=== PATIENT | female | born 1950 | race Caucasian/White ===

== ENCOUNTER 2018-04-23 16:47 | Emergency (ER) | payer MEDICARE ==
[2018-04-23 21:49] LABS: KETONE, URINE AUTO RFX NEGATIVE (NEGATIVE); LEUKOCYTE ESTERASE UR AUTO RFX NEGATIVE (NEGATIVE); NITRITE, URINE AUTO RFX NEGATIVE (NEGATIVE); RBC, URINE AUTO RFX 5 /HPF (0-3); SPECIFIC GRAVITY UR AUTO RFX 1.008 (1.002-1.035); SQUAM EPITHELIAL CELL UR AURFX 0 /HPF (0-6); WBC, URINE AUTO RFX 4 /HPF (0-3)
[2018-04-23] MEDS: SIMETHICONE 80 MG CHEW TAB PO (21:55)
[2018-04-23] MEDS: FLEET OIL RETENTION ENEMA PR (21:58)
[2018-04-23] MEDS: MAGNESIUM CITRATE 300 ML BTL PO (23:30)
== END 2018-04-23 23:44 | disposition home or self-care (01) ==
LOC: M ED 16:47
DX: K59.00 Constipation, unspecified (principal); I10 Essential (primary) hypertension; I48.91 Unspecified atrial fibrillation; E78.5 Hyperlipidemia, unspecified; Z79.899 Other long term (current) drug therapy; Z79.01 Long term (current) use of anticoagulants; Z87.891 Personal history of nicotine dependence
CPT/HCPCS: 74021

== ENCOUNTER 2018-10-29 14:29 | Emergency (ER) | payer MEDICARE ==
[2018-10-29 15:06] LABS: VENOUS BASE EXCESS 1.2 (-2.0-2.0); VENOUS HCO3 24.6 MEQ/L (23.0-27.0); VENOUS O2 SATURATION 98.1 % (60.0-80.0); VENOUS PARTIAL PRESSURE CO2 35.1 mmHg (38.0-50.0); VENOUS PARTIAL PRESSURE O2 94.6 mmHg (30.0-50.0); VENOUS PH 7.463 UNITS (7.330-7.430); VENOUS STANDARD HCO3 25.6 MEQ/L; VENOUS TOTAL CO2 25.6 MEQ/L (24.0-28.0)
[2018-10-29 15:20] LABS: BASO # 0.1 10^3/uL (0.0-0.2); BASO % 0.7 % (0.0-1.0); EOS # 0.1 10^3/uL (0.0-0.50); EOS % 0.8 % (0.0-3.0); HEMATOCRIT 41.5 % (36.0-47.0); HEMOGLOBIN 13.7 g/dl (12.0-15.5); IMMATURE GRANULOCYTE % 0.5 % (0-3.0); MEAN CORPUSCULAR HEMOGLOBIN 28.4 pg (27.0-33.0); MEAN CORPUSCULAR VOLUME 86.1 fl (80.0-96.0); MONO # 0.6 10^3/uL (0.0-0.8); MONO % 7.2 % (0.0-5.0); NEUTROPHILS # 6.7 10^3/uL (1.8-7.7); NEUTROPHILS % 78.8 % (36.0-66.0); PLATELET COUNT, AUTOMATED 263 10^3/uL (150-450); RED BLOOD COUNT 4.82 10^6/uL (4.00-5.40); RED CELL DISTRIBUTION WIDTH 13.4 % (11.5-14.5); WHITE BLOOD COUNT 8.5 10^3/uL (4.0-10.0)
[2018-10-29] MEDS: NS 1,000 ML IV (15:36)
[2018-10-29 15:45] LABS: ALBUMIN 3.7 GM/DL (3.2-5.2); ALBUMIN/GLOBULIN RATIO 1.12 (1.00-1.93); ALKALINE PHOSPHATASE 91 U/L (45-117); ALT/SGPT 24 U/L (12-78); ANION GAP 10 MEQ/L (8-16); AST/SGOT 15 U/L (7-37); BILIRUBIN,DIRECT < 0.1 MG/DL (0.0-0.2); BILIRUBIN,TOTAL 0.4 MG/DL (0.2-1.0); BLOOD UREA NITROGEN 15 MG/DL (7-18); CARBON DIOXIDE LEVEL 24 MEQ/L (21-32); CHLORIDE LEVEL 106 MEQ/L (98-107); CPK CREATINE PHOSPHOKINASE 58 U/L (26-192); CREATININE FOR GFR 0.72 MG/DL (0.55-1.30); GLOMERULAR FILTRATION RATE > 60.0 (>45); GLUCOSE, FASTING 133 MG/DL (70-100); LIPASE 119 U/L (73-393); POTASSIUM SERUM 3.7 MEQ/L (3.5-5.1); SODIUM LEVEL 140 MEQ/L (136-145); TROPONIN I < 0.02 NG/ML (< 0.10)
[2018-10-29 15:51] LABS: ESTIMATED AVERAGE GLUCOSE 108 MG/DL (60-110); HEMOGLOBIN A1c 5.4 %; MB/CK RELATIVE INDEX 3.28 (< OR =4); NT-PRO BNP 472 PG/ML (<125)
[2018-10-29 15:56] LABS: KETONE, URINE AUTO RFX NEGATIVE (NEGATIVE); LEUKOCYTE ESTERASE UR AUTO RFX NEGATIVE (NEGATIVE); MUCUS, URINE RFX SMALL (NEGATIVE); NITRITE, URINE AUTO RFX NEGATIVE (NEGATIVE); RBC, URINE AUTO RFX 4 /HPF (0-3); SQUAM EPITHELIAL CELL UR AURFX 0 /HPF (0-6); WBC, URINE AUTO RFX 1 /HPF (0-3)
[2018-10-29 15:57] LABS: ETHYL ALCOHOL (ETHANOL) 0.003 % (0.000-0.010)
[2018-10-29 16:09] LABS: AMPHETAMINES LEVEL URINE NEGATIVE (NEGATIVE); BARBITURATES URINE NEGATIVE (NEGATIVE); BENZODIAZEPINES URINE NEGATIVE (NEGATIVE); CANNABINOIDS URINE NEGATIVE (NEGATIVE); COCAINE METABOLITE URINE NEGATIVE (NEGATIVE); METHADONE URINE NEGATIVE (NEGATIVE); OPIATES URINE POSITIVE (NEGATIVE); PHENCYCLIDINE URINE NEGATIVE (NEGATIVE)
== END 2018-10-29 18:12 | disposition home or self-care (01) ==
LOC: M ED 14:29
DX: I95.1 Orthostatic hypotension (principal); E86.0 Dehydration; I48.91 Unspecified atrial fibrillation; I10 Essential (primary) hypertension; D64.9 Anemia, unspecified; E78.00 Pure hypercholesterolemia, unspecified; I73.9 Peripheral vascular disease, unspecified; Z79.01 Long term (current) use of anticoagulants; Z79.899 Other long term (current) drug therapy
CPT/HCPCS: 93005

== ENCOUNTER 2019-01-25 16:24 | Emergency (ER) | payer MEDICARE ==
[~2019-01-25] VITALS: Ht 165.1 cm; Wt 78.6 kg
[~2019-01-25 16:24] MED LIST: ACET1TAB16 PO; CART120C PO; CLON0.5T8 PO; COLA100C5 PO; ELIQ5TAB PO; FERR325T3 PO; FLUO20CA19; PRAV10TA4 PO; TRAM50TA2 PO
[2019-01-25] MEDS ORDERED: IBUPROFEN 800 MG TAB PO ONE (17:00)
[2019-01-25] MEDS ORDERED: NS 1,000 ML IV ONE (17:00)
[2019-01-25] MEDS ORDERED: ACETAMINOPHEN 325 MG TAB PO ONE (17:00)
--- NOTE | 2019-01-25 17:11 | REP ---
Clinical: Headache . Findings: Age-related atrophy and microvascular ischemic changes are appreciated. The ventricles and sulci are symmetric. Prajapati-white differentiation is maintained. There is no evidence for acute intracranial hemorrhage, mass/mass effect, pathology or infarction. No extra-axial fluid collection. Calvarium is intact. Paranasal sinuses and mastoid air cells are clear. Impression: Age related atrophy and microvascular ischemic changes. No acute intracranial hemorrhage, infarction, or mass/mass effect. Electronically Signed by Chaparro Jean Baptiste MD 01/25/2019 05:03 P
--- NOTE | 2019-01-25 17:17 | REP ---
Clinical: Systemic inflammatory response syndrome . Comparison: 10/12/2016 . Technique: AP and lateral. Findings: The mediastinum and cardiac silhouette are normal. The lung rojas are clear and without acute consolidation, effusion, or pneumothorax. The skeletal structures are intact and normal. Impression: 1. No acute cardiopulmonary process. Electronically Signed by Chaparro Jean Baptiste MD 01/25/2019 05:09 P
[2019-01-25 17:37] LABS: BASO # 0.1 10^3/uL (0.0-0.2); BASO % 0.6 % (0.0-1.0); EOS % 0.2 % (0.0-3.0); HEMATOCRIT 40.6 % (36.0-47.0); HEMOGLOBIN 13.4 g/dl (12.0-15.5); LYMPH # 0.4 10^3/uL (1.5-4.5); LYMPH % 3.5 % (24.0-44.0); MEAN CORPUSCULAR HEMOGLOBIN 27.4 pg (27.0-33.0); MONO # 0.6 10^3/uL (0.0-0.8); MONO % 5.5 % (0.0-5.0); NEUTROPHILS # 9.9 10^3/uL (1.8-7.7); NEUTROPHILS % 89.7 % (36.0-66.0); PLATELET COUNT, AUTOMATED 238 10^3/uL (150-450); RED BLOOD COUNT 4.89 10^6/uL (4.00-5.40)
[2019-01-25 18:04] LABS: ALBUMIN 3.6 GM/DL (3.2-5.2); ALT/SGPT 22 U/L (12-78); BILIRUBIN,DIRECT 0.1 MG/DL (0.0-0.2); BILIRUBIN,TOTAL 0.4 MG/DL (0.2-1.0); BLOOD UREA NITROGEN 9 MG/DL (7-18); CARBON DIOXIDE LEVEL 23 MEQ/L (21-32); CHLORIDE LEVEL 105 MEQ/L (98-107); CREATININE FOR GFR 0.63 MG/DL (0.55-1.30); GLOMERULAR FILTRATION RATE > 60.0 (>45); GLUCOSE, FASTING 103 MG/DL (70-100); POTASSIUM SERUM 3.3 MEQ/L (3.5-5.1); SODIUM LEVEL 139 MEQ/L (136-145); TOTAL PROTEIN 7.3 GM/DL (6.4-8.2)
[2019-01-25 18:07] LABS: INFLUENZA A AMPLIFICATION NEGATIVE (NEGATIVE); INFLUENZA B AMPLIFICATION NEGATIVE (NEGATIVE)
[2019-01-25] MEDS ORDERED: LIDOCAINE 2% 5ML JELLY UROJET TOP ONE (18:30)
[2019-01-25] MEDS ORDERED: KETOROLAC 30 MG/ML VIAL (J1885) IV ONE (19:30)
--- NOTE | 2019-01-25 19:31 | ECGEPIP ---
Stationary ECG Study [facility] - ED Test Date: 2019-01-25 Pat Name: EZE SUNG Department: Room: - Gender: F Dross Puller: TC : 1950 Requested By: Justin Abraham Order Number: [id number] Reading MD: Justin Abraham Measurements Intervals [place] Rate: 107 P: 25 [place]: 157 QRS: -42 QRSD: 120 T: 69 QT: 368 QTc: 493 Interpretive Statements SINUS TACHYCARDIA WITH OCCASIONAL VENTRICULAR PREMATURE COMPLEXES MARKED LEFT AXIS DEVIATION MODERATE INTRAVENTRICULAR CONDUCTION DELAY NONSPECIFIC ST & T-WAVE ABNORMALITY BASELINE ARTIFACT AND WANDERING MAY AFFECT READING PROLONGED QTC CW 10/29/18 RATE INCREASED Electronically Signed On 01-25-2019 19:30:35 EST by Justin Abraham
[2019-01-25 20:30] VITALS: BP 132/83
[2019-01-25] MEDS ORDERED: POTASSIUM CHLORIDE 10 MEQ SR TABLET PO ONE (20:30)
[2019-01-25] MEDS ORDERED: IBUPROFEN 600 MG TAB PO ONE (20:30)
== END 2019-01-25 20:52 | disposition home or self-care (01) ==
LOC: EDBD 16:24 → M ED 16:24
DX: R50.9 Fever, unspecified (principal); R09.81 Nasal congestion; R42 Dizziness and giddiness; M79.10 Myalgia, unspecified site; I10 Essential (primary) hypertension; I48.91 Unspecified atrial fibrillation; F41.9 Anxiety disorder, unspecified; M54.9 Dorsalgia, unspecified; Z87.891 Personal history of nicotine dependence; Z79.899 Other long term (current) drug therapy; Z79.01 Long term (current) use of anticoagulants
CPT/HCPCS: 70450; 71046; 80048; 80076; 81001; 83605; 85025; 87040; 87486; 87502; 87581; 87633; 87798; 87880; 93005; 93041; 94760; 96374; 99285; J1885

== ENCOUNTER → 2020-04-24 | Outpatient (CLI) | payer MEDICARE ==
[~2020-04-24] MED LIST changes: +CLON0.5T2 PO; -CLON0.5T8 PO; -FLUO20CA19; +FLUO20CA22
== END ==
LOC: M LAB 09:05
PROVIDERS: ATTEND Family Medicine
DX: I25.10 Atherosclerotic heart disease of native coronary artery without angina pectoris (principal)

== ENCOUNTER 2020-05-09 08:38 | Inpatient (IN) | payer MEDICARE ==
[2020-05-09] VITALS (14 sets, daily range): BP systolic 108–134; BP diastolic 57–74
[~2020-05-09] VITALS: Ht 162.6 cm; Wt 75.1 kg
[2020-05-09] MEDS ORDERED: ONDANSETRON 4MG/2ML VIAL IV ONE (09:00)
[2020-05-09] MEDS ORDERED: NS 1,000 ML IV ONE (09:00)
[2020-05-09] MEDS ORDERED: PANTOPRAZOLE 40MG VIAL (C9113 PER 1) IV ONE (09:00)
[2020-05-09] MEDS ORDERED: ISOVUE-370 76% 100ML VIAL As Ordered ONE (09:20)
[2020-05-09] MEDS: MORPHINE 2 MG/ML 1ML VIAL (J2270) IV PRN ×2 (09:25→09:30)
[2020-05-09 09:29] LABS: BASO # 0.1 10^3/uL (0.0-0.2); BASO % 0.3 % (0.0-1.0); EOS # 0.1 10^3/uL (0.0-0.5); EOS % 0.8 % (0.0-3.0); LYMPH % 5.5 % (24.0-44.0); MEAN CORPUSCULAR HEMOGLOBIN 23.4 pg (27.0-33.0); MEAN CORPUSCULAR HGB CONC 29.4 g/dl (32.0-36.5); MEAN CORPUSCULAR VOLUME 79.4 fl (80.0-96.0); MONO # 1.2 10^3/uL (0.0-0.8); MONO % 6.3 % (0.0-5.0); NEUTROPHILS # 15.2 10^3/uL (1.5-8.5); NEUTROPHILS % 83.1 % (36.0-66.0); PLATELET COUNT, AUTOMATED 646 10^3/uL (150-450); RED BLOOD COUNT 2.14 10^6/uL (4.00-5.40); WHITE BLOOD COUNT 18.3 10^3/uL (4.0-10.0)
[2020-05-09 09:40] LABS: INR 1.23; PARTIAL THROMBOPLASTIN TIME 30.8 SECONDS (25.0-38.4); PROTHROMBIN TIME 15.2 SECONDS (11.8-14.0)
[2020-05-09 10:06] LABS: ALT/SGPT 68 U/L (12-78); AMYLASE 34 U/L (25-115); BILIRUBIN,DIRECT < 0.1 MG/DL (0.0-0.2); BILIRUBIN,TOTAL 0.3 MG/DL (0.2-1.0); CK-MB VALUE MASS < 1.0 NG/ML (<3.6); CPK CREATINE PHOSPHOKINASE 19 U/L (26-192); LIPASE 138 U/L (73-393); MB/CK RELATIVE INDEX 5.26 (< OR =4); TOTAL PROTEIN 6.1 GM/DL (6.4-8.2); TROPONIN I < 0.02 NG/ML (< 0.10)
--- NOTE | 2020-05-09 10:15 | REP ---
CT abdomen/pelvis: 05/09/2020. Indication: Abdominal pain. Technique: Axial images of the abdomen and pelvis were performed following IV iodinated contrast with coronal and sagittal reconstructions provided. Findings: There is a partially calcified mass within the right lower quadrant which measures 2.5 by 2.8 x 1.8 cm is somewhat irregular borders. No additional solid abnormal soft tissue masses are present. No abnormal fluid collections are present. There is no evidence of bowel obstruction. Left-sided pleural effusion is present. Diffuse atherosclerotic disease is noted. No focal abnormalities of the spleen, liver, adrenal glands or kidneys are present. Diverticulosis is noted without diverticulitis. Impression: Partially calcified mesenteric mass within the right lower quadrant as described. Considerations include dermoid, partially calcified vascular malformation, lymphoma had additional etiologies. Correlation with previous imaging would be helpful. Diverticulosis without diverticulitis. Atherosclerotic disease without high-grade stenosis detected by this technique. Left-sided pleural effusion. Electronically Signed by Giuseppe Julian DO 05/09/2020 10:06 A
[2020-05-09] MEDS ORDERED: DILT120C89 PO (11:00)
[2020-05-09] MEDS ORDERED: VITMTA PO (11:00)
[2020-05-09] MEDS ORDERED: CAL-TAB2 PO (11:00)
[2020-05-09] MEDS ORDERED: APAP325T4 PO (11:00)
[2020-05-09] MEDS ORDERED: CLON1TAB8 PO (11:00)
[2020-05-09] MEDS ORDERED: DOCU100C16 PO (11:00)
[2020-05-09] MEDS ORDERED: PRAV20TA2 PO (11:00)
[2020-05-09] MEDS ORDERED: GLUCOSE 4GM CHEW TABLET PO PRN (11:45)
[2020-05-09] MEDS ORDERED: MORPHINE 4 MG/ML 1ML VIAL/SYRINGE (J2270) IV PRN (11:45)
[2020-05-09] MEDS ORDERED: DEXTROSE 50% 50 ML SYRINGE IV PRN (11:45)
[2020-05-09] MEDS ORDERED: ONDANSETRON 4MG/2ML VIAL IV PRN (11:45)
[2020-05-09] MEDS ORDERED: GLUCAGON INJ 1MG VIAL SC PRN (11:45)
--- NOTE | 2020-05-09 11:51 | HPEPDOC ---
General Date of Admission Date of Service: May 09, 2020 Chief Complaint The patient is a 69-year-old female admitted with a reason for visit of Weaknesss. Source: Patient Exam Limitations: No limitations Timing/Duration: Other (unknown time.) Severity: Other (not applicable) Associated Symptoms: Other (. Generalized weakness) History of Present Illness This is a 69 years old, obese, white female who according to patient has lived all over the country from [place] to [place], [place], etc. has a past medical history of atrial fibrillation, hypertension, diet-controlled diabetes mellitus, anemia, has been experiencing generalized tiredness and fatigue since several days now. She started having mid abdominal pain which is a 6/10, nonradiating, persistent not s associated with nausea, vomiting, not improve with any medication and not exacerbated by food intake, but was associated with loose bowel movements since last 3-4 days. Denies chest pain, shortness of breath. On further investigation, she was found to have a heme positive stools and hemoglobin of 5. Patient also had a unlikely hernia which was reduced by Dr. Vo in ED also found to have a mesenteric mass of unknown etiology as well. Patient is scheduled for EGD and colonoscopy by Dr. Ruvalcaba at 2:30 PM tomorrow Home Medications Scheduled Calcium/Magnesium/Zinc (Tkvdxrr-Qyxnfdrpe-Kamv Tablet) 1 Each Tablet, 1 TAB PO QHS, (Reported) Clonazepam (Clonazepam) 1 Mg Tablet, 0.5 MG PO QID, (Reported) Ferrous Sulfate (Ferrous Sulfate) 325 Mg Tab, 325 MG PO BID, (Reported) Multivitamins (Thera M Plus Tablet) 1 Each Tablet, 1 TAB PO DAILY, (Reported) Pravastatin Sodium (Pravastatin Sodium) 20 Mg Tablet, 20 MG PO DAILY, (Reported) dilTIAZem HCl (Diltiazem 24Hr Cd) 120 Mg Cap.er.24h, 120 MG PO DAILY, (Reported) Scheduled PRN Acetaminophen (Acetaminophen) 325 Mg Tablet, 650 MG PO Q6H PRN for BACK PAIN, (Reported) Acetaminophen with Codeine (Acetaminophen-Cod #3 Tablet) 1 Tab Tab, 0.5 TAB PO Q6H PRN for PAIN, (Reported) Docusate Sodium (Docusate Sodium) 100 Mg Capsule, 100 MG PO BID PRN for CONSTIPATION, (Reported) Allergies Coded Allergies: No Known Allergies (Verified Allergy, Unknown, 05/09/20) Past Medical History Medical History A. fib, hypertension, diet-controlled diabetes mellitus, constipation, anxiety and hyperlipidemia Surgical History Tonsillectomy Family History Family history reviewed, is noncontributory Social History * Smoker: Denies Alcohol: Denies Drugs: denies A-FIB/CHADSVASC A-FIB History Current/History of A-Fib/PAF?: Yes Current PO Anticoag Therapy: No Review of Systems Constitutional: Reports: Weakness, Fatigue Eyes: Denies: Pain, Vision change, Conjunctivae inflammation, Eyelid inflammation, Redness, Other ENT: Denies: Head Aches, Ear Pain, Dysphagia, Sinus Congestion, Post Nasal Drip, Sore Throat, Epistaxis, Other Symptoms Skin: Denies: Rash, Lesions, Jaundice, Bruising, Itching, Dry, Breakdown, Nail Changes, Other Pulmonary: Denies: Dyspnea, Cough, Pleuritic Chest Pain, Other Symptoms Cardiovascular: Denies: Chest Pain, Palpitations, Orthopnea, Paroxysmal Noc. Dyspnea, Edema, Lt Headedness, Other Symptoms Gastrointestinal: Reports: Abdominal Pain Genitourinary: Denies: Dysuria, Frequency, Incontinence, Hematuria, Retention, Other Symptoms Hematologic: Denies: Bruising, Bleeding Excessively, Petecchia, Purpura, Enlarged Lymph Nodes, Other Hematologic Endocrine: Denies: Polydipsia, Polyphagia, Polyuria, Heat Intolerance, Cold Intolerance, Other Endocrine Sx Musculoskeletal: Denies: Neck Pain, Back Pain, Shoulder Pain, Arm Pain, Hand Pain, Leg Pain, Foot Pain, Joint Pain, Muscle Pain, Spasms, Other Symptoms Neurological: Denies: Weakness, Numbness, Incoordination, Change in speech, Confusion, Seizures, Other Symptoms Psych: Denies: Mood Normal, Anxiety, Depression, Memory Issues, Thoughts of Self Harm, Anger, Thoughts of Harming Other, Other Psych Physical Examination General Exam: Positive: Alert, Cooperative Eye Exam: Positive: PERRLA, Conjunctiva & lids normal ENT Exam: Positive: Atraumatic, Mucous membr. moist/pink Neck Exam: Positive: Supple Chest Exam: Positive: Clear to auscultation, Normal air movement Heart Exam: Positive: Rate Normal, Normal S1, Normal S2 Abdomen Exam: Positive: Normal bowel sounds, Soft, Tenderness (. No tenderness on the physical examination. No rebound tenderness as well) Extremity Exam: Positive: Normal pulses Skin Exam: Positive: Nl turgor and temperature, Breakdown Neuro Exam: Positive: Strength at 5/5 X4 ext, Cranial Nerves 3-12 NL Psych Exam: Positive: Mood NL, Oriented x 3 Vital Signs Vital Signs Date Time Temp Pulse Resp B/P (MAP) Pulse Ox O2 Delivery O2 Flow Rate FiO2 05/09/20 11:19 100.4 100 22 108/59 94 Nasal Cannula 2.0 Laboratory Data Labs 24H Laboratory Tests 2 05/09/20 09:09: Immature Granulocyte % (Auto) 4.0H, Neutrophils (%) (Auto) 83.1H, Lymphocytes (%) (Auto) 5.5L, Monocytes (%) (Auto) 6.3H, Eosinophils (%) (Auto) 0.8, Basop hils (%) (Auto) 0.3, Neutrophils # (Auto) 15.2H, Lymphocytes # (Auto) 1.0L, Monocytes # (Auto) 1.2H, Eosinophils # (Auto) 0.1, Basophils # (Auto) 0.1, Nucleated Red Blood Cells % (auto) 0.4H, Prothrombin Time 15.2H, Prothromb Time International Ratio 1.23, Activated Partial Thromboplast Time 30.8, Lactic Acid Level 1.5, Total Bilirubin 0.3, Direct Bilirubin < 0.1, Aspartate Amino Transf (AST/SGOT) 45H, Alanine Aminotransferase (ALT/SGPT) 68, Alkaline Phosphatase 140H, Total Creatine Kinase 19L, Creatine Kinase MB < 1.0, Creatine Kinase MB Relative Index 5.26H, Troponin I < 0.02, Total Protein 6.1L, Albumin 2.0L, Albumin/Globulin Ratio 0.5L, Amylase Level 34, Lipase 138 05/09/20 09:13: POC Glucose (Misc Panel) 143H, POC Sodium (Misc Panel) 135L, POC Potassium (Misc Panel) 4.1, POC Chloride (Misc Panel) 100, POC Total CO2 (Misc Panel) 23.0, POC Blood Urea Nitrogen (Misc Panel 17, POC Ionized Calcium (Misc Panel) 4.6, POC Creatinine (Misc Panel) 0.4L, POC Hematocrit (Misc Panel) 17.0L CBC/BMP Laboratory Tests 05/09/20 09:09 Microbiology Microbiology 05/09/20 Blood Culture, Received Pending 05/09/20 Blood Culture, Received Pending Problems (1) Symptomatic anemia Status: Acute Problem Text: This is a 69 years old, obese, white female who according to patient has lived all over the country from [place] to [place], [place], etc. has a past medical history of atrial fibrillation, hypertension, diet-controlled diabetes mellitus, anemia, has been experiencing generalized tiredness and fatigue since several days now. She started having mid abdominal pain which is a 6/10, nonradiating, persistent not s associated with nausea, vomiting, not improve with any medication and not exacerbated by food intake, but was associated with loose bowel movements since last 3-4 days. Denies chest pain, shortness of breath. On further investigation, she was found to have a heme positive stools and hemoglobin of 5. Patient also had a unlikely hernia which was reduced by Dr. Vo in ED also found to have a mesenteric mass of unknown etiology as well. Patient is scheduled for EGD and colonoscopy by Dr. Ruvalcaba at 2:30 PM tomorrow Admit patient to PCU with monitoring analyst Patient is receiving transfusion of 1 unit of PRBC in ED , I will transfuse HER-2 more units of PRBC. The total number of 3 units of PRBC today Hemoglobin/hematocrit posttransfusion Further workup including EGD and colonoscopy tomorrow at 2:30 PM and OR by Dr. Ruvalcaba DVT prophylaxis with bilateral SCDs Hold aspirin Diet nothing by mouth except sips and chips Activity bed rest with bathroom privileges (2) Abdominal pain Status: Acute Problem Text: Abdominal pain, probably has multiple etiologies Including mesenteric mass of unknown etiology, possibly a dermoid cyst or calc ified vascular malformation or lymphoma Also she has umbilicus hernia which was reduced by Dr. Vo in ED, which contains only fat , But she does also have a high white count of 18.3, so infectious etiology cannot be ruled out IV fluids normal saline at 70 mL per hour Zosyn 3.375 mg IV every 6 hours Morphine sulfate 4 mg IV every 4 hours when necessary for pain Zofran 4 mg IV every 4 hours when necessary for nausea, vomiting Toradol 15 mg IV every 6 hours when necessary for fever and pain Nothing by mouth except sips and chips 1 gallon of GoLYTELY to be given today per GI prep Scheduled for EGD and colonoscopy in in a.m. Further, as per surgical recommendations (3) Mesenteric mass Status: Acute Problem Text: Mesenteric mass visible on CT of the abdomen and pelvis which shows partially calcified mesenteric mass in the right lower quadrant which could be dermoid cyst, calcified vascular malformation lymphoma, etc. Surgical consult has been called and I discussed the case with Dr. Ruvalcaba over the phone Patient initially will get EGD and colonoscopy secondary to severe edema and then further workup will be initiated for mesenteric mass (4) Umbilical hernia Status: Acute Problem Text: Reduced by Dr. Vo in ED CT shows possible faint and umbilicus hernia , We'll closely monitor clinically (5) Diabetes mellitus Status: Chronic Problem Text: And into the patient she has a diet-controlled diabetes mellitus Fingerstick blood sugar every 6 hours with coverage Will order hemoglobin A1c as well (6) Chronic a-fib Status: Chronic Problem Text: Chronic A. fib, rate controlled with Cardizem and on aspirin for anticoagulation Hold both as patient is preop for procedures in a.m. Patient's ventricular rate is under well control. If needed will start IV beta blockers , But hold aspirin and Cardizem by mouth at the present time (7) Hyperlipemia Status: Chronic Problem Text: Hold by mouth meds (8) HTN (hypertension) Status: Chronic Problem Text: Blood pressure is under well control at the present time and will hold her by mouth meds For needed. Will start IV beta blockers Plan / VTE VTE Prophylaxis Ordered?: Yes ADRIÁN SANCHEZ MD May 09, 2020 11:51
[2020-05-09] MEDS: NS 1,000 ML IV SCH (12:23)
[2020-05-09] MEDS: KETOROLAC 30 MG/ML 1ML VIAL IV SCH ×2 (12:23→19:00)
[2020-05-09] MEDS: PIPERACILLIN/TAZOBACTAM SOD 3.375 GM in D5W MINI-BAG PLUS 50 ML IV SCH ×2 (12:23→18:59)
[2020-05-09] MEDS: HumaLOG INSULIN (NovoLOG) PER UNIT SC SCH ×2 (12:43→18:00)
[2020-05-09] MEDS ORDERED: GOLYTELY SOLN 4000 ML BTL PO ONE (15:00)
[2020-05-09] MEDS: LORazepam 2 MG/ML VIAL IV PRN (15:46)
--- NOTE | 2020-05-09 16:11 | ECGEPIP ---
[facility] - ED Test Date: 2020-05-09 Pat Name: EZE SUNG Department: Room: - Gender: Female Health Science Writer: lo : 1950 Requested By: KAREN Galicia Order Number: [id number] Reading MD: Adenike Fritz Measurements Intervals [place] Rate: 114 P: 37 IA: 143 QRS: -10 QRSD: 106 T: -15 QT: 315 QTc: 435 Interpretive Statements SINUS TACHYCARDIA NONSPECIFIC ST & T-WAVE ABNORMALITY ABNORMAL RHYTHM ECG INCREASED RATE 01/25/19 Electronically Signed on 05-09-2020 16:11:02 EDT by Adenike Fritz
[2020-05-09 16:51] LABS: HEMATOCRIT 22.6 % (36.0-47.0)
[2020-05-09 18:01] LABS: HEMOGLOBIN 6.9 g/dl (12.0-15.5)
[2020-05-09] MEDS: PANTOPRAZOLE 40MG VIAL (C9113 PER 1) IV SCH (20:48)
[2020-05-09 22:27] LABS: HEMATOCRIT 23.7 % (36.0-47.0); HEMOGLOBIN 7.4 g/dl (12.0-15.5)
[2020-05-10] VITALS (14 sets, daily range): BP systolic 110–136; BP diastolic 57–92
[2020-05-10] MEDS: KETOROLAC 30 MG/ML 1ML VIAL IV SCH ×4 (00:23→20:20)
[2020-05-10] MEDS: PIPERACILLIN/TAZOBACTAM SOD 3.375 GM in D5W MINI-BAG PLUS 50 ML IV SCH ×4 (00:23→20:19)
[2020-05-10 05:09] LABS: HEMATOCRIT 23.7 % (36.0-47.0); HEMOGLOBIN 7.2 g/dl (12.0-15.5); MEAN CORPUSCULAR HEMOGLOBIN 25.2 pg (27.0-33.0); MEAN CORPUSCULAR HGB CONC 30.4 g/dl (32.0-36.5); MEAN CORPUSCULAR VOLUME 82.9 fl (80.0-96.0); RED BLOOD COUNT 2.86 10^6/uL (4.00-5.40); WHITE BLOOD COUNT 12.4 10^3/uL (4.0-10.0)
[2020-05-10 05:12] LABS: PLATELET COUNT, AUTOMATED 436 10^3/uL (150-450)
[2020-05-10 05:32] LABS: HEMOGLOBIN A1c 6.3 %
[2020-05-10 05:46] LABS: ALBUMIN 1.9 GM/DL (3.2-5.2); ALT/SGPT 61 U/L (12-78); BILIRUBIN,TOTAL 0.7 MG/DL (0.2-1.0); BLOOD UREA NITROGEN 9 MG/DL (7-18); CALCIUM LEVEL 7.7 MG/DL (8.8-10.2); CARBON DIOXIDE LEVEL 23 MEQ/L (21-32); CHLORIDE LEVEL 107 MEQ/L (98-107); CREATININE FOR GFR 0.49 MG/DL (0.55-1.30); GLOMERULAR FILTRATION RATE > 60.0 (>45); GLUCOSE, FASTING 98 MG/DL (70-100); SODIUM LEVEL 141 MEQ/L (136-145); TOTAL PROTEIN 5.9 GM/DL (6.4-8.2)
[2020-05-10] MEDS: HumaLOG INSULIN (NovoLOG) PER UNIT SC SCH ×4 (06:41→18:00)
[2020-05-10] MEDS ORDERED: LORazepam 2 MG/ML VIAL As Ordered ONE ×2 (07:58→17:32)
[2020-05-10] MEDS: LORazepam 2 MG/ML VIAL IV PRN ×2 (08:05→17:36)
[2020-05-10] MEDS: NS 1,000 ML IV SCH ×2 (08:06→14:52)
--- NOTE | 2020-05-10 08:26 | CR ---
DATE OF CONSULTATION: 05/09/2020 REASON FOR CONSULTATION: Gastrointestinal (GI) bleed. HISTORY OF PRESENT ILLNESS: The patient is a 69-year-old female who presented emergency room with a chief complaint of generalized weakness. She claims that this has been going on for the past couple of weeks, but over the past 3-4 days her weakness has been getting progressively worse. She also in the last day or two started to have some abdominal pain around her umbilicus. She came into emergency room for evaluation and was found to have severe anemia as well as some melanotic stools, but she denies any nausea or vomiting. No fevers or chills. Just mainly generalized weakness and tiredness. The CT did show a slight umbilical hernia that was reduced by the emergency room (ER) physician and she says that that pain is much improved. The CT also showed a mass in her mesentery that she has not known about before. She has never had an upper endoscopy before. She denies any problems with heartburn or acid reflux. She has never noticed blood in her stool. She normally does have darker stools due to her iron supplements, but no other bright red bleeding that she has ever noticed. She has had prior colonoscopy a couple years ago that was normal. Currently, she has already received one unit of blood, the second unit is running and she still feels very weak. PAST MEDICAL HISTORY: 1. Atrial fibrillation. 2. Hypertension. 3. Diabetes. 4. Constipation. 5. Anxiety. 6. Hyperlipidemia. PAST SURGICAL HISTORY: Tonsillectomy. FAMILY HISTORY: Noncontributory. REVIEW OF SYSTEMS: Pertinent positives and negatives as stated in the history of present illness (HPI). ALLERGIES: None. MEDICATIONS: Please see med record. PHYSICAL EXAMINATION: General: Alert and oriented x3. No acute distress. Vitals: Temperature 98.2, pulse 98, respirations 22, blood pressure 131/65, pulse oximetry 90% on 2 liters nasal cannula. HEENT: Pupils equally round, react to light and accommodation. Heart: S1, S2. Regular rate and rhythm. Lungs: Lungs clear to auscultation bilaterally. Abdomen: Soft. Slight tenderness periumbilically. No rebounding or rigidity. The hernia is soft. Extremities: No clubbing, cyanosis or edema. LABORATORY DATA: White count 18.3, hemoglobin 5, platelets 646, lactic acid 1.5, sodium 135, potassium 4.1, creatinine 0.4. IMAGING STUDIES: CT of abdomen and pelvis was obtained and shows a partially calcified mesenteric mass of the right lower quadrant. Considerations include possible dermoid, calcified vascular malformation, lymphoma, diverticulosis without diverticulitis, atherosclerotic disease without high grade stenosis. ASSESSMENT/PLAN: The patient is a 69-year-old female with severe blood loss anemia from a GI source, likely upper versus lower. She also has an incidental finding of a mesenteric mass as well as a ventral hernia that was reduced. Recommendation at this time is to prep her overnight and plan for upper and lower endoscopy tomorrow afternoon. She has already been placed on the operating room(OR) schedule. I discussed that with her and she agrees. The risks and benefits of the procedure were discussed and consent will be obtained. As far as the mass in the abdomen, will see what the upper and lower endoscopy show first, then consider further workup for the mass in the near future.
[2020-05-10] MEDS: PANTOPRAZOLE 40MG VIAL (C9113 PER 1) IV SCH ×2 (09:36→21:23)
--- NOTE | 2020-05-10 11:01 | IPNPDOC ---
Text Note Date of Service The patient was seen on 05/10/20. NOTE No acute events overnight. She is going for egd and colonoscopy today. Consent is signed. No changes to H+P. Jesus Ruvalcaba DO VS,Carmelo, I+O VS, Carmelo, I+O Laboratory Tests 05/09/20 16:44 05/09/20 21:57 05/10/20 05:00 Vital Signs Date Time Temp Pulse Resp B/P (MAP) Pulse Ox O2 Delivery O2 Flow Rate FiO2 05/10/20 08:21 97.1 91 20 121/58 (79) 95 Nasal Cannula 2.0 I&O- Last 24 Hours up to 6 AM 05/10/20 06:00 Intake Total 2252 ml Output Total 3000 ml Balance -748 ml DAYA RUVALCABA DO May 10, 2020 11:01
--- NOTE | 2020-05-10 11:09 | IPNPDOC ---
Subjective Date Seen The patient was seen on 05/10/20. Subjective Chief Complaint/HPI Patient is awaiting colonoscopy and an EGD today, she is nothing by mouth at the present time General: Denies: ROS Unobtainable, Chills, Night Sweats, Fatigue, Malaise, Normal Appetite, Other Symptoms Constitutional: Denies: Chills, Fever, Malaise, Night Sweats, Weakness, Fatigue, Weight Loss, Lethargy, Other Pulmonary: Denies: Dyspnea, Cough, Pleuritic Chest Pain, Other Symptoms Cardiovascular: Denies: Chest Pain, Palpitations, Orthopnea, Paroxysmal Noc. Dyspnea, Edema, Lt Headedness, Other Symptoms Gastrointestinal: Reports: Abdominal Pain Genitourinary: Denies: Dysuria, Frequency, Incontinence, Hematuria, Retention, Other Symptoms Hematologic: Denies: Bruising, Bleeding Excessively, Petecchia, Purpura, Enlarged Lymph Nodes, Other Hematologic Musculoskeletal: Denies: Neck Pain, Back Pain, Shoulder Pain, Arm Pain, Hand Pain, Leg Pain, Foot Pain, Joint Pain, Muscle Pain, Spasms, Other Symptoms Objective Physical Examination General Exam: Positive: Alert, Cooperative Eye Exam: Positive: PERRLA, Conjunctiva & lids normal ENT Exam: Positive: Atraumatic, Mucous membr. moist/pink Neck Exam: Positive: Supple Chest Exam: Positive: Clear to auscultation, Normal air movement Heart Exam: Positive: Rate Normal, Normal S1, Normal S2 Abdomen Exam: Positive: Normal bowel sounds, Soft, Tenderness (. No tenderness on the physical examination. No rebound tenderness as well) Extremity Exam: Positive: Normal pulses Skin Exam: Positive: Nl turgor and temperature, Breakdown Neuro Exam: Positive: Strength at 5/5 X4 ext, Cranial Nerves 3-12 NL Psych Exam: Positive: Mood NL, Oriented x 3 Assessment /Plan Problems (1) Symptomatic anemia Status: Acute Problem Text: This is a 69 years old, obese, white female who according to patient has lived all over the country from [place] to [place], [place], etc. has a past medical history of atrial fibrillation, hypertension, diet-controlled diabetes mellitus, anemia, has been experiencing generalized tiredness and fatigue since several days now. She started having mid abdominal pain which is a 6/10, nonradiating, persistent not s associated with nausea, vomiting, not improve with any medication and not exacerbated by food intake, but was associated with loose bowel movements since last 3-4 days. Denies chest pain, shortness of breath. On further investigation, she was found to have a heme positive stools and hemoglobin of 5. Patient also had a unlikely hernia which was reduced by Dr. Vo in ED also found to have a mesenteric mass of unknown etiology as well. Patient admitted to PCU for further care Patient received a total of 3 units of PRBC. Her hemoglobin is 7.2, hematocrit 23.7 today . She is a scheduled for colonoscopy and EGD today by surgery to find the cause for her GI bleed Follow CBC regularly and transfuse as needed , Aspirin on hold Will change activity as tolerated Will restart all her home meds, once the procedures are complete Discussed with Dr. Ruvalcaba yesterday and the plan is to get colonoscopy. EGD done today and then work her up for mesenteric mass. (2) Abdominal pain Status: Acute Problem Text: Abdominal pain, probably has multiple etiologies Including mesenteric mass of unknown etiology, possibly a dermoid cyst or calcified vascular malformation or lymphoma Also she has umbilicus hernia which was reduced by Dr. Vo in ED, which contains only fat , But she does also have a high white count of 18.3, so infectious etiology kb ot be ruled out IV fluids normal saline at 70 mL per hour Zosyn 3.375 mg IV every 6 hours Morphine sulfate 4 mg IV every 4 hours when necessary for pain Zofran 4 mg IV every 4 hours when necessary for nausea, vomiting Toradol 15 mg IV every 6 hours when necessary for fever and pain Nothing by mouth except sips and chips 1 gallon of GoLYTELY was given yesterday Patient is scheduled for EGD and colonoscopy today (3) Mesenteric mass Status: Acute Problem Text: Mesenteric mass visible on CT of the abdomen and pelvis which shows partially calcified mesenteric mass in the right lower quadrant which could be dermoid cyst, calcified vascular malformation lymphoma, etc. Surgical consult has been called and I discussed the case with Dr. Ruvalcaba over the phone Patient initially will get EGD and colonoscopy secondary to severe edema and then further workup will be initiated for mesenteric mass (4) Chronic a-fib Status: Chronic Problem Text: Chronic A. fib, rate controlled with Cardizem and on aspirin for anticoagulation Hold both as patient is preop for procedures in a.m. Patient's ventricular rate is under well control. If needed will start IV beta blockers , But hold aspirin and Cardizem by mouth at the present time. Restart after the procedures (5) HTN (hypertension) Status: Chronic Problem Text: Blood pressure is under well control at the present time and will hold her by mouth meds Patient is on IV beta blockers and will change it to her oral meds after the procedures (6) Hyperlipemia Status: Chronic Problem Text: Hold by mouth meds (7) Umbilical hernia Status: Acute Problem Text: Reduced by Dr. Vo in ED CT shows possible faint and umbilicus hernia , We'll closely monitor clinically (8) Diabetes mellitus Status: Chronic Problem Text: patient she has a diet-controlled diabetes mellitus Fingerstick blood sugar every 6 hours with coverage Patient's hemoglobin A1c is 6.3 Probably need antidiabetic meds on discharge Plan/VTE VTE Prophylaxis Ordered?: Yes VS, I&O, 24H, Fishbone Vital Signs/I&O Vital Signs Date Time Temp Pulse Resp B/P (MAP) Pulse Ox O2 Delivery O2 Flow Rate FiO2 05/10/20 08:21 97.1 91 20 121/58 (79) 95 Nasal Cannula 2.0 I&O- Last 24 Hours up to 6 AM 05/10/20 05:59 Intake Total 2252 ml Output Total 2600 ml Balance -348 ml Laboratory Data 24H LABS Laboratory Tests 2 05/09/20 12:23: Urine Color YELLOW, Urine Appearance CLEAR, Urine pH 5.0, Urine Specific [place] 1.048, Urine Protein NEGATIVE, Urine Glucose (UA) NEGATIVE, Urine Ketones NEGATIVE, Urine Blood 1+H, Urine Nitrite NEGATIVE, Urine Bilirubin NEGATIVE, Urine Urobilinogen 0.2, Urine Leukocyte Esterase NEGATIVE, Urine WBC (Auto) 1, Urine RBC (Auto) 5H, Urine Hyaline Casts (Auto) 0, Urine Bacteria (Auto) NEGATIVE, Urine Squamous Epithelial Cells 1, Urine Mucus (Auto) SMALL, Urine S perm (Auto) 05/09/20 12:34: Bedside Glucose (Misc Panel) 132H 05/09/20 18:19: Bedside Glucose (Misc Panel) 110 05/10/20 00:25: Bedside Glucose (Misc Panel) 100 05/10/20 05:00: Nucleated Red Blood Cells % (auto) 0.8H, Anion Gap 11, Glomerular Filtration Rate > 60.0, Estimated Mean Plasma Glucose 134H, Hemoglobin A1c 6.3, Calcium Level 7.7L, Magnesium Level 2.0, Total Bilirubin 0.7#, Aspartate Amino Transf (AST/SGOT) 43H, Alanine Aminotransferase (ALT/SGPT) 61, Alkaline Phosphatase 127H, Total Protein 5.9L, Albumin 1.9L, Albumin/Globulin Ratio 0.5L, Thyroid Stimulating Hormone (TSH) 1.480 CBC/BMP Laboratory Tests 05/09/20 16:44 05/09/20 21:57 05/10/20 05:00 Microbiology Microbiology 05/10/20 Respiratory Virus Panel (PCR) (SHASHA) - Final, Complete 05/09/20 Blood Culture - Preliminary, Resulted No growth after 24 hours . All specim... 05/09/20 Blood Culture - Preliminary, Resulted No growth after 24 hours . All specim... ADRIÁN SANCHEZ MD May 10, 2020 11:09
[2020-05-10] MEDS ORDERED: propofoL 200 MG/20 ML VIAL As Ordered ONE ×3 (12:03→12:53)
[2020-05-10] MEDS ORDERED: fentaNYL 100 MCG/2 ML INJECTION (J3010) As Ordered ONE (12:03)
[2020-05-10] MEDS ORDERED: LIDOCAINE 2% 100MG/5ML SDV (FOR ANES.) As Ordered ONE (12:22)
[2020-05-10] MEDS ORDERED: EPINEPHrine 1MG/10ML SYRINGE 1.5IN As Ordered ONE (12:25)
--- NOTE | 2020-05-10 13:07 | ROOR ---
Patient Name: Janeth Deras Procedure Date: 05/10/2020 12:13 PM Date of : 1950 Age: 69 Room: [facility], [facility]IN [facility] Gender: Female Note Status: Finalized Procedure: Upper GI endoscopy Indications: Acute post hemorrhagic anemia Providers: DO Yomi Wen MD: 2. Inpatient 2. Inpatient Requesting Provider: Medicines: Propofol per Anesthesia Complications: No immediate complications. Procedure: Pre-Anesthesia Assessment: - Prior to the procedure, a History and Physical was performed, and patient medications and allergies were reviewed. The patient is competent. The risks and benefits of the procedure and the sedation options and risks were discussed with the patient. All questions were answered and informed consent was obtained. Patient identification and proposed procedure were verified by the physician, the nurse, the duty engineer and the cost recovery technician in the endoscopy suite. Mental Status Examination: alert and oriented. Airway Examination: normal oropharyngeal airway and neck mobility. Respiratory Examination: clear to auscultation. CV Examination: normal. Prophylactic Antibiotics: The patient does not require prophylactic antibiotics. Prior Anticoagulants: The patient has taken no previous anticoagulant or antiplatelet agents. ASA Grade Assessment: III - A patient with severe systemic disease. After reviewing the risks and benefits, the patient was deemed in satisfactory condition to undergo the procedure. The anesthesia plan was to use monitored anesthesia care (MAC). Immediately prior to administration of medications, the patient was re-assessed for adequacy to receive sedatives. The heart rate, respiratory rate, oxygen saturations, blood pressure, adequacy of pulmonary ventilation, and response to care were monitored throughout the procedure. The physical status of the patient was re-assessed after the procedure. The Endoscope was introduced through the mouth, and advanced to the third part of duodenum. The upper GI endoscopy was accomplished without difficulty. The patient tolerated the procedure well. Findings: One non-bleeding superficial gastric ulcer with no stigmata of bleeding was found in the prepyloric region of the stomach. A single less than 5 mm angioectasia with bleeding on contact was found in the first portion of the duodenum. Area was unsuccessfully injected with 1 mL of a 1:10,000 solution of epinephrine for hemostasis. To prevent bleeding post-intervention, one hemostatic clip was successfully placed. There was no bleeding at the end of the procedure. The esophagus was normal. Impression: - Non-bleeding gastric ulcer with no stigmata of bleeding. - A single angioectasia in the duodenum. Treatment not successful. Clip was placed. - Normal esophagus. - No specimens collected. Recommendation: - Return [facility] for [facility] care. - Resume regular diet. Kelton Ruvalcaba DO 05/10/2020 1:07:12 PM Electronically signed by Kelton Ruvalcaba DO Number of Addenda: 0 Note Initiated On: 05/10/2020 12:13 PM Estimated Blood Loss: Estimated blood loss was minimal.
--- NOTE | 2020-05-10 13:10 | ROOR ---
Patient Name: Janeth Deras Procedure Date: 05/10/2020 12:11 PM Date of : 1950 Age: 69 Room: [facility] Gender: Female Note Status: Finalized Procedure: Colonoscopy Indications: Acute post hemorrhagic anemia Providers: DO Yomi Wen MD: 2. Inpatient 2. Inpatient Requesting Provider: Medicines: Propofol per Anesthesia Complications: No immediate complications. Procedure: Pre-Anesthesia Assessment: - Prior to the procedure, a History and Physical was performed, and patient medications and allergies were reviewed. The patient is competent. The risks and benefits of the procedure and the sedation options and risks were discussed with the patient. All questions were answered and informed consent was obtained. Patient identification and proposed procedure were verified by the physician, the nurse, the sponge diver and the medical administrative technician in the endoscopy suite. Mental Status Examination: alert and oriented. Airway Examination: normal oropharyngeal airway and neck mobility. Respiratory Examination: clear to auscultation. CV Examination: normal. Prophylactic Antibiotics: The patient does not require prophylactic antibiotics. Prior Anticoagulants: The patient has taken no previous anticoagulant or antiplatelet agents. ASA Grade Assessment: III - A patient with severe systemic disease. After reviewing the risks and benefits, the patient was deemed in satisfactory condition to undergo the procedure. The anesthesia plan was to use monitored anesthesia care (MAC). Immediately prior to administration of medications, the patient was re-assessed for adequacy to receive sedatives. The heart rate, respiratory rate, oxygen saturations, blood pressure, adequacy of pulmonary ventilation, and response to care were monitored throughout the procedure. The physical status of the patient was re-assessed after the procedure. The Colonoscope was introduced through the anus and advanced to the cecum, identified by appendiceal orifice and ileocecal valve. The colonoscopy was performed without difficulty. The patient tolerated the procedure well. Findings: Two small localized angioectasias with bleeding were found in the cecum. To prevent bleeding post-intervention, one hemostatic clip was successfully placed. There was no bleeding at the end of the procedure. Multiple small and large-mouthed diverticula were found in the sigmoid colon, descending colon and transverse colon. The exam was otherwise without abnormality on direct and retroflexion views. Impression: - Two bleeding colonic angioectasias. Clip was placed. - Diverticulosis in the sigmoid colon, in the descending colon and in the transverse colon. - The examination was otherwise normal on direct and retroflexion views. - No specimens collected. Recommendation: - Repeat colonoscopy in 5-10 years for screening purposes. - Return to my office PRN. - Return patient to [facility] for [facility]. - Resume regular diet. Kelton Ruvalcaba DO 05/10/2020 1:09:45 PM Electronically signed by Kelton Ruvalcaba DO Number of Addenda: 0 Note Initiated On: 05/10/2020 12:11 PM Estimated Blood Loss: Estimated blood loss was minimal.
[2020-05-10] MEDS ORDERED: ISOVUE-370 76% 100ML VIAL As Ordered ONE (13:15)
--- NOTE | 2020-05-10 15:44 | REP ---
CT ANGIOGRAPHY ABDOMEN AND PELVIS WITH IV CONTRAST: HISTORY: Mesenteric mass. Comparison is made with the previous day's CT study May 09, 2019. TECHNIQUE: Helical scanning is acquired. There was difficulty with the injection in that just after the scan was triggered by the CT sensors, the intravenous tubing ruptured and limited intravenous contrast was administered to the patient. This produced suboptimal blood pool contrast labeling. Given that the patient had a intravenous contrast on just the previous day, we did not re-inject. CT FINDINGS: Digital preliminary ethical hacker radiograph is unremarkable. The liver is borderline in size with midclavicular line vertical span of 17.8 cm. No focal hepatic lesion is seen. There is a moderate size left pleural effusion. Cardiomegaly is observed. A small quantity of pericardial fluid is seen. There is discoid atelectasis in the right lung base. The left pleural effusion has increased since yesterday's study. The contrast opacification pattern was better on yesterday's exam for visualization of vasculature because of the intravenous tubing rupturing during the contrast injection. There is calcification at the origin of the renal arteries bilaterally without evidence of high-grade stenosis. There is an epigastric ventral hernia transmitting abdominal fat. There is left colonic diverticulosis. The celiac and superior mesenteric artery trunks are patent as seen on yesterday's CT study and today's exam. There is no evidence of vascular malformation. The partially calcified mass in the right lower quadrant mesentery is again seen as described. Most likely possibilities are felt to include carcinoid tumor. The appendix is adjacent to this. IMPRESSION: Suboptimal contrast opacification due to contrast injection tubing rupture. Ventral hernia, left colonic diverticulosis, and a right lower quadrant mesenteric mass lesion again seen. Possible carcinoid. No evidence of vascular malformation. Atherosclerotic changes. Electronically Signed by Kody Vieira MD 05/10/2020 06:17 P
[2020-05-11] VITALS (9 sets, daily range): BP systolic 134–169; BP diastolic 63–88
[2020-05-11] MEDS: PIPERACILLIN/TAZOBACTAM SOD 3.375 GM in D5W MINI-BAG PLUS 50 ML IV SCH (00:45)
[2020-05-11] MEDS: KETOROLAC 30 MG/ML 1ML VIAL IV SCH (00:46)
[2020-05-11] MEDS ORDERED: ACETAMINOPHEN TAB 650MG DOSE (2X325MG) PO PRN (06:45)
[2020-05-11] MEDS: LORazepam 0.5 MG TAB PO PRN ×2 (07:06→15:49)
[2020-05-11] MEDS: HumaLOG INSULIN (NovoLOG) PER UNIT SC SCH ×2 (08:59)
[2020-05-11] MEDS: PRAVASTATIN 20 MG TAB PO SCH (09:37)
[2020-05-11] MEDS: FERROUS SULFATE 325MG TAB PO SCH ×2 (09:37→20:12)
[2020-05-11] MEDS: PANTOPRAZOLE 40MG TAB (PROTONIX) PO SCH (09:37)
[2020-05-11 10:36] LABS: HEMATOCRIT 30.7 % (36.0-47.0); MEAN CORPUSCULAR HEMOGLOBIN 26.1 pg (27.0-33.0); MEAN CORPUSCULAR HGB CONC 31.3 g/dl (32.0-36.5); MEAN CORPUSCULAR VOLUME 83.4 fl (80.0-96.0); PLATELET COUNT, AUTOMATED 557 10^3/uL (150-450); RED BLOOD COUNT 3.68 10^6/uL (4.00-5.40); WHITE BLOOD COUNT 14.4 10^3/uL (4.0-10.0)
[2020-05-11 10:38] LABS: HEMOGLOBIN 9.6 g/dl (12.0-15.5)
[2020-05-11 10:57] LABS: EOSINOPHILS 1 % (0-3); LYMPHOCYTES 7 % (16-44); METAMYELOCYTES 1 % (0-0); NEUTROPHILS 87 % (28-66)
[2020-05-11 10:58] LABS: PLATELET ESTIMATE INCREASED (NORMAL)
[2020-05-11 11:08] LABS: ALBUMIN 2.1 GM/DL (3.2-5.2); ALT/SGPT 52 U/L (12-78); BILIRUBIN,TOTAL 0.3 MG/DL (0.2-1.0); BLOOD UREA NITROGEN 5 MG/DL (7-18); CALCIUM LEVEL 8.5 MG/DL (8.8-10.2); CARBON DIOXIDE LEVEL 26 MEQ/L (21-32); CHLORIDE LEVEL 104 MEQ/L (98-107); CREATININE FOR GFR 0.48 MG/DL (0.55-1.30); GLOMERULAR FILTRATION RATE > 60.0 (>45); GLUCOSE, FASTING 129 MG/DL (70-100); POTASSIUM SERUM 4.1 MEQ/L (3.5-5.1); SODIUM LEVEL 136 MEQ/L (136-145); TOTAL PROTEIN 6.3 GM/DL (6.4-8.2)
[2020-05-11] MEDS: ACETAMINOPH W/CODEINE #3 TAB UD PO PRN ×2 (11:19→20:12)
[2020-05-11] MEDS ORDERED: FUROSEMIDE 40MG/4ML VIAL (J1940) IV ONE (13:00)
[2020-05-11 13:51] LABS: FERRITIN 88 NG/ML (8-252); IRON (FE) 18 UG/DL (50-170); PERCENT SATURATION 7.2 % (13.2-45.0); TOTAL IRON BINDING CAPACITY 250 UG/DL (250-450)
[2020-05-11 13:59] LABS: FOLATE 16.5 NG/ML (>5.4); VITAMIN B12 LEVEL 1064 PG/ML (247-911)
--- NOTE | 2020-05-11 14:18 | IPNPDOC ---
Text Note Date of Service The patient was seen on 05/11/20. NOTE Subjective: Feels weak, tired and complains of SOB and anxiety. Physical Exam: Vitals: as below. General Exam: Positive: Alert, Cooperative Eye Exam: Positive: PERRLA, Conjunctiva & lids normal ENT Exam: Positive: Atraumatic, Mucous membr. moist/pink Neck Exam: Positive: Supple Chest Exam: Positive: Clear to auscultation, Normal air movement Heart Exam: Positive: Rate Normal, Normal S1, Normal S2, no rub or murmur or gallop Abdomen Exam: Positive: Normal bowel sounds, Soft, Nontender. Extremity Exam: Positive: Normal pulses Skin Exam: Positive: Nl turgor and temperature, Breakdown Neuro Exam: Positive: Strength at 5/5 X4 ext, Cranial Nerves 3-12 NL Psych Exam: Positive: Oriented x 3 Assessment /Plan: This is a 69 years old, obese, white female who according to patient has lived all over the country from [place] to [place], [place], etc. has a past medical history of atrial fibrillation, hypertension, diet-controlled diabetes mellitus, anemia, has been experiencing generalized tiredness and fatigue since several days now. She started having mid abdominal pain which is a 6/10, nonradiating, persistent not s associated with nausea, vo miting, not improve with any medication and not exacerbated by food intake, but was associated with loose bowel movements since last 3-4 days. Denies chest pain, shortness of breath. On further investigation, she was found to have a heme positive stools and hemoglobin of 5. Patient also had a unlikely hernia which was reduced by Dr. Vo in ED also found to have a mesenteric mass of unknown etiology as well. Symptomatic anemia/ Acute blood loss anemia/GIB From bleeding AVMs. EGD and Colonoscopy 05/10 1 duodenal AVM injected and clipped, 2 colonic AVMs injected and clipped. HH stable. continue ferrous suphate. Abdominal pain improving multifactorial. Including mesenteric mass of unknown etiology, possibly a dermoid cyst or calcified vascular malformation or lymphoma or carcinoid tumor, Also she has umbilical hernia which was reduced by Dr. Vo in ED, which contains only fat GIB But she does also have a high white count of 18.3, so infectious etiology cannot be ruled out On Zosyn Mesenteric mass Mesenteric mass visible on CT of the abdomen and pelvis which shows partially c alcified mesenteric mass in the right lower quadrant which could be dermoid cyst, calcified vascular malformation lymphoma, carcinoid tumor etc. Work up for carcinoid in progress follow up w Chronic a-fib rate controlled with Cardizem and on aspirin for anticoagulation HTN (hypertension) controlled with Diltiazem. Hyperlipemia statin Umbilical hernia Reduced by Dr. Vo in ED CT shows possible faint and umbilicus hernia We'll closely monitor clinically Diabetes mellitus patient she has a diet-controlled diabetes mellitus Anxiety on clonazepam as outpatient however her utox has been persistently negative for benzos. So WIMarina has concerns about whether she is taking it or selling it . So PMD is following on that here will give ativan prn will get Utox. VS,Fishbone, I+O VS, Fishbone, I+O Laboratory Tests 05/11/20 10:03 Vital Signs Date Time Temp Pulse Resp B/P (MAP) Pulse Ox O2 Delivery O2 Flow Rate FiO2 05/11/20 13:18 94 Room Air 05/11/20 12:00 97.4 104 17 142/77 (98) 1.0 I&O- Last 24 Hours up to 6 AM 05/11/20 06:00 Intake Total 1740 ml Output Total 2250 ml Balance -510 ml TRACI SHIPLEY MD May 11, 2020 14:18
[2020-05-12] MEDS: LORazepam 0.5 MG TAB PO PRN ×2 (00:34→09:25)
[2020-05-12 04:00] VITALS: BP 152/75
[2020-05-12 05:47] LABS: BASO # 0.1 10^3/uL (0.0-0.2); BASO % 0.8 % (0.0-1.0); EOS # 0.3 10^3/uL (0.0-0.5); EOS % 2.2 % (0.0-3.0); HEMATOCRIT 30.4 % (36.0-47.0); HEMOGLOBIN 9.5 g/dl (12.0-15.5); LYMPH # 0.9 10^3/uL (1.5-5.0); LYMPH % 8.1 % (24.0-44.0); MEAN CORPUSCULAR HGB CONC 31.3 g/dl (32.0-36.5); MEAN CORPUSCULAR VOLUME 83.1 fl (80.0-96.0); MONO # 0.8 10^3/uL (0.0-0.8); MONO % 6.6 % (0.0-5.0); NEUTROPHILS # 8.9 10^3/uL (1.5-8.5); NEUTROPHILS % 77.5 % (36.0-66.0); PLATELET COUNT, AUTOMATED 539 10^3/uL (150-450); RED BLOOD COUNT 3.66 10^6/uL (4.00-5.40); WHITE BLOOD COUNT 11.5 10^3/uL (4.0-10.0)
[2020-05-12 05:58] LABS: BLOOD UREA NITROGEN 6 MG/DL (7-18); CALCIUM LEVEL 8.1 MG/DL (8.8-10.2); CARBON DIOXIDE LEVEL 26 MEQ/L (21-32); CHLORIDE LEVEL 104 MEQ/L (98-107); CREATININE FOR GFR 0.47 MG/DL (0.55-1.30); GLOMERULAR FILTRATION RATE > 60.0 (>45); GLUCOSE, FASTING 100 MG/DL (70-100); POTASSIUM SERUM 3.9 MEQ/L (3.5-5.1); SODIUM LEVEL 139 MEQ/L (136-145)
[2020-05-12 08:00] VITALS: BP 136/65
[2020-05-12] MEDS: PANTOPRAZOLE 40MG TAB (PROTONIX) PO SCH (09:25)
[2020-05-12] MEDS: PRAVASTATIN 20 MG TAB PO SCH (09:25)
[2020-05-12] MEDS: FERROUS SULFATE 325MG TAB PO SCH (09:27)
[2020-05-12] MEDS ORDERED: PANT40TA3 PO (11:10)
--- NOTE | 2020-05-13 17:49 | DS.PDOC ---
Discharge Summary General Date of Admission May 09, 2020 at 11:31 Date of Discharge 05/12/20 Discharge Summary PROCEDURES PERFORMED DURING STAY: [None]. DISCHARGE DIAGNOSES: GIB due to AVMs Acute blood loss anemia Mesentric mass being worked up. Fat containing Umbilical hernia SECONDARY DIAGNOSIS: Chronic A. fib, hypertension, diet-controlled diabetes mellitus, constipation, anxiety and hyperlipidemia COMPLICATIONS/CHIEF COMPLAINT: Mesenteric Mass,Symptomatic Anemia. HISTORY OF PRESENT ILLNESS: See History and physical HOSPITAL COURSE: This is a 69 years old, obese, white female who according to patient has lived all over the country from [place] to [place], [place], etc. has a past medical history of atrial fibrillation, hypertension, diet-controlled diabetes mellitus, anemia, has been experiencing generalized tiredness and fatigue since several days now. She started having mid abdominal pain which is a 6/10, nonradiating, persistent not s associated with nausea, vomiting, not improve with any medication and not exacerbated by food intake, but was associated with loose bowel movements since last 3-4 days. Denies chest pain, shortness of breath. On further investigation, she was found to have a heme positive stools and hemoglobin of 5. Patient also had a unlikely hernia which was reduced by Dr. Vo in ED also found to have a mesenteric mass of unknown etiology as well. Symptomatic anemia/ Acute blood loss anemia/GIB From bleeding AVMs. EGD and Colonoscopy 05/10 1 duodenal AVM injected and clipped, 2 colonic AVMs injected and clipped. HH stable. continue ferrous suphate. Abdominal pain improving multifactorial. Including mesenteric mass of unknown etiology, possibly a dermoid cyst or calcified vascular malformation or lymphoma or carcinoid tumor, Also she has umbilical hernia which was reduced by Dr. Vo in ED, which contains only fat GIB There was not felt to be any infectious etiology so antibiotics were stopped. Mesenteric mass Mesenteric mass visible on CT of the abdomen and pelvis which shows partially calcified mesenteric mass in the right lower quadrant which could be dermoid cyst, calcified vascular malformation lymphoma, carcinoid tumor etc. Work up for carcinoid in progress follow up with Dr Ruvalcaba. Chronic a-fib rate controlled with Cardizem and on aspirin for anticoagulation HTN (hypertension) controlled with Diltiazem. Hyperlipemia statin Umbilical hernia Reduced by Dr. Vo in ED CT shows possible faint and umbilicus hernia We'll closely monitor clinically Diabetes mellitus patient she has a diet-controlled diabetes mellitus Anxiety on clonazepam as outpatient however her utox has been persistently negative for benzos. So [facility] has concerns about whether she is taking it or selling it . So PMD is following on that here will give ativan prn DISCHARGE MEDICATIONS: Please see below. ALLERGIES: Please see below. PHYSICAL EXAMINATION ON DISCHARGE: VITAL SIGNS: Please see below. General Exam: Positive: Alert, Cooperative Eye Exam: Positive: PERRLA, Conjunctiva & lids normal ENT Exam: Positive: Atraumatic, Mucous membr. moist/pink Neck Exam: Positive: Supple Chest Exam: Positive: Clear to auscultation, Normal air movement Heart Exam: Positive: Rate Normal, Normal S1, Normal S2, no rub or murmur or gallop Abdomen Exam: Positive: Normal bowel sounds, Soft, Nontender. Extremity Exam: Positive: Normal pulses Skin Exam: Positive: Nl turgor and temperature, Breakdown Neuro Exam: Positive: Strength at 5/5 X4 ext, Cranial Nerves 3-12 NL Psych Exam: Positive: Oriented x 3 LABORATORY DATA: Please see below. ACTIVITY: [As tolerated]. DIET: As tolerated. DISPOSITION: Home Health Service. DISCHARGE INSTRUCTIONS: Follow up PMD in [address] Ruvalcaba in 1 to 2 weeks. ITEMS TO FOLLOWUP ON ON OUTPATIENT: Pensing blood tests for carcinoid DISCHARGE CONDITION: [Stable]. TIME SPENT ON DISCHARGE:35 minutes. Vital Signs/I&Os Vital Signs Date Time Temp Pulse Resp B/P (MAP) Pulse Ox O2 Delivery O2 Flow Rate FiO2 05/12/20 08:00 98.4 99 17 136/65 (88) 94 Room Air 05/11/20 12:00 1.0 I&O- Last 24 Hours up to 6 AM 05/13/20 07:00 Intake Total 720 ml Output Total 300 ml Balance 420 ml Laboratory Data Labs 24H Laboratory Tests 2 05/13/20 09:43: Lab Scanned Report Transfusion Record Microbiology Microbiology 05/10/20 Respiratory Virus Panel (PCR) (SHASHA) - Final, Complete 05/09/20 Blood Culture - Preliminary, Resulted No Growth after 72 hours. All specime... 05/09/20 Blood Culture - Preliminary, Resulted No Growth after 72 hours. All specime... Discharge Medications Scheduled Calcium/Magnesium/Zinc (Bwequdt-Plnurywva-Veck Tablet) 1 Each Tablet, 1 TAB PO QHS, (Reported) Clonazepam (Clonazepam) 1 Mg Tablet, 0.5 MG PO QID, (Reported) Ferrous Sulfate (Ferrous Sulfate) 325 Mg Tab, 325 MG PO BID, (Reported) Multivitamins (Thera M Plus Tablet) 1 Each Tablet, 1 TAB PO DAILY, (Reported) Pantoprazole Sodium (Pantoprazole Sodium) 40 Mg Tablet.dr, 40 MG PO DAILY Pravastatin Sodium (Pravastatin Sodium) 20 Mg Tablet, 20 MG PO DAILY, (Reported) dilTIAZem HCl (Diltiazem 24Hr Cd) 120 Mg Cap.er.24h, 120 MG PO DAILY, (Reported) Scheduled PRN Acetaminophen (Acetaminophen) 325 Mg Tablet, 650 MG PO Q6H PRN for BACK PAIN, (Reported) Acetaminophen with Codeine (Acetaminophen-Cod #3 Tablet) 1 Tab Tab, 0.5 TAB PO Q6H PRN for PAIN, (Reported) Docusate Sodium (Docusate Sodium) 100 Mg Capsule, 100 MG PO BID PRN for CONSTIPATION, (Reported) Allergies Coded Allergies: No Known Allergies (Verified Allergy, Unknown, 05/09/20) TRACI SHIPLEY MD May 13, 2020 17:49
== END 2020-05-12 12:50 | disposition home health service (06) | DRG 811 ==
LOC: EDBD 08:38 → M ED 08:38 → M ED INP 11:31 → ENRESERV 12:47 → M PCU 13:09
PROVIDERS: ADMIT Internal Medicine; ATTEND Internal Medicine
PROC: 30233N1 Transfusion of Nonautologous Red Blood Cells into Peripheral Vein, Percutaneous Approach (ICD-10-PCS; 2020-05-09)
PROC: 0W3P8ZZ Control Bleeding in Gastrointestinal Tract, Via Natural or Artificial Opening Endoscopic (ICD-10-PCS; principal; 2020-05-10 13:00)
DX: D62 Acute posthemorrhagic anemia (principal); K55.21 Angiodysplasia of colon with hemorrhage; K31.811 Angiodysplasia of stomach and duodenum with bleeding; I48.20 Chronic atrial fibrillation, unspecified; I10 Essential (primary) hypertension; E11.9 Type 2 diabetes mellitus without complications; K59.00 Constipation, unspecified; F41.9 Anxiety disorder, unspecified; E78.5 Hyperlipidemia, unspecified; K42.9 Umbilical hernia without obstruction or gangrene; Z79.899 Other long term (current) drug therapy

== ENCOUNTER 2020-05-19 16:51 | Inpatient (IN) | payer MEDICARE ==
[2020-05-19] VITALS (15 sets, daily range): BP systolic 132–159; BP diastolic 72–97
[~2020-05-19] VITALS: Ht 162.6 cm; Wt 73.8 kg
[~2020-05-19 16:51] MED LIST changes: +APAP325T4 PO; +CAL-TAB2 PO; +CLON1TAB8 PO; +DILT120C89 PO; +DOCU100C16 PO; +PANT40TA29 PO; +PRAV20TA2 PO; +VITMTA PO
[2020-05-19 17:55] LABS: BASO # 0.1 10^3/uL (0.0-0.2); BASO % 0.9 % (0.0-1.0); EOS # 0.1 10^3/uL (0.0-0.5); EOS % 0.9 % (0.0-3.0); HEMATOCRIT 29.4 % (36.0-47.0); HEMOGLOBIN 8.9 g/dl (12.0-15.5); LYMPH # 0.7 10^3/uL (1.5-5.0); LYMPH % 7.9 % (24.0-44.0); MEAN CORPUSCULAR HGB CONC 30.3 g/dl (32.0-36.5); MEAN CORPUSCULAR VOLUME 82.6 fl (80.0-96.0); MONO # 0.8 10^3/uL (0.0-0.8); MONO % 8.8 % (0.0-5.0); NEUTROPHILS # 6.9 10^3/uL (1.5-8.5); PLATELET COUNT, AUTOMATED 641 10^3/uL (150-450); RED BLOOD COUNT 3.56 10^6/uL (4.00-5.40); WHITE BLOOD COUNT 8.5 10^3/uL (4.0-10.0)
[2020-05-19 18:08] LABS: INR 1.25; PROTHROMBIN TIME 15.4 SECONDS (11.8-14.0)
[2020-05-19 18:22] LABS: ALBUMIN 2.3 GM/DL (3.2-5.2); ALT/SGPT 30 U/L (12-78); BILIRUBIN,TOTAL 0.4 MG/DL (0.2-1.0); BLOOD UREA NITROGEN 12 MG/DL (7-18); CALCIUM LEVEL 8.8 MG/DL (8.8-10.2); CARBON DIOXIDE LEVEL 25 MEQ/L (21-32); CHLORIDE LEVEL 102 MEQ/L (98-107); CREATININE FOR GFR 0.43 MG/DL (0.55-1.30); GLOMERULAR FILTRATION RATE > 60.0 (>45); GLUCOSE, FASTING 101 MG/DL (70-100); NT-PRO BNP 959 PG/ML (<125); POTASSIUM SERUM 4.7 MEQ/L (3.5-5.1); SODIUM LEVEL 133 MEQ/L (136-145); TOTAL PROTEIN 6.9 GM/DL (6.4-8.2)
[2020-05-19] MEDS ORDERED: NORCO, ANEXSIA 5/325MG TABLET (HYDROcodone/ACETAMINOPHEN) PO PRN (18:45)
[2020-05-19] MEDS ORDERED: ONDANSETRON 4MG/2ML VIAL IV PRN (18:45)
[2020-05-19] MEDS ORDERED: BISACODYL 10 MG SUPP PR PRN (18:45)
[2020-05-19] MEDS ORDERED: LEVALBUTEROL 1.25 MG/0.5 ML CONCENTRATE NEB NEB PRN (18:45)
--- NOTE | 2020-05-19 18:52 | REPVR ---
PROCEDURE INFORMATION: Exam: CT Chest Without Contrast Exam date and time: 05/19/2020 6:25 PM Age: 69 years old Clinical indication: Condition or disease; Lung condition and disease; Pleural effusion; Other: Unspecified TECHNIQUE: Imaging protocol: Computed tomography of the chest without contrast. 3D rendering: MIP and/or 3D reconstructed images were created by the technologist. Radiation optimization: All CT scans at this facility use at least one of these dose optimization techniques: automated exposure control; mA and/or kV adjustment per patient size (includes targeted exams where dose is matched to clinical indication); or iterative reconstruction. COMPARISON: CR Chest, 1 view 05/19/2020 6:05 PM FINDINGS: Lungs: Consolidation demonstrated in the left upper lobe. Parenchymal mass not excluded. Occluded left upper lobe and lingular bronchi containing soft tissue within the lumen of the bronchi. Pleural space: Loculated left pleural effusion. Heart: Loss of volume in the left hemithorax with shift of the heart mediastinal structures to the left. Small pericardial effusion. Aorta: The aorta demonstrates mild atherosclerotic calcification. There is fusiform dilatation of the ascending thoracic aorta which measures 4.2 cm. maximally. There is no saccular component. Lymph nodes: Unremarkable. No enlarged lymph nodes. Bones/joints: Unremarkable. No acute fracture. Soft tissues: Unremarkable. IMPRESSION: 1. Consolidation demonstrated in the left upper lobe. Parenchymal mass not excluded. 2. Loculated left pleural effusion. 3. Occluded left upper lobe and lingular bronchi containing soft tissue within the lumen of the bronchi. 4. There is fusiform dilatation of the ascending thoracic aorta which measures 4.2 cm. maximally. There is no saccular component. 5. Small pericardial effusion. Electronically signed by: Best Byers On 05/19/2020 18:51:47 PM
[2020-05-19] MEDS ORDERED: KCL 20MEQ IN D5/NS 1000ML 1,000 ML IV SCH (19:00)
[2020-05-19] MEDS ORDERED: PANT-23 PO (19:03)
[2020-05-19] MEDS ORDERED: MIDAZOLAM INJ 2MG/2ML VIAL (J2250 PER 1MG) As Ordered ONE (19:12)
[2020-05-19] MEDS ORDERED: flumazeniL 0.5 MG/5 ML VIAL As Ordered ONE (19:13)
[2020-05-19] MEDS ORDERED: LIDOCAINE 1% MDV 20ML VIAL As Ordered ONE (19:14)
[2020-05-19] MEDS ORDERED: MIDAZOLAM INJ 2MG/2ML VIAL (J2250 PER 1MG) IV ONE (20:16)
[2020-05-19] MEDS ORDERED: LIDOCAINE 1% MDV 20ML VIAL SC ONE (20:30)
[2020-05-19 20:33] LABS: LDH LACTATE DEHYDROGENASE 188 U/L (84-246)
[2020-05-19] MEDS: PERCOCET 5MG/325MG TAB PO PRN (20:43)
[2020-05-19] MEDS: KETOROLAC 30 MG/ML 1ML VIAL IV SCH (20:44)
[2020-05-19] MEDS ORDERED: HEPARIN SOD (PORCINE) 5000UNITS/ML 1ML VIAL/SYRINGE SC SCH (20:45)
[2020-05-19] MEDS ORDERED: ACETAMINOPH W/CODEINE #3 TAB UD PO PRN (20:45)
--- NOTE | 2020-05-19 20:46 | ECGEPIP ---
[facility] - ED Test Date: 2020-05-19 Pat Name: EZE SUNG Department: Room: - Gender: Female [employer] Operator: deb : 1950 Requested By: Adenike Fritz Order Number: [id number] Reading MD: Nick Ewing Measurements Intervals [place] Rate: 111 P: 15 VA: 127 QRS: -13 QRSD: 105 T: 5 QT: 300 QTc: 409 Interpretive Statements SINUS TACHYCARDIA LOW QRS VOLTAGE IN PRECORDIAL LEADS NONSPECIFIC ST & T-WAVE ABNORMALITY SIMILAR TO 05/09/20 Electronically Signed on 05-19-2020 20:46:36 EDT by Nick Ewing
[2020-05-19] MEDS: DOCUSATE SODIUM 100 MG CAP PO SCH (21:00)
[2020-05-19] MEDS: HEPARIN SOD (PORCINE) 5000UNITS/ML 1ML VIAL/SYRINGE SC SCH (21:00)
--- NOTE | 2020-05-19 21:11 | HPEPDOC ---
General Date of Admission May 19, 2020 at 18:39 Date of Service: May 19, 2020 Chief Complaint The patient is a 69-year-old female admitted with a reason for visit of Pleural Effusion. Source: Patient Exam Limitations: No limitations Timing/Duration: Day(s) Severity: Severe Associated Symptoms: Shortness of breath History of Present Illness Patient is 69 years old female with past medical history of hypertension, mesenteric mass, pending workup, history of GI bleed due to AVM, chronic anemia, hypertension, chronic A. fib presented to the hospital with increased shortness of breath. Patient was discharged from the hospital on May 13 and after that she has been having increased shortness of breath which became progressively worse for past 2 days. Patient denied fever, chills, nausea. Of note, pt was found AVMs which were clipped. Also pt was found to have mesenteric mass, work up for carcinoid pending. In ER pt was found to have an acute hypoxemic respiratory failure with ta chycardia. White blood count of 8.5, hemoglobin 8.9. CT chest showed consolidation demonstrated in the left upper lobe. Parenchymal mass not excluded. Loculated left pleural effusion. Occluded left upper lobe and lingular bronchi containing soft tissue within the lumen of the bronchi. Home Medications Scheduled Calcium/Magnesium/Zinc (Sefmutj-Ebayslvuy-Owbx Tablet) 1 Each Tablet, 1 TAB PO QHS, (Reported) Clonazepam (Clonazepam) 1 Mg Tablet, 0.5 MG PO QID, (Reported) TAKES AT 0800, 1300, 1800, 2200 Ferrous Sulfate (Ferrous Sulfate) 325 Mg Tab, 325 MG PO BID, (Reported) Multivitamins (Thera M Plus Tablet) 1 Each Tablet, 1 TAB PO DAILY, (Reported) Pantoprazole Sodium (Pantoprazole Sodium) 40 Mg Tablet.dr, 40 MG PO DAILY, (Reported) Pravastatin Sodium (Pravastatin Sodium) 20 Mg Tablet, 10 MG PO QHS, (Reported) dilTIAZem HCl (Diltiazem 24Hr Cd) 120 Mg Cap.er.24h, 120 MG PO DAILY, (Reported) Scheduled PRN Acetaminophen (Acetaminophen) 325 Mg Tablet, 650 MG PO Q6H PRN for BACK PAIN, (Reported) Acetaminophen with Codeine (Acetaminophen-Cod #3 Tablet) 1 Tab Tab, 0.5 TAB PO Q6H PRN for PAIN, (Reported) Docusate Sodium (Docusate Sodium) 100 Mg Capsule, 100 MG PO BID PRN for CONSTIPATION, (Reported) Allergies Coded Allergies: No Known Allergies (Verified Allergy, Unknown, 05/09/20) Past Medical History Medical History A. fib, hypertension, diet-controlled diabetes mellitus, constipation, anxiety and hyperlipidemia, AVMs, chronic anemia, anxiety Surgical History Tonsillectomy Family History I personally reviewed family history and found not pertinent Social History * Smoker: former Smoker Alcohol: heavy Drugs: denies A-FIB/CHADSVASC A-FIB History Current/History of A-Fib/PAF?: Yes Current PO Anticoag Therapy: No (patient takes only aspirin 81mg) Review of Systems Constitutional: Denies: Chills, Fever Eyes: Denies: Pain Skin: Denies: Rash, Lesions Pulmonary: Reports: Dyspnea Cardiovascular: Denies: Chest Pain Gastrointestinal: Denies: Nausea, Vomiting Genitourinary: Denies: Frequency Hematologic: Denies: Bruising Endocrine: Denies: Polydipsia, Polyphagia Musculoskeletal: Denies: Neck Pain Neurological: Denies: Weakness Psych: Reports: Anxiety Physical Examination General Exam: Positive: Alert, Cooperative Eye Exam: Positive: PERRLA ENT Exam: Positive: Atraumatic Neck Exam: Positive: Supple; Negative: JVD Chest Exam: Positive: Rhonchi, Diminished (over the left lung) Heart Exam: Positive: Tachycardic Telemetry: Positive: Sinus Abdomen Exam: Positive: Normal bowel sounds Extremity Exam: Negative: Clubbing, Cyanosis Skin Exam: Positive: Nl turgor and temperature Neuro Exam: Positive: Normal Tone, Cranial Nerves 3-12 NL Psych Exam: Positive: Anxiety Vital Signs Vital Signs Date Time Temp Pulse Resp B/P (MAP) Pulse Ox O2 Delivery O2 Flow Rate FiO2 05/19/20 18:06 112 24 136/72 (93) 92 Nasal Cannula 2.0 05/19/20 17:09 97.4 Laboratory Data Labs 24H Laboratory Tests 2 05/19/20 17:38: Immature Granulocyte % (Auto) 0.5, Neutrophils (%) (Auto) 81.0H, Lymphocytes (%) (Auto) 7.9L, Monocytes (%) (Auto) 8.8H, Eosinophils (%) (Auto) 0.9, Basophils (%) (Auto) 0.9, Neutrophils # (Auto) 6.9, Lymphocytes # (Auto) 0.7L, Monocytes # (Auto) 0.8, Eosinophils # (Auto) 0.1, Basophils # (Auto) 0.1, Nucleated Red Blood Cells % (auto) 0.0, Prothrombin Time 15.4H, Prothromb Time International Ratio 1.25, Anion Gap 6L, Glomerular Filtration Rate > 60.0, Calcium Level 8.8, Total Bilirubin 0.4, Aspartate Amino Transf (AST/SGOT) 25, Alanine Aminotransferase (ALT/SGPT) 30, Alkaline Phosphatase 100, Lactate Dehydrogenase 188, JA-Yiy-H-Type Natriuretic Peptide 959H, Total Protein 6.9, Albumin 2.3L, Albumin/Globulin Ratio 0.5L 05/19/20 18:14: POC Troponin I (Misc) 0.01 CBC/BMP Laboratory Tests 05/19/20 17:38 Assessment/Plan Patient is 69 years old female with past medical history of hypertension, mesenteric mass, pending workup, history of GI bleed due to AVM, chronic anemia, hypertension, chronic A. fib presented to the hospital with increased shortness of breath. Patient was discharged from the hospital on May 13 and after that she has been having increased shortness of breath which became progressively worse for past 2 days. Patient denied fever, chills, nausea. Of note, pt was found AVMs which were clipped. Also pt was found to have mesenteric mass, work up for carcinoid pending. In ER pt was found to have an acute hypoxemic respiratory failure with tachycardia. White blood count of 8.5, hemoglobin 8.9. CT chest showed consolidation demonstrated in the left upper lobe. Parenchymal mass not excluded. Loculated left pleural effusion. Occluded left upper lobe and lingular bronchi containing soft tissue within the lumen of the bronchi. Problems (1) Pleural effusion Status: Acute Problem Text: Unknown etiology for now. Most likely malignancy given findings on the chest CT and history of heavy smoking Dr. Nath did pleuracentesis and placed chest tube. 1400 cc fluid was drained Await pleural fluid results Echo ordered Consider coke wheeler consult in the morning (2) HTN (hypertension) Status: Chronic Problem Text: Continue home meds (3) Chronic a-fib Status: Chronic Problem Text: Patient only to aspirin 81 mg She stated oral anticoagulation is expensive for her Heart rate is under control (4) Mesenteric mass Status: Acute Problem Text: Await lab result for carcinoid Plan / VTE VTE Prophylaxis Ordered?: Yes VTE Exclusion Mechanical Proph: Bilateral Amputee DARRYL FIGUEROA DO May 19, 2020 21:11
[2020-05-19] MEDS: FERROUS SULFATE 325MG TAB PO SCH (21:30)
[2020-05-19] MEDS: clonazePAM 0.5 MG TAB PO SCH (21:31)
[2020-05-19 22:04] LABS: APPEARANCE, BODY FLUID HAZY (CLEAR); PLEURAL FL COLOR YELLOW (COLORLESS); SOURCE, BODY FLUID PLEURAL
[2020-05-19] MEDS ORDERED: SLF 3 ML SYR IV PRN (22:15)
[2020-05-19 22:28] LABS: SOURCE, BODY FLUID pH PLEURAL
[2020-05-19] MEDS: LEVALBUTEROL 1.25 MG/0.5 ML CONCENTRATE NEB NEB SCH (22:31)
[2020-05-19 22:32] LABS: AMYLASE, BODY FLUID 25 U/L (NOT ESTABLISHED); CHOLESTEROL, BODY FLUID 87 MG/DL (NOT ESTABLISHED); LDH, BODY FLUID 159 U/L (NOT ESTABLISHED); SOURCE, BODY FLUID ALBUMIN PLEURAL; SOURCE, BODY FLUID AMYLASE PLEURAL; SOURCE, BODY FLUID CHOL PLEURAL; SOURCE, BODY FLUID GLUCOSE PLEURAL; SOURCE, BODY FLUID LDH PLEURAL; SOURCE, BODY FLUID TOT PROTEIN PLEURAL; SOURCE, BODY FLUID TRIG PLEURAL; TOTAL PROTEIN, BODY FLUID 4.8 G/DL (NOT ESTABLISHED); TRIGLYCERIDE, BODY FLUID 59 MG/DL (NOT ESTABLISHED)
[2020-05-19] MEDS: PRAVASTATIN 10 MG TAB PO SCH (23:25)
[2020-05-20] VITALS (7 sets, daily range): BP systolic 110–172; BP diastolic 70–83
[2020-05-20] MEDS: KETOROLAC 30 MG/ML 1ML VIAL IV SCH ×4 (01:15→20:05)
--- NOTE | 2020-05-20 01:34 | REP ---
CHEST, SINGLE VIEW: Single view of the chest is performed. There is a large left pleural effusion with associated left lung consolidative atelectasis or infiltrate. Right lung demonstrates no definite infiltrate. Heart size is not well evaluated. There is calcification of the thoracic aorta. Electronically Signed by Kelton Prajapati MD 05/20/2020 09:52 A
[2020-05-20] MEDS: PERCOCET 5MG/325MG TAB PO PRN ×3 (02:45→23:09)
[2020-05-20] MEDS: LEVALBUTEROL 1.25 MG/0.5 ML CONCENTRATE NEB NEB SCH ×4 (03:02→19:55)
[2020-05-20] MEDS: SLF 3 ML SYR IV SCH ×3 (03:52→20:07)
[2020-05-20 05:53] LABS: ABG HCO3 25.7 MEQ/L (22.0-26.0); ABG O2 SATURATION 90.9 % (95.0-99.0); ABG PARTIAL PRESSURE CO2 41.4 mmHg (35.0-45.0); ABG PARTIAL PRESSURE O2 62.2 mmHg (75.0-100.0); ABG STANDARD HCO3 25.3 MEQ/L (22.0-26.0); ABG pH (ARTERIAL) 7.411 UNITS (7.350-7.450)
[2020-05-20 06:29] LABS: BASO # 0.1 10^3/uL (0.0-0.2); BASO % 1.3 % (0.0-1.0); EOS # 0.1 10^3/uL (0.0-0.5); EOS % 2.1 % (0.0-3.0); HEMATOCRIT 31.3 % (36.0-47.0); HEMOGLOBIN 9.3 g/dl (12.0-15.5); LYMPH # 1.3 10^3/uL (1.5-5.0); LYMPH % 18.8 % (24.0-44.0); MEAN CORPUSCULAR HEMOGLOBIN 25.1 pg (27.0-33.0); MEAN CORPUSCULAR HGB CONC 29.7 g/dl (32.0-36.5); MEAN CORPUSCULAR VOLUME 84.4 fl (80.0-96.0); MONO # 0.7 10^3/uL (0.0-0.8); NEUTROPHILS # 4.5 10^3/uL (1.5-8.5); NEUTROPHILS % 65.9 % (36.0-66.0); PLATELET COUNT, AUTOMATED 624 10^3/uL (150-450); RED BLOOD COUNT 3.71 10^6/uL (4.00-5.40); WHITE BLOOD COUNT 6.8 10^3/uL (4.0-10.0)
[2020-05-20 07:11] LABS: ALBUMIN 2.4 GM/DL (3.2-5.2); ALT/SGPT 28 U/L (12-78); BILIRUBIN,TOTAL 0.4 MG/DL (0.2-1.0); BLOOD UREA NITROGEN 15 MG/DL (7-18); CALCIUM LEVEL 8.8 MG/DL (8.8-10.2); CARBON DIOXIDE LEVEL 25 MEQ/L (21-32); CHLORIDE LEVEL 103 MEQ/L (98-107); CREATININE FOR GFR 0.57 MG/DL (0.55-1.30); GLOMERULAR FILTRATION RATE > 60.0 (>45); GLUCOSE, FASTING 128 MG/DL (70-100); MAGNESIUM LEVEL 2.3 MG/DL (1.8-2.4); POTASSIUM SERUM 4.5 MEQ/L (3.5-5.1); SODIUM LEVEL 135 MEQ/L (136-145); TOTAL PROTEIN 7.1 GM/DL (6.4-8.2)
[2020-05-20] MEDS: MULTIVITAMINS/MINERALS THERAP 1 TAB PO SCH (08:13)
[2020-05-20] MEDS: DOCUSATE SODIUM 100 MG CAP PO SCH ×2 (08:13→20:05)
[2020-05-20] MEDS: PANTOPRAZOLE 40MG TAB (PROTONIX) PO SCH (08:13)
[2020-05-20] MEDS: clonazePAM 0.5 MG TAB PO SCH ×4 (08:13→20:06)
[2020-05-20] MEDS: FERROUS SULFATE 325MG TAB PO SCH ×2 (08:13→20:06)
[2020-05-20] MEDS: MOM 30ML SUSPENSION UDC PO SCH (08:14)
[2020-05-20] MEDS: HEPARIN SOD (PORCINE) 5000UNITS/ML 1ML VIAL/SYRINGE SC SCH ×2 (08:14→20:07)
--- NOTE | 2020-05-20 09:04 | REP ---
REASON: Followup. COMPARISON: Multiple, the latest earlier same day. The technique utilized in obtaining the radiograph has magnified the cardiac silhouette and accentuated the interstitial markings. The near complete opacification of the left hemithorax has improved minimally with slight aeration of the right upper and left lower lobe regions. The right lung is unchanged and remains clear. The cardiac silhouette is magnified by technique. The osseous structures are unchanged. IMPRESSION: Minimal if any real improvement. There is a left-sided thoracotomy tube along the left lung base. This appears to have evacuated some of the opacity indicating a portion of the opacity represented a free pleural effusion. PA and lateral views of the chest should be considered, if clinically feasible. In addition, consider chest CT so as it can be compared to the chest CT obtained 05/19/2020 at 6:20 p.m., if clinically relevant. Electronically Signed by Jose Alfredo Rosario DO 05/20/2020 01:42 P
--- NOTE | 2020-05-20 09:28 | IPNPDOC ---
Subjective Date Seen The patient was seen on 05/20/20. Subjective Chief Complaint/HPI Pt is a 69 years old female with PMH of a. fib, HTN, and chronic anemia who was discharged from hospital 05/13/2020 noted to have diagnosis of symptomatic anemia due to acute GI bleed with duodenal and colonic AVM clipped and a mesenteric mass presented to [facility] on 05/19/2020 with CC of generalized weakness and 1 episode of blood streaks on her pants 05/19/2020. She reported noticing long blood streaks on her pants yesterday afternoon as well as generalized weakness, gasping for air, and exertional dyspnea that was reported to start since last hospital discharge. She reported that her stool is chronically black which she attributed to iron sulfate supplement. Reported 2- 3lb weight loss over the past week. Pt returned to [facility] 05/19/2020 and was found to have acute hypoxemic respiratory failure requiring oxygenation with NC. CXR showed left sided loculated pleural effusion, and a left sided chest tube was placed 05/19/[address] Lyles. Pt currently denies any fever, chills, abdominal pain, nausea, vomiting, lower extremity swelling. Pt reported no significant improvement in her dyspnea. Reported mildly decreased appetite. She reported no BM yet since admission. General: Reports: Normal Appetite; Denies: Chills Constitutional: Denies: Chills, Fever Pulmonary: Reports: Dyspnea (exertional), Cough Cardiovascular: Denies: Chest Pain, Palpitations, Orthopnea, Edema Gastrointestinal: Reports: Melena, Hematochezia; Denies: Nausea, Vomiting, Abdominal Pain Objective Physical Examination General Exam: Positive: Alert, Cooperative, No Acute Distress Eye Exam: Positive: PERRLA; Negative: Sclera icteric ENT Exam: Positive: Atraumatic, Mucous membr. moist/pink Neck Exam: Positive: Supple; Negative: JVD Chest Exam: Positive: Normal air movement, Rhonchi (in left lung field), Dimin ished (in b/l lung field, much more obvious on left), Other (left sided chest tube in place) Heart Exam: Positive: Rate Normal, Regular Rhythm, Normal S1, Normal S2, Other (minimally distant heart sound); Negative: Murmurs Abdomen Exam: Positive: Normal bowel sounds, Soft; Negative: Tenderness Extremity Exam: Negative: Cyanosis, Edema, Swelling Skin Exam: Positive: Nl turgor and temperature Neuro Exam: Positive: Normal Speech, Normal Tone, Cranial Nerves 3-12 NL Psych Exam: Positive: Anxiety, Memory Intact, Other (mood first appeared stable, then started tearing said she can wait to hear the diagnosis as she knows it is not something good); Negative: Mood NL Other physical findings chest tube drainage fluid clear pink/red Assessment /Plan Assessment 1. Symptomatic normocytic anemia, likely 2/2 duodenal and colonic AVM . Hg currently 9.3. Last hospitalization pt was found to have Hg of 5 requiring transfusion, s/p duodenal and colonic AVM clipping and injection 05/11/2020. Reported generalized weakness and exertional dyspnea. Cont to monitor CBC daily. Continue ferrous sulfate 2. Left sided pleural effusion 2/2 malignant pleural effusion vs obstructive process vs cardiac etiology, s/p chest tube insertion 05/19/[address] Lyles. Chest tube output 05/19/[id number]. Left sided pleural effusion may contribute to exertional dyspnea as well. Etiology suspected to be malignant. Pleural fluid lab pos for WBC; appeared to be clear pink/red at bedside. Pleural fluid cytology/cell block pending. Echo ordered 3. Mesenteric mass of unknown etiology, possibly a dermoid cyst or calcified vascular malformation or lymphoma. Partially calcified mesenteric mass in the right lower quadrant found on CT abd/pelvis prior admission. Prior visit chromogranin A and 5-HIAA levels which were borderline elevated. Pt was scheduled to follow up with Dr. Ruvalcaba outpatient. 4. Chronic a-fib. Cont home med Diltiazem. Not on home full anticoagulation. Will hold off on starting anticoagulation d/t possible GI bleed/symptomatic anemia. 5. HTN. Cont home med Diltiazem. Vital signs as scheduled 6. Hyperlipemia. Cont home med statin 7. Diabetes mellitus. It was noted that patient reported her DM is diet controlled. 8. Anxiety. It was noted that pt was on clonazepam as outpatient however her utox has been persistently negative for BZD. So [facility] has concerns whether pt is selling clonazepam; PMD is following on that. Will continue home clonazepam for now in-patient 9. Potential postobstructive pneumonia 2/2 left upper lobe lung mass with complete occlusion of the left upper lobe bronchus. Pulmonology consulted.CT chest showed occluded left upper lobe and lingular bronchi containing soft tissue within the lumen of the bronchi; possible endobronchial lesion and/or postobstructive pneumonia. Pt prior smoker quit 12 yrs ago. Zosyn 4.5g Q6H IV started per group discussion for postobstructive pneumonia. Procalcitonin pending. Oxygen therapy to keep pulse ox>90%Pulm discussed with pt that a bronchoscopy for further eval is needed when medically optimized. 10. Small pericardial effusion. Exertional dyspnea, heart sound only minimally distant. Continue to monitor. Dr. Lyles following. Echo ordered Plan/VTE VTE Prophylaxis Ordered?: Yes VS, I&O, 24H, Fishbone Vital Signs/I&O Vital Signs Date Time Temp Pulse Resp B/P (MAP) Pulse Ox O2 Delivery O2 Flow Rate FiO2 05/20/20 08:13 85 125/72 05/20/20 08:00 2.0 05/20/20 04:00 96.4 18 94 Nasal Cannula I&O- Last 24 Hours up to 6 AM 05/20/20 06:00 Intake Total 580 ml Output Total 2044 ml Balance -1464 ml Laboratory Data 24H LABS Laboratory Tests 2 05/19/20 17:37: 05/19/20 17:38: Immature Granulocyte % (Auto) 0.5, Neutrophils (%) (Auto) 81.0H, Lymphocytes (%) (Auto) 7.9L, Monocytes (%) (Auto) 8.8H, Eosinophils (%) (Auto) 0.9, Basophils (%) (Auto) 0.9, Neutrophils # (Auto) 6.9, Lymphocytes # (Auto) 0.7L, Monocytes # (Auto) 0.8, Eosinophils # (Auto) 0.1, Basophils # (Auto) 0.1, Nucleated Red Blood Cells % (auto) 0.0, Prothrombin Time 15.4H, Prothromb Time International Ratio 1.25, Anion Gap 6L, Glomerular Filtration Rate > 60.0, Calcium Level 8.8, Total Bilirubin 0.4, Aspartate Amino Transf (AST/SGOT) 25, Alanine Aminotransferase (ALT/SGPT) 30, Alkaline Phosphatase 100, Lactate Dehydrogenase 188, NZ-Htv-Y-Type Natriuretic Peptide 959H, Total Protein 6.9, Albumin 2.3L, Albumin/Globulin Ratio 0.5L 05/19/20 18:14: POC Troponin I (Misc) 0.01 05/19/20 21:30: Body Fluid pH 7.690, Body Fluid pH Source PLEURAL, Body Fluid WBC (Auto) 408H, B latrell Fluid RBC (Auto) 8, Body Fluid Mononuclear Cells % Auto 89.2H, Fluid Polymorphonuclear Cell % Auto 10.8H, Body Fluid Glucose Source PLEURAL, Body Fluid Glucose 101, Body Fluid Protein Source PLEURAL, Body Fluid Total Protein 4.8, Body Fluid Albumin Source PLEURAL, Body Fluid Albumin 1.8, Body Fluid LDH Source PLEURAL, Body Fluid Lactate Dehydrogenase 159, Body Fluid Amylase Source PLEURAL, Body Fluid Amylase 25, Body Fluid Cholesterol 87, Body Fluid Cholesterol Source PLEURAL, Body Fluid Triglyceride Source PLEURAL, Body Fluid Triglycerides 59, Pleural Fluid Source PLEURAL, Pleural Fluid Color YELLOW, Pleural Fluid Appearance HAZY 05/20/20 05:41: Blood Gas Bicarbonate Standard 25.3, Arterial Blood pH 7.411, Arterial Blood Partial Pressure CO2 41.4, Arterial Blood Partial Pressure O2 62.2L, Arterial Blood Total CO2 27.0, Arterial Blood HCO3 25.7, Arterial Blood Base Excess 1.0, Arterial Blood Oxygen Saturation 90.9L 05/20/20 06:00: Immature Granulocyte % (Auto) 0.9, Neutrophils (%) (Auto) 65.9, Lymphocytes (%) (Auto) 18.8L, Monocytes (%) (Auto) 11.0H, Eosinophils (%) (Auto) 2.1, Basophils (%) (Auto) 1.3H, Neutrophils # (Auto) 4.5, Lymphocytes # (Auto) 1.3L, Monocytes # (Auto) 0.7, Eosinophils # (Auto) 0.1, Basophils # (Auto) 0.1, Nucleated Red Blood Cells % (auto) 0.0, Anion Gap 7L, Glomerular Filtration Rate > 60.0, Calcium Level 8.8, Magnesium Level 2.3, Total Bilirubin 0.4, Aspartate Amino Transf (AST/SGOT) 22, Alanine Aminotransferase (ALT/SGPT) 28, Alkaline Phosphatase 102, Total Protein 7.1, Albumin 2.4L, Albumin/Globulin Ratio 0.5L CBC/BMP Laboratory Tests 05/19/20 17:38 05/20/20 06:00 Microbiology Microbiology 05/19/20 Acid Fast Stain, Received Pending 05/19/20 Mycobacterial Culture, Received Pending 05/19/20 Fungal Smear, Received Pending 05/19/20 Fungal Culture, Received Pending 05/19/20 Gram Stain, Received Pending 05/19/20 Anaerobic Culture, Received Pending 05/19/20 Body Fluid Culture, Received Pending GME ATTESTATION I have personally evaluated and examined the patient. Discussed with resident/student regarding plan of care and agree with the above assessment and plan. JORGE A SCHNEIDER DO May 20, 2020 09:28 SHAMAR ESPAÑA MD May 28, 2020 08:35
--- NOTE | 2020-05-20 09:38 | ER ---
DATE OF CONSULTATION: 05/19/2020 The patient seen at the request of Dr. Mahajan in the emergency room and to be admitted to the hospitalist service. REASON FOR ADMISSION: Is a pleural effusion with shortness of breath. HISTORY OF PRESENT ILLNESS: The patient is a 69-year-old female who was discharged here on 05/13/2020, only a few days ago, after coming in with a hemoglobin of 5 and lower gastrointestinal (GI) bleeding from cecal ectasias. These were controlled with colonoscopy and clipping by Dr. Ruvalcaba. She tells me she came back to the emergency room because she had bright red blood per rectum, which had stained her Depends. Her significant history is, ever since she went home, she has been short of breath and has been getting progressively so. She needs to prop herself up with pillows in order to breathe well. She does not complain of waking up at night gasping for air, however. She does not complain of peripheral edema. There is no chest pain. She denies fever, chills, or sweats. She has lost about 2 pounds of weight since her admission. She states she is not eating very well. She complains of a mild abdominal pain. A mass was felt in her abdomen at her admission last time. That is undergoing a continuing workup by Dr. Ruvalcaba. There is no dysphagia, and she does not cough when she eats. PAST MEDICAL HISTORY: 1. Prior atrial fibrillation but has been controlled in the last 4 years. She was on Eliquis until about a year ago, and then she was removed from Eliquis and placed on baby aspirin. 2. Hypertension. 3. Chronic back pain. 4. The acute anemia secondary to lower GI bleeding. 5. Listed in the medical record as diet-controlled diabetes. The patient denies diabetes. 6. Anxiety. 7. Hyperlipidemia. SURGICAL HISTORY: 1. A prior tonsillectomy in the very remote past. 2. Plus the endoscopy. ALLERGIES: None. MEDICATIONS AT HOME: - Tylenol 325 mg every 6 hours as needed back pain - acetaminophen with codeine 1/2 tablet every 6 hours as needed pain - clonazepam 0.5 mg by mouth four times a day - diltiazem 120 mg by mouth every day - docusate as needed constipation - ferrous sulfate 325 mg twice a day - multivitamins one every day - pantoprazole 40 mg every day - pravastatin 10 mg by mouth nightly HABITS: A prior smoker of 2-3 packs per day but quit 11 years ago. No dogs, birds, or cats at home at the present time. Has not had alcohol in the last 3 weeks but does have 3 ounces of sobeida every day up until 3 weeks ago. No illicit drugs. 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 No asbestos exposure. TRAVEL HISTORY: She has been to the [facility] and [facility]. FAMILY HISTORY: Not pertinent to the acute situation. REVIEW OF SYSTEMS: CONSTITUTIONAL: Denies fever, chills, sweats, or night sweats. A 2-pound weight loss over the last 2 weeks. We did intake and output. EYES: Without diplopia. Without amaurosis fugax. Without prior jaundice. NOSE: An occasional rare nosebleed. MOUTH: Has her own teeth with multiple missing teeth. RESPIRATORY: See history of present illness (HPI). CARDIAC: See HPI. Denies prior myocardial infarctions. The above-mentioned history of atrial fibrillation without the tachycardias or palpitations that she is aware of at this point in time. Without intermittent claudication or peripheral edema. GASTROINTESTINAL (GI): Without nausea or vomiting. Does have the above hematochezia. Has constipation secondary to her narcotic pain control. GENITOURINARY (): Without dysuria or hematuria or prior history of renal stones. ENDOCRINE: States that she does not have diabetes, although it is listed in the medical record as diet-controlled. Without thyroid disease. NEUROLOGIC: Without paresthesias, paralyses, or prior seizures. PSYCHIATRIC: Without pathological depressions or psychoses. Does have anxiety, for which she is being treated medically. PHYSICAL EXAMINATION: A well-developed obese white female, in mild respiratory distress. Short of breath sitting up but able to complete full sentences. VITAL SIGNS: Pulse 88 in a sinus rhythm, respiratory rate of 24 without the use of accessory muscles, blood pressure is 134/79, she is 93% saturated on 2 liters nasal cannula, and her temperature is 97.4. EYES: Pupils equal, round, and reactive to light. Extraocular movements intact. Sclerae anicteric. NOSE: Without deformity. MOUTH: Shows her mucous membranes to be pink and moist. Lips and commissures without lesions. There is no thrush. She has multiple missing teeth on the top. NECK: Is supple. There is no jugular venous distention, no subcutaneous emphysema. Trachea is midline. There is no lymphadenopathy or thyromegaly. She has 2+ carotid upstrokes without bruits. LUNGS: Show decreased breath sounds in the left hemithorax with an E-A egophony in the left hemithorax. She also has bronchophony. Percussion note is dull on the left and full to the diaphragm on the right. CARDIAC EXAMINATION: Is without murmurs, clicks, gallops, or rubs. I cannot feel his point of maximal impulse (PMI). S1 and S2 are normal. ABDOMEN: Is soft, nontender. Bowel sounds are positive. There is no hepatomegaly. No costovertebral angle (CVA) tenderness. I do feel a mass just above the umbilicus. It is hard, indurated, and nontender. My suspicion is that it feels like an omental incarceration. EXTREMITIES: Show no pretibial edema. No calf tenderness. No differential swelling of the upper extremities. SKIN: Is warm, dry, and perfused without cyanosis or mottling, including that of the nail beds and the knees. NEUROLOGICAL: Shows II-XII intact, along with gross motor and gross sensation intact. Gait is not tested. PSYCHIATRIC: Shows her to be awake and alert and oriented times three with appropriate mood and affect and conversational and appropriately anxious. INVESTIGATIONS: Her white count is 8.5 with a hemoglobin and hematocrit of 8.9 and 29.4 essentially unchanged from her discharge hemoglobin and hematocrit of 9.5 and 30.4. Platelet count is 641, and differential shows 81% neutrophils, 7.9% lymphocytes, 8% monocytes. There are no immature forms, no toxic granulations. Her electrolytes show a marginally low sodium of 133 with a BUN and creatinine of 12 and 0.43 respectively with a glucose of 101 and a calcium of 8.8. Corresponding albumin is 2.3. AST and ALT are normal. Prothrombin time (PT)/international normalized ratio (INR) are 15.4 and 1.25, respectively. Her beta natriuretic protein peptide is 959, above the upper limit of normal of 125. Her chest x-ray done portably in the emergency room shows almost opacification of the right hemithorax except for a little bit of aeration in the left upper lobe. CT scan shows a basilar pleural effusion with what looks to be a lung mass in the left upper lobe. She has calcifications along the opacified upper airway with a completely occluded left upper lobe bronchus. She has a small pericardial effusion. There is lung compression in the lower lobe. The study is done without contrast. I do not see any pretracheal lymphadenopathy. I really cannot tell if there is AP window lymphadenopathy. Her left adrenal is generous, however, so is her right. The liver does not show any lesions. The scan does not go far enough down to demonstrate the supraumbilical mass. Abdominal CT on 05/09/2020 shows what looks to be a definitive omental hernia. The pericardial effusion was present on the 05/09/2020 CT scan, as was the pericardial effusion. She has some mild emphysematous changes throughout the right lung. IMPRESSION: 1. Left pleural effusion. 2. Left upper lobe lung mass with complete occlusion of the left upper lobe bronchus. 3. Periumbilical hernia. 4. Hypertension. 5. Hyperlipidemia. 6. Shortness of breath secondary to pleural effusion. PLAN AND DISCUSSION: I will immediately place a chest tube to drain her chest. We will need to work up her mass. I suspect the best way to do that will be with pulmonology to undertake a bronchoscopy when she is stabilized. She has a small pericardial effusion, and I will obtain an echocardiogram, although I do not think that she is in a clinical tamponade. I suspect the periumbilical hernia will eventually incarcerate.
--- NOTE | 2020-05-20 09:53 | REP ---
CHEST X-RAY: Two views. HISTORY: Pleural effusion. COMPARISON CHEST X-RAY: May 19, 2020. FINDINGS: A left chest tube remains in place. There is evidence of loculated irregularly shaped hydropneumothorax on the left. There is a little less pleural air at the left base today compared to prior study. Extensive areas of pleural thickening are seen. The right lung remains clear. There are degenerative changes in the thoracic spine. IMPRESSION: Left chest tube in place. Loculated hydropneumothorax on the left. Electronically Signed by Kody Vieira MD 05/20/2020 10:34 A
--- NOTE | 2020-05-20 12:15 | CR ---
DATE OF CONSULTATION: 05/20/2020 HISTORY OF PRESENT ILLNESS: Ms. Deras is a 69-year-old female with a past medical history of atrial fibrillation, hypertension, chronic back pain, anxiety, hyperlipidemia, diabetes, recent admission for anemia and a gastrointestinal (GI) bleed, who was discharged almost a week ago after she was admitted for symptomatic anemia and GI bleed. The patient had presented at her previous hospitalization with complaints of generalized tiredness and fatigue. She states she has previous history of anemia and so suspected that she again had anemia and required repeat blood transfusions. On this admission, the patient was found to have anemia as well as CT of abdomen showing a possible mesenteric mass in the right lower quadrant which could be a dermoid cyst or calcified vascular malformation or carcinoid tumor. She was seen by Dr. Ruvalcaba and also had a colonoscopy performed which showed arteriovenous malformations (AVMs), which were treated. The patient states after discharge from the hospital that she still had not noticed improvement in terms of her fatigue and tiredness and had actually started noticing new symptoms of gasping for air and feeling short of breath, particularly with exertion. She presented back to the emergency department (ED) however because on the day of her presentation she had noticed bright red blood per rectum in her Depends after she had taken a nap. She denied any chest pain and does not have any coughing or wheezing. She denied noticing any fevers or chills. No night sweats. She states she has not had any significant weight loss, perhaps 1 or 2 pounds. She denies noticing any lower extremity edema or orthopnea. She had not had any significant abdominal pain except for some mild discomfort and she states she was eating and drinking, although less than usual. The patient also denies a previous history of lung disease. The patient had presented to the ED and was noted to be in acute hypoxemic respiratory failure requiring nasal cannula oxygen supplementation. She had a chest x-ray which showed evidence of loculated pleural effusion on the left side. She had placement of a left sided chest tube with removal reportedly of 1.4 liters. Post chest tube placement, the patient states she is unclear if she has noticed any significant improvement in her shortness of breath. She is a former heavy smoker, but had never had been diagnosed with chronic obstructive pulmonary disease (COPD) or followed up with a tankage supervisor in the past. PAST MEDICAL AND SURGICAL HISTORY: 1. Atrial fibrillation, not on anticoagulation. 2. Hypertension. 3. Chronic back pain. 4. Anemia with history of recent lower GI bleed. 5. Diet controlled diabetes. 6. Anxiety. 7. Hyperlipidemia. 8. Tonsillectomy. HOME MEDICATIONS: - Tylenol - acetaminophen with codeine - clonazepam - diltiazem - ferrous sulfate - multivitamin - pantoprazole - pravastatin ALLERGIES: NO KNOWN DRUG ALLERGIES. SOCIAL HISTORY: The patient is a former smoker who was up to three packs a day, had started smoking at 18 and quit approximately 12 years ago. The patient has a cat at home, but states she had various other pets in the past. She has not had any recent alcohol use, but does usually drink 3 ounces of sobeida every day up until a few weeks ago. Denies other illicit drug use. Denies any history of chemical or asbestos exposure. Used to work in clerical work. FAMILY HISTORY: The patient is adopted, unknown significant family history. PHYSICAL EXAMINATION: Temperature 96.4, pulse 85, respirations 18, blood pressure 125/72, O2 sat 94% on 2 liters nasal cannula. Ins 100, out 1.8 liters. General: The patient is sitting in the chair. She is awake, alert and appropriate. She is speaking in full sentences and does not appear to be using any accessory muscles for respiration. HEENT: Normocephalic, atraumatic. Pupils reactive to light bilaterally. There is moist mucous membranes. The patient has poor dentition noted. She is a Mallampati Class III Neck is supple. Trachea is midline. There is no palpable cervical adenopathy. There is no jugular venous distention (JVD). Cardiac: Regular rate and rhythm. Normal S1, S2. Unable to appreciate any murmurs. Lungs: There are diminished breath sounds at the left base with crackles in the left base. There are mild crackles on the right base. Left is more than right. Abdomen is soft, nontender. There is a mass palpated above the umbilicus which is firm and indurated, but nontender. Extremities: There is no significant lower extremity edema bilaterally. There is no calf tenderness. LABORATORY DATA: WBC 6.8, hemoglobin 9.3 and platelets are 624. Chemistry: Sodium is 135, potassium 4.5, chloride 103, bicarb 25, BUN 15, creatinine is 0.57, glucose is 128, magnesium 2.3. BNP was 959. Albumin is 2.4. Procalcitonin pending. ABG: pH 7.411, pCO2 of 41.4 and pO2 of 62.2. Pleural fluid studies show a pH of 6.9. There are 408 WBCs, lymphocytic predominant. Total protein is 4.8 and LDH is 154. IMAGING: Chest CT on admission showed a loculated pleural effusion on the left. There is left upper lobe consolidation with a possible parenchymal mass as the left upper lobe and lingular bronchi are completely occluded with some possible soft tissue in the lumen of the bronchi. There is volume loss on the left side with shifting of the heart and the mediastinum structures to the left. There is a small pericardial effusion. There is no significant mediastinal adenopathy, although left hilar adenopathy is difficult to evaluate with a noncontrast CT. There are some emphysematous changes noted on the right lung as well as some fiber atelectatic changes and mild bronchiectasis in the right middle lobe. In the right base of the lung there is some mild atelectasis. There is a fusiform dilation at the ascending thoracic area measuring 4.2 cm. Compared to the previous CT of abdomen and pelvis, there was also noted a pleural effusion in the left base and a partially visualized pericardial effusion. ASSESSMENT AND PLAN: Ms. Deras is a 69-year female with a past medical history of atrial fibrillation, hyperlipidemia, anxiety, chronic back pain, recent admission with an acute GI bleed, who had presented with complaints of fatigue and worsening shortness breath and dyspnea with exertion. The patient was found on this admission to have a large loculated left sided pleural effusion as well as a left upper lobe consolidation with a possible parenchymal mass and endobronchial lesion including the left upper lobe and lingular bronchi. She had placement of a chest tube by cardiothoracic surgery with drainage of 1.4 liters of fluid. The fluid studies appear exudative and lymphocytic predominant. The patient also has a previous history of a possible mesenteric mass with part of the differential being carcinoid. At her prior admission, she had testing for chromogranin A levels which were borderline elevated as well as plasma 5-H1AA levels which were within normal limits. The patient does have a significant heavy smoking history of up to three packs a day and had quit about 12 years ago. Discussed with the patient today that her pleural effusion may be in the setting of a post obstructive process, however there is a suspicion for underlying lung mass and endobronchial lesion which given her smoking history may be malignancy and so the effusion may also be malignant as well given it is lymphocytic predominant. Infectious process is less likely although she may potentially have a postobstructive pneumonia. She does not have any fever or leukocytosis currently. Can start her with some broad-spectrum antibiotics, but would rapidly de-escalate pending procalcitonin and her clinical course. - The patient does also have evidence of a pericardial effusion and she does have a somewhat elevated BNP. The pleural effusion may also be secondary to her cardiac etiology. However, given the loculation, suspect more of an inflammatory process which can also include malignancy. Would get an echo for evaluation of potential cardiac etiology and for her pericardial effusion. - Will continue chest tube to suction as per cardiothoracic surgery and follow- up there recommendations on need for thrombolytics given loculation - Will followup results of fluid studies including cytology. - We discussed with the patient that she would need a bronchoscopy for further evaluation when she is medically optimized, particularly for concern of an endobronchial lesion if her cytology is negative. - Will continue nasal cannula oxygen supplementation to maintain O2 sat above 90%. Deep vein thrombosis (DVT) prophylax. Heparin. GI prophylaxis. Proton pump inhibitor (PPI). Code Status: Full code MTDD
--- NOTE | 2020-05-20 12:21 | REP ---
CT SCAN OF THE CHEST WITHOUT CONTRAST: HISTORY: Status of underlying lung. Left pleural effusion post tube thoracostomy. Comparison chest CT study May 19, 2020. CT FINDINGS: The left chest tube is seen in place at the left lung base. There is air and residual fluid surrounding the chest tube in the left base. This portion of the left pleural effusion is improved in size. There is some residual pleural fluid and/or thickening adjacent to the consolidated left upper lobe. There is soft tissue density in the left upper lobe bronchial tree projecting into the left mainstem bronchus as on yesterday's CT study. A small amount of pleural effusion persists laterally and superiorly. Left upper lobe aeration is only slightly improved. The right lung is unchanged. IMPRESSION: Left pleural drainage catheter in place at the base with improved left pleural effusion. Some loculation persists. Consolidation and collapse persists in the left upper lobe and there is evidence of endobronchial disease. Electronically Signed by Kody Vieira MD 05/20/2020 12:57 P
[2020-05-20] MEDS ORDERED: ALTEPLASE 2MG/2ML VIAL XX ONE (14:00)
--- NOTE | 2020-05-20 14:31 | ECHO ---
DATE OF STUDY: 05/20/2020 REFERRING PHYSICIAN: Dr. Jean Lyles INDICATION: Pericardial effusion. HEIGHT: 64 inches. WEIGHT: 74 kg. 2-D MEASUREMENTS: Proximal ascending aorta: 3.3 cm Aortic root: 3.7 cm Left atrium: 3.5 cm Left ventricle diastole: 4.6 cm Ventricular septum: 1.38 cm Posterior wall: 1.42 cm Aortic annulus: 2.4 cm Inferior vena cava: 1.9 cm with normal respiratory variation DOPPLER MEASUREMENTS: Aortic valve velocity: 128 cm/sec LVOT velocity: 64.7 cm/sec No aortic regurgitation No mitral regurgitation No tricuspid regurgitation No pulmonic regurgitation Pulmonary artery systolic pressure: 27 mmHg MITRAL ANNULAR TISSUE DOPPLER: E prime septal: 5.75 cm/sec E prime lateral: 5.6 cm/sec DESCRIPTION: The rhythm was sinus. This was a moderately technically difficult echocardiogram. This was a 2-D, M-mode, color flow Doppler and pulse wave Doppler examination and included mitral annular tissue Doppler. CONCLUSIONS: 1. Moderate sized pericardial effusion which was primarily over the posterior wall of the left ventricle and extending to the lateral wall and minimally present in a circumferential fashion elsewhere. The maximum depth of the pericardial effusion over the posterior wall was 1.8 to 2.7 cm and over the basal lateral wall 2.2 cm. No stranding or masses were seen within the pericardial effusion. The parasternal and apical and subcostal windows did not appear to be safe locations for a pericardiocentesis due to minimal amount of pericardial effusion on these views. No significant respiratory variation of intracardiac velocities. No diastolic chamber collapse. 2. Mild concentric left ventricle hypertrophy. Normal regional LV wall motion and wall thickening. Normal LV systolic function. LVEF 65% by visual estimate. Grade 1 LV diastolic dysfunction. 3. Presence of a left pleural effusion. 4. Normal right ventricle size and systolic function. 5. Otherwise normal appearing echocardiogram Doppler. However, this was a moderately technically difficult echocardiogram. The results of this study were communicated by cell phone directly to Dr. Jean Lyles by Dr. Tracey just a few minutes prior to this report being dictated. [facility]
--- NOTE | 2020-05-20 15:55 | IPN ---
DATE: 05/20/2020 Ms. Deras is breathing slightly better but she does not feel much of a difference. Her pain is being well controlled at the chest tube insertion site. As noted below, her chest x-ray still shows an opacified left hemithorax. Her vital signs show a maximum temperature (Tmax) of 97.4 with a heart rate that ranges between 85-108 in a sinus rhythm, respiratory rate of 18-20 without the use of accessory muscles, who is 94% saturated on 2 liters nasal cannula and whose blood pressure is ranging between 117/70-125/72. Her intake and output for the past 24 hours is recorded as 100 in and 1860 out for a negativity of 1760 mL. She has put out a total of 1560 from the chest tube. In the last 15 hours, she has put out 34 mL and there is no air leak. She weighs 74.3 kg, which is the same as yesterday. On physical examination, her lungs still decreased breath sounds with E-to-A egophony in the left lower hemithorax. Percussion note is dull on the left side. Right side shows some inspiratory rales and rhonchi which do not clear with coughing. Percussion note is full to the diaphragm on the right. Cardiac exam is without murmurs, clicks, gallops, or rubs. I cannot feel his point of maximal impulse (PMI). S1 and S2 are normal. Abdomen is soft, nontender. Bowel sounds are positive. There is no hepatomegaly. No costovertebral angle (CVA) tenderness. Extremities show no pretibial edema, no calf tenderness. No differential swelling of the upper extremities. Skin is warm, dry, and perfused without cyanosis or mottling, including that of the nail beds and the knees. Neck is supple. There is no jugular venous distention. No subcutaneous emphysema. Trachea is midline. Mouth shows her mucous membranes to be pink and moist. Lips and commissures are without lesions. There is no thrush. Eyes show her pupils to be equal and reactive. Extraocular motor intact. Sclerae are nonicteric. Neurologic shows II-XII intact along with gross motor and gross sensation intact. Gait is not tested. Psychiatric exam shows her to be awake and alert, oriented times three with appropriate mood and affect, and conversational. Her white count today is 6.8, down from 8.5 yesterday, with hemoglobin and hematocrit of 9.3 and 31.3, slightly increased from yesterday. Platelet count is 624 and differential shows 65% neutrophils, 18% lymphocytes, 11% monocytes. There are no immature forms, no toxic granulations. Her electrolytes are essentially normal with a BUN and creatinine of 15 and 0.57. Glucose is 128 with a calcium of 8.8 and albumin 2.4. Her pleural fluid has come back with pH 7.69 with a glucose of 101 and LDH of 159 compared to serum LDH of 188. This, therefore makes it mildly exudative. She has 408 white cells, 90% of which are lymphocytes. Her chest x-ray shows a newly opacified left hemithorax with some aeration in the upper portions of the chest. Chest tube is in good place posteriorly. I did obtain a CT of her chest today. It again shows some aeration in the upper extent of her chest. It looks as though that aeration is in the apical basilar segment of the lower lobe. The left upper lobe is completely occluded. There is still a considerable amount of fluid with atelectatic lung throughout of the lower hemithorax. IMPRESSION: 1. Left upper lobe lung mass with complete endobronchial occlusion of the left upper lobe bronchus. 2. Left pleural effusion drained but still a considerable amount present. 3. Periumbilical hernia. 4. Hypertension. 5. Hyperlipidemia. 6. Shortness of breath secondary to pleural effusion and to her left upper lobe bronchial occlusion. PLAN AND DISCUSSION: I will do a tissue plasminogen activator (tPA) pleurolysis today to hopefully remove the remainder of the fluid and get at least the lower lobe expanded to the chest wall. Dr. Manuel has already seen her and she will need a bronchoscopy most likely early next week. I think this is indeed going to be a malignant process. The fluid cytology is still pending.
[2020-05-20] MEDS: PIPERACILLIN/TAZOBACTAM SOD 4.5 GM in D5W MINI-BAG PLUS 50 ML IV SCH ×2 (17:00→22:53)
[2020-05-20] MEDS: PRAVASTATIN 10 MG TAB PO SCH (20:06)
[2020-05-21] VITALS: BP 127/58
[2020-05-21] MEDS: KETOROLAC 30 MG/ML 1ML VIAL IV SCH ×4 (02:13→20:43)
[2020-05-21] MEDS: LEVALBUTEROL 1.25 MG/0.5 ML CONCENTRATE NEB NEB SCH ×4 (02:13→20:26)
[2020-05-21 04:00] VITALS: BP 109/54
[2020-05-21] MEDS: PIPERACILLIN/TAZOBACTAM SOD 4.5 GM in D5W MINI-BAG PLUS 50 ML IV SCH ×4 (04:45→22:56)
[2020-05-21] MEDS: SLF 3 ML SYR IV SCH ×3 (04:45→20:44)
[2020-05-21 05:37] LABS: BASO # 0.1 10^3/uL (0.0-0.2); BASO % 0.6 % (0.0-1.0); EOS # 0.1 10^3/uL (0.0-0.5); EOS % 0.6 % (0.0-3.0); HEMATOCRIT 29.5 % (36.0-47.0); HEMOGLOBIN 8.7 g/dl (12.0-15.5); LYMPH % 9.1 % (24.0-44.0); MEAN CORPUSCULAR HEMOGLOBIN 24.4 pg (27.0-33.0); MEAN CORPUSCULAR HGB CONC 29.5 g/dl (32.0-36.5); MEAN CORPUSCULAR VOLUME 82.6 fl (80.0-96.0); MONO # 0.8 10^3/uL (0.0-0.8); MONO % 7.7 % (0.0-5.0); NEUTROPHILS # 8.7 10^3/uL (1.5-8.5); NEUTROPHILS % 81.1 % (36.0-66.0); PLATELET COUNT, AUTOMATED 607 10^3/uL (150-450); RED BLOOD COUNT 3.57 10^6/uL (4.00-5.40); WHITE BLOOD COUNT 10.7 10^3/uL (4.0-10.0)
[2020-05-21 05:45] LABS: BLOOD UREA NITROGEN 20 MG/DL (7-18); CALCIUM LEVEL 8.4 MG/DL (8.8-10.2); CARBON DIOXIDE LEVEL 26 MEQ/L (21-32); CHLORIDE LEVEL 103 MEQ/L (98-107); CREATININE FOR GFR 0.56 MG/DL (0.55-1.30); GLOMERULAR FILTRATION RATE > 60.0 (>45); GLUCOSE, FASTING 114 MG/DL (70-100); POTASSIUM SERUM 4.7 MEQ/L (3.5-5.1); SODIUM LEVEL 136 MEQ/L (136-145)
[2020-05-21 08:00] VITALS: BP 121/58
[2020-05-21] MEDS: clonazePAM 0.5 MG TAB PO SCH (08:08)
[2020-05-21] MEDS: MULTIVITAMINS/MINERALS THERAP 1 TAB PO SCH (08:08)
[2020-05-21] MEDS: FERROUS SULFATE 325MG TAB PO SCH ×2 (08:08→20:43)
[2020-05-21] MEDS: PANTOPRAZOLE 40MG TAB (PROTONIX) PO SCH (08:08)
[2020-05-21] MEDS: DOCUSATE SODIUM 100 MG CAP PO SCH ×2 (08:08→20:43)
[2020-05-21] MEDS: HEPARIN SOD (PORCINE) 5000UNITS/ML 1ML VIAL/SYRINGE SC SCH ×2 (08:08→20:43)
[2020-05-21] MEDS: MOM 30ML SUSPENSION UDC PO SCH (08:10)
--- NOTE | 2020-05-21 08:53 | REP ---
Chest x-ray: Two views. History: Pleural effusion. Comparison chest x-ray: May 20, 2020. Findings: The left chest tube remains in place. The loculated left pleural effusion is gradually improving. There is some pleural angle blunting and today on the right. Mild cardiomegaly. No new infiltrate. Electronically Signed by Kody Vieira MD 05/21/2020 08:45 A
[2020-05-21] MEDS ORDERED: FUROSEMIDE 20MG/2ML VIAL (J1940) IV SCH (09:00)
--- NOTE | 2020-05-21 11:28 | IPN ---
DATE: 05/21/2020 Mrs. Deras has successful result with her tissue plasminogen activator (tPA) pleurolysis putting out 1300 mL. She is breathing better today, although she did have a considerable amount of pain during the drainage. She does feel tired and wiped out today. Her vital signs show a maximum temperature (Tmax) of 99.2, with a heart rate that ranges between 85 and 120 in a sinus rhythm. Her respiratory rate of is 18-20 without the use of accessory muscles, who is 94% saturated on 2 liters nasal cannula and whose blood pressure is ranging between 109/54 to 127/58. The nurses do tell me that she does get very short of breath with ambulation. Her intake and output for the past 24 hours has been recorded as 1540 in and 2274 out for a negativity of 730 mL. She had 1374 mL out the chest tube. Her weight today is 73 kg compared to 74 kg yesterday. On physical examination, she has rales and rhonchi with do not clear with cough on both sides. There is E-to-A egophony in the left upper hemithorax. Percussion note is dull on the left base and full to the diaphragm on the right. Her cardiac exam is without murmurs, clicks, gallops, or rubs. I cannot feel her point of maximal impulse (PMI). S1 and S2 are normal. Abdomen is soft, nontender. Bowel sounds are positive. There is no hepatomegaly. No costovertebral angle (CVA) tenderness. Extremities show no pretibial edema, no calf tenderness. No differential swelling of the upper extremities. Skin is warm, dry, and perfused without cyanosis or mottling, including that of the nail beds and the knees. Neck is supple. There is no jugular venous distention. No subcutaneous emphysema. Trachea is midline. Mouth shows her mucous membranes to be pink and moist. Lips and commissures are without lesions. There is no thrush. Eyes show her pupils to be equal and reactive. Extraocular motor intact. Sclerae are nonicteric. Neurologic shows II-XII intact along with gross motor and gross sensation intact. Gait is not tested. Psychiatric exam shows her to be awake and alert, oriented times three with appropriate mood and affect, and conversational. INVESTIGATIONS: Her white count is 10.7 with a hemoglobin and hematocrit of 8.7 and 29.5, respectively. Platelet count is 607and differential shows 81% neutrophils, 9% lymphocytes, 7% monocytes. There are no immature forms, no toxic granulations. Electrolytes are normal with a BUN and creatinine of 20 and 0.56, glucose of 114 and a calcium of 8.4. She remains on Toradol for pain control. Her chest x-ray today shows improvement in that there is less opacity in the left chest. I can see her costophrenic angle. A considerable amount of her opacity is secondary to her tumor mass or postobstructive compression. IMPRESSION: 1. 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 2. Left pleural effusion drained additionally with the tPA pleurolysis with good results. 3. Periumbilical hernia. 4. Hypertension. 5. Hyperlipidemia. 6. Shortness of breath secondary to a pleural effusion and to her left upper lobe bronchial occlusion. PLAN AND DISCUSSION: I will keep her chest tubes in for at least another day. I have spoken with Dr. Wallace who will undertake a bronchoscopy most likely early next week. There is a possibility it may be tomorrow. We will obtain sputum for cytology, although she is not coughing very much at all and so not bringing anything up. Her pleural fluid pathology is negative for tumor. Microbiology did not show any organisms on gram stain, and aerobic and anaerobic cultures are pending.
--- NOTE | 2020-05-21 12:00 | IPNPDOC ---
Subjective Date Seen The patient was seen on 05/21/20. Subjective Chief Complaint/HPI Patient is examined on the chair. She reported that she still has exertional dyspnea which she is unable to tell if there is a difference compared to prior to admission. She reported still having mild cough with clear sputum which she attributed to postnasal drip. Denies fever or chills. Denies chest pain, palpitation, pleuritic chest pain, abd pain. Reported tiredness and generalized weakness; no BM since admission and no blood per rectum that she noticed since admission General: Denies: Chills Constitutional: Denies: Chills, Fever Pulmonary: Reports: Dyspnea, Cough Cardiovascular: Denies: Chest Pain, Palpitations Gastrointestinal: Denies: Nausea, Vomiting, Abdominal Pain, Diarrhea Objective Physical Examination General Exam: Positive: Alert, Cooperative, Mild Distress Eye Exam: Positive: Conjunctiva & lids normal; Negative: Sclera icteric ENT Exam: Positive: Atraumatic, Mucous membr. moist/pink Neck Exam: Positive: Supple; Negative: JVD Chest Exam: Positive: Normal air movement, Rhonchi (in left lung field), Diminished (in b/l lung field, much more obvious on left), Other (left sided chest tube in place, red drainage fluid in tube. Mild accessory muscle use with breathing) Heart Exam: Positive: Tachycardic, Regular Rhythm, Normal S1, Normal S2; Negative: Murmurs Abdomen Exam: Positive: Normal bowel sounds, Soft; Negative: Tenderness Extremity Exam: Negative: Cyanosis, Edema, Swelling Skin Exam: Positive: Nl turgor and temperature Neuro Exam: Positive: Normal Speech, Normal Tone Psych Exam: Positive: Mental status NL, Anxiety (mild), Memory Intact Assessment /Plan Assessment Pt is a 69 years old female with PMH of a. fib, HTN, and chronic anemia who was discharged from hospital 05/13/2020 noted to have diagnosis of symptomatic anemia due to acute GI bleed with duodenal and colonic AVM clipped and a mesenteric mass presented to [facility] on 05/19/2020 with CC of generalized weakness and 1 episode of blood streaks on her pants 05/19/2020 returned to [facility] 05/19/2020 found to have acute hypoxemic respiratory failure requiring oxygenation with NC. CXR showed left sided loculated pleural effusion, and a left sided chest tube was placed 05/19/[address] Lyles. 1. Left upper lobe lung mass with complete occlusion of the left upper lobe bronchus. CT chest showed occluded left upper lobe and lingular bronchi containing soft tissue within the lumen of the bronchi. Pt former smoker. Pulm discussed with pt that a bronchoscopy for further eval is needed when medically optimized. Oxygen therapy to keep pulse ox>90%. Pulm following. 2. Potential postobstructive pneumonia 2/2 left upper lobe lung mass with complete occlusion of the left upper lobe bronchus. Pulm following. CT chest showed occluded left upper lobe and lingular bronchi containing soft tissue within the lumen of the bronchi. Zosyn 4.5g Q6H IV started 05/20/2020 per group discussion for postobstructive pneumonia. Procalcitonin neg. Oxygen therapy to keep pulse ox>90% 3. Left sided pleural effusion 2/2 malignant pleural effusion vs obstructive process vs cardiac etiology, s/p chest tube insertion 05/19/[address] Lyles. Chest tube output 05/20/[id number]; tube clamped from 4-7pm 05/20/2020. Left sided pleural effusion may contribute to exertional dyspnea as well. Etiology suspected to be malignant vs other inflammatory causes. Pleural fluid lab pos for WBC; fluid analysis mildly exudative; appeared to be clear pink/red at bedside. Pleural fluid cytology/cell block neg for malignancy. Fluid culture gram stain no organism. A tpa-pleurolysis was done by Dr. Lyles 05/20/2020. 4. Moderate size pericardial effusion. Exertional dyspnea, heart sound minimally distant. Dr. Lyles following. Echo 05/19/2020 showed moderate sized pericardial effusion. Discussed with Dr. Lyles, conservative management for the pericardial effusion for now 5. Mesenteric mass of unknown etiology, possibly a dermoid cyst or calcified vascular malformation or lymphoma. Partially calcified mesenteric mass in the right lower quadrant found on CT abd/pelvis prior admission. Prior visit chromogranin A and 5-HIAA levels which were borderline elevated. Pt was scheduled to follow up with Dr. Ruvalcaba outpatient. 6. Chronic a-fib. Cont home med Diltiazem. Not on home full anticoagulation. Will hold off on starting anticoagulation d/t possible GI bleed/symptomatic anemia. 7. HTN. Cont home med Diltiazem. Vital signs as scheduled 8. Hyperlipemia. Cont home med statin 9. Diabetes mellitus. It was noted that patient reported her DM is diet controlled. A1C 6.3 but blood sugar roughly stable. Will hold off on starting ACHS glucose checks and SS at this time 10. Anxiety. It was noted that pt was on clonazepam as outpatient however her utox has been persistently negative for BZD. So [facility] has concerns whether pt is selling clonazepam; PMD is following on that. Will continue home clonazepam for now in-patient; change from scheduled to PRN for anxiety 11. Symptomatic normocytic anemia due to iron deficiency, likely 2/2 duodenal and colonic AVM . Hg currently 8.7, mildly trending down. Last hospitalization pt was found to have Hg of 5 requiring transfusion, s/p duodenal and colonic AVM clipping and injection 05/11/2020. Reported generalized weakness and exertional dyspnea. Iron studies consistent with iron deficiency anemia. Cont to monitor CBC daily. Continue ferrous sulfate 13. Questionable diastolic heart failure. Echo showed grade 1 LV diastolic dysfunction and pt appears to be mildly hypervolemic with exertional dyspnea. Per groups discussion start IV lasix 20mg QD with holding parameters. 14. DVT prophylaxis: SCD and TEDS 15. GI prophylaxis: Cont home med Pantoprazole Plan/VTE VTE Prophylaxis Ordered?: Yes Plan Diet: Continue Current Activity: Continue Current Therapy: PT, OT Diagnostics: Check Labs, Repeat Labs in AM GME ATTESTATION I have personally evaluated and examined the patient. Discussed with resident/student regarding plan of care and agree with the above assessment and plan. VS, I&O, 24H, Fishbone Vital Signs/I&O Vital Signs Date Time Temp Pulse Resp B/P (MAP) Pulse Ox O2 Delivery O2 Flow Rate FiO2 05/21/20 04:00 2.0 05/21/20 04:00 96.4 104 20 109/54 (72) 94 Nasal Cannula I&O- Last 24 Hours up to 6 AM 05/21/20 06:00 Intake Total 1110 ml Output Total 2105 ml Balance -995 ml Laboratory Data 24H LABS Laboratory Tests 2 05/21/20 05:00: Immature Granulocyte % (Auto) 0.9, Neutrophils (%) (Auto) 81.1H, Lymphocytes (%) (Auto) 9.1L, Monocytes (%) (Auto) 7.7H, Eosinophils (%) (Auto) 0.6, Basophils (%) (Auto) 0.6, Neutrophils # (Auto) 8.7H, Lymphocytes # (Auto) 1.0L, Monocytes # (Auto) 0.8, Eosinophils # (Auto) 0.1, Basophils # (Auto) 0.1, Nucleated Red Blood Cells % (auto) 0.0, Anion Gap 7L, Glomerular Filtration Rate > 60.0, Calc ium Level 8.4L CBC/BMP Laboratory Tests 05/21/20 05:00 Microbiology Microbiology 05/19/20 Acid Fast Stain, Received Pending 05/19/20 Mycobacterial Culture, Received Pending 05/19/20 Fungal Smear, Received Pending 05/19/20 Fungal Culture, Received Pending 05/19/20 Gram Stain - Final, Resulted 05/19/20 Anaerobic Culture, Resulted Pending 05/19/20 Body Fluid Culture, Received Pending JORGE A SCHNEIDER DO May 21, 2020 07:31 SHAMAR ESPAÑA MD Jun 07, 2020 07:58
[2020-05-21 12:36] VITALS: BP 102/50
[2020-05-21] MEDS: PERCOCET 5MG/325MG TAB PO PRN ×2 (12:51→21:35)
[2020-05-21] MEDS: clonazePAM 0.5 MG TAB PO PRN ×3 (12:52→22:56)
[2020-05-21 16:09] VITALS: BP 105/56
[2020-05-21 20:00] VITALS: BP 128/65
[2020-05-21] MEDS: PRAVASTATIN 10 MG TAB PO SCH (20:43)
[2020-05-22] VITALS (11 sets, daily range): BP systolic 97–153; BP diastolic 50–78
[2020-05-22] MEDS: LEVALBUTEROL 1.25 MG/0.5 ML CONCENTRATE NEB NEB SCH ×4 (01:42→19:35)
[2020-05-22] MEDS: KETOROLAC 30 MG/ML 1ML VIAL IV SCH ×4 (03:14→20:12)
[2020-05-22 05:10] LABS: BASO # 0.1 10^3/uL (0.0-0.2); BASO % 0.7 % (0.0-1.0); EOS # 0.2 10^3/uL (0.0-0.5); EOS % 2.1 % (0.0-3.0); HEMATOCRIT 26.3 % (36.0-47.0); HEMOGLOBIN 7.9 g/dl (12.0-15.5); LYMPH # 0.7 10^3/uL (1.5-5.0); LYMPH % 7.5 % (24.0-44.0); MEAN CORPUSCULAR HEMOGLOBIN 24.5 pg (27.0-33.0); MEAN CORPUSCULAR VOLUME 81.7 fl (80.0-96.0); MONO # 0.8 10^3/uL (0.0-0.8); MONO % 7.9 % (0.0-5.0); NEUTROPHILS # 8.1 10^3/uL (1.5-8.5); NEUTROPHILS % 81.1 % (36.0-66.0); PLATELET COUNT, AUTOMATED 528 10^3/uL (150-450); RED BLOOD COUNT 3.22 10^6/uL (4.00-5.40); WHITE BLOOD COUNT 9.9 10^3/uL (4.0-10.0)
[2020-05-22 05:30] LABS: BLOOD UREA NITROGEN 18 MG/DL (7-18); CALCIUM LEVEL 8.5 MG/DL (8.8-10.2); CARBON DIOXIDE LEVEL 28 MEQ/L (21-32); CHLORIDE LEVEL 104 MEQ/L (98-107); CREATININE FOR GFR 0.55 MG/DL (0.55-1.30); GLOMERULAR FILTRATION RATE > 60.0 (>45); GLUCOSE, FASTING 102 MG/DL (70-100); POTASSIUM SERUM 4.1 MEQ/L (3.5-5.1); SODIUM LEVEL 139 MEQ/L (136-145)
[2020-05-22] MEDS: SLF 3 ML SYR IV SCH ×3 (06:00→21:56)
[2020-05-22] MEDS: PERCOCET 5MG/325MG TAB PO PRN ×3 (06:00→20:11)
[2020-05-22] MEDS: PIPERACILLIN/TAZOBACTAM SOD 4.5 GM in D5W MINI-BAG PLUS 50 ML IV SCH ×4 (06:00→22:30)
[2020-05-22] MEDS: PANTOPRAZOLE 40MG TAB (PROTONIX) PO SCH (08:49)
[2020-05-22] MEDS: DOCUSATE SODIUM 100 MG CAP PO SCH ×2 (08:49→20:11)
[2020-05-22] MEDS: FERROUS SULFATE 325MG TAB PO SCH ×2 (08:49→20:11)
[2020-05-22] MEDS: HEPARIN SOD (PORCINE) 5000UNITS/ML 1ML VIAL/SYRINGE SC SCH ×2 (08:49→20:12)
[2020-05-22] MEDS: MULTIVITAMINS/MINERALS THERAP 1 TAB PO SCH (08:49)
[2020-05-22] MEDS: MOM 30ML SUSPENSION UDC PO SCH (08:50)
[2020-05-22] MEDS: clonazePAM 0.5 MG TAB PO PRN ×3 (08:54→21:12)
--- NOTE | 2020-05-22 09:23 | REP ---
Clinical: Pleural effusion. Technique: PA and lateral. Comparison: 05/21/2020. Findings: Chest tube at the left base along with large loculated left pleural effusion, small right pleural effusion, and bilateral atelectasis (left greater than right) remain unchanged. No new acute process identified. Impression: No change from prior examination. Electronically Signed by Chaparro Jean Baptiste MD 05/22/2020 09:15 A
--- NOTE | 2020-05-22 13:50 | IPN ---
DATE: 05/22/2020 Ms. Deras is feeling a bit better today and is comfortably sitting in a chair. She states that her breathing is better today. Her vital signs show a maximum temperature (T max) of 98.2 with a heart rate that ranges between 111 and 93 and is sinus rhythm, respiratory rate of 15 to 18 without the use of accessory muscles who is 95% saturated now on room air and whose blood pressure is ranging between 97/50 to 129/58. Her intake and output over the past 24 hours has been recorded as 1060 in and 1135 out for a negativity of 75 mL. She has put out 35 mL from the chest tube, and there is no air leak. Weight today is 73.8 kg compared to 73.5 kg yesterday. On physical examination, surprisingly her lungs show normal breath sounds. I hear no egophony or bronchophony. Percussion note is full to the diaphragm. Cardiac exam is without murmurs, clicks, gallops or rubs. I cannot feel her point of maximum impulse (PMI). S1, S2 are normal. Abdomen is soft and nontender. Bowel sounds are positive. There is no hepatomegaly. No costovertebral angle tenderness. Extremities show no pretibial edema. No calf tenderness. No differential swelling of the upper extremities. Skin is warm, dry and perfused without cyanosis or mottling, including that of the nail beds and the knees. Neck is supple. There is no jugular venous distention, no subcutaneous emphysema. Trachea is midline. Mouth shows her mucous membranes to be pink and moist. Lips and commissures without lesions. There is no thrush. Eyes show her pupils to be equal and reactive. Extraocular motions intact. Sclerae anicteric. Neurologic shows II-XII intact along with gross motor and gross sensation intact. Gait is not tested. Psychiatric shows her to be awake and alert, oriented times three with appropriate mood and affect and conversational. Her white count today is 9.9 with a hemoglobin and hematocrit of 7.9 and 26.3 respectively. This is a significant change from 8.7 and 29.5 yesterday. Her platelet count is 528 and stable and differential shows 81% neutrophils, 7% lymphocytes, 7% monocytes. There are no immature forms. No toxic granulations. Her electrolytes are normal with a BUN and creatinine of 18 and 0.55, a glucose of 102, and a calcium of 8.5. Her chest x-ray shows the large mass occupying most of the upper and mid hemithorax on the left. The costophrenic angle is sharp and the chest tube is in good place. There is no evidence of a pleural effusion. Echocardiography shows what is called a small to moderate pericardial effusion, but my judgment is that it is very small. There is no compression, and there is no evidence of tamponade. Inferior vena cava (IVC) shows normal variations. IMPRESSION: 1. 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 2. Left pleural effusion drained additionally with TPA pleurolysis with good results. 3. Periumbilical hernia. 4. Hypertension. 5. Hyperlipidemia. 6. Shortness of breath secondary to the pleural effusion and her left upper lobe mass. 7. Small pericardial effusion without compression. PLAN AND DISCUSSION: There is nothing we need to do for her pericardial effusion at this point in time. Dr. Wallace is going to undertake a bronchoscopy on Sunday with biopsy. I will discontinue her chest tube today as bronchoscopy is going to be confined to proximal biopsies to her occluded left upper lobe bronchus.
--- NOTE | 2020-05-22 14:53 | IPNPDOC ---
Subjective Date Seen The patient was seen on 05/22/20. Subjective Chief Complaint/HPI Patient is examined at bedside. She indicated limproving exertional dyspnea. Denies any chest pain/pleuritic chest pain besides some mild pain at the side of chest tube. Denies nausea, vomiting, fever, chills, abdominal pain. Reported that her cough is now dry cough and has improved. She reported there's persistent dull upper back pain that has been present for a week, pointing toward upper thoracic region across not limited at midline spine region; no specific aggravating or alleviating factor was reported. Patient had previously denied orthopnea, and today she indicated that she had not been able to sleep flat on bed and she had been sleeping on chair at home which she attributed to claustrophobia not due to orthopnea. She reported no BM since admission and there's no rectal bleeding reported since admission. General: Denies: Chills Constitutional: Denies: Chills, Fever Pulmonary: Reports: Dyspnea (improving), Cough; Denies: Pleuritic Chest Pain (now dry cough, improving) Cardiovascular: Denies: Chest Pain, Palpitations, Orthopnea Gastrointestinal: Denies: Nausea, Vomiting, Abdominal Pain, Diarrhea Musculoskeletal: Reports: Back Pain (upper thoracic region across) Objective Physical Examination General Exam: Positive: Alert, Cooperative, Mild Distress (minimal distress), Other (mildly pale) Eye Exam: Positive: Conjunctiva & lids normal; Negative: Sclera icteric ENT Exam: Positive: Atraumatic, Mucous membr. moist/pink Neck Exam: Positive: Supple; Negative: JVD Chest Exam: Positive: Clear to auscultation, Normal air movement, Other (left sided chest tube in place, red drainage fluid in tube) Heart Exam: Positive: Tachycardic, Regular Rhythm, Normal S1, Normal S2; Negative: Murmurs Abdomen Exam: Positive: Normal bowel sounds, Soft; Negative: Tenderness Extremity Exam: Negative: Cyanosis, Edema, Swelling Skin Exam: Positive: Nl turgor and temperature Neuro Exam: Positive: Normal Speech, Normal Tone Psych Exam: Positive: Mental status NL, Anxiety (mild), Memory Intact Other physical findings No tenderness upon palpation in midline thoracic spine at the level she indicated pain, and no tenderness upon palpation in the horizontal region she indicated pain Assessment /Plan Assessment Pt is a 69 years old female with PMH of a. fib, HTN, and chronic anemia who was discharged from hospital 05/13/2020 noted to have diagnosis of symptomatic anemia due to acute GI bleed with duodenal and colonic AVM clipped and a mesenteric mass presented to [facility] on 05/19/2020 with CC of generalized weakness and 1 episode of blood streaks on her pants 05/19/2020 returned to [facility] 05/19/2020 found to have acute hypoxemic respiratory failure requiring oxygenation with NC. CXR showed left sided loculated pleural effusion, and a left sided chest tube was placed 05/19/[address] Lyles s/p removal 05/22/2020, bronchoscopy planned with Dr. Wallace on 05/24/2020. 1. Left upper lobe lung mass with complete occlusion of the left upper lobe bronchus 2/2 malignancy vs questionable mixed connective tissue disease vs r/o sarcoidosis. CT chest showed occluded left upper lobe and lingular bronchi containing soft tissue within the lumen of the bronchi. Pt former smoker. Oxygen therapy to keep pulse ox>90%. Pos Anti-DIGESTER OPERATOR HELPER indicating possible MCTD. Pulm following. Bronchoscopy planned for 05/24/2020 2. Potential postobstructive pneumonia 2/2 left upper lobe lung mass with complete occlusion of the left upper lobe bronchus. Pulm following. CT chest showed occluded left upper lobe and lingular bronchi containing soft tissue within the lumen of the bronchi. Zosyn 4.5g Q6H IV started 05/20/2020 per group discussion for postobstructive pneumonia. Procalcitonin neg. Oxygen therapy to keep pulse ox>90% 3. Left sided pleural effusion 2/2 questionable mixed connective tissue disease vs malignant pleural effusion vs obstructive process vs cardiac etiology, s/p chest tube insertion 05/19/2020 and removal 05/22/[address] Lyles. Chest tube output 05/19/[id number], 05/20/[id number], 05/21/2020=35ml; tube clamped from 4- 7pm 05/20/2020. Left sided pleural effusion may contribute to exertional dyspnea as well. Etiology suspected to be malignant vs other inflammatory causes. Pleural fluid lab pos for WBC; fluid analysis mildly exudative; appeared to be clear pink/red at bedside. Pleural fluid cytology/cell block neg for malignancy. Fluid culture gram stain no organism. A tpa-pleurolysis was done by Dr. Lyles 05/20/2020. Exertional dyspnea improving per patient 4. Moderate size pericardial effusion. Exertional dyspnea, heart sound minimally distant. Dr. Lyles following. Echo 05/19/2020 showed moderate sized pericardial effusion. Discussed with Dr. Lyles, no further treatment needed at this time 5. Mesenteric mass of unknown etiology, possibly a dermoid cyst or calcified vascular malformation or lymphoma. Partially calcified mesenteric mass in the right lower quadrant found on CT abd/pelvis prior admission. Prior visit chromogranin A and 5-HIAA levels which were borderline elevated. Pt was scheduled to follow up with Dr. Ruvalcaba outpatient. 6. Chronic a-fib. Cont home med Diltiazem. Not on home full anticoagulation. Will hold off on starting anticoagulation d/t possible GI bleed/symptomatic anemia. 7. HTN. Cont home med Diltiazem. Vital signs as scheduled 8. Hyperlipemia. Cont home med statin 9. Diabetes mellitus. It was noted that patient reported her DM is diet controlled. A1C 6.3 but blood sugar roughly stable. Will hold off on starting ACHS glucose checks and SS at this time 10. Anxiety. It was noted that pt was on clonazepam as outpatient however her utox has been persistently negative for BZD. So [facility] has concerns whether pt is selling clonazepam; PMD is following on that. Will continue home clonazepam for now in-patient; change from scheduled to PRN for anxiety 11. Symptomatic normocytic anemia due to iron deficiency, likely 2/2 duodenal and colonic AVM vs blood loss from pleural fluid vs questionable MCTD. Hg currently 7.9, mildly trending down compared to 8.9 upon this admission. Last hospitalization pt was found to have Hg of 5 requiring transfusion, s/p duodenal and colonic AVM clipping and injection 05/11/2020. Reported generalized weakness and exertional dyspnea. Iron studies consistent with iron deficiency anemia. Cont to monitor CBC daily. Continue ferrous sulfate. Blood consent form obtained 05/22/2020 PM, and 1 unit PRBC ordered to be transfused today considering post- procedure Hg<8 and bronchoscopy next Sunday. Follow up with [facility] this evening. 13. Questionable diastolic heart failure. Echo showed grade 1 LV diastolic dysfunction and pt appeared to be mildly hypervolemic with exertional dyspnea, and IV lasix was ordered. S/p 1 dose IV lasix 20mg QD with holding parameters. Pt reported improving exertional dyspnea which may also be d/t pleural fluid output from chest tube. As pt's BP was soft yesterday with MAP lowest at 66, will d/c IV lasix at this time. Cont to monitor volume status, consider 1800ml fluid restriction if appears to be mildly hypervolemic again 14. Reactive thrombocytosis 2/2 malignancy vs inflammation due to pleuritis vs questionable mixed connective tissue disease , improving. Plt 528 compared to 641 upon admission. Continue to trend CBC. Consider ferritin, CRP, and peripheral blood smear if plt count does not improve 15. 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 Pos SUJEY with anti-DIGESTER OPERATOR HELPER without anti-adorno ab or anti-ds DNA ab. Consider anti-RAFAEL ab and rheumatology consult. DVT prophylaxis: SCD and TEDS GI prophylaxis: Cont home med Pantoprazole Patient's next Kin Ruma Deras was contacted 05/22/2020 and updated plan as above and possible diagnosis of pulm malignancy and planned bronchoscopy 05/24/2020, she verbalized understanding and said patient does not have a health care proxy form filled out at this time. She understands patient is full code a nd understands patient is currently stable, but indicated she will discuss with her siblings regarding possible health care proxy destination. Plan/VTE VTE Prophylaxis Ordered?: Yes Plan Diet: Continue Current Activity: Continue Current Therapy: PT, OT Diagnostics: Check Labs, Repeat Labs in AM VS, I&O, 24H, Carmelo Vital Signs/I&O Vital Signs Date Time Temp Pulse Resp B/P (MAP) Pulse Ox O2 Delivery O2 Flow Rate FiO2 05/22/20 08:50 111 129/58 05/22/20 08:00 97.3 18 97 Room Air 05/22/20 04:00 2.0 I&O- Last 24 Hours up to 6 AM 05/22/20 06:00 Intake Total 1310 ml Output Total 1620 ml Balance -310 ml Laboratory Data 24H LABS Laboratory Tests 2 05/22/20 04:58: Immature Granulocyte % (Auto) 0.7, Neutrophils (%) (Auto) 81.1H, Lymphocytes (%) (Auto) 7.5L, Monocytes (%) (Auto) 7.9H, Eosinophils (%) (Auto) 2.1, Basophils (%) (Auto) 0.7, Neutrophils # (Auto) 8.1, Lymphocytes # (Auto) 0.7L, Monocytes # (Auto) 0.8, Eosinophils # (Auto) 0.2, Basophils # (Auto) 0.1, Nucleated Red Blood Cells % (auto) 0.0, Anion Gap 7L, Glomerular Filtration Rate > 60.0, Calcium Level 8.5L CBC/BMP Laboratory Tests 05/22/20 04:58 Microbiology Microbiology 05/19/20 Acid Fast Stain, Received Pending 05/19/20 Mycobacterial Culture, Received Pending 05/19/20 Fungal Smear, Received Pending 05/19/20 Fungal Culture, Received Pending 05/19/20 Gram Stain - Final, Complete 05/19/20 Anaerobic Culture - Final, Complete 05/19/20 Body Fluid Culture - Final, Complete GME ATTESTATION I have personally evaluated and examined the patient. Discussed with resident/student regarding plan of care and agree with the above assessment and plan. JORGE A SCHNEIDER DO May 22, 2020 10:38 SHAMAR ESPAÑA MD Jun 07, 2020 08:01
[2020-05-22 15:07] LABS: ANTI DOUBLE STRAND-DNA AB <1 IU/mL (0-9); ANTINUCLEAR ANTIBODIES DIRECT Positive (Negative); RNP ANTIBODIES 2.9 AI (0.0-0.9); SJOGREN'S ANTI SS-A <0.2 AI (0.0-0.9); SJOGREN'S ANTI SS-B <0.2 AI (0.0-0.9); SMITH ANTIBODIES <0.2 AI (0.0-0.9)
[2020-05-22] MEDS ORDERED: methocarbamoL 500 MG TAB PO ONE (16:00)
[2020-05-22] MEDS: PRAVASTATIN 10 MG TAB PO SCH (20:12)
[2020-05-22 21:19] LABS: HEMATOCRIT 26.9 % (36.0-47.0); HEMOGLOBIN 8.3 g/dl (12.0-15.5)
[2020-05-23] VITALS: BP 140/76
[2020-05-23] MEDS: KETOROLAC 30 MG/ML 1ML VIAL IV SCH ×4 (01:35→20:45)
[2020-05-23 04:00] VITALS: BP 141/78
[2020-05-23] MEDS: LEVALBUTEROL 1.25 MG/0.5 ML CONCENTRATE NEB NEB SCH ×4 (04:51→18:08)
[2020-05-23] MEDS: PIPERACILLIN/TAZOBACTAM SOD 4.5 GM in D5W MINI-BAG PLUS 50 ML IV SCH ×4 (05:34→23:29)
[2020-05-23 05:43] LABS: BASO # 0.1 10^3/uL (0.0-0.2); BASO % 0.9 % (0.0-1.0); EOS # 0.2 10^3/uL (0.0-0.5); EOS % 3.2 % (0.0-3.0); HEMATOCRIT 27.1 % (36.0-47.0); HEMOGLOBIN 8.3 g/dl (12.0-15.5); LYMPH # 0.7 10^3/uL (1.5-5.0); LYMPH % 9.9 % (24.0-44.0); MEAN CORPUSCULAR HEMOGLOBIN 24.9 pg (27.0-33.0); MEAN CORPUSCULAR HGB CONC 30.6 g/dl (32.0-36.5); MEAN CORPUSCULAR VOLUME 81.4 fl (80.0-96.0); MONO # 0.6 10^3/uL (0.0-0.8); MONO % 8.6 % (0.0-5.0); NEUTROPHILS # 5.7 10^3/uL (1.5-8.5); NEUTROPHILS % 76.9 % (36.0-66.0); PLATELET COUNT, AUTOMATED 528 10^3/uL (150-450); RED BLOOD COUNT 3.33 10^6/uL (4.00-5.40); WHITE BLOOD COUNT 7.5 10^3/uL (4.0-10.0)
[2020-05-23] MEDS: SLF 3 ML SYR IV SCH ×3 (06:07→20:45)
[2020-05-23 06:10] LABS: BLOOD UREA NITROGEN 11 MG/DL (7-18); CALCIUM LEVEL 8.2 MG/DL (8.8-10.2); CARBON DIOXIDE LEVEL 26 MEQ/L (21-32); CHLORIDE LEVEL 106 MEQ/L (98-107); CREATININE FOR GFR 0.48 MG/DL (0.55-1.30); GLOMERULAR FILTRATION RATE > 60.0 (>45); GLUCOSE, FASTING 90 MG/DL (70-100); POTASSIUM SERUM 4.3 MEQ/L (3.5-5.1); SODIUM LEVEL 138 MEQ/L (136-145)
[2020-05-23 07:58] VITALS: BP 159/57
[2020-05-23] MEDS: HEPARIN SOD (PORCINE) 5000UNITS/ML 1ML VIAL/SYRINGE SC SCH ×3 (08:13→09:38)
[2020-05-23] MEDS: FERROUS SULFATE 325MG TAB PO SCH ×2 (08:14→20:44)
[2020-05-23] MEDS: PANTOPRAZOLE 40MG TAB (PROTONIX) PO SCH (08:14)
[2020-05-23] MEDS: MULTIVITAMINS/MINERALS THERAP 1 TAB PO SCH (08:14)
[2020-05-23] MEDS: MOM 30ML SUSPENSION UDC PO SCH (08:15)
[2020-05-23] MEDS: DOCUSATE SODIUM 100 MG CAP PO SCH ×2 (08:15→20:44)
--- NOTE | 2020-05-23 08:19 | REP ---
Clinical: Pleural effusion. Technique: PA and lateral. Elder: 05/21/2020. Findings: Bilateral pleuroparenchymal changes including large partially loculated left pleural effusion remain essentially unchanged. No obvious new acute process identified. No pneumothorax. Impression: No significant change from prior examination. Electronically Signed by Chaparro Jean Baptiste MD 05/23/2020 08:10 A
[2020-05-23] MEDS: clonazePAM 0.5 MG TAB PO PRN ×3 (08:23→20:44)
[2020-05-23] MEDS: PERCOCET 5MG/325MG TAB PO PRN ×4 (08:24→23:30)
--- NOTE | 2020-05-23 08:39 | IPNPDOC ---
Subjective Date Seen The patient was seen on 05/23/20. Subjective Chief Complaint/HPI Ms. Deras is feeling anxious about a lot of things. She is worried about her upcoming biopsy and what the results of it will be and if she will have to, "Live in the hospital and sit in a little row with my chemo machine like on the movies." She is also worried about how she will pay her [employer] bills while she is here. It seems like she may have the money to meet these obligations, but is just worried about how the actual process of paying her bill will work. She states that her L side is sore where the chest tube was in place, but it hurts less than when it was in. She is not complaining of dyspnea. Nursing confirms that she has been a little worked up today. They have given her Cardizem and will be rechecking her BP soon. They state that her previous cough seems to have improved quite a bit. I spoke directly with both Drs. Wallace and Rafal today. Dr. Lyles notes that there does not seem to be any reaccumulation of her pleural effusion since he removed the chest tube yesterday. He intends to sign off, but is willing to be reconsulted if he is needed again. Dr. Wallace plans to do a bronchoscopic biopsy tomorrow and we can go from there. He has nothing new to add today; tomorrow is the real show. General: Reports: Normal Appetite Constitutional: Denies: Chills, Fever Pulmonary: Denies: Dyspnea Cardiovascular: Denies: Chest Pain, Palpitations Gastrointestinal: Denies: Nausea, Vomiting Hematologic: Denies: Bruising, Bleeding Excessively Psych: Reports: Anxiety Objective Physical Examination General Exam: Positive: Alert (sitting up in her bedside chair watching TV when I entered the room. ), Cooperative, No Acute Distress Eye Exam: Positive: Conjunctiva & lids normal; Negative: Sclera icteric ENT Exam: Positive: Atraumatic, Mucous membr. moist/pink, Other ENT (teeth in poor repair) Neck Exam: Positive: Supple; Negative: JVD Chest Exam: Positive: Clear to auscultation, Normal air movement, Wheezing (occasional end expiratory wheeze noted in the L lung rojas), Other (the chest tube is removed and the bandage is c/d/i) Heart Exam: Positive: Tachycardic, Regular Rhythm, Normal S1, Normal S2; Negative: Murmurs Abdomen Exam: Positive: Normal bowel sounds, Soft; Negative: Tenderness Extremity Exam: Negative: Cyanosis, Edema, Swelling Skin Exam: Positive: Nl turgor and temperature Neuro Exam: Positive: Normal Speech, Normal Tone Psych Exam: Positive: Anxiety (generalized covering multiple areas of her life), Memory Intact Assessment /Plan Problems (1) Mass of upper lobe of left lung Discussed With: Waterworks Supervisor, Patient Problem Text: She is scheduled for bronchoscopic guided biopsy with Dr. Wallace tomorrow. Hopefully this will provide some more answers. (2) Anxiety Status: Chronic Discussed With: Nurse, Patient Problem Text: She has significant anxiety which appears predates this particular condition. The situational piece related to her ongoing workup and potential diagnosis of cancer certainly make sense. I consulted PFS to see if we can help resolve her concerns about her external affairs. (3) Pleural effusion Status: Resolved Response to Treatment: Stable Discussed With: Waterworks Supervisor, Patient Problem Text: Dr. Lyles removed her chest tube yesterday and there does not appear to be any reaccumulation of the pleural effusion. He is signing off the case at this point in time. (4) Chronic a-fib Status: Chronic Problem Text: She has a known history of atrial fibrillation. She sounded fairly regular to me today, but that does not mean she is not in atrial fibrillation. She is rate controlled with diltiazem. She has been anticoagulated for this the past, but anticoagulation is currently being held because of the procedure scheduled to be done in a noncompressible area tomorrow. She is receiving subcutaneous heparin. I asked that this be held starting tonight. (5) Normocytic hypochromic anemia Problem Text: She is status post one unit transfusion so far. Her hemoglobin is currently hanging steady at 8.3. We'll continue to monitor. (6) Reactive thrombocytosis Response to Treatment: Stable Problem Text: Her platelets are currently 528,000. This is down from admission. We'll continue to monitor for now. (7) Diabetes mellitus Status: Chronic Problem Text: She is basically diet controlled at this time. We'll continue to monitor through her labs and to more specific testing gives seems her blood glucose levels are becoming a problem. (8) Hyperlipemia Status: Chronic Problem Text: Continue her home medication which includes pravastatin. (9) HTN (hypertension) Status: Chronic Problem Text: Her blood pressure values from this morning are running a little high, however I think this relates to her anxiety. After she took her antihypertensives her values came back down into a more reasonable range. Continue current regimen, monitor. (10) Mesenteric mass Problem Text: She has a known history of a mesenteric mass. It seems that she was scheduled to follow-up with Dr. Ruvalcaba for outpatient evaluation of this before she was admitted. We want to continue to pay some attention to this mass so it doesn't get lost in the shuffle. Plan/VTE VTE Prophylaxis Ordered?: Yes (subcutaneous heparin) Plan Diet: Continue Current Activity: Continue Current Therapy: PT, OT Diagnostics: Check Labs, Repeat Labs in AM VS, I&O, 24H, Fishbone Vital Signs/I&O Vital Signs Date Time Temp Pulse Resp B/P (MAP) Pulse Ox O2 Delivery O2 Flow Rate FiO2 05/23/20 08:24 18 Room Air 05/23/20 08:14 96 159/57 05/23/20 07:58 97.6 91 05/22/20 04:00 2.0 I&O- Last 24 Hours up to 6 AM 05/23/20 06:00 Intake Total 1060 ml Output Total 1100 ml Balance -40 ml Laboratory Data 24H LABS Laboratory Tests 2 05/23/20 05:02: Immature Granulocyte % (Auto) 0.5, Neutrophils (%) (Auto) 76.9H, Lymphocytes (%) (Auto) 9.9L, Monocytes (%) (Auto) 8.6H, Eosinophils (%) (Auto) 3.2H, Basophils (%) (Auto) 0.9, Neutrophils # (Auto) 5.7, Lymphocytes # (Auto) 0.7L, Monocytes # (Auto) 0.6, Eosinophils # (Auto) 0.2, Basophils # (Auto) 0.1, Nucleated Red Blood Cells % (auto) 0.0, Anion Gap 6L, Glomerular Filtration Rate > 60.0, Calcium Level 8.2L CBC/BMP Laboratory Tests 05/22/20 21:14 05/23/20 05:02 Microbiology Microbiology 05/19/20 Acid Fast Stain, Received Pending 05/19/20 Mycobacterial Culture, Received Pending 05/19/20 Fungal Smear, Received Pending 05/19/20 Fungal Culture, Received Pending 05/19/20 Gram Stain - Final, Complete 05/19/20 Anaerobic Culture - Final, Complete 05/19/20 Body Fluid Culture - Final, Complete Cesario Morales MD May 23, 2020 08:39
--- NOTE | 2020-05-23 11:01 | IPN ---
DATE: 05/23/2020 Ms. Deras is sitting up comfortably in a chair. She has only a minimal cough and no sputum production. She complains of some pain in the chest tube insertion site but that is being fairly well controlled. Most of her pain is coming from her lumbar back pain. Her vital signs show a maximum temperature (T-max) of 97.8 with a heart rate that ranges between 100 and 95 and in sinus rhythm and a respiratory rate of 18-20 without the use of accessory muscles who is 91% saturated in room air and has blood pressures ranging between 159/57 to 140/76. Her intake and output over the past 24 hours is recorded as 1060 in and 1250 out for a negativity of 200 mL. She weighs 73.5 kg today compared to 73.8 kg yesterday. On physical examination, she again surprising has clear breath sounds with clear pneumo vesicular sounds. There is no E/A egophony and there is no bronchophony. The percussion note is full to the diaphragm. Cardiac exam is without murmurs, clicks, gallops or rubs. I cannot feel her point of maximum impulse (PMI). S1 and S2 are normal. Abdomen is soft and nontender. Bowel sounds are positive. There is no hepatomegaly. No CVA tenderness. Extremities still show 1+ pretibial edema with no calf tenderness. No differential swelling of the upper extremities. Skin is warm, dry and perfused without cyanosis or mottling including that of the nail beds and knees. Neck is supple. There is no jugular venous distention. No subcutaneous emphysema. Trachea is midline. Mouth shows his mucous membranes to be pink and moist. Lips and commissures are without lesions. There is no thrush. Eyes show her pupils to be equal and reactive. Extraocular movements intact. Sclerae nonicteric. Neurologic shows II-XII intact along with gross motor and gross sensation intact. Gait is not tested. Psychiatric showed her to be awake, alert and oriented times three with appropriate and affect and conversational. Her white count is 7.5 with hemoglobin and hematocrit 8.3 and 27.1 unchanged from yesterday with platelet count of 528, stable. Differential shows 76% neutrophils, 9% lymphocytes, and 8% monocytes. There are no immature forms or toxic granulations. Her electrolytes are normal with a BUN and creatinine of 11 and 0.48, calcium 8.2, glucose 90. Her chest x-ray is unchanged from yesterday. I can see the right and left costophrenic angle. She still has the large opacity in the mid and lower hemithorax corresponding to her mass. IMPRESSION: 1. Left upper lobe mass with complete endobronchial obstruction of the left upper lobe bronchus most likely malignant. 2. Left pleural effusion drained and additionally with a tPA and pleurolysis with good results. 3. Repair of umbilical hernia. 4. Hypertension. 5. Hyperlipidemia. 6. Shortness of breath secondary to pleural effusion, resolving. 7. Simple pericardial effusion without compression. PLAN/DISCUSSION: We will remove Ms Deras dressing today and leave it open to air. Dr. Wallace is going to take her to the bronchoscopy suite tomorrow and biopsy the left upper lobe endobronchial lesion. I am very sure this is going to be malignant. I highly doubt it is going to be carcinoid. As the pleural effusion is now drained and controlled, I will withdraw from the case to followup on an as-needed basis.
[2020-05-23 12:00] VITALS: BP 123/65
[2020-05-23 16:00] VITALS: BP 136/74
[2020-05-23 20:00] VITALS: BP 131/68
[2020-05-23] MEDS: PRAVASTATIN 10 MG TAB PO SCH (20:44)
[2020-05-24] VITALS (12 sets, daily range): BP systolic 122–154; BP diastolic 64–88; O2SAT 91–95
[2020-05-24] MEDS: LEVALBUTEROL 1.25 MG/0.5 ML CONCENTRATE NEB NEB SCH ×4 (01:54→20:06)
[2020-05-24] MEDS: KETOROLAC 30 MG/ML 1ML VIAL IV SCH ×3 (03:46→15:16)
[2020-05-24 05:09] LABS: BASO # 0.1 10^3/uL (0.0-0.2); BASO % 0.8 % (0.0-1.0); EOS # 0.2 10^3/uL (0.0-0.5); EOS % 3.7 % (0.0-3.0); HEMATOCRIT 27.1 % (36.0-47.0); HEMOGLOBIN 8.3 g/dl (12.0-15.5); LYMPH # 0.9 10^3/uL (1.5-5.0); LYMPH % 14.2 % (24.0-44.0); MEAN CORPUSCULAR HGB CONC 30.6 g/dl (32.0-36.5); MEAN CORPUSCULAR VOLUME 81.6 fl (80.0-96.0); MONO # 0.5 10^3/uL (0.0-0.8); MONO % 7.7 % (0.0-5.0); NEUTROPHILS # 4.5 10^3/uL (1.5-8.5); NEUTROPHILS % 72.8 % (36.0-66.0); PLATELET COUNT, AUTOMATED 471 10^3/uL (150-450); RED BLOOD COUNT 3.32 10^6/uL (4.00-5.40); WHITE BLOOD COUNT 6.1 10^3/uL (4.0-10.0)
[2020-05-24] MEDS: SLF 3 ML SYR IV SCH ×3 (05:11→21:08)
[2020-05-24 05:29] LABS: INR 1.21
[2020-05-24 05:30] LABS: PARTIAL THROMBOPLASTIN TIME 35.5 SECONDS (25.0-38.4)
[2020-05-24 05:31] LABS: ALBUMIN 1.9 GM/DL (3.2-5.2); ALT/SGPT 28 U/L (12-78); BILIRUBIN,TOTAL 0.4 MG/DL (0.2-1.0); BLOOD UREA NITROGEN 10 MG/DL (7-18); CALCIUM LEVEL 8.3 MG/DL (8.8-10.2); CARBON DIOXIDE LEVEL 25 MEQ/L (21-32); CHLORIDE LEVEL 108 MEQ/L (98-107); CREATININE FOR GFR 0.49 MG/DL (0.55-1.30); GLOMERULAR FILTRATION RATE > 60.0 (>45); GLUCOSE, FASTING 104 MG/DL (70-100); POTASSIUM SERUM 3.9 MEQ/L (3.5-5.1); SODIUM LEVEL 140 MEQ/L (136-145); TOTAL PROTEIN 6.2 GM/DL (6.4-8.2)
[2020-05-24] MEDS: clonazePAM 0.5 MG TAB PO PRN ×3 (06:00→19:55)
[2020-05-24] MEDS: PIPERACILLIN/TAZOBACTAM SOD 4.5 GM in D5W MINI-BAG PLUS 50 ML IV SCH ×4 (06:00→22:54)
[2020-05-24] MEDS: DOCUSATE SODIUM 100 MG CAP PO SCH ×2 (08:15→19:54)
[2020-05-24] MEDS: MOM 30ML SUSPENSION UDC PO SCH (08:15)
[2020-05-24] MEDS: PANTOPRAZOLE 40MG TAB (PROTONIX) PO SCH (08:17)
[2020-05-24] MEDS: MULTIVITAMINS/MINERALS THERAP 1 TAB PO SCH (08:18)
[2020-05-24] MEDS: FERROUS SULFATE 325MG TAB PO SCH ×2 (08:19→19:54)
[2020-05-24] MEDS: PERCOCET 5MG/325MG TAB PO PRN ×3 (08:19→19:55)
--- NOTE | 2020-05-24 08:54 | REP ---
Clinical: Pleural effusion. Technique: PA and lateral. Comparison: 05/23/2020. Findings: Bilateral pleuroparenchymal changes (left greater than right) remain essentially stable. No new acute process identified. Impression: Stable chest x-ray including a large partially loculated left pleural effusion, small right pleural effusion, and bilateral lower lobe atelectasis/opacities. Electronically Signed by Chaparro Jean Baptiste MD 05/24/2020 08:46 A
[2020-05-24] MEDS ORDERED: MIDAZOLAM INJ 2MG/2ML VIAL (J2250 PER 1MG) As Ordered ONE (10:52)
[2020-05-24] MEDS ORDERED: fentaNYL 100 MCG/2 ML INJECTION (J3010) As Ordered ONE (10:53)
[2020-05-24] MEDS ORDERED: propofoL 200 MG/20 ML VIAL As Ordered ONE (10:54)
[2020-05-24] MEDS ORDERED: ROCURONIUM BROMIDE 50 MG/5 ML VIAL As Ordered ONE (10:55)
[2020-05-24] MEDS ORDERED: LIDOCAINE 2% 100MG/5ML SDV (FOR ANES.) As Ordered ONE (10:56)
[2020-05-24] MEDS ORDERED: THROMBIN SOLN 20,000 UNITS KIT As Ordered ONE (12:03)
[2020-05-24] MEDS ORDERED: LIDOCAINE VISCOUS 2% SOLN 15ML UDC As Ordered ONE (12:03)
[2020-05-24] MEDS ORDERED: CETACAINE SPRAY 5GM As Ordered ONE (12:03)
[2020-05-24] MEDS ORDERED: EPINEPHrine 1MG/10ML SYRINGE 1.5IN As Ordered ONE (12:03)
[2020-05-24] MEDS ORDERED: ePHEDrine SULFATE 25 MG/5 ML(5MG/ML) SYRINGE As Ordered ONE (13:06)
[2020-05-24] MEDS ORDERED: PHENYLephrine HCL 500 MCG/5 ML (100MCG/ML) SYRINGE (J2370) As Ordered ONE (13:06)
[2020-05-24] MEDS ORDERED: CALCIUM CHLORIDE 10% 1 GM/10 ML SYR As Ordered ONE (13:10)
[2020-05-24] MEDS ORDERED: SUGAMMADEX SODIUM 500 MG/5 ML VIAL (BRIDION) As Ordered ONE (13:17)
[2020-05-24] MEDS ORDERED: ONDANSETRON 4MG/2ML VIAL As Ordered ONE (13:17)
[2020-05-24] MEDS ORDERED: LR 1,000 ML IV SCH (13:45)
[2020-05-24] MEDS ORDERED: ONDANSETRON 4MG/2ML VIAL IV PRN (13:45)
[2020-05-24] MEDS ORDERED: fentaNYL 100 MCG/2 ML INJECTION (J3010) IV PRN (13:45)
[2020-05-24] MEDS ORDERED: PERCOCET 5MG/325MG TAB PO PRN (13:45)
--- NOTE | 2020-05-24 14:17 | REP ---
Clinical: Postoperative assessment. Comparison: 05/24/2020 at 08:38 a.m. Findings: Bilateral pleuroparenchymal changes (left greater than right) and visualized portions of the mediastinum are relatively stable/unchanged. No pneumothorax. Skeletal structures appear intact. Impression: No significant change from prior examination. No pneumothorax. Electronically Signed by Chaparro Jean Baptiste MD 05/24/2020 02:08 P
--- NOTE | 2020-05-24 15:14 | IPNPDOC ---
Text Note Date of Service The patient was seen on 05/24/20. NOTE Ms. Deras was seen at bedside today and reported no changes in her condition o vernight. She did mention that she had pink tinged urine and that she has had this before in the past. Otherwise she states that she was thirsty and hungry since being put NPO prior to her bronchoscopy today. She did express some anxiety about the procedure but overall seemed ready for it. She did report having a normal BM last night. She denied any headache, chest pain, abdominal pain, sweating/chills, N/V/D, or SOB (beyond her baseline). She mentioned that she continues to have lumbar back pain and interscapular pain rated at about a 4-5/10. Physical Exam: Vitals: See below General: Sitting in a wheelchair in no apparent distress. HEENT: Poor dentition. Sclera appear normal. No conjunctival pallor. CV: HR sounds regular. HR around 100 bpm. No murmurs, rubs, gallops noted Respiratory: Diminished and coarse breath sounds noted in her left upper lobe and lower lobe. Her right sided breath sounds were orellana and largely clear but with some coarseness noted. Abdomen: Soft and nontender. No organomegaly noted. No ascites or bruising noted. Normal BS in all quadrants Extremities: Hammer toes B/L with significant metatarsal deviation. No rashes or wounds seen. Minimal peripheral edema noted. Neuro: CN II-XII grossly intact. Oriented X3. Mildly jittery and anxious appearing. Assessment and Plan: -This is a 69 year old woman with a pmhx significant for HTN, chronic anemia 2/2 GI bleeds, and A. fib who was found to have a suspicious occlusive mass in her L main bronchus after being found to have acute hypoxemic respiratory failure with exudative L sided pleural effusion. #Left lung consolidation 2/2 Lung mass: -Bronchoscopic biopsies of mass were performed today - will await pathology reports -Continue Serial CXRs QD to monitor for return of pleural effusions -Continue Zosyn infusions -Continue Levalbuterol nebs #Anxiety: -Pt states that she feels anxious about her procedures and that she has a baseline of high anxiety outside the hospital -Continue Clonazepam #Exudative Pleural Effusions: -Continue serial CXR to monitor for return of Effusion #Pain control: -Pt has lumbar and thoracic back pain at baseline along with residual discomfort from chest tube placement/removal -Continue to control with Toradol, Percocet, [place] #Hx of Afib: -Currently rate controlled on Diltiazem -States she was unable to afford her anticoagulation medication so her doctor prescribed her 61 mg aspirin outpatient #Hx of anemia: -Pt has a history of GI bleed 2/2 AVMs which were clipped at [facility] earlier in this month -Pt received 1 unit of pRBC on 05/22 and continues to hold at [facility] 8.3 -Continue to monitor with Serial CBC w/ diff (have to reorder ton 05/25) -Continue Ferrous Sulfate #Thrombocytosis likely reactive -PLT 471 which is trending down from admission #DM -Diet controlled (FBS of 104) #HLD: -Continue Pravastatin #HTN: -BP 140-159/60-90 -Will continue to monitor and address medically if persistent #Mesenteric Mass: -Follow up with Dr Ruvalcaba for outpatient evaluation as previously scheduled. #DVT prophylaxis: -Heparin 5000U Q12H SC VS,Fishbone, I+O VS, Fishbone, I+O Laboratory Tests 05/24/20 04:48 Vital Signs Date Time Temp Pulse Resp B/P (MAP) Pulse Ox O2 Delivery O2 Flow Rate FiO2 05/24/20 08:49 18 Room Air 05/24/20 08:18 99 142/88 05/24/20 08:00 97.1 96 05/22/20 04:00 2.0 I&O- Last 24 Hours up to 6 AM 05/24/20 06:00 Intake Total 1080 ml Output Total 1300 ml Balance -220 ml GME ATTESTATION GME ATTESTATION My faculty preceptor for this patient encounter was physically present during the encounter and was fully available. All aspects of the patient interview, examination, medical decision making process, and medical care plan development were reviewed and approved by the faculty preceptor. The faculty preceptor is aware and concurs with the plan as stated in the body of this note and will attest to such by his/her cosignature. ATTENDING NOTE Patient was seen and examined by me. Agree with the above assessment and plan MARIN ZHANG OMS-3 May 24, 2020 15:14 REBECCA BENNETT MD May 27, 2020 14:06
[2020-05-24] MEDS: PRAVASTATIN 10 MG TAB PO SCH (19:53)
[2020-05-24] MEDS: HEPARIN SOD (PORCINE) 5000UNITS/ML 1ML VIAL/SYRINGE SC SCH (19:54)
[2020-05-25] VITALS (23 sets, daily range): BP systolic 118–157; BP diastolic 68–89; O2SAT 81–99
[2020-05-25] MEDS: LEVALBUTEROL 1.25 MG/0.5 ML CONCENTRATE NEB NEB SCH ×4 (01:25→19:40)
[2020-05-25] MEDS: PIPERACILLIN/TAZOBACTAM SOD 4.5 GM in D5W MINI-BAG PLUS 50 ML IV SCH ×4 (04:10→23:03)
[2020-05-25] MEDS: SLF 3 ML SYR IV SCH ×3 (04:27→22:00)
[2020-05-25 05:07] LABS: BASO # 0.1 10^3/uL (0.0-0.2); BASO % 1.5 % (0.0-1.0); EOS # 0.2 10^3/uL (0.0-0.5); HEMATOCRIT 27.2 % (36.0-47.0); HEMOGLOBIN 7.9 g/dl (12.0-15.5); LYMPH % 17.3 % (24.0-44.0); MEAN CORPUSCULAR HEMOGLOBIN 24.6 pg (27.0-33.0); MEAN CORPUSCULAR VOLUME 84.7 fl (80.0-96.0); MONO # 0.6 10^3/uL (0.0-0.8); MONO % 9.3 % (0.0-5.0); NEUTROPHILS % 66.6 % (36.0-66.0); PLATELET COUNT, AUTOMATED 476 10^3/uL (150-450); RED BLOOD COUNT 3.21 10^6/uL (4.00-5.40)
[2020-05-25 05:30] LABS: BLOOD UREA NITROGEN 10 MG/DL (7-18); CALCIUM LEVEL 8.4 MG/DL (8.8-10.2); CARBON DIOXIDE LEVEL 26 MEQ/L (21-32); CHLORIDE LEVEL 107 MEQ/L (98-107); CREATININE FOR GFR 0.46 MG/DL (0.55-1.30); GLOMERULAR FILTRATION RATE > 60.0 (>45); GLUCOSE, FASTING 100 MG/DL (70-100); POTASSIUM SERUM 3.7 MEQ/L (3.5-5.1); SODIUM LEVEL 139 MEQ/L (136-145)
--- NOTE | 2020-05-25 08:20 | REP ---
Chest x-ray: Two views. History: Pleural effusion. Comparison chest x-ray: May 24, 2020. Findings: There is extensive loculated appearing pleuroparenchymal opacity throughout much of the left hemithorax as before. There is slight blunting of the right lateral pleural angle today. No new infiltrate is seen. Heart size is unchanged. Impression: Extensive loculated pleural opacity persists on the left. Very slight blunting of the right lateral pleural angle. Electronically Signed by Kody Vieira MD 05/25/2020 08:10 A
[2020-05-25] MEDS: HEPARIN SOD (PORCINE) 5000UNITS/ML 1ML VIAL/SYRINGE SC SCH ×2 (08:32→20:09)
[2020-05-25] MEDS: DOCUSATE SODIUM 100 MG CAP PO SCH ×2 (08:32→19:58)
[2020-05-25] MEDS: MULTIVITAMINS/MINERALS THERAP 1 TAB PO SCH (08:32)
[2020-05-25] MEDS: clonazePAM 0.5 MG TAB PO PRN ×3 (08:33→20:09)
[2020-05-25] MEDS: MOM 30ML SUSPENSION UDC PO SCH (08:33)
[2020-05-25] MEDS: PANTOPRAZOLE 40MG TAB (PROTONIX) PO SCH (08:33)
[2020-05-25] MEDS: FERROUS SULFATE 325MG TAB PO SCH ×2 (08:33→20:09)
--- NOTE | 2020-05-25 10:24 | IPNPDOC ---
Text Note Date of Service The patient was seen on 05/25/20. NOTE was seen at bedside today and reported some mildly increased SOB today. She states she is eating well and without incident as well as having regular and normal bowel movements and urination. She denies any more pink urine today or yesterday. She states that she is sleeping well but is still very tired. She denies any headache, chest pain, abdominal pain, sweating/chills or N/V/D. She continues to have lumbar back pain and interscapular pain rated at about a 4-5/10. Physical Exam: Vitals: See below General: Sitting in a chair in mild distress due to lumbar back pain. HEENT: Poor dentition. Sclera appear normal. No conjunctival pallor. EOMI CV: RRR. +S1 and S2. No murmurs, rubs, gallops noted Respiratory: Diminished and coarse breath sounds noted in her left upper lobe and lower lobe. Her right sided breath sounds were orellana and largely clear but with some coarseness noted. Abdomen: Soft and nontender. No organomegaly noted. No ascites or bruising note d. Normal BS in all quadrants Extremities: Hammer toes B/L with significant metatarsal deviation. No rashes or wounds seen. Minimal peripheral edema noted. Neuro: CN II-XII grossly intact. Oriented X3. Mildly jittery and anxious appearing. Assessment and Plan: -This is a 69 year old woman with a pmhx significant for HTN, chronic anemia 2/2 GI bleeds, and A. fib who was found to have a suspicious occlusive mass in her L main bronchus after being found to have acute hypoxemic respirat ory failure with exudative L sided pleural effusion. #Left lung consolidation 2/2 Lung mass: -Awaiting pathology reports for bronchoscopic biopsies taken on 05/24 -Continue Serial CXRs QD to monitor for return of exudative pleural effusions -Continue Zosyn infusions -Continue Levalbuterol nebs #Anxiety: -Has a baseline of high anxiety outside the hospital -Seems in better spirits now that her bronchoscopy is completed -Continue Clonazepam #Exudative Pleural Effusions: -Continue serial CXR to monitor for return of Effusion #Pain control: -Pt has lumbar and thoracic back pain at baseline along with residual discomfort from chest tube placement/removal -Continue to control with Toradol, Percocet, [place] #Hx of Afib: -Currently rate controlled on Diltiazem -States she was unable to afford her anticoagulation medication so her doctor prescribed her 61 mg aspirin outpatient #Hx of anemia: -Pt has a history of GI bleed 2/2 AVMs which were clipped at [facility] earlier in this month -Hbg 7.9 down from 8.3 yesterday -Continue to monitor with Serial CBC w/ diff -Continue Ferrous Sulfate #Thrombocytosis-likely reactive -PLT 476 which is decreased form 528 on admission #DM -Diet controlled (FBS of 104) #HLD: -Continue Pravastatin #HTN: -BP 140-159/60-90 -Continue to monitor as bp seems to rise and fall per cortisol schedule and pt has been having high anxiety during her hospital stay #Mesenteric Mass: -Follow up with Dr Ruvalcaba for outpatient evaluation as previously scheduled. #DVT prophylaxis: -Heparin 5000U Q12H SC VS,Fishbone, I+O VS, Fishbone, I+O Laboratory Tests 05/25/20 04:39 Vital Signs Date Time Temp Pulse Resp B/P (MAP) Pulse Ox O2 Delivery O2 Flow Rate FiO2 05/25/20 09:00 92 Nasal Cannula 2.0 05/25/20 08:33 72 142/68 05/25/20 08:04 96.7 18 I&O- Last 24 Hours up to 6 AM 05/25/20 06:00 Intake Total 1235 ml Output Total 1625 ml Balance -390 ml GME ATTESTATION GME ATTESTATION My faculty preceptor for this patient encounter was physically present during the encounter and was fully available. All aspects of the patient interview, examination, medical decision making process, and medical care plan development were reviewed and approved by the faculty preceptor. The faculty preceptor is aware and concurs with the plan as stated in the body of this note and will attest to such by his/her cosignature. ATTENDING NOTE Patient was seen and examined by me. Agree with the above assessment and plan MARIN ZHANG OMS-3 May 25, 2020 10:24 REBECCA BENNETT MD May 27, 2020 14:09
--- NOTE | 2020-05-25 12:30 | RO ---
DATE OF PROCEDURE: 05/19/2020 PREPROCEDURE DIAGNOSIS: Left pleural effusion. POSTPROCEDURE DIAGNOSIS: Left pleural effusion. PROCEDURE: Insertion of posterior lateral chest tube with moderate sedation. SURGEON: Dr. Jean Lyles GEOSCIENTIST: ANESTHESIA: DESCRIPTION OF PROCEDURE: Under satisfactory moderate sedation eventually achieved with 3 mg of Versed, the patient was prepped and draped in the usual sterile fashion. The approximate 6th intercostal space was infiltrated with 1% lidocaine from the skin to the pleura. Incision was made and a tunnel was created in the chest without difficulty. A #24 chest tube was placed and drained 1400 mL of serosanguineous fluid, more serous than sanguineous. The chest tube was secured to the chest wall and connected to a Pleur-evac. The patient tolerated the procedure well and a chest x-ray is pending.
[2020-05-25] MEDS: PERCOCET 5MG/325MG TAB PO PRN ×2 (14:54→20:10)
--- NOTE | 2020-05-25 15:25 | RO ---
DATE OF PROCEDURE: 05/20/2020 PREPROCEDURE DIAGNOSIS: Retained pleural effusion, probably malignant. POSTPROCEDURE DIAGNOSIS: Retained pleural effusion, probably malignant. PROCEDURE: Tissue plasminogen activator (tPA) pleurolysis. SURGEON: Jean Lyles MD DRAIN LAYER: ANESTHESIA: DESCRIPTION OF PROCEDURE: The patient's chest tube was disconnected from the Pleur-evac and prepped and draped in the usual sterile fashion. 6 mg of tPA and 100 mL of normal saline was then infused into the chest tubes. The chest tube was clamped and the patient was shaken from [id number] to distribute the tPA. The clamps will be released in 4 hours. The patient tolerated the procedure well.
[2020-05-25] MEDS: PRAVASTATIN 10 MG TAB PO SCH (20:09)
[2020-05-26] VITALS (14 sets, daily range): BP systolic 122–162; BP diastolic 63–95; O2SAT 87–95
[2020-05-26] MEDS: LEVALBUTEROL 1.25 MG/0.5 ML CONCENTRATE NEB NEB SCH ×4 (01:13→20:13)
[2020-05-26] MEDS: SLF 3 ML SYR IV SCH ×3 (04:18→20:59)
[2020-05-26] MEDS: PIPERACILLIN/TAZOBACTAM SOD 4.5 GM in D5W MINI-BAG PLUS 50 ML IV SCH ×4 (04:18→22:22)
[2020-05-26] MEDS: clonazePAM 0.5 MG TAB PO PRN ×4 (04:42→23:49)
[2020-05-26 07:53] LABS: BASO # 0.1 10^3/uL (0.0-0.2); EOS # 0.3 10^3/uL (0.0-0.5); EOS % 3.9 % (0.0-3.0); HEMATOCRIT 27.8 % (36.0-47.0); HEMOGLOBIN 8.3 g/dl (12.0-15.5); LYMPH # 0.9 10^3/uL (1.5-5.0); MEAN CORPUSCULAR HGB CONC 29.9 g/dl (32.0-36.5); MEAN CORPUSCULAR VOLUME 83.7 fl (80.0-96.0); MONO # 0.5 10^3/uL (0.0-0.8); MONO % 7.8 % (0.0-5.0); NEUTROPHILS % 72.1 % (36.0-66.0); PLATELET COUNT, AUTOMATED 443 10^3/uL (150-450); RED BLOOD COUNT 3.32 10^6/uL (4.00-5.40); WHITE BLOOD COUNT 6.9 10^3/uL (4.0-10.0)
[2020-05-26 08:03] LABS: INR 1.04; PROTHROMBIN TIME 13.3 SECONDS (11.8-14.0)
[2020-05-26 08:06] LABS: BLOOD UREA NITROGEN 10 MG/DL (7-18); CALCIUM LEVEL 8.6 MG/DL (8.8-10.2); CARBON DIOXIDE LEVEL 26 MEQ/L (21-32); CHLORIDE LEVEL 108 MEQ/L (98-107); CREATININE FOR GFR 0.44 MG/DL (0.55-1.30); GLOMERULAR FILTRATION RATE > 60.0 (>39); GLUCOSE, FASTING 112 MG/DL (70-100); POTASSIUM SERUM 4.1 MEQ/L (3.5-5.1); SODIUM LEVEL 139 MEQ/L (136-145)
--- NOTE | 2020-05-26 08:49 | REP ---
Clinical: Pleural effusion. Follow-up. Technique: PA and lateral. Comparison: 05/25/2020. Findings: Loculated opacity involving the left hemithorax with underlying presumed areas of consolidation/atelectasis remains stable and without new obvious abnormality to the left hemithorax. The right hemithorax is relatively clear. Visualized portions of the mediastinum and cardiac silhouette are stable. No obvious pneumothorax. Skeletal structures intact. Impression: No significant change from prior examination. Electronically Signed by Chaparro Jean Baptiste MD 05/26/2020 08:41 A
[2020-05-26] MEDS: HEPARIN SOD (PORCINE) 5000UNITS/ML 1ML VIAL/SYRINGE SC SCH ×2 (08:57→20:59)
[2020-05-26] MEDS: MULTIVITAMINS/MINERALS THERAP 1 TAB PO SCH (08:58)
[2020-05-26] MEDS: MOM 30ML SUSPENSION UDC PO SCH (08:58)
[2020-05-26] MEDS: DOCUSATE SODIUM 100 MG CAP PO SCH ×2 (08:58→20:26)
[2020-05-26] MEDS: PANTOPRAZOLE 40MG TAB (PROTONIX) PO SCH (08:58)
[2020-05-26] MEDS: FERROUS SULFATE 325MG TAB PO SCH ×2 (08:58→20:58)
[2020-05-26] MEDS: PERCOCET 5MG/325MG TAB PO PRN ×3 (09:10→21:00)
[2020-05-26] MEDS ORDERED: METR-135 PO (10:23)
[2020-05-26] MEDS ORDERED: LEVO750T13 PO (10:23)
--- NOTE | 2020-05-26 11:59 | DS.PDOC ---
Discharge Summary General Date of Admission May 19, 2020 at 18:39 Date of Discharge 05/27/2020 Discharge Summary PROCEDURES PERFORMED DURING STAY: [None]. ADMITTING DIAGNOSES: 1. Pleural effusion 2. HTN 3. Chronic a-fib 4. Mesenteric mass DISCHARGE DIAGNOSES: 1. Small cell carcinoma 2. Left lung consolidation 2/2 obstructive small cell carcinoma 3. Anxiety 4. Exudative pleural effusions - resolved 5.Thrombocytosis 6. DM 7. HLD 8. HTN 9. Chronic A-fib - controlled 10. Mesenteric Mass COMPLICATIONS/CHIEF COMPLAINT: Pleural Effusion. HISTORY OF PRESENT ILLNESS: Patient is 69 years old female with past medical history of hypertension, mesenteric mass, pending workup, history of GI bleed due to AVM, chronic anemia, hypertension, chronic A. fib presented to the hospital with increased shortness of breath. Patient was discharged from the hospital on May 13 and after that she has been having increased shortness of breath which became progressively worse for past 2 days. Patient denied fever, c hills, nausea. Of note, pt was found AVMs which were clipped. Also pt was found to have mesenteric mass, work up for carcinoid pending. In ER pt was found to have an acute hypoxemic respiratory failure with tachycardia. White blood count of 8.5, hemoglobin 8.9. CT chest showed consolidation demonstrated in the left upper lobe. Parenchymal mass not excluded. Loculated left pleural effusion. Occluded left upper lobe and lingular bronchi containing soft tissue within the lumen of the bronchi. HOSPITAL COURSE: Upon admission Ms. Robles recieved a CXR and Chest CT which revealed left upper lung lobe consolidation, loculated left pleural effusion, small pericardial effusion. She was started on Piperacillin/Tazobactam and underwent pleuracentesis and thoracostomy placement to address her pleural e ffusion. 1400cc of fluid was drained during these procedures. Pleural fluid analysis was performed and revealed a exudative fluid collection. After draining the left lung a large left sided lung mass occluding the left main bronchus was identified and bronchoscopic biopsies were performed revealing a diagnosis of small cell carcinoma. Hematology/oncology was consulted and performed CT of the abdomen and pelvis as well as brain MRI to asses for metastasis, both of which were negative. A PICC line was inserted for use with chemotherapy in the near future. Throughout her stay she received serial CXRs and zosyn for monitor and treat her post-obstructive lung consolidation/pneumonia. Her home Diltiazem dose was continued and provided good rate control for her a. fib.. She did receive a singel unit of pRBCs during her admission due to mildly low hemoglobin. DISCHARGE MEDICATIONS: Please see below. ALLERGIES: Please see below. PHYSICAL EXAMINATION ON DISCHARGE: VITAL SIGNS: Please see below. General: Sitting in a chair eating breakfast in no apparent distress HEENT: Poor dentition. Sclera appear normal. No conjunctival pallor. EOMI CV: RRR. +S1 and S2. No murmurs, rubs, gallops noted Respiratory: Diminished and coarse breath sounds noted in her left upper lobe and middle lobe. Remainder of lung exam unremarkable. Her right sided breath sounds were orellana and largely clear but with some coarseness noted. Abdomen: Soft and nontender. No organomegaly noted. No ascites or bruising noted. Normal BS in all quadrants Extremities: Hammer toes B/L with significant metatarsal deviation. No rashes or wounds seen. Minimal peripheral edema noted. Neuro: CN II-XII grossly intact. Oriented X3. LABORATORY DATA: Please see below. IMAGING: CXR (05/19): There is a large left pleural effusion with associated left lung consolidative atelectasis or infiltrate. Right lung demonstrates no definite infiltrate. Heart size is not well evaluated. There is calcification of the thoracic aorta. Chest CT (05/19): Consolidation demonstrated in the left upper lobe. Parenchymal mass not excluded. Loculated left pleural effusion. Occluded left upper lobe and lingular bronchi containing soft tissue within the lumen of the bronchi. There is fusiform dilatation of the ascending thoracic aorta which measures 4.2 cm. maximally. There is no saccular component. Small pericardial effusion. CXR (05/19 - post-thoracostomy): Minimal if any real improvement. There is a left-sided thoracotomy tube along the left lung base. This appears to have evacuated some of the opacity indicating a portion of the opacity represented a free pleural effusion. Chest CT (05/20): Left pleural drainage catheter in place at the base with improved left pleural effusion. Some loculation persists. Consolidation and collapse persists in the left upper lobe and there is evidence of endobronchial disease. CXR (05/26): No significant change from prior examination. Brain MRI (05/26): No acute intracranial abnormality. Abdomen/Pelvis CT (05/27): Stable 2.8 cm adolfo mass in the mesentery in the central abdomen persists unchanged from May 09, 2020. Pleuroparenchymal thickening and contrast enhancement at the left base. Improved left pleural effusion. PROGNOSIS: Fair ACTIVITY: [As tolerated]. DIET: As Tolerated DISCHARGE PLAN: 1. Follow up with hematology/oncology as scheduled 2. Complete full course of antibiotics. -Complete 5 day course of Flagyl and Levequin upon discharge DISCHARGE CONDITION: [Stable]. TIME SPENT ON DISCHARGE: Greater than 45 minutes. Vital Signs/I&Os Vital Signs Date Time Temp Pulse Resp B/P (MAP) Pulse Ox O2 Delivery O2 Flow Rate FiO2 05/26/20 10:00 16 89 Room Air 05/26/20 08:58 98 130/76 05/26/20 08:00 97.2 05/26/20 08:00 2.0 I&O- Last 24 Hours up to 6 AM 05/26/20 06:00 Intake Total 690 ml Output Total 2025 ml Balance -1335 ml Laboratory Data Labs 24H Laboratory Tests 2 05/26/20 07:33: Immature Granulocyte % (Auto) 2.2, Neutrophils (%) (Auto) 72.1H, Lymphocytes (%) (Auto) 13.0L, Monocytes (%) (Auto) 7.8H, Eosinophils (%) (Auto) 3.9H, Basophils (%) (Auto) 1.0, Neutrophils # (Auto) 5.0, Lymphocytes # (Auto) 0.9L, Monocytes # (Auto) 0.5, Eosinophils # (Auto) 0.3, Basophils # (Auto) 0.1, Nucleated Red Blood Cells % (auto) 0.0, Prothrombin Time 13.3, Prothromb Time International Ratio 1.04, Anion Gap 5L, Glomerular Filtration Rate > 60.0, Calcium Level 8.6L CBC/BMP Laboratory Tests 05/26/20 07:33 Microbiology Microbiology 05/24/20 Gram Stain - Final, Complete 05/24/20 Bronchial Aspirate Culture - Final, Complete Yeast Like Organism 05/23/20 Respiratory Virus Panel (PCR) (SHASHA) - Final, Complete 05/23/20 Gram Stain - Final, Complete 05/23/20 Sputum Culture - Final, Complete 05/19/20 Acid Fast Stain, Received Pending 05/19/20 Mycobacterial Culture, Received Pending 05/19/20 Fungal Smear, Received Pending 05/19/20 Fungal Culture, Received Pending 05/19/20 Gram Stain - Final, Complete 05/19/20 Anaerobic Culture - Final, Complete 05/19/20 Body Fluid Culture - Final, Complete Discharge Medications Scheduled Calcium/Magnesium/Zinc (Tetefjr-Oyhszitce-Hanz Tablet) 1 Each Tablet, 1 TAB PO QHS, (Reported) Clonazepam (Clonazepam) 1 Mg Tablet, 0.5 MG PO QID, (Reported) TAKES AT 0800, 1300, 1800, 2200 Ferrous Sulfate (Ferrous Sulfate) 325 Mg Tab, 325 MG PO BID, (Reported) Levofloxacin (Levofloxacin) 750 Mg Tablet, 750 MG PO DAILY Metronidazole (Metronidazole) 250 Mg Tablet, 500 MG PO TID Multivitamins (Thera M Plus Tablet) 1 Each Tablet, 1 TAB PO DAILY, (Reported) Pantoprazole Sodium (Pantoprazole Sodium) 40 Mg Tablet.dr, 40 MG PO DAILY, (Reported) Pravastatin Sodium (Pravastatin Sodium) 20 Mg Tablet, 10 MG PO QHS, (Reported) dilTIAZem HCl (Diltiazem 24Hr Cd) 120 Mg Cap.er.24h, 120 MG PO DAILY, (Reported) Scheduled PRN Acetaminophen (Acetaminophen) 325 Mg Tablet, 650 MG PO Q6H PRN for BACK PAIN, (Reported) Acetaminophen with Codeine (Acetaminophen-Cod #3 Tablet) 1 Tab Tab, 0.5 TAB PO Q6H PRN for PAIN, (Reported) Docusate Sodium (Docusate Sodium) 100 Mg Capsule, 100 MG PO BID PRN for CONSTIPATION, (Reported) Allergies Coded Allergies: No Known Allergies (Verified Allergy, Unknown, 05/09/20) GME ATTESTATION GME ATTESTATION My faculty preceptor for this patient encounter was physically present during the encounter and was fully available. All aspects of the patient interview, examination, medical decision making process, and medical care plan development were reviewed and approved by the faculty preceptor. The faculty preceptor is aware and concurs with the plan as stated in the body of this note and will att est to such by his/her cosignature. ATTENDING NOTE Patient was seen and examined by me. Agree with the above assessment and plan MARIN ZHANG OMS-3 May 26, 2020 11:59 REBECCA BENNETT MD May 27, 2020 14:44
--- NOTE | 2020-05-26 14:17 | RO ---
DATE OF PROCEDURE: 05/24/2020 PREOPERATIVE DIAGNOSIS: Left lung mass. POSTOPERATIVE DIAGNOSIS: Left lung mass. PROCEDURE PERFORMED: Fiberoptic bronchoscopy with transbronchial washing, brushing and multiple biopsies. SURGEON: Dex Wallace DO TAPE CUTTER: ANESTHESIA: DESCRIPTION OF PROCEDURE: The patient was seen and the procedure explained to the patient as were all of the possible complications pertaining thereto. A written and informed consent were obtained and placed on the chart. The patient was brought to the endoscopy suite, placed under general anesthetic. When the anesthetic had sufficient time to take effect, the bronchoscope was placed in through the endotracheal tube and in the trachea. The allyson was sharp. The airways of the right lung were examined in subsegmental fashion for any evidence of tumor, ulcer necrosis, vessel engorgementm, or mucosal irregularity. There was hypertrophy of mucus pits and some redundancy in the mucosa at the takeoff of the posterior segment of the right upper lobe. No gross endobronchial disease was appreciated. The bronchoscope was then retracted to the level of allyson and reintroduced into the left mainstem bronchus. A large fungating mass was seen including the left mainstem bronchus at the level of the takeoff of the lingula. Photographs were taken. Thereafter, cytology brushing was performed. Multiple biopsies were performed at the site. It was found to be quite friable. Topical epinephrine was applied to stop bleeding. When sufficient sample had been obtained, the area was again lavaged with saline. There was no active bleeding appreciated and the bronchoscope retracted out through the endotracheal tube. The patient tolerated the procedure well, suffered no apparent complication and is being transferred now to the recovery room.
--- NOTE | 2020-05-26 14:59 | IPNPDOC ---
Text Note Date of Service The patient was seen on 05/26/20. NOTE was seen at bedside today and reported that she slept poorly due to an xiety overnight but that she is feeling better now. She is eating without incident as well as having regular and normal bowel movements and urination. She was informed about her diagnosis of cancer and was appropriately tearful and she was accepting of the diagnosis. She wishes to know the next step in treatment and what her options are. She denies any headache, chest pain, abdominal pain, sweating/chills or N/V/D. She continues to have lumbar back pain and interscapular pain rated at about a 4-5/10. Physical Exam: Vitals: See below General: Sitting in a chair in mild distress due to lumbar back pain. HEENT: Poor dentition. Sclera appear normal. No conjunctival pallor. EOMI CV: RRR. +S1 and S2. No murmurs, rubs, gallops noted Respiratory: Diminished and coarse breath sounds noted in her left upper lobe and middle lobe. Her right sided breath sounds were orellana and largely clear but with some coarseness noted. Abdomen: Soft and nontender. No organomegaly noted. No ascites or bruising noted. Normal BS in all quadrants Extremities: Hammer toes B/L with significant metatarsal deviation. No rashes or wounds seen. Minimal peripheral edema noted. Neuro: CN II-XII grossly intact. Oriented X3. Mildly jittery and anxious appearing. Assessment and Plan: -This is a 69 year old woman with a pmhx significant for HTN, chronic anemia 2/2 GI bleeds, and A. fib who was found to have a suspicious occlusive mass in her L main bronchus which was positively identified as small cell carcinoma along with post obstructive lobar consolidation and septated pleural effusion. #Small Cell Carcinoma: -Diagnosed via bronchoscopic biopsy performed on 05/24 -Consulted Hematology/Oncology to help manage the patient and greatly appreciate their input -Patient aware of diagnosis and wishes to discuss treatment options with heme/onc #Left lung consolidation 2/2 obstructive small cell carcinoma: -Biopsies show small cell carcinoma -Continue Serial CXRs QD to monitor for return of exudative pleural effusions -Continue Zosyn infusions -Continue Levalbuterol nebs #Anxiety: -Has a baseline of high anxiety outside the hospital -Seems in better spirits now that her bronchoscopy is completed -Continue Clonazepam #Exudative Pleural Effusions: -Continue serial CXR to monitor for return of Effusion #Pain control: -Pt has lumbar and thoracic back pain at baseline along with residual discomfort from chest tube placement/removal -Continue to control with Toradol, Percocet, [place] #Hx of Afib: -Currently rate controlled on Diltiazem -States she was unable to afford her anticoagulation medication so her doctor prescribed her 61 mg aspirin outpatient #Hx of anemia: -Pt has a history of GI bleed 2/2 AVMs which were clipped at [facility] earlier in this month -Hbg 8.3 -Continue to monitor with Serial CBC w/ diff -Continue Ferrous Sulfate #Thrombocytosis-likely reactive -PLT 443 which is decreased form 528 on admission #DM -Diet controlled (FBS of 112) #HLD: -Continue Pravastatin #HTN: -BP 140-159/60-90 -Continue to monitor -pt has been having high anxiety during her hospital stay which may be contributing to her HTN #Mesenteric Mass: -Follow up with Dr Ruvalcaba for outpatient evaluation as previously scheduled. #DVT prophylaxis: -Heparin 5000U Q12H SC Disposition: Discharge to home vs placement pending consultation between hematology/oncology and the patient with treatment plan formation and secondary social studies teacher input if necessary VS,Fishbone, I+O VS, Fishbone, I+O Laboratory Tests 05/26/20 07:33 Vital Signs Date Time Temp Pulse Resp B/P (MAP) Pulse Ox O2 Delivery O2 Flow Rate FiO2 05/26/20 12:00 2.0 05/26/20 12:00 97.5 116 20 162/95 (117) 96 Room Air I&O- Last 24 Hours up to 6 AM 05/26/20 06:00 Intake Total 690 ml Output Total 2025 ml Balance -1335 ml GME ATTESTATION GME ATTESTATION My faculty preceptor for this patient encounter was physically present during the encounter and was fully available. All aspects of the patient interview, examination, medical decision making process, and medical care plan development were reviewed and approved by the faculty preceptor. The faculty preceptor is aware and concurs with the plan as stated in the body of this note and will attest to such by his/her cosignature. ATTENDING NOTE Patient was seen and examined by me. Agree with the above assessment and plan ZHANG,MARIN OMS-3 May 26, 2020 14:59 DYLON OLSON D.O. May 26, 2020 18:58 REBECCA BENNETT MD May 27, 2020 14:18
[2020-05-26] MEDS ORDERED: ISOVUE-370 76% 100ML VIAL As Ordered ONE (17:50)
[2020-05-26] MEDS ORDERED: PROHANCE 279.3MG/ML 15ML VIAL As Ordered ONE (17:56)
--- NOTE | 2020-05-26 18:06 | CR.PDOC ---
General Date of Consultation: May 26, 2020 Consultation REASON FOR CONSULTATION/CHIEF COMPLAINT: [ small cell lung cancer ]. HISTORY OF PRESENT ILLNESS: [ This is a 70 year old lady with a past history of smoking up two pack a day of cigarettes. She has been having recurrent episode of gastrointestinal bleeding. She state she felt weak and tired and she saw blood in her underwear. She came to the hospital. Upon arriving she was diagnosed as having a large left pleural effusion. She had a mediastinal mass. She was seen by pulmonary . She had a thoracentesis. cell block found no malignancy. She had a bronchoscopy. Pathology returned positive for small cell lung cancer. ]. ALLERGIES: Please see below. HOME MEDICATIONS: Please see below. PAST MEDICAL HISTORY: 1. [Atrial fibrillation ]. 2. [lower abdomen mass. ]. 3. A-V malformations PAST SURGICAL HISTORY: 1. [Tonsillectomy ] 2. colonoscopy 3. Bronchoscopy ] FAMILY HISTORY: Father: Mother: Siblings: Children: Hereditary Diseases: Unexpected deaths due to medical reasons: SOCIAL HISTORY: Marital status and/or living arrangements: Children: Employment: Tobacco use:[ smoke up to two pack a day of cigarettes . She quit ten years ago. ] ETOH: Illicit drug use: IV drug use: Other relevant social factors: REVIEW OF SYSTEMS: CONSTITUTIONAL: [ general malaise ]. HEENT: [ denies head aches ]. CARDIOVASCULAR: [ denies chest pain , denies palpitations. Known atrial fibrillation ]. RESPIRATORY: dyspnea ]. GENITOURINARY: . MUSCULOSKELETAL: . GASTROINTESTINAL: [ blood in her stools. constipation ]. SKIN: [ ]. NEUROLOGICAL: . PSYCHIATRIC: . ENDOCRINE: . HEMATOLOGIC/LYMPHATIC: . ALLERGIC/IMMUNOLOGIC: . PHYSICAL EXAMINATION: VITAL SIGNS: Please see below. GENERAL APPEARANCE: [ awake alert , oriented to person and plac e]. HEENT: [ normal , eye exophthalmos ]. RESPIRATORY: [ diminished breath sounds left side ]. CARDIOVASCULAR: [ Irregular rhythm ]. ABDOMEN: [ soft non tender ]. EXTREMITIES: no pedal edema ]. NEUROLOGICAL: [ Awake , moving upper and lower extremities]. PSYCHIATRIC: . LABORATORY DATA: Please see below. ASSESSMENT/PLAN: 1. [ 70 year old lady new diagnosis of small cell lung cancer]. 2. [ Anemia with recurrent GI bleed. 3. mass in abdomen 4. Atrial fibrillation ]. suggest ;Stage for small cell - CT abdomen , pelvis MRI brain PICC line or port placement. Vital Signs/I&O Vital Signs Date Time Temp Pulse Resp B/P (MAP) Pulse Ox O2 Delivery O2 Flow Rate FiO2 05/26/20 17:18 18 Room Air 05/26/20 16:00 97.4 88 122/63 (82) 93 1.0 I&O- Last 24 Hours up to 6 AM 05/26/20 06:00 Intake Total 690 ml Output Total 2025 ml Balance -1335 ml Laboratory Data Labs 24H Laboratory Tests 2 05/26/20 07:33: Immature Granulocyte % (Auto) 2.2, Neutrophils (%) (Auto) 72.1H, Lymphocytes (%) (Auto) 13.0L, Monocytes (%) (Auto) 7.8H, Eosinophils (%) (Auto) 3.9H, Basophils (%) (Auto) 1.0, Neutrophils # (Auto) 5.0, Lymphocytes # (Auto) 0.9L, Monocytes # (Auto) 0.5, Eosinophils # (Auto) 0.3, Basophils # (Auto) 0.1, Nucleated Red Blood Cells % (auto) 0.0, Prothrombin Time 13.3, Prothromb Time International Ratio 1.04, Anion Gap 5L, Glomerular Filtration Rate > 60.0, Calcium Level 8.6L CBC/BMP Laboratory Tests 05/26/20 07:33 Microbiology Microbiology 05/24/20 Gram Stain - Final, Complete 05/24/20 Bronchial Aspirate Culture - Final, Complete Yeast Like Organism 05/23/20 Respiratory Virus Panel (PCR) (SHASHA) - Final, Complete 05/23/20 Gram Stain - Final, Complete 05/23/20 Sputum Culture - Final, Complete 05/19/20 Acid Fast Stain, Received Pending 05/19/20 Mycobacterial Culture, Received Pending 05/19/20 Fungal Smear, Received Pending 05/19/20 Fungal Culture, Received Pending 05/19/20 Gram Stain - Final, Complete 05/19/20 Anaerobic Culture - Final, Complete 05/19/20 Body Fluid Culture - Final, Complete Allergies Coded Allergies: No Known Allergies (Verified Allergy, Unknown, 05/09/20) Home Medications Scheduled Calcium/Magnesium/Zinc (Hmmxddx-Pftgduenj-Xups Tablet) 1 Each Tablet, 1 TAB PO QHS, (Reported) Clonazepam (Clonazepam) 1 Mg Tablet, 0.5 MG PO QID, (Reported) TAKES AT 0800, 1300, 1800, 2200 Ferrous Sulfate (Ferrous Sulfate) 325 Mg Tab, 325 MG PO BID, (Reported) Levofloxacin (Levofloxacin) 750 Mg Tablet, 750 MG PO DAILY for 5 Days, #5 Metronidazole (Metronidazole) 250 Mg Tablet, 500 MG PO TID for 5 Days, #15 Multivitamins (Thera M Plus Tablet) 1 Each Tablet, 1 TAB PO DAILY, (Reported) Pantoprazole Sodium (Pantoprazole Sodium) 40 Mg Tablet.dr, 40 MG PO DAILY, (Reported) Pravastatin Sodium (Pravastatin Sodium) 20 Mg Tablet, 10 MG PO QHS, (Reported) dilTIAZem HCl (Diltiazem 24Hr Cd) 120 Mg Cap.er.24h, 120 MG PO DAILY, (Reported) Scheduled PRN Acetaminophen (Acetaminophen) 325 Mg Tablet, 650 MG PO Q6H PRN for BACK PAIN, (Reported) Acetaminophen with Codeine (Acetaminophen-Cod #3 Tablet) 1 Tab Tab, 0.5 TAB PO Q6H PRN for PAIN, (Reported) Docusate Sodium (Docusate Sodium) 100 Mg Capsule, 100 MG PO BID PRN for CONSTIPATION, (Reported) LEVON ARREAGA MD May 26, 2020 18:06
[2020-05-26] MEDS ORDERED: IRON SUCROSE 100MG 5ML VIAL (J1756 PER 1MG) IV ONE (18:15)
[2020-05-26 18:31] LABS: PERCENT SATURATION 14.3 % (13.2-45.0)
[2020-05-26 18:42] LABS: INR 1.08; PROTHROMBIN TIME 13.7 SECONDS (11.8-14.0)
[2020-05-26 18:43] LABS: PARTIAL THROMBOPLASTIN TIME 30.1 SECONDS (25.0-38.4)
--- NOTE | 2020-05-26 19:21 | REPVR ---
PROCEDURE INFORMATION: Exam: MR Head Without and With Contrast Exam date and time: 05/26/2020 5:39 PM Age: 70 years old Clinical indication: Condition or disease; History of cancer (specify primary cancer site): ; Primary cancer: Lung; Additional info: Stage small cell lung cancer TECHNIQUE: Imaging protocol: MR of the head without and with intravenous contrast. Contrast material: PROHANCE; Contrast volume: 15 ml; Contrast route: INTRAVENOUS (IV); COMPARISON: CT Head without contrast 01/25/2019 4:46 PM FINDINGS: Brain: No acute infarct. Flow voids are maintained. Mild chronic microvascular ischemic changes. Ventricles: Normal. No ventriculomegaly. Bones/joints: Unremarkable. Sinuses: Normal as visualized. No acute sinusitis. Mastoid air cells: Normal as visualized. No mastoid effusion. Orbits: Unremarkable. Soft tissues: Unremarkable. Other findings: No abnormal enhancement. IMPRESSION: No acute intracranial abnormality. Electronically signed by: Pedro Solano On 05/26/2020 19:21:07 PM
[2020-05-26] MEDS: PRAVASTATIN 10 MG TAB PO SCH (20:59)
[2020-05-26] MEDS ORDERED: IRON SUCROSE 100 MG in NS 100 ML OVER 1 HR IV ONE (21:00)
[2020-05-27] VITALS (16 sets, daily range): BP systolic 111–154; BP diastolic 57–82; O2SAT 92–95
[2020-05-27] MEDS: LEVALBUTEROL 1.25 MG/0.5 ML CONCENTRATE NEB NEB SCH ×4 (01:22→20:00)
[2020-05-27] MEDS: PIPERACILLIN/TAZOBACTAM SOD 4.5 GM in D5W MINI-BAG PLUS 50 ML IV SCH ×4 (05:07→23:43)
[2020-05-27] MEDS: SLF 3 ML SYR IV SCH ×3 (05:09→20:53)
[2020-05-27 05:32] LABS: BASO # 0.1 10^3/uL (0.0-0.2); BASO % 1.6 % (0.0-1.0); EOS # 0.4 10^3/uL (0.0-0.5); EOS % 4.7 % (0.0-3.0); HEMATOCRIT 29.9 % (36.0-47.0); HEMOGLOBIN 8.6 g/dl (12.0-15.5); LYMPH # 1.7 10^3/uL (1.5-5.0); MEAN CORPUSCULAR HEMOGLOBIN 24.7 pg (27.0-33.0); MEAN CORPUSCULAR HGB CONC 28.8 g/dl (32.0-36.5); MEAN CORPUSCULAR VOLUME 85.9 fl (80.0-96.0); MONO # 0.7 10^3/uL (0.0-0.8); MONO % 9.2 % (0.0-5.0); NEUTROPHILS # 4.5 10^3/uL (1.5-8.5); NEUTROPHILS % 59.8 % (36.0-66.0); PLATELET COUNT, AUTOMATED 485 10^3/uL (150-450); RED BLOOD COUNT 3.48 10^6/uL (4.00-5.40); WHITE BLOOD COUNT 7.5 10^3/uL (4.0-10.0)
[2020-05-27 05:50] LABS: BLOOD UREA NITROGEN 14 MG/DL (7-18); CALCIUM LEVEL 8.5 MG/DL (8.8-10.2); CARBON DIOXIDE LEVEL 29 MEQ/L (21-32); CHLORIDE LEVEL 109 MEQ/L (98-107); CREATININE FOR GFR 0.59 MG/DL (0.55-1.30); GLOMERULAR FILTRATION RATE > 60.0 (>39); GLUCOSE, FASTING 101 MG/DL (70-100); MAGNESIUM LEVEL 2.3 MG/DL (1.8-2.4); POTASSIUM SERUM 4.4 MEQ/L (3.5-5.1); SODIUM LEVEL 144 MEQ/L (136-145)
[2020-05-27] MEDS: HEPARIN SOD (PORCINE) 5000UNITS/ML 1ML VIAL/SYRINGE SC SCH ×2 (07:07→20:53)
[2020-05-27] MEDS: clonazePAM 0.5 MG TAB PO PRN ×3 (07:08→20:51)
[2020-05-27] MEDS ORDERED: ISOVUE-370 76% 100ML VIAL As Ordered ONE (07:46)
[2020-05-27] MEDS: PERCOCET 5MG/325MG TAB PO PRN ×3 (07:48→17:57)
[2020-05-27] MEDS ORDERED: IRON SUCROSE 100MG 5ML VIAL (J1756 PER 1MG) IV ONE (08:00)
[2020-05-27] MEDS: MOM 30ML SUSPENSION UDC PO SCH (08:40)
[2020-05-27] MEDS: DOCUSATE SODIUM 100 MG CAP PO SCH ×2 (08:40→20:51)
[2020-05-27] MEDS: FERROUS SULFATE 325MG TAB PO SCH ×2 (08:52→20:51)
[2020-05-27] MEDS: PANTOPRAZOLE 40MG TAB (PROTONIX) PO SCH (08:52)
[2020-05-27] MEDS: MULTIVITAMINS/MINERALS THERAP 1 TAB PO SCH (08:53)
--- NOTE | 2020-05-27 09:21 | REP ---
CT ABDOMEN AND PELVIS WITH IV BUT WITHOUT ORAL CONTRAST: HISTORY: Check for metastasis. Small cell lung cancer staging. Comparison CT studies are from May 09 and May 10, 2020. CT CONTRAST DOSE: 100 mL of intravenous Isovue [address] FINDINGS: Preliminary digital information systems security officer radiographs demonstrate advanced arthropathy of the hips bilaterally. Bowel gas pattern is unremarkable. Pleuroparenchymal opacity left chest. On axial CT images, there is bilateral fibroatelectatic change in the lower lobes left greater than right. There is diffuse irregular pleural thickening and contrast enhancement in the left base pleural space along the diaphragm. A small quantity of pericardial fluid is seen. There is a left chest tube tract containing a small quantity of air and some soft tissue swelling just above the left hemidiaphragm. The pleural effusion on the left is improved overall although there is more pleural thickening. No adrenal masses seen on either side. The liver and spleen are normal in size homogeneous in texture. There is a small accessory splenule. The kidneys enhance symmetrically and appear morphologically intact. No abnormalities noted the gallbladder or the pancreas. There is a small metallic clip like structure which appears to be in the lumen of the distal gastric antrum or proximal duodenum. This was not present previously. Small and large bowel loops are otherwise unremarkable. There is a ventral hernia transmitting a small amount of abdominal fat just above the umbilicus. No retroperitoneal mass or adenopathy is seen. The previously noted mesenteric mass or adenopathy focus is again seen projecting in the central pelvis. This measures 2.8 x 1.8 x 2.4 cm. It is unchanged from the May 09, 2020 study. No other evidence of adenopathy or mass lesion seen. No uterine or ovarian abnormality is seen. 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 Degenerative spondylosis change is seen. There is a degenerative 7 mm grade 1 L4-5 spondylolisthesis. No bony destructive lesion is seen. IMPRESSION: Stable 2.8 cm adolfo mass in the mesentery in the central abdomen persists unchanged from May 09, 2020. Pleuroparenchymal thickening and contrast enhancement at the left base. Improved left pleural effusion. Electronically Signed by Kody Vieira MD 05/27/2020 11:11 A
[2020-05-27] MEDS ORDERED: LIDOCAINE 1% MDV 20ML VIAL As Ordered ONE (15:56)
--- NOTE | 2020-05-27 18:12 | IPNPDOC ---
Date Seen The patient was seen on 05/27/20. Progress Note SUBJECTIVE: Patient is a [70]-year-old lady ] with pleural effusion , left upper lobe lung mass. Pathology positive for small cell lung cancer. MRI showing no intracranial disease abdomen showing mesenteric mass. OBJECTIVE PHYSICAL EXAMINATION: VITAL SIGNS: Please see below. GENERAL: [awake , cooperative HEENT: [atraumatic CARDIOVASCULAR:Regular rhythm RESPIRATORY: . ABDOMINAL: EXTREMITIES: NEUROLOGICAL: PSYCHOLOGICAL: [ anxiety ] LABORATORY DATA, IMAGING STUDIES, MICROBIOLOGY: Please see below. Echocardiogram: . DVT prophylaxis ordered?: ASSESSMENT AND PLAN: This is a [70 ]-year-old with small cell lung cancer. PROBLEMS: 1. lung cancer small cell: . 2. mass in abdomen: . 3. : Pleural effusion . DISPOSITION: [When stable follow up in the office for therapy. Albumin is low check ionized calcium ]. VS, I&O, 24H, Fishbone Vital Signs/I&O Vital Signs Date Time Temp Pulse Resp B/P (MAP) Pulse Ox O2 Delivery O2 Flow Rate FiO2 05/27/20 17:57 18 Nasal Cannula 2.0 05/27/20 16:50 76 97 05/27/20 16:10 97.8 05/27/20 16:00 123/72 (89) I&O- Last 24 Hours up to 6 AM 05/27/20 05:59 Intake Total 1595 ml Output Total 2225 ml Balance -630 ml Laboratory Data 24H LABS Laboratory Tests 2 05/27/20 05:10: Immature Granulocyte % (Auto) 2.7, Neutrophils (%) (Auto) 59.8, Lymphocytes (%) (Auto) 22.0L, Monocytes (%) (Auto) 9.2H, Eosinophils (%) (Auto) 4.7H, Basophils (%) (Auto) 1.6H, Neutrophils # (Auto) 4.5, Lymphocytes # (Auto) 1.7, Monocytes # (Auto) 0.7, Eosinophils # (Auto) 0.4, Basophils # (Auto) 0.1, Nucleated Red Blood Cells % (auto) 0.0, Anion Gap 6L, Glomerular Filtration Rate > 60.0, Canelo cium Level 8.5L, Magnesium Level 2.3 CBC/BMP Laboratory Tests 05/27/20 05:10 Microbiology Microbiology 05/24/20 Gram Stain - Final, Complete 05/24/20 Bronchial Aspirate Culture - Final, Complete Yeast Like Organism 05/23/20 Respiratory Virus Panel (PCR) (SHASHA) - Final, Complete 05/23/20 Gram Stain - Final, Complete 05/23/20 Sputum Culture - Final, Complete 05/19/20 Acid Fast Stain, Received Pending 05/19/20 Mycobacterial Culture, Received Pending 05/19/20 Fungal Smear, Received Pending 05/19/20 Fungal Culture, Received Pending 05/19/20 Gram Stain - Final, Complete 05/19/20 Anaerobic Culture - Final, Complete 05/19/20 Body Fluid Culture - Final, Complete LEVON ARREAGA MD May 27, 2020 18:12
[2020-05-27] MEDS ORDERED: SODIUM CHLORIDE 0.9% INJ 10 ML SYR IV PRN (18:15)
--- NOTE | 2020-05-27 18:25 | IPNPDOC ---
Text Note Date of Service The patient was seen on 05/27/20. NOTE SUBJECTIVE: Patient was seen and examined today, sitting up comfortably in a chair. She states she continues to feel somewhat anxious, but did sleep better last night. Her daughter was able to visit her yesterday. She is eating without any nausea or vomiting. She continues to have regular bowel movements and urination without difficulty. She denies any new issues or complaints. She continues to have some low back pain which improves with her prn pain medications. OBJECTIVE: PHYSICAL EXAM: VITAL SIGNS: See below GENERAL: Alert, comfortable, in no acute distress HEENT: Normocephalic, atraumatic, moist mucous membranes, poor dentition CARDIOVASCULAR: Regular rate and rhythm, normal S1 and S2. No murmurs, rubs, or gallops RESPIRATORY: Left upper and middle lobes demonstrate diminished coarse breath sounds. Right-sided breath sounds have mild coarseness near the base, but otherwise clear. ABDOMEN: Soft, nontender, nondistended, bowel sounds present. EXTREMITIES: Bilateral hammertoe with metatarsal deviation. Trace edema noted bilaterally. SKIN: [place], warm, dry NEUROLOGIC: Alert and oriented 3 to person, place and time. No focal deficits appreciated PSYCHIATRIC: Patient somewhat anxious ASSESSMENT/PLAN: -This is a 69 year old woman with a pmhx significant for HTN, chronic anemia 2/2 GI bleeds, and A. fib who was found to have a suspicious occlusive mass in her L main bronchus which was positively identified as small cell carcinoma along with post obstructive lobar consolidation and septated pleural effusion. #Small Cell Carcinoma: -Diagnosed via bronchoscopic biopsy performed on 05/24 -Consulted Hematology/Oncology to help manage the patient and greatly appreciate their input Brain MRI and CT abdomen/pelvis, complete for staging. PICC line placed today. Patient plans to start chemotherapy next week with oncology. #Left lung consolidation 2/2 obstructive small cell carcinoma: -Biopsies show small cell carcinoma, as discussed above -Continue Serial CXRs QD to monitor for return of exudative pleural effusions -Continue Zosyn infusions -Continue Levalbuterol nebs #Anxiety: -Has a baseline of high anxiety outside the hospital -Seems in better spirits now that her bronchoscopy is completed -Continue Clonazepam prn #Exudative Pleural Effusions: -s/p chest tube, resolved #Pain control: -Pt has lumbar and thoracic back pain at baseline along with residual discomfort from chest tube placement/removal -Continue to control with Percocet and [place] prns #Hx of Afib: -Currently rate controlled on Diltiazem -States she was unable to afford her anticoagulation medication so her doctor prescribed her 61 mg aspirin outpatient #Hx of anemia: -Pt has a history of GI bleed 2/2 AVMs which were clipped at [facility] earlier in this month -Hbg 8.6, stable -Continue to monitor with Serial CBC w/ diff -Continue Ferrous Sulfate #Thrombocytosis-likely reactive -PLT 485 which is decreased form 528 on admission #DM -Diet controlled #HLD: -Continue Pravastatin #HTN: -improved, Continue to monitor -pt has been having high anxiety during her hospital stay which may be contributing to her HTN #Mesenteric Mass: -Follow up with Dr Ruvalcaba for outpatient evaluation as previously scheduled. #DVT prophylaxis: -Heparin 5000U Q12H SC Disposition: Discharge home tomorrow, follow up with heme/onc next week VS,Fishbone, I+O VS, Fishbone, I+O Laboratory Tests 05/27/20 05:10 Vital Signs Date Time Temp Pulse Resp B/P (MAP) Pulse Ox O2 Delivery O2 Flow Rate FiO2 05/27/20 17:57 18 Nasal Cannula 2.0 05/27/20 16:50 76 97 05/27/20 16:10 97.8 05/27/20 16:00 123/72 (89) I&O- Last 24 Hours up to 6 AM 05/27/20 06:00 Intake Total 1545 ml Output Total 1625 ml Balance -80 ml GME ATTESTATION GME ATTESTATION My faculty preceptor for this patient encounter was physically present during the encounter and was fully available. All aspects of the patient interview, examination, medical decision making process, and medical care plan development were reviewed and approved by the faculty preceptor. The faculty preceptor is aware and concurs with the plan as stated in the body of this note and will attest to such by his/her cosignature. ATTENDING NOTE Patient was seen and examined by me. With the above assessment and plan DYLON OLSON D.O. May 27, 2020 18:25 REBECCA BENNETT MD May 28, 2020 15:59
[2020-05-27] MEDS: PRAVASTATIN 10 MG TAB PO SCH (20:51)
[2020-05-27] MEDS: ACETAMINOPHEN TAB 650MG DOSE (2X325MG) PO PRN (20:52)
[2020-05-28] VITALS (9 sets, daily range): BP systolic 133–151; BP diastolic 73–82; O2SAT 92–95
[2020-05-28] MEDS: LEVALBUTEROL 1.25 MG/0.5 ML CONCENTRATE NEB NEB SCH ×2 (01:49→10:24)
[2020-05-28] MEDS: PIPERACILLIN/TAZOBACTAM SOD 4.5 GM in D5W MINI-BAG PLUS 50 ML IV SCH ×2 (04:37→11:00)
[2020-05-28] MEDS: SLF 3 ML SYR IV SCH (04:38)
[2020-05-28 05:59] LABS: BASO # 0.1 10^3/uL (0.0-0.2); BASO % 1.2 % (0.0-1.0); EOS # 0.4 10^3/uL (0.0-0.5); EOS % 5.5 % (0.0-3.0); HEMATOCRIT 27.2 % (36.0-47.0); HEMOGLOBIN 8.1 g/dl (12.0-15.5); LYMPH % 15.4 % (24.0-44.0); MEAN CORPUSCULAR HGB CONC 29.8 g/dl (32.0-36.5); MONO # 0.6 10^3/uL (0.0-0.8); MONO % 9.1 % (0.0-5.0); NEUTROPHILS # 4.3 10^3/uL (1.5-8.5); NEUTROPHILS % 65.4 % (36.0-66.0); PLATELET COUNT, AUTOMATED 424 10^3/uL (150-450); RED BLOOD COUNT 3.24 10^6/uL (4.00-5.40); WHITE BLOOD COUNT 6.6 10^3/uL (4.0-10.0)
[2020-05-28] MEDS ORDERED: SODIUM CHLORIDE 0.9% INJ 10 ML SYR IV SCH (06:00)
[2020-05-28 06:20] LABS: BLOOD UREA NITROGEN 10 MG/DL (7-18); CALCIUM LEVEL 8.8 MG/DL (8.8-10.2); CARBON DIOXIDE LEVEL 25 MEQ/L (21-32); CHLORIDE LEVEL 107 MEQ/L (98-107); CREATININE FOR GFR 0.49 MG/DL (0.55-1.30); GLOMERULAR FILTRATION RATE > 60.0 (>39); GLUCOSE, FASTING 99 MG/DL (70-100); POTASSIUM SERUM 3.8 MEQ/L (3.5-5.1); SODIUM LEVEL 140 MEQ/L (136-145)
[2020-05-28] MEDS: clonazePAM 0.5 MG TAB PO PRN (06:52)
[2020-05-28] MEDS: ACETAMINOPHEN TAB 650MG DOSE (2X325MG) PO PRN (06:52)
[2020-05-28] MEDS: MOM 30ML SUSPENSION UDC PO SCH (09:06)
[2020-05-28] MEDS: DOCUSATE SODIUM 100 MG CAP PO SCH (09:06)
[2020-05-28] MEDS: FERROUS SULFATE 325MG TAB PO SCH (09:06)
[2020-05-28] MEDS: MULTIVITAMINS/MINERALS THERAP 1 TAB PO SCH (09:06)
[2020-05-28] MEDS: PANTOPRAZOLE 40MG TAB (PROTONIX) PO SCH (09:06)
[2020-05-28] MEDS: HEPARIN SOD (PORCINE) 5000UNITS/ML 1ML VIAL/SYRINGE SC SCH (09:07)
--- NOTE | 2020-05-28 13:46 | DS.PDOC ---
Discharge Summary General Date of Admission May 19, 2020 at 18:39 Date of Discharge 05/28/2020 Discharge Summary PROCEDURES PERFORMED DURING STAY: Bronchoscopy with biopsy, PICC line placement ADMITTING DIAGNOSES: 1. Pleural effusion 2. HTN 3. Chronic a-fib 4. Mesenteric mass DISCHARGE DIAGNOSES: 1. Small cell carcinoma 2. Left lung consolidation 2/2 obstructive small cell carcinoma 3. Anxiety 4. Exudative pleural effusions - resolved 5.Thrombocytosis 6. DM 7. HLD 8. HTN 9. Chronic A-fib - controlled 10. Mesenteric Mass COMPLICATIONS/CHIEF COMPLAINT: Pleural Effusion. HISTORY OF PRESENT ILLNESS: Patient is 69 years old female with past medical history of hypertension, mesenteric mass, pending workup, history of GI bleed due to AVM, chronic anemia, hypertension, chronic A. fib presented to the hospital with increased shortness of breath. Patient was discharged from the hospital on May 13 and after that she has been having increased shortness of breath which became progressively worse for past 2 days. Patient denied fever, chills, nausea. Of note, pt was found AVMs which were clipped. Also pt was found to have mesenteric mass, work up for carcinoid pending. In ER pt was found to have an acute hypoxemic respiratory failure with tachycardia. White blood count of 8.5, hemoglobin 8.9. CT chest showed consolidation demonstrated in the left upper lobe. Parenchymal mass not excluded. Loculated left pleural effusion. Occluded left upper lobe and lingular bronchi containing soft tissue within the lumen of the bronchi. HOSPITAL COURSE: Upon admission Ms. Robles recieved a CXR and Chest CT which revealed left upper lung lobe consolidation, loculated left pleural effusion, small pericardial effusion. She was started on Piperacillin/Tazobactam and underwent pleuracentesis and thoracostomy placement to address her pleural effusion. 1400cc of fluid was drained during these procedures. Pleural fluid analysis was performed and revealed a exudative fluid collection. After draining the left lung a large left sided lung mass occluding the left main bronchus was identified and bronchoscopic biopsies were performed revealing a diagnosis of small cell carcinoma. Hematology/oncology was consulted and performed CT of the abdomen and pelvis as well as brain MRI to asses for metastasis, both of which were negative. A PICC line was inserted for use with chemotherapy in the near future. Throughout her stay she received serial CXRs and zosyn for monitor and treat her post-obstructive lung consolidation/pneumonia. Her home Diltiazem dose was continued and provided good rate control for her a. fib.. She did receive a single unit of pRBCs during her admission due to mildly low hemoglobin. DISCHARGE MEDICATIONS: Please see below. ALLERGIES: Please see below. PHYSICAL EXAMINATION ON DISCHARGE: VITAL SIGNS: Please see below. General: Sitting in a chair eating breakfast in no apparent distress HEENT: Poor dentition. Sclera appear normal. No conjunctival pallor. EOMI CV: RRR. +S1 and S2. No murmurs, rubs, gallops noted Respiratory: Diminished and coarse breath sounds noted in her left upper lobe and middle lobe. Remainder of lung exam unremarkable. Her right sided breath sounds were [place] and largely clear but with some coarseness noted. Abdomen: Soft and nontender. No organomegaly noted. No ascites or bruising noted. Normal BS in all quadrants Extremities: Hammer toes B/L with significant metatarsal deviation. No rashes or wounds seen. Minimal peripheral edema noted. Neuro: CN II-XII grossly intact. Oriented X3. LABORATORY DATA: Please see below. IMAGING: CXR (05/19): There is a large left pleural effusion with associated left lung consolidative atelectasis or infiltrate. Right lung demonstrates no definite infiltrate. Heart size is not well evaluated. There is calcification of the thoracic aorta. Chest CT (05/19): Consolidation demonstrated in the left upper lobe. Parenchymal mass not excluded. Loculated left pleural effusion. Occluded left upper lobe and lingular bronchi containing soft tissue within the lumen of the bronchi. There is fusiform dilatation of the ascending thoracic aorta which measures 4.2 cm. maximally. There is no saccular component. Small pericardial effusion. CXR (05/19 - post-thoracostomy): Minimal if any real improvement. There is a left-sided thoracotomy tube along the left lung base. This appears to have evacuated some of the opacity indicating a portion of the opacity represented a free pleural effusion. Chest CT (05/20): Left pleural drainage catheter in place at the base with improved left pleural effusion. Some loculation persists. Consolidation and collapse persists in the left upper lobe and there is evidence of endobronchial disease. CXR (05/26): No significant change from prior examination. Brain MRI (05/26): No acute intracranial abnormality. Abdomen/Pelvis CT (7/2): Stable 2.8 cm adolfo mass in the mesentery in the central abdomen persists unchanged from May 09, 2020. Pleuroparenchymal thickening and contrast enhancement at the left base. Improved left pleural effusion. PROGNOSIS: Fair ACTIVITY: [As tolerated]. DIET: As Tolerated DISCHARGE PLAN: 1. Follow up with hematology/oncology as scheduled 2. Complete full course of antibiotics. -Complete 5 day course of Flagyl and Levequin upon discharge 3. Advised to follow up with Dr. Ruvalcaba regarding mesenteric mass for further management including possible biopsy DISCHARGE CONDITION: [Stable]. TIME SPENT ON DISCHARGE: Greater than 45 minutes. Vital Signs/I&Os Vital Signs Date Time Temp Pulse Resp B/P (MAP) Pulse Ox O2 Delivery O2 Flow Rate FiO2 05/28/20 12:00 96.9 95 20 133/73 (93) 96 Room Air 05/28/20 08:00 2.0 I&O- Last 24 Hours up to 6 AM 05/28/20 06:00 Intake Total 1070 ml Output Total 3200 ml Balance -2130 ml Laboratory Data Labs 24H Laboratory Tests 2 05/27/20 19:19: Whole Blood Ionized Calcium 4.3L 05/28/20 05:41: Immature Granulocyte % (Auto) 3.4H, Neutrophils (%) (Auto) 65.4, Lymphocytes (%) (Auto) 15.4L, Monocytes (%) (Auto) 9.1H, Eosinophils (%) (Auto) 5.5H, Basophils (%) (Auto) 1.2H, Neutrophils # (Auto) 4.3, Lymphocytes # (Auto) 1.0L, Monocytes # (Auto) 0.6, Eosinophils # (Auto) 0.4, Basophils # (Auto) 0.1, Nucleated Red Blood Cells % (auto) 0.0, Anion Gap 8, Glomerular Filtration Rate > 60.0, Calcium Level 8.8 CBC/BMP Laboratory Tests 05/28/20 05:41 Microbiology Microbiology 05/24/20 Gram Stain - Final, Complete 05/24/20 Bronchial Aspirate Culture - Final, Complete Yeast Like Organism 05/23/20 Respiratory Virus Panel (PCR) (SHASHA) - Final, Complete 05/23/20 Gram Stain - Final, Complete 05/23/20 Sputum Culture - Final, Complete 05/19/20 Acid Fast Stain, Received Pending 05/19/20 Mycobacterial Culture, Received Pending 05/19/20 Fungal Smear, Received Pending 05/19/20 Fungal Culture, Received Pending 05/19/20 Gram Stain - Final, Complete 05/19/20 Anaerobic Culture - Final, Complete 05/19/20 Body Fluid Culture - Final, Complete Discharge Medications Scheduled Calcium/Magnesium/Zinc (Yxfphtk-Cyppkwqgo-Myme Tablet) 1 Each Tablet, 1 TAB PO QHS, (Reported) Clonazepam (Clonazepam) 1 Mg Tablet, 0.5 MG PO QID, (Reported) TAKES AT 0800, 1300, 1800, 2200 Ferrous Sulfate (Ferrous Sulfate) 325 Mg Tab, 325 MG PO BID, (Reported) Levofloxacin (Levofloxacin) 750 Mg Tablet, 750 MG PO DAILY Metronidazole (Metronidazole) 250 Mg Tablet, 500 MG PO TID Multivitamins (Thera M Plus Tablet) 1 Each Tablet, 1 TAB PO DAILY, (Reported) Pantoprazole Sodium (Pantoprazole Sodium) 40 Mg Tablet.dr, 40 MG PO DAILY, (Reported) Pravastatin Sodium (Pravastatin Sodium) 20 Mg Tablet, 10 MG PO QHS, (Reported) dilTIAZem HCl (Diltiazem 24Hr Cd) 120 Mg Cap.er.24h, 120 MG PO DAILY, (Reported) Scheduled PRN Acetaminophen (Acetaminophen) 325 Mg Tablet, 650 MG PO Q6H PRN for BACK PAIN, (Reported) Acetaminophen with Codeine (Acetaminophen-Cod #3 Tablet) 1 Tab Tab, 0.5 TAB PO Q6H PRN for PAIN, (Reported) Docusate Sodium (Docusate Sodium) 100 Mg Capsule, 100 MG PO BID PRN for CONST IPATION, (Reported) Allergies Coded Allergies: No Known Allergies (Verified Allergy, Unknown, 05/09/20) E ATTESTATION [facility] ATTESTATION faculty preceptor for this patient encounter was physically present during the encounter and was fully available. All aspects of the patient interview, examination, medical decision making process, and medical care plan development were reviewed and approved by the faculty preceptor. The faculty preceptor is aware and concurs with the plan as stated in the body of this note and will attest to such by his/her cosignature. E ATTESTATION E ATTESTATION My faculty preceptor for this patient encounter was physically present during the encounter and was fully available. All aspects of the patient interview, examination, medical decision making process, and medical care plan development were reviewed and approved by the faculty preceptor. The faculty preceptor is aware and concurs with the plan as stated in the body of this note and will attest to such by his/her cosignature. ATTENDING NOTE Patient was seen and examined by me. With the above assessment and plan MARIN [id number] May 28, 2020 13:45 REBECCA BENNETT MD May 28, 2020 16:02
[2020-06-04] MEDS ORDERED: SODI650T PO (09:17)
--- NOTE | 2020-06-07 08:00 | REP ---
PICC line insertion under ultrasound guidance. The procedure was performed by JASMIN Paulson, under the direct supervision of Dr. Vieira. The risks and benefits of the procedure were explained to the patient and informed consent was obtained both verbally and written. Directly prior to the start of the procedure, a formal timeout was completed in the procedure room. The left medial brachial vein was localized using ultrasound guidance. The skin was prepped and draped in the sterile fashion. 1 ml 1% lidocaine 10 mg/ml was used as a local anesthetic. Using ultrasound guidance the left medial brachial vein was cannulated and a 0.018 guidewire was inserted and advanced to the SVC using fluoroscopic guidance. The needle was removed and a 4.5 Salvadorean dilator and peel-away sheath was inserted over the guidewire. A 4.5 Salvadorean single lumen catheter was cut to the length of 40 cm. The dilator was removed and the catheter was inserted over the guide wire with the tip ending in the SVC. The peel-away sheath was removed and the catheter was flushed with heparinized saline as per hospital protocol. The catheter was affixed to the skin and a sterile dressing was applied. The patient tolerated the procedure well and there were no immediate complications. 0.4 minutes of fluoroscopy time was utilized for this procedure. Some fluoroscopic images are performed with last image hold technology. These images require no additional radiation. Reviewed by JASMIN Navarrete 05/27/2020 05:09 P Electronically Signed by Kody Vieira MD 06/07/2020 07:51 A
[2020-06-15] MEDS ORDERED: ZYLO300T6 PO (10:15)
[2020-06-15] MEDS ORDERED: LIDO2.5C15 TOP (10:17)
[2020-09-27] MEDS ORDERED: MAGICMW PO (15:55)
== END 2020-05-28 13:34 | disposition home health service (06) | DRG 180 ==
LOC: M ED 16:51 → EDBD 16:51 → M ED INP 18:39 → ENRESERV 18:57 → M PCU 19:13
PROVIDERS: ADMIT Thoracic Surgery (Cardiothoracic Vascular Surgery); ATTEND Internal Medicine
PROC: 3E03317 Introduction of Other Thrombolytic into Peripheral Vein, Percutaneous Approach (ICD-10-PCS; 2020-05-20)
PROC: 30233N1 Transfusion of Nonautologous Red Blood Cells into Peripheral Vein, Percutaneous Approach (ICD-10-PCS; 2020-05-22)
PROC: 0BB98ZX Excision of Lingula Bronchus, Via Natural or Artificial Opening Endoscopic, Diagnostic (ICD-10-PCS; principal; 2020-05-24 13:00)
DX: C34.12 Malignant neoplasm of upper lobe, left bronchus or lung (principal); J96.01 Acute respiratory failure with hypoxia; J90 Pleural effusion, not elsewhere classified; I48.20 Chronic atrial fibrillation, unspecified; I31.3 Pericardial effusion (noninflammatory); F41.9 Anxiety disorder, unspecified; E11.9 Type 2 diabetes mellitus without complications; I10 Essential (primary) hypertension; Z79.899 Other long term (current) drug therapy; D50.9 Iron deficiency anemia, unspecified; E78.5 Hyperlipidemia, unspecified; Z87.891 Personal history of nicotine dependence; K42.9 Umbilical hernia without obstruction or gangrene

== ENCOUNTER → 2020-06-11 | Outpatient (CLI) | payer MEDICARE ==
[~2020-06-11] MED LIST changes: +LEVO750T13 PO; +LIDO2.5C15 TOP; +LIDOCAINE 1% MDV 20ML VIAL As Ordered ONE; +LOVE1INJ SC; +MAGICMW PO; +METR-135 PO; +MIDAZOLAM INJ 2MG/2ML VIAL (J2250 PER 1MG) As Ordered ONE; +OXYC-517 PO; +PANT-23 PO; +PERCOCET PO; +PROMETHAZINE INJ 25 MG/ML VIAL (J2550) As Ordered ONE; +RISATAB3 PO; +SODI650T PO; +ZYLO300T6 PO; +ceFAZolin 1GM VIAL (J0690 PER 500MG) As Ordered ONE; +diphenhydrAMINE 50MG/ML VIAL (J1200) As Ordered ONE; +fentaNYL 100 MCG/2 ML INJECTION (J3010) As Ordered ONE
--- NOTE | 2020-06-11 09:52 | IRHP ---
[facility] IR Pre-Procedure H & P General Date of Service: Jun 11, 2020 Procedure: Same Day Surgery Interval History and Physical I have seen the patient and reviewed last H & P performed within 30 days. There is no significant interval change. History of Present Illness Chief Complaint The patient is a 70-year-old female admitted with a reason for visit of Lung Ca. PRE-PROCEDURE DIAGNOSIS: lung cancer HEART: normal rate. LUNGS: normal breathing at rest. ASA Classification ASA Classification: III-Severe systemic dis. Mallampati Score: II NPO: Yes Problems with prior sedation: No Obstructive Sleep Apnea: No Plan moderate sedation Allergies Coded Allergies: No Known Allergies (Verified Allergy, Unknown, 05/09/20) Home Medications Scheduled Calcium/Magnesium/Zinc (Afadogw-Ymtilezay-Owhw Tablet), 1 TAB PO QHS, (Reported) Clonazepam (Clonazepam), 0.5 MG PO QID, (Reported) Ferrous Sulfate (Ferrous Sulfate), 325 MG PO BID, (Reported) Multivitamins (Thera M Plus Tablet), 1 TAB PO DAILY, (Reported) Pantoprazole Sodium (Pantoprazole Sodium), 40 MG PO DAILY, (Reported) Pravastatin Sodium (Pravastatin Sodium), 20 MG PO QHS, (Reported) Sodium Bicarbonate (Sodium Bicarbonate), 1,300 MG PO TID dilTIAZem HCl (Diltiazem 24Hr Cd), 120 MG PO DAILY, (Reported) Scheduled PRN Acetaminophen (Acetaminophen), 650 MG PO Q6H PRN for BACK PAIN, (Reported) Acetaminophen with Codeine (Acetaminophen-Cod #3 Tablet), 0.5 TAB PO Q6H PRN for PAIN, (Reported) Docusate Sodium (Docusate Sodium), 100 MG PO BID PRN for CONSTIPATION, (Reported) Discontinued Medications Levofloxacin (Levofloxacin), 750 MG PO DAILY Discontinued Reason: Pt states not taking Metronidazole (Metronidazole), 500 MG PO TID Discontinued Reason: Pt states not taking VS, I&O, 24H, Fishbone Vital Signs/I&O Vital Signs Date Time Temp Pulse Resp B/P (MAP) Pulse Ox O2 Delivery O2 Flow Rate FiO2 06/11/20 09:40 82 18 98 Nasal Cannula 06/11/20 09:31 2 06/11/20 07:41 98.5 PEDRO ENCINAS MD Jun 11, 2020 09:52
--- NOTE | 2020-06-11 09:53 | POST-OPPD ---
Postoperative Procedure Note Date Of Procedure: Jun 11, 2020 PREOPERATIVE DIAGNOSIS: lung cancer POSTOPERATIVE DIAGNOSIS: same FINDINGS: patent right IJ PROCEDURE: right sided port placed. ready to use. SURGEON: Poonam ANESTHESIA: mod sed ESTIMATED BLOOD LOSS: < 5 ml COMPLICATIONS: none POSTOPERATIVE CONDITION: stable PEDRO ENCINAS MD Jun 11, 2020 09:53
[2020-06-11 11:40] VITALS: BP 117/68
--- NOTE | 2020-06-16 11:34 | REP ---
IR Ultrasound and fluoroscopy-guided port placement. IR Ultrasound of the neck. IR Moderate sedation. Clinical information: Lung cancer. Physician: Dr. Levin. Procedure: The patient was advised of the benefits, risks, and alternatives of the procedure and informed consent was obtained. A time-out was performed with verification of the patient's name, MRN, site of procedure and type of procedure to be performed. The patient was positioned in the supine position on the angiographic table. The site was prepped and draped in the usual sterile fashion. Moderate sedation was performed by the physician including the presence of an independent trained observer who assisted and monitored the patient's level of consciousness and physiologic status. Following the administration of fentanyl and Versed, the physician spent 30 minutes of continuous face to face time with the patient. Ultrasound of the neck reveals a patent and compressible right internal jugular vein. A processing operator radiograph reveals aerated right lung. The neck and anterior chest wall were anesthetized with lidocaine. The right internal jugular vein was accessed using a microintroducer needle under ultrasound guidance, via a lateral approach. An 018 wire was advanced into the superior vena cava, the needle was removed and a microsheath was placed. An Amplatz wire was then passed into the inferior vena cava. An incision at the internal jugular vein access site and anterior chest wall were made using a scalpel. An incision was made at the anterior chest wall. A small pocket was created using a combination of blunt and sharp dissection. A tunneling device was then used to pass the catheter from the pocket to the neck puncture site. An 8-Tuvaluan Angio dynamics Smart power port was then positioned in the pocket. The catheter was then measured and cut. The introducer sheath was exchanged for a peel-away sheath. The catheter was passed through the peel-away sheath into the internal jugular vein and the peel-away sheath was removed. The port tip was positioned at the cavoatrial junction. The port was then accessed with a Jimenez needle. The port flushes and aspirates well. The puncture site in the neck was closed. The chest wall incision was then closed with 2-0 Vicryl and 4-0 Monocryl. Glue and Steri-Strips were applied. A sterile dressing was then applied. The patient tolerated the procedure well and was returned to the PRU in stable condition. Estimated blood loss: <5 ml. Complications: None. Conclusion: 1. Successful placement of an 8-Tuvaluan Angio dynamics Smart power port via the right internal jugular vein. The port is ready for immediate use. 2. Patient to follow up in IR clinic in 2 weeks. Thank you for this referral. Electronically Signed by Bambi Levin MD 06/16/2020 11:33 A
== END ==
LOC: M IRPRO 07:15
PROVIDERS: ATTEND Internal Medicine Hematology & Oncology
DX: C34.90 Malignant neoplasm of unspecified part of unspecified bronchus or lung (principal)
CPT/HCPCS: 36561; 99152; 99153; C1769; C1788; C1894; J0690; J1200; J1642; J1644; J2250; J3010

== ENCOUNTER 2020-07-03 11:00 | Inpatient (IN) | payer MEDICARE ==
[~2020-07-03 11:00] MED LIST changes: -LIDOCAINE 1% MDV 20ML VIAL As Ordered ONE; -LOVE1INJ SC; -MAGICMW PO; -MIDAZOLAM INJ 2MG/2ML VIAL (J2250 PER 1MG) As Ordered ONE; -OXYC-517 PO; -PERCOCET PO; -PROMETHAZINE INJ 25 MG/ML VIAL (J2550) As Ordered ONE; -RISATAB3 PO; -ceFAZolin 1GM VIAL (J0690 PER 500MG) As Ordered ONE; -diphenhydrAMINE 50MG/ML VIAL (J1200) As Ordered ONE; -fentaNYL 100 MCG/2 ML INJECTION (J3010) As Ordered ONE
[2020-07-03] MEDS ORDERED: MORPHINE 4 MG/ML 1ML VIAL/SYRINGE (J2270) As Ordered ONE ×2 (12:25→17:27)
[2020-07-03] MEDS ORDERED: ONDANSETRON 4MG/2ML VIAL As Ordered ONE (12:36)
[2020-07-03] MEDS ORDERED: GASTROGRAFIN SOLUTION 30ML (Q9963) As Ordered ONE (13:14)
[2020-07-03] MEDS ORDERED: ISOVUE-370 76% 100ML VIAL As Ordered ONE (14:28)
[2020-07-04] MEDS ORDERED: MORPHINE 2 MG/ML 1ML VIAL (J2270) As Ordered ONE (00:17)
[2020-07-04] MEDS ORDERED: FERROUS SULFATE 325MG TAB As Ordered ONE (09:24)
[2020-07-04] MEDS ORDERED: PANTOPRAZOLE 40MG TAB (PROTONIX) As Ordered ONE (09:24)
[2020-07-04] MEDS ORDERED: PRAVASTATIN 20 MG TAB As Ordered ONE (09:25)
[2020-07-04] MEDS ORDERED: clonazePAM 0.5 MG TAB As Ordered ONE (09:25)
[2020-07-04] MEDS ORDERED: ONDANSETRON 4MG/2ML VIAL As Ordered ONE (09:26)
[2020-07-04] MEDS ORDERED: allopurinoL 300 MG TAB As Ordered ONE (09:26)
[2020-07-04] MEDS ORDERED: ENOXAPARIN 40MG/0.4ML SYRINGE (J1650 PER 10MG) As Ordered ONE (09:26)
[2020-07-04] MEDS ORDERED: ACETAMINOPHEN 650MG ER TAB (TYLENOL ARTHRITIS) As Ordered ONE (11:56)
[2020-07-04] MEDS ORDERED: clonazePAM 0.5 MG TAB ONE (13:44)
[2020-07-04] MEDS ORDERED: ceFAZolin 2 GM/D5W 50 ML IV BAG (J0690 PER 500MG) ONE (13:44)
[2020-07-04] MEDS ORDERED: MORPHINE 2 MG/ML 1ML VIAL (J2270) ONE ×2 (15:42→22:41)
[2020-07-04] MEDS ORDERED: ONDANSETRON 4MG/2ML VIAL ONE (22:50)
[2020-07-05] MEDS ORDERED: MORPHINE 2 MG/ML 1ML VIAL (J2270) ONE (05:27)
[2020-07-05] MEDS ORDERED: MORPHINE 2 MG/ML 1ML VIAL (J2270) As Ordered ONE (05:29)
[2020-07-05] MEDS ORDERED: metroNIDAZOLE (FLAGYL) 500MG TABLET As Ordered ONE (05:29)
[2020-07-05] MEDS ORDERED: ceFAZolin 2 GM/D5W 50 ML IV BAG (J0690 PER 500MG) As Ordered ONE (05:30)
[2020-07-05] MEDS ORDERED: ONDANSETRON 4MG/2ML VIAL As Ordered ONE ×2 (05:38→23:09)
[2020-07-05] MEDS ORDERED: FERROUS SULFATE 325MG TAB As Ordered ONE (09:16)
[2020-07-05] MEDS ORDERED: PRAVASTATIN 20 MG TAB As Ordered ONE ×2 (09:16→21:40)
[2020-07-05] MEDS ORDERED: allopurinoL 300 MG TAB As Ordered ONE (09:17)
[2020-07-05] MEDS ORDERED: PANTOPRAZOLE 40MG TAB (PROTONIX) As Ordered ONE (09:17)
[2020-07-05] MEDS ORDERED: dexameTHASONE 4 MG/ML 1ML VIAL (J1100 PER 1MG) ONE (09:42)
[2020-07-05] MEDS ORDERED: ONDANSETRON 4MG/2ML VIAL ONE ×3 (09:42→16:06)
[2020-07-05] MEDS ORDERED: LIDOCAINE 2% 100MG/5ML SDV (FOR ANES.) ONE (09:42)
[2020-07-05] MEDS ORDERED: ACETAMINOPHEN 1000MG 100ML IV BTL (OFIRMEV) (J0131 PER 10MG) ONE (09:42)
[2020-07-05] MEDS ORDERED: ROCURONIUM BROMIDE 50 MG/5 ML VIAL ONE ×3 (09:42→13:23)
[2020-07-05] MEDS ORDERED: propofoL 200 MG/20 ML VIAL ONE (09:42)
[2020-07-05] MEDS ORDERED: MIDAZOLAM INJ 2MG/2ML VIAL (J2250 PER 1MG) ONE ×2 (09:42→11:19)
[2020-07-05] MEDS ORDERED: fentaNYL 250 MCG/5 ML INJECTION (J3010) ONE (09:42)
[2020-07-05] MEDS ORDERED: BUPIVACAINE HCL 0.25% 30ML VIAL ONE (09:44)
[2020-07-05] MEDS ORDERED: LIDOCAINE 1% SDV 30ML VIAL ONE (09:44)
[2020-07-05] MEDS ORDERED: BUPIVACAINE HCL 0.25% 10ML VIAL ONE (09:44)
[2020-07-05] MEDS ORDERED: BUPIVACAINE LIPOSOME/PF 1.3% 20ML VIAL (13.3MG/ML)(EXPAREL)(C9290 PER1MG) ONE (09:44)
[2020-07-05] MEDS ORDERED: UNASYN 1.5 GM VIAL ONE (11:21)
[2020-07-05] MEDS ORDERED: metroNIDAZOLE (FLAGYL) 500MG TABLET ONE ×2 (13:44→22:40)
[2020-07-05] MEDS ORDERED: SUGAMMADEX SODIUM 500 MG/5 ML VIAL (BRIDION) ONE (15:34)
[2020-07-05] MEDS ORDERED: fentaNYL 100 MCG/2 ML INJECTION (J3010) ONE (16:07)
[2020-07-05] MEDS ORDERED: HYDROMORPHONE HCL 0.5 MG/ 0.5 ML SYRINGE (J1170 PER 1) ONE ×2 (16:40→16:55)
[2020-07-05] MEDS ORDERED: KETOROLAC 30 MG/ML 1ML VIAL As Ordered ONE ×2 (19:24→23:08)
[2020-07-05] MEDS ORDERED: MAGNESIUM SULFATE 1GM/100ML D5W BAG (10MG/ML) As Ordered ONE (23:09)
[2020-07-06] MEDS ORDERED: MORPHINE 4 MG/ML 1ML VIAL/SYRINGE (J2270) As Ordered ONE ×2 (03:11→22:54)
[2020-07-06] MEDS ORDERED: KETOROLAC 30 MG/ML 1ML VIAL As Ordered ONE (06:09)
[2020-07-06] MEDS ORDERED: PANTOPRAZOLE 40MG VIAL (C9113 PER 1) ONE (09:54)
[2020-07-06] MEDS ORDERED: ENOXAPARIN 40MG/0.4ML SYRINGE (J1650 PER 10MG) ONE (09:54)
[2020-07-06] MEDS ORDERED: MORPHINE 4 MG/ML 1ML VIAL/SYRINGE (J2270) ONE ×2 (10:47→16:03)
[2020-07-06] MEDS ORDERED: clonazePAM 0.5 MG TAB ONE ×2 (13:02→20:18)
[2020-07-06] MEDS ORDERED: KETOROLAC 30 MG/ML 1ML VIAL ONE ×2 (13:02→18:05)
[2020-07-06] MEDS ORDERED: FERROUS SULFATE 325MG TAB ONE (20:18)
[2020-07-06] MEDS ORDERED: PRAVASTATIN 20 MG TAB ONE (20:18)
[2020-07-06] MEDS ORDERED: KCL 20MEQ IN D5/.45NACL 1000ML ONE (20:18)
[2020-07-07] MEDS ORDERED: KETOROLAC 30 MG/ML 1ML VIAL As Ordered ONE ×2 (00:47→05:50)
[2020-07-07] MEDS ORDERED: FERROUS SULFATE 325MG TAB As Ordered ONE (08:53)
[2020-07-07] MEDS ORDERED: PANTOPRAZOLE 40MG VIAL (C9113 PER 1) As Ordered ONE (08:53)
[2020-07-07] MEDS ORDERED: clonazePAM 0.5 MG TAB As Ordered ONE (08:53)
[2020-07-07] MEDS ORDERED: ENOXAPARIN 40MG/0.4ML SYRINGE (J1650 PER 10MG) As Ordered ONE (08:54)
[2020-07-07] MEDS ORDERED: allopurinoL 300 MG TAB As Ordered ONE (08:54)
[2020-07-07] MEDS ORDERED: MORPHINE 4 MG/ML 1ML VIAL/SYRINGE (J2270) As Ordered ONE (08:57)
[2020-07-07] MEDS ORDERED: KCL 20MEQ IN D5/.45NACL 1000ML As Ordered ONE (09:37)
[2020-07-07] MEDS ORDERED: clonazePAM 0.5 MG TAB ONE ×3 (12:36→20:10)
[2020-07-07] MEDS ORDERED: KETOROLAC 30 MG/ML 1ML VIAL ONE ×2 (12:36→18:20)
[2020-07-07] MEDS ORDERED: ALVIMOPAN 12 MG CAPSULE (ENTEREG) ONE (13:00)
[2020-07-07] MEDS ORDERED: MORPHINE 4 MG/ML 1ML VIAL/SYRINGE (J2270) ONE ×2 (15:29→23:09)
[2020-07-07] MEDS ORDERED: MOM 30ML SUSPENSION UDC ONE (15:29)
[2020-07-07] MEDS ORDERED: PRAVASTATIN 20 MG TAB ONE (20:10)
[2020-07-07] MEDS ORDERED: FERROUS SULFATE 325MG TAB ONE (20:10)
[2020-07-07] MEDS ORDERED: KCL 20MEQ IN D5/.45NACL 1000ML ONE (23:09)
[2020-07-08] MEDS ORDERED: KETOROLAC 30 MG/ML 1ML VIAL ONE (00:31)
[2020-07-08] MEDS ORDERED: KETOROLAC 30 MG/ML 1ML VIAL As Ordered ONE (05:50)
[2020-07-08] MEDS ORDERED: PANTOPRAZOLE 40MG VIAL (C9113 PER 1) As Ordered ONE (08:12)
[2020-07-08] MEDS ORDERED: FERROUS SULFATE 325MG TAB As Ordered ONE ×2 (08:13→21:29)
[2020-07-08] MEDS ORDERED: clonazePAM 0.5 MG TAB As Ordered ONE ×4 (08:13→21:29)
[2020-07-08] MEDS ORDERED: allopurinoL 300 MG TAB As Ordered ONE (08:14)
[2020-07-08] MEDS ORDERED: ENOXAPARIN 40MG/0.4ML SYRINGE (J1650 PER 10MG) As Ordered ONE (08:14)
[2020-07-08] MEDS ORDERED: PERCOCET 5MG/325MG TAB As Ordered ONE ×3 (08:34→21:29)
[2020-07-08] MEDS ORDERED: PRAVASTATIN 20 MG TAB As Ordered ONE (21:29)
[2020-07-09] MEDS ORDERED: PERCOCET 5MG/325MG TAB As Ordered ONE ×3 (08:08→22:36)
[2020-07-09] MEDS ORDERED: FERROUS SULFATE 325MG TAB As Ordered ONE ×3 (08:08→19:55)
[2020-07-09] MEDS ORDERED: ENOXAPARIN 40MG/0.4ML SYRINGE (J1650 PER 10MG) As Ordered ONE (08:09)
[2020-07-09] MEDS ORDERED: allopurinoL 300 MG TAB As Ordered ONE (08:09)
[2020-07-09] MEDS ORDERED: clonazePAM 0.5 MG TAB As Ordered ONE ×4 (08:09→19:55)
[2020-07-09] MEDS ORDERED: PANTOPRAZOLE 40MG TAB (PROTONIX) As Ordered ONE (08:09)
[2020-07-09] MEDS ORDERED: PRAVASTATIN 20 MG TAB As Ordered ONE (19:56)
[2020-07-09] MEDS ORDERED: ONDANSETRON 4MG/2ML VIAL As Ordered ONE (19:56)
[2020-07-10] MEDS ORDERED: FERROUS SULFATE 325MG TAB As Ordered ONE ×2 (08:29→20:43)
[2020-07-10] MEDS ORDERED: clonazePAM 0.5 MG TAB As Ordered ONE ×4 (08:30→20:37)
[2020-07-10] MEDS ORDERED: allopurinoL 300 MG TAB As Ordered ONE (08:31)
[2020-07-10] MEDS ORDERED: PANTOPRAZOLE 40MG TAB (PROTONIX) As Ordered ONE (08:31)
[2020-07-10] MEDS ORDERED: ENOXAPARIN 40MG/0.4ML SYRINGE (J1650 PER 10MG) As Ordered ONE (08:32)
[2020-07-10] MEDS ORDERED: PERCOCET 5MG/325MG TAB As Ordered ONE ×3 (11:08→22:16)
[2020-07-10] MEDS ORDERED: LACTOBACILLUS ACIDOPHILUS CAP (BACID) As Ordered ONE ×3 (14:14→20:37)
[2020-07-10] MEDS ORDERED: PRAVASTATIN 20 MG TAB As Ordered ONE (20:37)
[2020-07-10] MEDS ORDERED: FERROUS GLUCONATE 324 MG TAB As Ordered ONE (20:38)
[2020-07-11] MEDS ORDERED: PERCOCET 5MG/325MG TAB As Ordered ONE ×4 (07:56→22:13)
[2020-07-11] MEDS ORDERED: FERROUS SULFATE 325MG TAB As Ordered ONE ×2 (07:56→20:04)
[2020-07-11] MEDS ORDERED: LACTOBACILLUS ACIDOPHILUS CAP (BACID) As Ordered ONE ×4 (07:57→20:04)
[2020-07-11] MEDS ORDERED: clonazePAM 0.5 MG TAB As Ordered ONE ×4 (07:58→20:04)
[2020-07-11] MEDS ORDERED: ENOXAPARIN 40MG/0.4ML SYRINGE (J1650 PER 10MG) As Ordered ONE (07:59)
[2020-07-11] MEDS ORDERED: allopurinoL 300 MG TAB As Ordered ONE (07:59)
[2020-07-11] MEDS ORDERED: PANTOPRAZOLE 40MG TAB (PROTONIX) As Ordered ONE (07:59)
[2020-07-11] MEDS ORDERED: PINK BISMUTH SUSP 524MG/30ML ORAL SYRINGE ONE (09:00)
[2020-07-11] MEDS ORDERED: PRAVASTATIN 20 MG TAB As Ordered ONE (20:05)
[2020-07-12] MEDS ORDERED: PERCOCET 5MG/325MG TAB As Ordered ONE ×2 (07:58→15:40)
[2020-07-12] MEDS ORDERED: FERROUS SULFATE 325MG TAB As Ordered ONE ×2 (07:58→20:12)
[2020-07-12] MEDS ORDERED: LACTOBACILLUS ACIDOPHILUS CAP (BACID) As Ordered ONE ×4 (07:58→20:13)
[2020-07-12] MEDS ORDERED: clonazePAM 0.5 MG TAB As Ordered ONE ×4 (07:59→20:13)
[2020-07-12] MEDS ORDERED: allopurinoL 300 MG TAB As Ordered ONE (08:00)
[2020-07-12] MEDS ORDERED: PANTOPRAZOLE 40MG TAB (PROTONIX) As Ordered ONE (08:00)
[2020-07-12] MEDS ORDERED: ENOXAPARIN 40MG/0.4ML SYRINGE (J1650 PER 10MG) As Ordered ONE (08:00)
[2020-07-12] MEDS ORDERED: PRAVASTATIN 20 MG TAB As Ordered ONE (20:13)
[2020-07-13] MEDS ORDERED: FERROUS SULFATE 325MG TAB As Ordered ONE (08:04)
[2020-07-13] MEDS ORDERED: PERCOCET 5MG/325MG TAB As Ordered ONE ×3 (08:04→17:33)
[2020-07-13] MEDS ORDERED: clonazePAM 0.5 MG TAB As Ordered ONE ×3 (08:05→17:34)
[2020-07-13] MEDS ORDERED: LACTOBACILLUS ACIDOPHILUS CAP (BACID) As Ordered ONE ×3 (08:05→17:33)
[2020-07-13] MEDS ORDERED: PANTOPRAZOLE 40MG TAB (PROTONIX) As Ordered ONE (08:06)
[2020-07-13] MEDS ORDERED: allopurinoL 300 MG TAB As Ordered ONE (08:06)
[2020-07-13] MEDS ORDERED: PRAVASTATIN 20 MG TAB As Ordered ONE (08:06)
[2020-07-13] MEDS ORDERED: ENOXAPARIN 40MG/0.4ML SYRINGE (J1650 PER 10MG) As Ordered ONE (08:07)
[2020-07-13] MEDS ORDERED: PINK BISMUTH SUSP 524MG/30ML ORAL SYRINGE PO PRN (09:45)
[2020-07-13] MEDS ORDERED: IBUPROFEN 600MG TAB PO PRN (09:45)
[2020-07-13] MEDS ORDERED: ACETAMINOPHEN TAB 650MG DOSE (2X325MG) PO PRN (09:45)
[2020-07-13] MEDS ORDERED: PERCOCET 5MG/325MG TAB PO PRN (09:45)
[2020-07-13] MEDS ORDERED: ONDANSETRON 4MG/2ML VIAL IV PRN (09:45)
[2020-07-13] MEDS: clonazePAM 0.5 MG TAB PO SCH (20:18)
[2020-07-13] MEDS: LACTOBACILLUS ACIDOPHILUS CAP (BACID) PO SCH (20:18)
[2020-07-13] MEDS: FERROUS SULFATE 325MG TAB PO SCH (20:18)
[2020-07-13] MEDS ORDERED: PRAVASTATIN 20 MG TAB PO SCH (21:00)
[2020-07-13] MEDS: PERCOCET 5MG/325MG TAB PO PRN (21:58)
[2020-07-13 22:00] VITALS: BP 128/68
[2020-07-13 22:13] LABS: HEMATOCRIT 33.4 % (36.0-47.0); HEMOGLOBIN 10.5 g/dl (12.0-15.5); MEAN CORPUSCULAR HEMOGLOBIN 26.3 pg (27.0-33.0); MEAN CORPUSCULAR HGB CONC 31.4 g/dl (32.0-36.5); MEAN CORPUSCULAR VOLUME 83.5 fl (80.0-96.0); PLATELET COUNT, AUTOMATED 445 10^3/uL (150-450); WHITE BLOOD COUNT 14.7 10^3/uL (4.0-10.0)
[2020-07-14 05:53] LABS: HEMOGLOBIN 9.8 g/dl (12.0-15.5); MEAN CORPUSCULAR HEMOGLOBIN 26.3 pg (27.0-33.0); MEAN CORPUSCULAR HGB CONC 31.6 g/dl (32.0-36.5); MEAN CORPUSCULAR VOLUME 83.1 fl (80.0-96.0); PLATELET COUNT, AUTOMATED 377 10^3/uL (150-450); RED BLOOD COUNT 3.73 10^6/uL (4.00-5.40); WHITE BLOOD COUNT 12.5 10^3/uL (4.0-10.0)
[2020-07-14 06:00] VITALS: BP 122/67
[2020-07-14 06:32] LABS: ALT/SGPT 15 U/L (12-78); BILIRUBIN,TOTAL 0.2 MG/DL (0.2-1.0); BLOOD UREA NITROGEN 9 MG/DL (7-18); CARBON DIOXIDE LEVEL 26 MEQ/L (21-32); CHLORIDE LEVEL 109 MEQ/L (98-107); CREATININE FOR GFR 0.35 MG/DL (0.55-1.30); GLOMERULAR FILTRATION RATE > 60.0 (>39); GLUCOSE, FASTING 90 MG/DL (70-100); POTASSIUM SERUM 3.3 MEQ/L (3.5-5.1); SODIUM LEVEL 142 MEQ/L (136-145); TOTAL PROTEIN 5.1 GM/DL (6.4-8.2)
[2020-07-14] MEDS: clonazePAM 0.5 MG TAB PO SCH ×3 (08:14→17:24)
[2020-07-14] MEDS: FERROUS SULFATE 325MG TAB PO SCH (08:16)
[2020-07-14] MEDS: PERCOCET 5MG/325MG TAB PO PRN ×3 (08:16→17:24)
[2020-07-14 08:17] VITALS: BP 121/72
[2020-07-14] MEDS: LACTOBACILLUS ACIDOPHILUS CAP (BACID) PO SCH ×3 (08:18→17:24)
[2020-07-14] MEDS ORDERED: ENOXAPARIN 40MG/0.4ML SYRINGE (J1650 PER 10MG) SC SCH (09:00)
[2020-07-14] MEDS ORDERED: PANTOPRAZOLE 40MG TAB (PROTONIX) PO SCH (09:00)
[2020-07-14] MEDS ORDERED: allopurinoL 300 MG TAB PO SCH (09:00)
[2020-07-14] MEDS ORDERED: POTASSIUM CHLORIDE 10 MEQ SR TABLET PO ONE ×2 (11:00→15:00)
--- NOTE | 2020-07-14 13:40 | IPNPDOC ---
Date Seen The patient was seen on 07/14/20. Progress Note SUBJECTIVE: appears well, comfortable. Sitting upright in bed. Significant anxiety regarding prognosis. Denies CP, n/v/d. OBJECTIVE PHYSICAL EXAMINATION: VITAL SIGNS: Please see below. GENERAL: NAD HEENT: PERRAL, eomi CARDIOVASCULAR: RRR, normal S1, S2 RESPIRATORY: lungs CTAB ABDOMINAL: clean surgical sites, well dressed, nba in place EXTREMITIES: no deformity NEUROLOGICAL: AAO x 3 PSYCHOLOGICAL: cooperative LABORATORY DATA, IMAGING STUDIES, MICROBIOLOGY: Please see below. DVT prophylaxis ordered?: Lovenox ASSESSMENT AND PLAN: This is a -year-old [RACE] [GENDER] with . PROBLEMS: 1. 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 Carcinoid tumor. Staging pending. Discussed with Dr. Pillai (pathology). The lung tumor (less differentiated) and the carcinoid tumor are likely two separate masses and share no relation. Final margins are pending. Gen Sx follow up with Dr. More. To follow up with Dr. Valdez at [facility]. Prognosis is guarded. 2. Small Cell Lung Ca: chemo on hold. Follows with Dr. Sharma. 3. GI ppx: protonix 4. Diarrhea: improved 5. DVT ppx: Lovenox Dispo: ARU today. VS, I&O, 24H, Fishbone Vital Signs/I&O Vital Signs Date Time Temp Pulse Resp B/P (MAP) Pulse Ox O2 Delivery O2 Flow Rate FiO2 07/14/20 13:09 17 07/14/20 08:17 111 121/72 07/14/20 06:00 98.5 96 Room Air I&O- Last 24 Hours up to 6 AM 07/14/20 06:00 Intake Total 540 ml Output Total 590 ml Balance -50 ml Laboratory Data 24H LABS Laboratory Tests 2 07/14/20 05:20: Nucleated Red Blood Cells % (auto) 0.0, Anion Gap 7L, Glomerular Filtration Rate > 60.0, Calcium Level 8.0L, Total Bilirubin 0.2, Aspartate Amino Transf (AST/SGOT) 14, Alanine Aminotransferase (ALT/SGPT) 15, Alkaline Phosphatase 89, Total Protein 5.1L, Albumin 2.0L, Albumin/Globulin Ratio 0.6L CBC/BMP Laboratory Tests 07/14/20 05:20 DAVID GONZALEZ MD Jul 14, 2020 13:40
[2020-07-14 14:00] VITALS: BP 116/69
[2020-07-14] MEDS ORDERED: LOVE1INJ SC (16:53)
[2020-07-14] MEDS ORDERED: PERCOCET PO (16:53)
[2020-07-14] MEDS ORDERED: RISATAB3 PO (16:53)
[2020-07-17 23:23] LABS: ALBUMIN 2.3 GM/DL (3.2-5.2); ALT/SGPT 17 U/L (12-78); BILIRUBIN,TOTAL 0.2 MG/DL (0.2-1.0); BLOOD UREA NITROGEN 8 MG/DL (7-18); CALCIUM LEVEL 8.3 MG/DL (8.8-10.2); CARBON DIOXIDE LEVEL 24 MEQ/L (21-32); CHLORIDE LEVEL 109 MEQ/L (98-107); CREATININE FOR GFR 0.48 MG/DL (0.55-1.30); GLOMERULAR FILTRATION RATE > 60.0 (>39); GLUCOSE, FASTING 94 MG/DL (70-100); POTASSIUM SERUM 3.5 MEQ/L (3.5-5.1); SODIUM LEVEL 140 MEQ/L (136-145); TOTAL PROTEIN 5.4 GM/DL (6.4-8.2)
[2020-07-18 19:20] LABS: HEMATOCRIT 34.6 % (36.0-47.0); HEMOGLOBIN 10.6 g/dl (12.0-15.5); MEAN CORPUSCULAR HEMOGLOBIN 26.4 pg (27.0-33.0); MEAN CORPUSCULAR HGB CONC 30.6 g/dl (32.0-36.5); MEAN CORPUSCULAR VOLUME 86.3 fl (80.0-96.0); PLATELET COUNT, AUTOMATED 364 10^3/uL (150-450); RED BLOOD COUNT 4.01 10^6/uL (4.00-5.40); WHITE BLOOD COUNT 11.9 10^3/uL (4.0-10.0)
--- NOTE | 2020-07-20 11:33 | DS.PDOC ---
Discharge Summary General Date of Admission Jul 04, 2020 at 08:00 Date of Discharge 07/14/20 Attending Physician: DAVID GONZALEZ MD Discharge Summary PROCEDURES PERFORMED DURING STAY: [None]. ADMITTING DIAGNOSES: 1. Ileal mass DISCHARGE DIAGNOSES: 1. Ileal mass 2. Small cell lung ca 3. Afib 4. CHF 5. Gout COMPLICATIONS/CHIEF COMPLAINT: Abdominal Pain. HISTORY OF PRESENT ILLNESS: 70 yo F with a hx of small cell lung ca. Who presented to [facility] with symptoms of bowel obstruction. CT abdomen showing a terminal ileum mass. She underwent an ileocolic bowel resection. Discussed with Dr. Pillai (pathology). The lung tumor (less differentiated) and the carcinoid tumor are likely two separate masses and share no relation. Final margins are pending. Gen Sx follow up with Dr. More. To follow up with Dr. Valdez at [facility]. Prognosis is guarded. Given deconditioning, admitted to [facility]U HOSPITAL COURSE: General surgery was consulted for an obstructing terminal ileum mass. Decompression was achieved with NGT and she subsequently underwent a robot assisted ileocolic bowel resection on 07/05/20. Tissue sent for pathology review, suspected carcinoid tumor. Staging was pending at the time of discharge. Given deconditioning, function below baseline and difficulties with completion of ADLs, she was transfered to ARU for rehab. The following issues were addressed on this admission: 1. Ileal mass: s/p ileocolic resection. Carcinoid tumor. Staging pending. D iscussed with Dr. Pillai (pathology). The lung tumor (less differentiated) and the carcinoid tumor are likely two separate masses and share no relation. Final margins are pending. Gen Sx follow up with Dr. More. To follow up with Dr. Valdez at [facility]. Prognosis is guarded. 2. Small Cell Lung Ca: chemo on hold. Follows with Dr. Sharma. 3. CHF: euvolemic 4. Chronic afib: controlled with cardizem 120 mg PO daily Gout: allopurinol 5. GI ppx: protonix 6. Diarrhea: improved 7. DVT ppx: Lovenox DISCHARGE MEDICATIONS: Please see below. ALLERGIES: Please see below. PHYSICAL EXAMINATION ON DISCHARGE: VITAL SIGNS: Please see below. GENERAL: NAD HEENT: PERRAL, eomi CARDIOVASCULAR: RRR, normal S1, S2 RESPIRATORY: lungs CTAB ABDOMINAL: clean surgical sites, well dressed, nba in place EXTREMITIES: no deformity NEUROLOGICAL: AAO x 3 PSYCHOLOGICAL: cooperative LABORATORY DATA: Please see below. CT abdomen showed 4.5x3.5x3.2 cm terminal ileum mass with bowel obstruction PROGNOSIS: buttermaker continuous churn prognosis is guarded ACTIVITY: as tolerated, working with rehab services at [facility]> DIET: as tolerated DISCHARGE PLAN: DC to ARU due to deconditioning. DISPOSITION: 62 D/T Rehab Facility. DISCHARGE INSTRUCTIONS: 1. Follow up with PCP within 7-14 days 2. Follow up with Gen Sx within 7-14 days. 3. Follow up with Oncology - Dr. Valdez at [facility] ITEMS TO FOLLOWUP ON ON OUTPATIENT: 1. Pathology report/staging. DISCHARGE CONDITION: [Stable]. TIME SPENT ON DISCHARGE: Greater than 30 minutes. Vital Signs/I&Os Vital Signs Date Time Temp Pulse Resp B/P (MAP) Pulse Ox O2 Delivery O2 Flow Rate FiO2 07/14/20 17:24 18 07/14/20 14:00 97.1 96 116/69 (85) 98 Room Air I&O- Last 24 Hours up to 6 AM 07/14/20 05:59 Intake Total 420 ml Output Total 470 ml Balance -50 ml Laboratory Data Labs 24H Laboratory Tests 2 07/14/20 05:20: Nucleated Red Blood Cells % (auto) 0.0, Anion Gap 7L, Glomerular Filtration Rate > 60.0, Calcium Level 8.0L, Total Bilirubin 0.2, Aspartate Amino Transf (AST/SGOT) 14, Alanine Aminotransferase (ALT/SGPT) 15, Alkaline Phosphatase 89, Total Protein 5.1L, Albumin 2.0L, Albumin/Globulin Ratio 0.6L CBC/BMP Laboratory Tests 07/14/20 05:20 Discharge Medications Scheduled Allopurinol (Zyloprim) 300 Mg Tablet, 1 TAB PO DAILY Calcium/Magnesium/Zinc (Yebuxlv-Tlvcudpwd-Uubf Tablet) 1 Each Tablet, 1 TAB PO QHS, (Reported) Clonazepam (Clonazepam) 1 Mg Tablet, 0.5 MG PO QID, (Reported) TAKES AT 0800, 1300, 1800, 2200 Enoxaparin Sodium (Lovenox) 40 Mg/0.4 Ml Syringe, 40 MG SC DAILY Ferrous Sulfate (Ferrous Sulfate) 325 Mg Tab, 325 MG PO BID, (Reported) L.acidoph/L.bulg/B.bif/S.therm (Carrie-Bid Caplet) 1 Each Tablet, 1 EA PO ACHS Multivitamins (Thera M Plus Tablet) 1 Each Tablet, 1 TAB PO DAILY, (Reported) Pantoprazole Sodium (Pantoprazole Sodium) 40 Mg Tablet.dr, 40 MG PO DAILY, (Reported) Pravastatin Sodium (Pravastatin Sodium) 20 Mg Tablet, 20 MG PO QHS, (Reported) dilTIAZem HCl (Diltiazem 24Hr Cd) 120 Mg Cap.er.24h, 120 MG PO DAILY, (Reported) Scheduled PRN Acetaminophen with Codeine (Acetaminophen-Cod #3 Tablet) 1 Tab Tab, 0.5 TAB PO Q6H PRN for PAIN, (Reported) Docusate Sodium (Docusate Sodium) 100 Mg Capsule, 100 MG PO BID PRN for CONSTIPATION, (Reported) Oxycodone/Acetaminophen (Oxycodone-Acetaminophen 5-325) 1 Each Tablet, 2 TAB PO Q4HP PRN for SEVERE PAIN Oxycodone/Acetaminophen (Oxycodone-Acetaminophen 5-325) 1 Each Tablet, 1 TAB PO Q4HP PRN for PAIN Allergies Coded Allergies: No Known Allergies (Verified Allergy, Unknown, 05/09/20) DAVID GONZALEZ MD Jul 14, 2020 21:09
--- NOTE | 2020-08-04 08:20 | CR ---
DATE: 07/04/2020 CONSULTATION REQUESTED BY: Dr. Garnett REASON FOR CONSULTATION: Abdominal pain, bowel obstruction, abdominal mass. HISTORY OF PRESENT ILLNESS: Ms. Deras is a 70-year-old female admitted yesterday when she presented to the emergency room with complaints of crampy abdominal pain, as well as nausea, one episode of vomiting. She is currently undergoing chemotherapy for her small cell lung cancer. Last chemotherapy was roughly two weeks ago. The day prior, she was passing some loose stools. Normally, she has regular soft bowel movements. She denies any intermittent crampy abdominal pain, discomfort, or ongoing weight loss. Back in April, she was admitted to the hospital according to her for anemia, and she had a CT scan of the abdomen and pelvis then that showed a mesenteric mass likewise a mass in the small bowel. She was seen by Dr. Ruvalcaba at that time and has not really followed up with surgery. It is unclear if this information the oncologists are aware of and what workup has been done with regards to finding out the pathology for this. She was concurrently found to have small cell lung cancer for which she is undergoing treatment now. PAST MEDICAL HISTORY: Atrial fibrillation. She currently is not on any anticoagulation. She has a history of anxiety. She has a known history of small cell lung cancer and incompletely worked up history of an abdominal mass. REVIEW OF SYSTEMS: Patient currently is undergoing chemotherapy and it seems to be well tolerated. Denies any ongoing fevers or chills. She did report some mild loose stools the day prior to her presentation. Early this morning, she had a large mixed liquid and semi-formed stool. She reports shortness of breath on light activity. She denies any history of chest pains. She reports no other problems. PHYSICAL EXAMINATION: Patient seen in her bed. She was laying on her left side. She reports intermittent cramping. Otherwise in between those, she feels alright. Somewhat labored breathing when she speaks. Skin is warm and dry. Lips are dry. She has a 14-Portuguese nasogastric tube with only minimal drainage in the canister. No obvious jugular venous distention that I can appreciate. No chest wall abnormalities. Lung sounds are relatively clear though respiratory effort is slightly decreased with no wheezing appreciated. She has some irregular rhythm. Abdomen is round, but relatively soft with minimal tenderness mostly over the right lower quadrant area only on deep palpation. No guarding that I could appreciate. She has slightly hypoactive bowel sounds. No ventral or incisional hernias I could appreciate. Tympanitic to percussion. No deformities or significant extremity edema. ANCILLARY STUDIES: Her labs on admission were examined. Electrolytes fall within normal limits and likewise LFTs are normal. WBC 2.5, hemoglobin 12.5, hematocrit 38.8, platelets 355,000. She had CT of the abdomen and pelvis that was done with contrast. This shows a 4.5 x 2.5 x 2.2 cm enhancing soft tissue area of mass- like wall thickening involving the terminal ileum at the abdomen right lower quadrant area with the ileum and distal jejunum proximal to that abnormally distended with bowel obstruction. Proximal bowel does not seem to be dilated. Appendix is not seen. There is a linear metallic pericecal density possibly a surgical clip. IMPRESSION AND PLAN: Patient has what appears to be partial mechanical obstruction, which may be involving a mass at the terminal ileum that does not seem to be completely worked up at this time. She did have a large bowel movement this morning and it made her comfortable, though during my conversation she will has some episodes of crampy abdominal pain. We will get an abdominal x- ray today just to get a sense of how distended her intestines are. It is more likely that she will need some intervention with regards to the malignant obstruction whether it be bowel resection or a small bowel bypass. I would like to speak with her oncologist tomorrow to get more information with regards to what workup has been done. Certainly if she is undergoing chemotherapy and has some mild leukopenia, she is at risk for complications for undergoing surgery and we will need to delay her chemotherapy with surgery. She does not seem to need emergency surgery for now. I will keep the nasogastric (NG) tube for now until we make our decision. MTDD
[2020-08-17 14:18] LABS: 5HIAA 24HR URINE SEE SEPARATE REPORT; 5HIAA TOTAL URINE SEE SEPARATE REPORT
[2020-08-19 11:57] LABS: INR 0.98; PROTHROMBIN TIME 13.2 SECONDS (12.5-14.3)
[2020-08-19 11:58] LABS: PARTIAL THROMBOPLASTIN TIME 32.1 SECONDS (24.2-38.5)
[2020-08-19 17:18] LABS: BASO % 1.2 % (0.0-1.0); EOS % 0.4 % (0.0-3.0); HEMATOCRIT 38.8 % (36.0-47.0); HEMOGLOBIN 12.5 g/dl (12.0-15.5); LYMPH % 37.6 % (24.0-44.0); MEAN CORPUSCULAR HEMOGLOBIN 26.2 pg (27.0-33.0); MEAN CORPUSCULAR HGB CONC 32.2 g/dl (32.0-36.5); MEAN CORPUSCULAR VOLUME 81.2 fl (80.0-96.0); MONO # 0.7 10^3/uL (0.0-0.8); MONO % 26.4 % (0.0-5.0); NEUTROPHILS % 32.5 % (36.0-66.0); PLATELET COUNT, AUTOMATED 355 10^3/uL (150-450); RED BLOOD COUNT 4.78 10^6/uL (4.00-5.40); WHITE BLOOD COUNT 2.6 10^3/uL (4.0-10.0)
[2020-08-19 17:28] LABS: NEUTROPHILS # 0.8 10^3/uL (1.5-8.5)
[2020-08-20 18:29] LABS: HEMOGLOBIN 11.5 g/dl (12.0-15.5); MEAN CORPUSCULAR HEMOGLOBIN 26.7 pg (27.0-33.0); MEAN CORPUSCULAR HGB CONC 31.9 g/dl (32.0-36.5); MEAN CORPUSCULAR VOLUME 83.5 fl (80.0-96.0); PLATELET COUNT, AUTOMATED 299 10^3/uL (150-450); RED BLOOD COUNT 4.31 10^6/uL (4.00-5.40); WHITE BLOOD COUNT 2.4 10^3/uL (4.0-10.0)
[2020-08-25 11:19] LABS: HEMATOCRIT 32.3 % (36.0-47.0); HEMOGLOBIN 10.3 g/dl (12.0-15.5); MEAN CORPUSCULAR HEMOGLOBIN 26.5 pg (27.0-33.0); MEAN CORPUSCULAR HGB CONC 31.9 g/dl (32.0-36.5); MEAN CORPUSCULAR VOLUME 83.2 fl (80.0-96.0); PLATELET COUNT, AUTOMATED 267 10^3/uL (150-450); RED BLOOD COUNT 3.88 10^6/uL (4.00-5.40); WHITE BLOOD COUNT 3.6 10^3/uL (4.0-10.0)
[2020-08-26 09:54] LABS: HEMATOCRIT 31.2 % (36.0-47.0); HEMOGLOBIN 9.5 g/dl (12.0-15.5); MEAN CORPUSCULAR HEMOGLOBIN 26.2 pg (27.0-33.0); MEAN CORPUSCULAR HGB CONC 30.4 g/dl (32.0-36.5); PLATELET COUNT, AUTOMATED 300 10^3/uL (150-450); RED BLOOD COUNT 3.63 10^6/uL (4.00-5.40); WHITE BLOOD COUNT 6.1 10^3/uL (4.0-10.0)
[2020-08-26 09:55] LABS: ANISOCYTOSIS 1+; ATYPICAL LYMPH 1 % (0-5); LYMPHOCYTES 21 % (16-44); METAMYELOCYTES 1 % (0-0); MONOCYTES 4 % (0-5); NEUTROPHILS 62 % (28-66); PLATELET ESTIMATE NORMAL (NORMAL); POIKILOCYTOSIS 1+
[2020-08-29 01:01] LABS: HEMOGLOBIN 10.3 g/dl (12.0-15.5); MEAN CORPUSCULAR HEMOGLOBIN 26.2 pg (27.0-33.0); MEAN CORPUSCULAR HGB CONC 31.2 g/dl (32.0-36.5); PLATELET COUNT, AUTOMATED 313 10^3/uL (150-450); RED BLOOD COUNT 3.93 10^6/uL (4.00-5.40); WHITE BLOOD COUNT 8.1 10^3/uL (4.0-10.0)
[2020-08-29 02:25] LABS: ATYPICAL LYMPH 1 % (0-5); EOSINOPHILS 1 % (0-3); LYMPHOCYTES 19 % (16-44); METAMYELOCYTES 2 % (0-0); MONOCYTES 8 % (0-5); MYELOCYTES 2 % (0-0); NEUTROPHILS 64 % (28-66); POLYCHROMASIA 1+
[2020-08-29 02:26] LABS: ANISOCYTOSIS 2+; PLATELET ESTIMATE NORMAL (NORMAL); POIKILOCYTOSIS 1+
[2020-08-29 16:43] LABS: HEMATOCRIT 31.8 % (36.0-47.0); MEAN CORPUSCULAR HEMOGLOBIN 26.2 pg (27.0-33.0); MEAN CORPUSCULAR HGB CONC 31.4 g/dl (32.0-36.5); MEAN CORPUSCULAR VOLUME 83.5 fl (80.0-96.0); PLATELET COUNT, AUTOMATED 369 10^3/uL (150-450); RED BLOOD COUNT 3.81 10^6/uL (4.00-5.40)
[2020-08-29 16:48] LABS: ATYPICAL LYMPH 4 % (0-5); METAMYELOCYTES 1 % (0-0); MONOCYTES 5 % (0-5)
[2020-08-29 16:49] LABS: LYMPHOCYTES 16 % (16-44); NEUTROPHILS 70 % (28-66)
[2020-08-29 16:50] LABS: HYPOCHROMASIA 1+; MICROCYTOSIS 2+; PLATELET ESTIMATE NORMAL (NORMAL); POIKILOCYTOSIS 1+; POLYCHROMASIA 1+
--- NOTE | 2020-09-02 12:55 | RO ---
DATE OF OPERATION: 07/05/2020 PREOPERATIVE DIAGNOSIS: Small bowel obstruction from a terminal ileum mass. POSTOPERATIVE DIAGNOSIS: Small bowel obstruction from a terminal ileum mass. PROCEDURE PERFORMED: Robotic-assisted laparoscopic ileocolic resection. SURGEON: Delgado More MD FOOD SERVICE WORKER: KATHY Nieves. Ms. De Jesus assisted me with placement of the ports, general management of the instruments, trocars, on the field while I was at the surgeons consult, retraction of bowels on the field, as well as extraction of the specimen, and closure of ports. ANESTHESIA: General. ESTIMATED BLOOD LOSS: 200 mL. DRAINS: 19-Roman drain. SPECIMENS: Terminal ileum plus colon and its mesentery. COMPLICATIONS: None. (The patient tolerated the procedure well). DESCRIPTION OF PROCEDURE: Ms. Deras is a 70-year-old female admitted for bowel obstruction. She has a history of a recent diagnosis of small cell lung cancer, for which she was undergoing chemotherapy. Her last chemotherapy was two weeks ago. She came in with about a one day history of abdominal pain, nausea, and vomiting, and appears to have a mass at the terminal ileum on imaging. She is mildly improved with continuance of crampy abdominal pain; thus, it was decided to bring her to the operating room today. Patient received 3 grams of Unasyn intravenous (IV) for prophylactic antibiotic. She was brought to the operating room and placed supine on the table. Compression boots were placed to the lower extremities for deep vein thrombosis (DVT) prophylaxis. General endotracheal anesthesia was started. A Shankar catheter was placed for urine output monitoring. She was positioned with her left arm tucked. Her abdomen then prepped and draped in the usual sterile fashion. A surgical time-out was performed prior to start of surgery. I began with a left upper quadrant Veress needle entry intraabdominal placement confirmed with the hanging drop technique. CO2 insufflation was then started with a pressure of 15 mmHg. Using the same entry site, an 8-mm robotic trocar was placed under direct vision with the laparoscope. The insertion site was inspected for injury and none was found. She has a known history of an umbilical hernia. This was reduced with manual external pressure. She was placed in about a 12-degree Trendelenburg position. Initially two port sites were placed along a slight oblique line from the left upper quadrant going toward the lower quadrant midclavicular line. I stared running the bowel and the bowels were distended. There was evidence for serous ascites. I did not see any evidence for omental caking or any peritoneal studding. Liver appeared to be smooth in contour with no masses appreciated. I was not able to fully run the bowel towards the terminal ileum as it seems to be tethered slightly. I placed a 12-mm suprapubic port site and then docked the robot. I unscrubbed and took control of the camera and instruments at the surgeons console while Ms. De Jesus remained in the field to manage the robot and instrument exchange, as well as retraction of the bowel. I decreased the Trendelenburg position so I was able to get down behind the cecum, which was enlarged mildly, but seemed to be collapsed. The attachments to the lateral portion of the cecum were released. After doing this, I was able to rotate the cecum enough and was able to locate the terminal ileum. There was a hard mass that seemed to be between the insertion of the terminal ileum and the cecum blocking the terminal ileum. The bowels were markedly distended at this point. I could not feel any mass within the small bowel itself nor at the colon. Initially I was not able to find the appendix, so I suspected possibility of malignancy from the appendix, but lateral on with further lateral dissection the appendix was located. The mesentery of the small bowel was bulky. Due to also distention of the bowels uniformly, there was some difficulty obtaining view. She was slightly moved towards the left side to gain some view. I placed a couple of 4 x 4s to retract the small bowel away. I located a portion of the small bowel where it seemed to be fairly healthy. This remained to be distended. The mesentery was divided with a vessel feeler device down to the wall of the bowel and the bowel was divided with a blue load of 60-mm stapler. The mesentery as mentioned was quite bulky either from inflammation or from secondary effects of a possible mass at the terminal ileum. We had some bleeding along the mesentery with the vessel feeler; thus, I decided to continue transecting the mesentery via white load of 60-mm stapler. The mesentery towards the terminal ileum was divided, which allowed me to get underneath the cecum. The lateral and retroperitoneal attachments of the cecum were divided both bluntly and sharply. Her habitus forms in such a way that the cecum and ascending colon are located high up almost towards the right upper quadrant area. She also has a very floppy transverse colon, which seems to be folded a little bit onto itself as it goes towards the hepatic flexure. After this, I continued dissection towards the ileocolic artery away from the mass. This was likewise divided with vascular load of the 60-mm stapler. I then chose a suitable area for my distal margin. As this did not seem to be colon cancer itself and may be at the mesentery, so I chose an area up towards the ascending colon. I checked for proper perfusion at the site where I was going to take with indocyanine green (ICG). The mesentery was further divided. Again, I upsized the left upper quadrant port to a 12-mm port to accommodate my stapler. The colon was then divided at the distal ascending colon. The lateral attachments were then freed up with a vessel feeler totally freeing up the colon itself. The specimen was then placed above the liver temporarily. I irrigated at the area. I further released the remaining ascending colon and hepatic flexure to deliver this towards the dilated stump of the small bowel. A stay suture with 3-0 silk was placed to arrange for an isoperistaltic [id number]-tc-kjas anastomosis. This was temporarily hung in the abdominal wall using the same stitch. The small bowel and the colon were straightened up. As I made an enterotomy at the small bowel, I suctioned off the contents and controlled the leakage with a grasper. An enterotomy at the same level to the colon as made isoperistaltic [id number]-cu-[id number] anastomosis was then created with a 60-mm stapler with the blue load. The enterocolostomy was then closed in two layers using 3-0 V-Loc starting at the lowest most portion of the staple line going towards the crutch of the staple line and coming back in a Lembert fashion as a second layer. I also placed a separate 3-0 silk suture along the excess portion of the small bowel that was not reached by the staple line to align it with the colon. After this, I tested the anastomosis under water and used ICG to look for perfusion at the anastomosis. The abdomen was irrigated and I placed my specimen towards the suprapubic area. The robot was then docked and I scrubbed back in. I created a short Pfannenstiel incision and opened up the fascia at the level of the 12-mm suprapubic port. An Jarocho wound retractor was placed and the specimen was extracted, which was quite bulky at the junction of the terminal ileum and colon. The abdomen was then irrigated after removal of the wound retractor. The fascial defect was repaired with 1-Vicryl in the mattress fashion. Prior to this, I left a 19-Roman drain and threaded it through the left midclavicular port site. The up-sized 12-mm port was removed and then the fascia was repaired with 0-Vicryl in a mattress fashion. All the incisions were closed with nba. The drain was sutured to the skin. Appropriate sterile gauze dressings and Tegaderm were then placed at the incisions and the drain sponge placed at the drain site. The patient remained stable throughout the procedure. She was successful awakened, extubated, and brought to the recovery room in stable condition. RUDOLPH
[2020-09-04 19:11] LABS: HEMATOCRIT 35.1 % (36.0-47.0); HEMOGLOBIN 10.9 g/dl (12.0-15.5); MEAN CORPUSCULAR HEMOGLOBIN 26.3 pg (27.0-33.0); MEAN CORPUSCULAR HGB CONC 31.1 g/dl (32.0-36.5); MEAN CORPUSCULAR VOLUME 84.8 fl (80.0-96.0); PLATELET COUNT, AUTOMATED 449 10^3/uL (150-450); RED BLOOD COUNT 4.14 10^6/uL (4.00-5.40); WHITE BLOOD COUNT 8.8 10^3/uL (4.0-10.0)
[2020-09-05 18:14] LABS: HEMATOCRIT 36.7 % (36.0-47.0); HEMOGLOBIN 11.5 g/dl (12.0-15.5); MEAN CORPUSCULAR HEMOGLOBIN 25.8 pg (27.0-33.0); MEAN CORPUSCULAR HGB CONC 31.3 g/dl (32.0-36.5); MEAN CORPUSCULAR VOLUME 82.5 fl (80.0-96.0); PLATELET COUNT, AUTOMATED 567 10^3/uL (150-450); RED BLOOD COUNT 4.45 10^6/uL (4.00-5.40); WHITE BLOOD COUNT 12.5 10^3/uL (4.0-10.0)
[2020-09-21 10:04] LABS: HEMATOCRIT 33.9 % (36.0-47.0); HEMOGLOBIN 10.6 g/dl (12.0-15.5); MEAN CORPUSCULAR HGB CONC 31.3 g/dl (32.0-36.5); MEAN CORPUSCULAR VOLUME 83.1 fl (80.0-96.0); RED BLOOD COUNT 4.08 10^6/uL (4.00-5.40)
[2020-09-21 10:05] LABS: PLATELET COUNT, AUTOMATED 448 10^3/uL (150-450)
[2020-09-21 12:07] LABS: CHROMOGRANIN A SEE SEPARATE REPORT; SEROTONIN QUANTITATIVE LEVEL SEE SEPARATE REPORT
[2020-09-21 20:27] LABS: ALBUMIN 3.8 GM/DL (3.2-5.2); ALT/SGPT 16 U/L (12-78); BILIRUBIN,DIRECT 0.2 MG/DL (0.0-0.2); BILIRUBIN,TOTAL 0.9 MG/DL (0.2-1.0); BLOOD UREA NITROGEN 18 MG/DL (7-18); CARBON DIOXIDE LEVEL 24 MEQ/L (21-32); CHLORIDE LEVEL 99 MEQ/L (98-107); CREATININE FOR GFR 0.68 MG/DL (0.55-1.30); GLOMERULAR FILTRATION RATE > 60.0 (>39); GLUCOSE, FASTING 104 MG/DL (70-100); LIPASE 59 U/L (73-393); POTASSIUM SERUM 4.5 MEQ/L (3.5-5.1); SODIUM LEVEL 132 MEQ/L (136-145); TOTAL PROTEIN 7.5 GM/DL (6.4-8.2)
[2020-09-26 09:40] LABS: ALBUMIN 2.3 GM/DL (3.2-5.2); ALT/SGPT 13 U/L (12-78); BILIRUBIN,TOTAL 0.3 MG/DL (0.2-1.0); BLOOD UREA NITROGEN 7 MG/DL (7-18); CALCIUM LEVEL 8.4 MG/DL (8.8-10.2); CARBON DIOXIDE LEVEL 27 MEQ/L (21-32); CHLORIDE LEVEL 105 MEQ/L (98-107); CREATININE FOR GFR 0.46 MG/DL (0.55-1.30); GLOMERULAR FILTRATION RATE > 60.0 (>39); GLUCOSE, FASTING 83 MG/DL (70-100); POTASSIUM SERUM 3.7 MEQ/L (3.5-5.1); SODIUM LEVEL 137 MEQ/L (136-145)
[2020-09-27] MEDS ORDERED: MAGICMW PO (15:55)
[2020-09-27 23:12] LABS: ALBUMIN 2.9 GM/DL (3.2-5.2); ALT/SGPT 13 U/L (12-78); BILIRUBIN,TOTAL 0.6 MG/DL (0.2-1.0); BLOOD UREA NITROGEN 18 MG/DL (7-18); CALCIUM LEVEL 8.7 MG/DL (8.8-10.2); CARBON DIOXIDE LEVEL 24 MEQ/L (21-32); CHLORIDE LEVEL 102 MEQ/L (98-107); CREATININE FOR GFR 0.62 MG/DL (0.55-1.30); GLOMERULAR FILTRATION RATE > 60.0 (>39); GLUCOSE, FASTING 93 MG/DL (70-100); POTASSIUM SERUM 4.3 MEQ/L (3.5-5.1); SODIUM LEVEL 132 MEQ/L (136-145); TOTAL PROTEIN 6.9 GM/DL (6.4-8.2)
[2020-09-28 04:12] LABS: MAGNESIUM LEVEL 1.4 MG/DL (1.8-2.4)
[2020-09-28 04:12] LABS: ALBUMIN 2.8 GM/DL (3.2-5.2); ALT/SGPT 9 U/L (12-78); BILIRUBIN,TOTAL 0.6 MG/DL (0.2-1.0); BLOOD UREA NITROGEN 11 MG/DL (7-18); CALCIUM LEVEL 8.1 MG/DL (8.8-10.2); CARBON DIOXIDE LEVEL 22 MEQ/L (21-32); CHLORIDE LEVEL 107 MEQ/L (98-107); CREATININE FOR GFR 0.39 MG/DL (0.55-1.30); GLOMERULAR FILTRATION RATE > 60.0 (>39); GLUCOSE, FASTING 73 MG/DL (70-100); SODIUM LEVEL 137 MEQ/L (136-145); TOTAL PROTEIN 5.6 GM/DL (6.4-8.2)
[2020-09-29 04:02] LABS: ALBUMIN 2.5 GM/DL (3.2-5.2); ALT/SGPT 10 U/L (12-78); BILIRUBIN,TOTAL 0.4 MG/DL (0.2-1.0); BLOOD UREA NITROGEN 10 MG/DL (7-18); CALCIUM LEVEL 7.9 MG/DL (8.8-10.2); CARBON DIOXIDE LEVEL 22 MEQ/L (21-32); CHLORIDE LEVEL 107 MEQ/L (98-107); CREATININE FOR GFR 0.41 MG/DL (0.55-1.30); GLOMERULAR FILTRATION RATE > 60.0 (>39); GLUCOSE, FASTING 78 MG/DL (70-100); POTASSIUM SERUM 4.4 MEQ/L (3.5-5.1); SODIUM LEVEL 138 MEQ/L (136-145); TOTAL PROTEIN 5.2 GM/DL (6.4-8.2)
[2020-09-29 15:22] LABS: BLOOD UREA NITROGEN 7 MG/DL (7-18); CALCIUM LEVEL 8.2 MG/DL (8.8-10.2); CARBON DIOXIDE LEVEL 27 mmol/L (20-29); CHLORIDE LEVEL 104 MEQ/L (98-107); CREATININE FOR GFR 0.31 MG/DL (0.55-1.30); GLOMERULAR FILTRATION RATE > 60.0 (>39); GLUCOSE, FASTING 101 MG/DL (70-100); SODIUM LEVEL 136 MEQ/L (136-145)
[2020-10-01 06:59] LABS: BLOOD UREA NITROGEN 5 MG/DL (7-18); CARBON DIOXIDE LEVEL 30 MEQ/L (21-32); CHLORIDE LEVEL 105 MEQ/L (98-107); CREATININE FOR GFR 0.36 MG/DL (0.55-1.30); GLOMERULAR FILTRATION RATE > 60.0 (>39); GLUCOSE, FASTING 106 MG/DL (70-100); SODIUM LEVEL 139 MEQ/L (136-145)
[2020-10-03 05:27] LABS: ALBUMIN 2.7 GM/DL (3.2-5.2); ALT/SGPT 14 U/L (12-78); BILIRUBIN,TOTAL 0.4 MG/DL (0.2-1.0); BLOOD UREA NITROGEN 6 MG/DL (7-18); CALCIUM LEVEL 8.9 MG/DL (8.8-10.2); CARBON DIOXIDE LEVEL 26 MEQ/L (21-32); CHLORIDE LEVEL 105 MEQ/L (98-107); CREATININE FOR GFR 0.64 MG/DL (0.55-1.30); GLOMERULAR FILTRATION RATE > 60.0 (>39); GLUCOSE, FASTING 94 MG/DL (70-100); POTASSIUM SERUM 3.6 MEQ/L (3.5-5.1); SODIUM LEVEL 137 MEQ/L (136-145); TOTAL PROTEIN 6.7 GM/DL (6.4-8.2)
[2020-10-03 06:12] LABS: MAGNESIUM LEVEL 1.8 MG/DL (1.8-2.4); PHOSPHORUS LEVEL 2.9 MG/DL (2.5-4.9); POTASSIUM SERUM 3.6 MEQ/L (3.5-5.1)
[2020-10-03 08:12] LABS: ALBUMIN 2.3 GM/DL (3.2-5.2); ALT/SGPT 19 U/L (12-78); BILIRUBIN,TOTAL 0.3 MG/DL (0.2-1.0); BLOOD UREA NITROGEN 8 MG/DL (7-18); CARBON DIOXIDE LEVEL 23 MEQ/L (21-32); CHLORIDE LEVEL 110 MEQ/L (98-107); GLOMERULAR FILTRATION RATE > 60.0 (>39); GLUCOSE, FASTING 80 MG/DL (70-100); POTASSIUM SERUM 3.6 MEQ/L (3.5-5.1); SODIUM LEVEL 140 MEQ/L (136-145); TOTAL PROTEIN 5.2 GM/DL (6.4-8.2)
[2020-10-03 11:12] LABS: ALBUMIN 2.6 GM/DL (3.2-5.2); ALT/SGPT 16 U/L (12-78); BILIRUBIN,TOTAL 0.3 MG/DL (0.2-1.0); BLOOD UREA NITROGEN 6 MG/DL (7-18); CALCIUM LEVEL 8.8 MG/DL (8.8-10.2); CARBON DIOXIDE LEVEL 26 MEQ/L (21-32); CHLORIDE LEVEL 106 MEQ/L (98-107); CREATININE FOR GFR 0.61 MG/DL (0.55-1.30); GLOMERULAR FILTRATION RATE > 60.0 (>39); GLUCOSE, FASTING 107 MG/DL (70-100); POTASSIUM SERUM 4.1 MEQ/L (3.5-5.1); SODIUM LEVEL 138 MEQ/L (136-145); TOTAL PROTEIN 5.7 GM/DL (6.4-8.2)
== END 2020-07-14 17:35 | DRG 375 ==
LOC: M ED 11:00 → M MSPAV 07-04 08:00
PROVIDERS: ADMIT Internal Medicine; ATTEND Family Medicine
PROC: 0DBB4ZX Excision of Ileum, Percutaneous Endoscopic Approach, Diagnostic (ICD-10-PCS; principal; 2020-07-05)
DX: C17.2 Malignant neoplasm of ileum (principal); C34.90 Malignant neoplasm of unspecified part of unspecified bronchus or lung; C77.2 Secondary and unspecified malignant neoplasm of intra-abdominal lymph nodes; I48.20 Chronic atrial fibrillation, unspecified; I50.9 Heart failure, unspecified; M10.9 Gout, unspecified; R19.7 Diarrhea, unspecified; Z79.899 Other long term (current) drug therapy; F41.9 Anxiety disorder, unspecified

== ENCOUNTER 2020-07-14 11:59 | Inpatient (IN) | payer MEDICARE ==
[~2020-07-14] VITALS: Ht 162.6 cm; Wt 67.4 kg
[2020-07-14] MEDS ORDERED: RISATAB3 PO (16:53)
[2020-07-14] MEDS ORDERED: PERCOCET PO (16:53)
[2020-07-14] MEDS ORDERED: LOVE1INJ SC (16:53)
[2020-07-14 18:43] VITALS: BP 151/82
[2020-07-14] MEDS: ACETAMINOPHEN 500 MG TAB PO SCH ×2 (18:43→20:46)
[2020-07-14] MEDS: LACTOBACILLUS ACIDOPHILUS CAP (BACID) PO SCH ×2 (18:44→20:46)
[2020-07-14 20:00] VITALS: BP 116/72
[2020-07-14] MEDS: PRAVASTATIN 20 MG TAB PO SCH (20:46)
[2020-07-14] MEDS: clonazePAM 0.5 MG TAB PO SCH (20:47)
[2020-07-14] MEDS: FERROUS SULFATE 325MG TAB PO SCH (20:47)
[2020-07-14] MEDS: oxyCODONE 5MG TAB PO PRN (20:47)
[2020-07-14] MEDS: DOCUSATE SODIUM 100 MG CAP PO SCH (20:48)
[2020-07-14] MEDS: SENNA 8.6 MG TAB (SENOKOT) PO SCH (20:48)
[2020-07-14] MEDS ORDERED: allopurinoL 300 MG TAB PO SCH (21:00)
[2020-07-15 06:00] VITALS: BP 130/63
[2020-07-15] MEDS: oxyCODONE 5MG TAB PO PRN ×4 (06:10→23:03)
[2020-07-15 08:32] LABS: BASO # 0.1 10^3/uL (0.0-0.2); BASO % 0.7 % (0.0-1.0); EOS # 0.1 10^3/uL (0.0-0.5); EOS % 0.5 % (0.0-3.0); HEMATOCRIT 36.1 % (36.0-47.0); HEMOGLOBIN 11.1 g/dl (12.0-15.5); LYMPH # 1.2 10^3/uL (1.5-5.0); LYMPH % 8.9 % (24.0-44.0); MEAN CORPUSCULAR HEMOGLOBIN 25.9 pg (27.0-33.0); MEAN CORPUSCULAR HGB CONC 30.7 g/dl (32.0-36.5); MEAN CORPUSCULAR VOLUME 84.3 fl (80.0-96.0); MONO # 0.8 10^3/uL (0.0-0.8); MONO % 5.6 % (0.0-5.0); NEUTROPHILS % 82.5 % (36.0-66.0); PLATELET COUNT, AUTOMATED 412 10^3/uL (150-450); RED BLOOD COUNT 4.28 10^6/uL (4.00-5.40); WHITE BLOOD COUNT 13.3 10^3/uL (4.0-10.0)
[2020-07-15] MEDS: clonazePAM 0.5 MG TAB PO SCH ×4 (08:36→20:23)
[2020-07-15] MEDS: LACTOBACILLUS ACIDOPHILUS CAP (BACID) PO SCH ×4 (08:36→20:23)
[2020-07-15] MEDS: ACETAMINOPHEN 500 MG TAB PO SCH ×3 (08:37→20:22)
[2020-07-15] MEDS: ENOXAPARIN 40MG/0.4ML SYRINGE (J1650 PER 10MG) SC SCH (08:37)
[2020-07-15] MEDS: allopurinoL 300 MG TAB PO SCH (08:38)
[2020-07-15] MEDS: FERROUS SULFATE 325MG TAB PO SCH ×2 (08:38→20:24)
[2020-07-15] MEDS: DOCUSATE SODIUM 100 MG CAP PO SCH ×2 (08:38→20:24)
[2020-07-15] MEDS: PANTOPRAZOLE 40MG TAB (PROTONIX) PO SCH (08:38)
[2020-07-15] MEDS: SODIUM CHLORIDE NASAL 0.65% SPRAY BTL (OCEAN) SCH ×2 (09:00→20:39)
[2020-07-15] MEDS: FLUTICASONE PROP 0.05% NASAL SPRAY 16 GM (FLONASE) NARES SCH ×2 (09:00→20:39)
[2020-07-15 09:54] LABS: ALBUMIN 2.2 GM/DL (3.2-5.2); ALT/SGPT 15 U/L (12-78); BILIRUBIN,TOTAL 0.3 MG/DL (0.2-1.0); BLOOD UREA NITROGEN 9 MG/DL (7-18); CALCIUM LEVEL 8.7 MG/DL (8.8-10.2); CARBON DIOXIDE LEVEL 23 MEQ/L (21-32); CHLORIDE LEVEL 108 MEQ/L (98-107); CREATININE FOR GFR 0.45 MG/DL (0.55-1.30); GLOMERULAR FILTRATION RATE > 60.0 (>39); GLUCOSE, FASTING 116 MG/DL (70-100); POTASSIUM SERUM 3.2 MEQ/L (3.5-5.1); SODIUM LEVEL 137 MEQ/L (136-145); TOTAL PROTEIN 6.5 GM/DL (6.4-8.2)
[2020-07-15] MEDS ORDERED: POTASSIUM CHLORIDE 10 MEQ SR TABLET PO ONE ×2 (11:30→14:00)
--- NOTE | 2020-07-15 12:05 | HPEPDOC ---
Compressor Engineer Note DATE OF ADMISSION: 07-14-20 DATE OF SERVICE: 07-15-20 TIME OF ADMISSION: Please refer to physician's admission order. SOURCE OF ADMISSION INFORMATION: [facility] record and patient CHIEF COMPLAINT: s/p ileocolic resection HISTORY OF PRESENT ILLNESS: 70F pmh Afib on Asa and Cardizem, small cell lung cancer, anxiety presented to [facility] ED on 07-03-20 complaining of weakness and abdominal pain. CT abdomen showed 4.5x3.5x3.2 cm terminal ileum mass with bowel obstruction. NGT was placed and she was evaluated by general surgery who performed a robot-assisted ileocolic resection on 07-05-20. There was suspicion for carcinoid tumor with pathology and blood work pending. She had post-op anemia and leukocytosis, difficulty with endurance in therapy with mobility and ADL deficits below her prior level of function and deemed medically appropriate for discharge to ARU on 07-13-20. REVIEW OF SYSTEMS: The following is a completed review of systems and has been reviewed. Review of systems otherwise unremarkable. PAIN: Patient self reports lower abdominal pain EYES: No recent vision changes EARS, NOSE, & THROAT: No throat pain, or dysphagia, or rhinorrhea CARDIOVASCULAR: Denies chest pain or palpitations PULMONARY: Denies shortness of breath, except when feeling anxious, +cough GASTROINTESTINAL: Denies constipation/diarrhea GENITOURINARY: denies dysuria MUSCULOSKELETAL: generalized weakness NEUROLOGICAL:denies paresthesias HEMATOLOGICAL: denies easy bruising SKIN: abdominal incision PSYCHIATRIC: +anxious All other review of systems found to be negative. PAST MEDICAL HISTORY: as per [facility] PAST SURGICAL HISTORY: Tonsillectomy ALLERGIES: Please see below. MEDICATIONS: Please see below. SOCIAL HISTORY: Former smoker, social ETOH, no illicit drugs DIET: low sodium PHYSICAL EXAMINATION: VITAL SIGNS: Please see below. GENERAL: Pleasant and cooperative. No acute distress. HEENT: PERRL. Extraocular movements intact. Clear conjunctiva CARDIOVASCULAR: Regular rate and rhythm. No murmurs, rubs, or gallops LUNGS: Clear to auscultation bilaterally. No wheezes. No rhonchi ABDOMEN: Soft, mildly distended, mildly TTP, positive bowel sounds NEUROLOGICAL: Alert and oriented times three. Cranial nerves II through XII grossly intact. Sensation grossly intact EXTREMITIES: 5\5 strength bilateral upper extremities. 5\5 strength right lower extremity. 5/5 strength in left lower extremity. SKIN: abdominal incision and nba c/d/i LABORATORY DATA: Please see below. IMAGING: Imaging documentation personally reviewed by record FUNCTIONAL STATUS: Premorbid: Modified Independent with all activities of daily life as well as mobility with 3-wheeled RW On Admission: Contact guard assist for functional transfers, ambulation, d ressing, toileting GOALS: Mod-I with RW/4-wheeled RW community distances, functional transfers, vinny ssing, bathing, showering ASSESSMENT:70-year-old F with past medical history of small cell lung cancer who presents status post bowel obstruction with ileocolic resection PLAN: 1. Rehab- PT/OT- advance mobility and ADL, stretch/strengthen/range all 4 limbs, teach energy conservation, fall recovery 2. Cardiac- hx of Afib on calciu-channel keegan, ASA on hold since surgery, not on anticoagulation -HLD c/u statin - chronic diastolic CHF per recent ECHO- daily weights and fluid restrict -medicine consulted to assist in overall management 3. Resp- hx of small cell lung cancer, f/u heme/onc on discharge, patient requesting supplemental oxygen to help her with panic attacks -will start floanse and nasal saline for sinus congestion 4. GI- s/p ileocolic resection 07-05-20, monitor for infection/obstruction- f/u surgery on d/c 5. Heme- anemia of chronic disease and due to blood loss, c/u iron -protonix for ppx 6. DVT ppx- lovenox 7. Pain- tylneol and oxycodone 8. dispo- TBD POST ADMISSION PHYSICIAN EVALUATION: Medical and functional status: Description of medical status, medical assessment: As above. Rehabilitation diagnosis and current and prior cold morbid medical conditions as above. Risk of complications and plans to mitigate them as above. Description of functional status current status is as above. Prior status as above. Status compared to preadmission: There are no clinically significant differences between the patient's current status and the information described on the preadmission screening document. Treatment plan anticipated: Treatment plan is as described above. Required disciplines including physical therapy, occupational therapy, others as noted above. Intensity of services: 3 hours a day, 6 days a week. Special considerations: There are no specific special or safety considerations that would likely preclude immediate implementation of an intensive rehabilitation program or subsequently influence the plan of care. ATTESTATION: Considering all the information above, it is my best judgment that this patient requires intensive rehabilitation therapy as described above and an inpatient hospital environment due to the complexity of nursing, medical, and rehabilitation needs required by the patient. Furthermore, this patient can reasonably be expected to participate in an benefit from an inpatient rehabilitation stay with an interdisciplinary team approach to the delivery of rehabilitation care under the direction and supervision of rehabilitation physician. PROGNOSIS: good ESTIMATED LENGTH OF STAY:7-10 days. PROJECTED DISCHARGE DESTINATION: Home with family support and any durable medical equipment required to increase functional safety and mobility. TIME SPENT COUNSELING AND COORDINATING INITIAL CARE: Greater than 70 minutes. Vital Signs Vital Sign - Last 24 Hours 07/14/20 07/14/20 07/14/20 07/14/20 18:43 20:00 20:47 21:20 Temp 98.2 96.7 Pulse 103 86 Resp 18 18 18 18 B/P (MAP) 151/82 (105) 116/72 (87) Pulse Ox 97 97 O2 Delivery Room Air Room Air Room Air Room Air 07/15/20 07/15/20 07/15/20 07/15/20 06:00 06:10 07:35 08:38 Temp 96.3 Pulse 80 80 Resp 18 18 20 B/P (MAP) 130/63 (85) 130/63 Pulse Ox 97 O2 Delivery Room Air Room Air Room Air Laboratory Data CBC/BMP Laboratory Tests 07/15/20 07:29 Labs 24H Laboratory Tests 2 07/15/20 07:29: Immature Granulocyte % (Auto) 1.8, Neutrophils (%) (Auto) 82.5H, Lymphocytes (%) (Auto) 8.9L, Monocytes (%) (Auto) 5.6H, Eosinophils (%) (Auto) 0.5, Basophils (%) (Auto) 0.7, Neutrophils # (Auto) 11.0H, Lymphocytes # (Auto) 1.2L, Monocytes # (Auto) 0.8, Eosinophils # (Auto) 0.1, Basophils # (Auto) 0.1, Nucleated Red Blood Cells % (auto) 0.0, Anion Gap 6L, Glomerular Filtration Rate > 60.0, Calcium Level 8.7L, Total Bilirubin 0.3, Aspartate Amino Transf (AST/SGOT) 13, Alanine Aminotransferase (ALT/SGPT) 15, Alkaline Phosphatase 100, Total Protein 6.5#, Albumin 2.2L, Albumin/Globulin Ratio 0.5L Home Medications Scheduled Allopurinol (Zyloprim) 300 Mg Tablet, 1 TAB PO DAILY Calcium/Magnesium/Zinc (Gmweens-Jetbiaeul-Pgkt Tablet) 1 Each Tablet, 1 TAB PO QHS, (Reported) Clonazepam (Clonazepam) 1 Mg Tablet, 0.5 MG PO QID, (Reported) TAKES AT 0800, 1300, 1800, 2200 Enoxaparin Sodium (Lovenox) 40 Mg/0.4 Ml Syringe, 40 MG SC DAILY Ferrous Sulfate (Ferrous Sulfate) 325 Mg Tab, 325 MG PO BID, (Reported) L.acidoph/L.bulg/B.bif/S.therm (Carrie-Bid Caplet) 1 Each Tablet, 1 EA PO ACHS Multivitamins (Thera M Plus Tablet) 1 Each Tablet, 1 TAB PO DAILY, (Reported) Pantoprazole Sodium (Pantoprazole Sodium) 40 Mg Tablet.dr, 40 MG PO DAILY, (Reported) Pravastatin Sodium (Pravastatin Sodium) 20 Mg Tablet, 20 MG PO QHS, (Reported) dilTIAZem HCl (Diltiazem 24Hr Cd) 120 Mg Cap.er.24h, 120 MG PO DAILY, (Reported) Scheduled PRN Acetaminophen with Codeine (Acetaminophen-Cod #3 Tablet) 1 Tab Tab, 0.5 TAB PO Q6H PRN for PAIN, (Reported) Docusate Sodium (Docusate Sodium) 100 Mg Capsule, 100 MG PO BID PRN for CONSTIPATION, (Reported) Oxycodone/Acetaminophen (Oxycodone-Acetaminophen 5-325) 1 Each Tablet, 2 TAB PO Q4HP PRN for SEVERE PAIN Oxycodone/Acetaminophen (Oxycodone-Acetaminophen 5-325) 1 Each Tablet, 1 TAB PO Q4HP PRN for PAIN Allergies Coded Allergies: No Known Allergies (Verified Allergy, Unknown, 05/09/20) A-FIB/CHADSVASC A-FIB History Current/History of A-Fib/PAF?: Yes Current PO Anticoag Therapy: No ERIBERTO MANCINI MD Jul 15, 2020 12:05
[2020-07-15] MEDS: SIMETHICONE 80 MG CHEW TAB PO SCH ×3 (13:00→20:23)
--- NOTE | 2020-07-15 13:56 | IPNPDOC ---
Date Seen The patient was seen on 07/15/20. Progress Note Follow up s/p DC to ARU. SUBJECTIVE: appears well, comfortable. Sitting upright in bed. Anxiety has subsided. OBJECTIVE PHYSICAL EXAMINATION: VITAL SIGNS: Please see below. GENERAL: NAD HEENT: PERRAL, eomi CARDIOVASCULAR: RRR, normal S1, S2 RESPIRATORY: lungs CTAB ABDOMINAL: clean surgical sites, well dressed, nba in place EXTREMITIES: no deformity NEUROLOGICAL: AAO x 3 PSYCHOLOGICAL: cooperative LABORATORY DATA, IMAGING STUDIES, MICROBIOLOGY: Please see below. DVT prophylaxis ordered?: Lovenox ASSESSMENT: PROBLEMS: Ileal mass: POD 10 s/p ileocolic resection. Carcinoid tumor. Staging pending. Discussed with Dr. Pillai (pathology). The lung tumor (less differentiated) and the carcinoid tumor are likely two separate masses and share no relation. Final margins are pending. Gen Sx follow up with Dr. More. To follow up with Dr[facility] Valdez at [facility]. Prognosis is guarded. CHF Afib - cardizem - no on AC Small Cell Lung Ca: chemo on hold. Follows with Dr. Sharma. Hypokalemia: replace 40 meq KCL once, repeat BMP in am GI ppx: protonix Diarrhea: improved DVT ppx: Lovenox VS, I&O, 24H, Fishbone Vital Signs/I&O Vital Signs Date Time Temp Pulse Resp B/P (MAP) Pulse Ox O2 Delivery O2 Flow Rate FiO2 07/15/20 12:33 18 07/15/20 11:48 Room Air 07/15/20 08:38 80 130/63 07/15/20 06:00 96.3 97 I&O- Last 24 Hours up to 6 AM 07/15/20 06:00 Intake Total 500 ml Output Total 0 ml Balance 500 ml Laboratory Data 24H LABS Laboratory Tests 2 07/15/20 07:29: Immature Granulocyte % (Auto) 1.8, Neutrophils (%) (Auto) 82.5H, Lymphocytes (%) (Auto) 8.9L, Monocytes (%) (Auto) 5.6H, Eosinophils (%) (Auto) 0.5, Basophils (%) (Auto) 0.7, Neutrophils # (Auto) 11.0H, Lymphocytes # (Auto) 1.2L, Monocytes # (Auto) 0.8, Eosinophils # (Auto) 0.1, Basophils # (Auto) 0.1, Nucleated Red Blood Cells % (auto) 0.0, Anion Gap 6L, Glomerular Filtration Rate > 60.0, Calcium Level 8.7L, Total Bilirubin 0.3, Aspartate Amino Transf (AST/SGOT) 13, Alanine Aminotransferase (ALT/SGPT) 15, Alkaline Phosphatase 100, Total Protein 6.5#, Albumin 2.2L, Albumin/Globulin Ratio 0.5L CBC/BMP Laboratory Tests 07/15/20 07:29 DAVID GONZALEZ MD Jul 15, 2020 13:56
[2020-07-15 14:00] VITALS: BP 119/67
[2020-07-15 20:00] VITALS: BP 148/74
[2020-07-15] MEDS: PRAVASTATIN 20 MG TAB PO SCH (20:24)
[2020-07-15] MEDS: SENNA 8.6 MG TAB (SENOKOT) PO SCH (20:24)
[2020-07-16 06:32] VITALS: BP 137/83
[2020-07-16] MEDS: oxyCODONE 5MG TAB PO PRN ×3 (06:38→20:14)
[2020-07-16] MEDS: SIMETHICONE 80 MG CHEW TAB PO SCH ×3 (08:14→20:07)
[2020-07-16] MEDS: PANTOPRAZOLE 40MG TAB (PROTONIX) PO SCH (08:14)
[2020-07-16] MEDS: ENOXAPARIN 40MG/0.4ML SYRINGE (J1650 PER 10MG) SC SCH (08:14)
[2020-07-16] MEDS: FERROUS SULFATE 325MG TAB PO SCH ×2 (08:14→20:07)
[2020-07-16] MEDS: allopurinoL 300 MG TAB PO SCH (08:14)
[2020-07-16] MEDS: ACETAMINOPHEN 500 MG TAB PO SCH ×3 (08:14→20:11)
[2020-07-16] MEDS: SODIUM CHLORIDE NASAL 0.65% SPRAY BTL (OCEAN) SCH ×2 (08:15→20:47)
[2020-07-16] MEDS: FLUTICASONE PROP 0.05% NASAL SPRAY 16 GM (FLONASE) NARES SCH ×2 (08:15→20:47)
[2020-07-16] MEDS: clonazePAM 0.5 MG TAB PO SCH ×4 (08:16→20:07)
[2020-07-16] MEDS: LACTOBACILLUS ACIDOPHILUS CAP (BACID) PO SCH ×4 (08:17→20:07)
[2020-07-16 08:33] LABS: BASO # 0.1 10^3/uL (0.0-0.2); EOS # 0.1 10^3/uL (0.0-0.5); EOS % 0.9 % (0.0-3.0); HEMATOCRIT 31.8 % (36.0-47.0); HEMOGLOBIN 9.6 g/dl (12.0-15.5); LYMPH % 15.4 % (24.0-44.0); MEAN CORPUSCULAR HEMOGLOBIN 26.1 pg (27.0-33.0); MEAN CORPUSCULAR HGB CONC 30.2 g/dl (32.0-36.5); MEAN CORPUSCULAR VOLUME 86.4 fl (80.0-96.0); MONO # 0.5 10^3/uL (0.0-0.8); NEUTROPHILS % 74.1 % (36.0-66.0); PLATELET COUNT, AUTOMATED 320 10^3/uL (150-450); RED BLOOD COUNT 3.68 10^6/uL (4.00-5.40); WHITE BLOOD COUNT 6.8 10^3/uL (4.0-10.0)
[2020-07-16] MEDS: DOCUSATE SODIUM 100 MG CAP PO SCH ×2 (08:57→18:59)
[2020-07-16 09:03] LABS: BLOOD UREA NITROGEN 6 MG/DL (7-18); CALCIUM LEVEL 8.6 MG/DL (8.8-10.2); CARBON DIOXIDE LEVEL 23 MEQ/L (21-32); CHLORIDE LEVEL 111 MEQ/L (98-107); CREATININE FOR GFR 0.31 MG/DL (0.55-1.30); GLOMERULAR FILTRATION RATE > 60.0 (>39); GLUCOSE, FASTING 76 MG/DL (70-100); SODIUM LEVEL 140 MEQ/L (136-145)
[2020-07-16 14:00] VITALS: BP 123/74
[2020-07-16] MEDS: SENNA 8.6 MG TAB (SENOKOT) PO SCH (18:59)
[2020-07-16 20:00] VITALS: BP 151/85
[2020-07-16] MEDS: PRAVASTATIN 20 MG TAB PO SCH (20:07)
[2020-07-17 05:37] VITALS: BP 146/82
[2020-07-17] MEDS: clonazePAM 0.5 MG TAB PO SCH ×4 (06:54→21:12)
[2020-07-17] MEDS: SIMETHICONE 80 MG CHEW TAB PO SCH ×3 (08:07→21:12)
[2020-07-17] MEDS: allopurinoL 300 MG TAB PO SCH (08:08)
[2020-07-17] MEDS: PANTOPRAZOLE 40MG TAB (PROTONIX) PO SCH (08:08)
[2020-07-17] MEDS: FERROUS SULFATE 325MG TAB PO SCH ×2 (08:08→21:11)
[2020-07-17] MEDS: oxyCODONE 5MG TAB PO PRN ×4 (08:08→22:05)
[2020-07-17] MEDS: LACTOBACILLUS ACIDOPHILUS CAP (BACID) PO SCH ×4 (08:08→21:12)
[2020-07-17] MEDS: DOCUSATE SODIUM 100 MG CAP PO SCH ×2 (08:09→21:00)
[2020-07-17] MEDS: FLUTICASONE PROP 0.05% NASAL SPRAY 16 GM (FLONASE) NARES SCH ×2 (08:09→21:13)
[2020-07-17] MEDS: ACETAMINOPHEN 500 MG TAB PO SCH ×3 (08:09→21:12)
[2020-07-17] MEDS: SODIUM CHLORIDE NASAL 0.65% SPRAY BTL (OCEAN) SCH ×2 (08:09→21:13)
[2020-07-17] MEDS: ENOXAPARIN 40MG/0.4ML SYRINGE (J1650 PER 10MG) SC SCH (08:09)
[2020-07-17 14:04] VITALS: BP 135/76
[2020-07-17 20:20] VITALS: BP 131/75
[2020-07-17] MEDS: SENNA 8.6 MG TAB (SENOKOT) PO SCH (21:00)
[2020-07-17] MEDS: PRAVASTATIN 20 MG TAB PO SCH (21:12)
[2020-07-18 05:50] VITALS: BP 140/85
[2020-07-18] MEDS: PANTOPRAZOLE 40MG TAB (PROTONIX) PO SCH (08:12)
[2020-07-18] MEDS: allopurinoL 300 MG TAB PO SCH (08:12)
[2020-07-18] MEDS: SIMETHICONE 80 MG CHEW TAB PO SCH ×3 (08:12→20:42)
[2020-07-18] MEDS: FERROUS SULFATE 325MG TAB PO SCH ×2 (08:12→20:43)
[2020-07-18] MEDS: FLUTICASONE PROP 0.05% NASAL SPRAY 16 GM (FLONASE) NARES SCH ×2 (08:13→20:43)
[2020-07-18] MEDS: ACETAMINOPHEN 500 MG TAB PO SCH ×3 (08:13→20:43)
[2020-07-18] MEDS: oxyCODONE 5MG TAB PO PRN ×3 (08:13→17:40)
[2020-07-18] MEDS: LACTOBACILLUS ACIDOPHILUS CAP (BACID) PO SCH ×4 (08:13→20:43)
[2020-07-18] MEDS: ENOXAPARIN 40MG/0.4ML SYRINGE (J1650 PER 10MG) SC SCH (08:13)
[2020-07-18] MEDS: clonazePAM 0.5 MG TAB PO SCH ×4 (08:13→20:42)
[2020-07-18] MEDS: SODIUM CHLORIDE NASAL 0.65% SPRAY BTL (OCEAN) SCH ×2 (08:14→20:43)
[2020-07-18] MEDS: DOCUSATE SODIUM 100 MG CAP PO SCH ×2 (08:15→20:47)
[2020-07-18 14:00] VITALS: BP 125/81
[2020-07-18 20:00] VITALS: BP 140/77
[2020-07-18] MEDS: PRAVASTATIN 20 MG TAB PO SCH (20:43)
[2020-07-18] MEDS: SENNA 8.6 MG TAB (SENOKOT) PO SCH (20:47)
[2020-07-19 06:00] VITALS: BP 141/81
[2020-07-19 07:45] LABS: BASO # 0.1 10^3/uL (0.0-0.2); EOS # 0.2 10^3/uL (0.0-0.5); EOS % 1.9 % (0.0-3.0); HEMATOCRIT 32.6 % (36.0-47.0); HEMOGLOBIN 9.9 g/dl (12.0-15.5); LYMPH # 0.9 10^3/uL (1.5-5.0); LYMPH % 10.7 % (24.0-44.0); MEAN CORPUSCULAR HEMOGLOBIN 25.6 pg (27.0-33.0); MEAN CORPUSCULAR HGB CONC 30.4 g/dl (32.0-36.5); MEAN CORPUSCULAR VOLUME 84.5 fl (80.0-96.0); MONO # 0.6 10^3/uL (0.0-0.8); MONO % 7.6 % (0.0-5.0); NEUTROPHILS # 6.4 10^3/uL (1.5-8.5); NEUTROPHILS % 77.7 % (36.0-66.0); PLATELET COUNT, AUTOMATED 456 10^3/uL (150-450); RED BLOOD COUNT 3.86 10^6/uL (4.00-5.40); WHITE BLOOD COUNT 8.3 10^3/uL (4.0-10.0)
[2020-07-19 07:56] LABS: BLOOD UREA NITROGEN 8 MG/DL (7-18); CALCIUM LEVEL 8.6 MG/DL (8.8-10.2); CARBON DIOXIDE LEVEL 28 MEQ/L (21-32); CHLORIDE LEVEL 109 MEQ/L (98-107); CREATININE FOR GFR 0.41 MG/DL (0.55-1.30); GLOMERULAR FILTRATION RATE > 60.0 (>39); GLUCOSE, FASTING 85 MG/DL (70-100); POTASSIUM SERUM 3.8 MEQ/L (3.5-5.1); SODIUM LEVEL 144 MEQ/L (136-145)
[2020-07-19] MEDS: clonazePAM 0.5 MG TAB PO SCH ×4 (08:16→20:49)
[2020-07-19] MEDS: DOCUSATE SODIUM 100 MG CAP PO SCH ×2 (08:17→20:49)
[2020-07-19] MEDS: SIMETHICONE 80 MG CHEW TAB PO SCH ×3 (08:17→20:49)
[2020-07-19] MEDS: LACTOBACILLUS ACIDOPHILUS CAP (BACID) PO SCH ×4 (08:17→20:48)
[2020-07-19] MEDS: PANTOPRAZOLE 40MG TAB (PROTONIX) PO SCH (08:17)
[2020-07-19] MEDS: ACETAMINOPHEN 500 MG TAB PO SCH ×3 (08:17→20:49)
[2020-07-19] MEDS: FERROUS SULFATE 325MG TAB PO SCH ×2 (08:17→20:49)
[2020-07-19] MEDS: ENOXAPARIN 40MG/0.4ML SYRINGE (J1650 PER 10MG) SC SCH (08:18)
[2020-07-19] MEDS: allopurinoL 300 MG TAB PO SCH (08:18)
[2020-07-19] MEDS: FLUTICASONE PROP 0.05% NASAL SPRAY 16 GM (FLONASE) NARES SCH ×2 (08:18→20:49)
[2020-07-19] MEDS: SODIUM CHLORIDE NASAL 0.65% SPRAY BTL (OCEAN) SCH ×2 (08:18→20:49)
[2020-07-19] MEDS: oxyCODONE 5MG TAB PO PRN ×2 (12:36→17:14)
[2020-07-19 14:00] VITALS: BP 129/77
[2020-07-19 20:00] VITALS: BP 141/75
[2020-07-19] MEDS: SENNA 8.6 MG TAB (SENOKOT) PO SCH (20:49)
[2020-07-19] MEDS: PRAVASTATIN 20 MG TAB PO SCH (20:49)
--- NOTE | 2020-07-19 21:31 | IPNPDOC ---
PM&R Progress Note DATE OF SERVICE: Jul 19, 2020 Pipe Line Gauger Progress Note Subjective: patient reporting she feels her anxiety is relatively well controlled on her current dose of Klonopin. She is wondering if her nba can come out. REVIEW OF SYSTEMS: The following is a completed review of systems and has been reviewed. Review of systems otherwise unremarkable. PAIN: Patient self reports lower abdominal pain EYES: No recent vision changes EARS, NOSE, & THROAT: No throat pain, or dysphagia, or rhinorrhea CARDIOVASCULAR: Denies chest pain or palpitations PULMONARY: Denies shortness of breath, except when feeling anxious, +cough GASTROINTESTINAL: Denies constipation/diarrhea GENITOURINARY: denies dysuria MUSCULOSKELETAL: generalized weakness NEUROLOGICAL:denies paresthesias HEMATOLOGICAL: denies easy bruising SKIN: abdominal incision PSYCHIATRIC: +anxious All other review of systems found to be negative. PHYSICAL EXAMINATION: VITAL SIGNS: Please see below. GENERAL: Pleasant and cooperative. No acute distress. HEENT: PERRL. Extraocular movements intact. Clear conjunctiva CARDIOVASCULAR: Regular rate and rhythm. No murmurs, rubs, or gallops LUNGS: Clear to auscultation bilaterally. No wheezes. No rhonchi ABDOMEN: Soft, mildly distended, mildly TTP, positive bowel sounds NEUROLOGICAL: Alert and oriented times three. Cranial nerves II through XII grossly intact. Sensation grossly intact EXTREMITIES: 5\5 strength bilateral upper extremities. 5\5 strength right lower extremity. 5/5 strength in left lower extremity. SKIN: abdominal incision and nba c/d/i ASSESSMENT:70-year-old F with past medical history of small cell lung cancer who presents status post bowel obstruction with ileocolic resection PLAN: 1. Rehab- PT/OT- advance mobility and ADL, stretch/strengthen/range all 4 limbs, teach energy conservation, fall recovery 2. Cardiac- hx of Afib on calcium-channel keegan, ASA on hold since surgery, not on anticoagulation -HLD c/u statin - chronic diastolic CHF per recent ECHO- daily weights and fluid restrict -medicine consulted to assist in overall management 3. Resp- hx of small cell lung cancer, f/u heme/onc on discharge, patient requesting supplemental oxygen to help her with panic attacks -c/u flonase and nasal saline for sinus congestion 4. GI- s/p ileocolic resection 07-05-20, monitor for infection/obstruction- f/u surgery on d/c 5. Heme- anemia of chronic disease and due to blood loss, c/u iron -protonix for ppx 6. DVT ppx- lovenox 7. Pain- tylneol and oxycodone 8. Psych- c/u home dosing of Klonopin for anxiety 9. dispo- TBD Allergies Coded Allergies: No Known Allergies (Verified Allergy, Unknown, 05/09/20) Vital Signs Vital Signs Date Time Temp Pulse Resp B/P (MAP) Pulse Ox O2 Delivery O2 Flow Rate FiO2 07/19/20 20:00 97.6 83 18 141/75 (97) 97 Room Air Laboratory Data CBC/BMP Laboratory Tests 07/19/20 06:30 Labs 24H Laboratory Tests 2 07/19/20 06:30: Immature Granulocyte % (Auto) 1.1, Neutrophils (%) (Auto) 77.7H, Lymphocytes (%) (Auto) 10.7L, Monocytes (%) (Auto) 7.6H, Eosinophils (%) (Auto) 1.9, Basophils ( %) (Auto) 1.0, Neutrophils # (Auto) 6.4, Lymphocytes # (Auto) 0.9L, Monocytes # (Auto) 0.6, Eosinophils # (Auto) 0.2, Basophils # (Auto) 0.1, Nucleated Red Blood Cells % (auto) 0.0, Anion Gap 7L, Glomerular Filtration Rate > 60.0, Calcium Level 8.6L Current Medications Current Medications Current Medications Medications (Trade) Dose Ordered Sig/Nellie Route PRN Reason Start Time Stop Time Status Last Admin Dose Admin Acetaminophen (Tylenol Tab) 1,000 mg TID PO 07/14/20 16:00 07/19/20 20:49 Allopurinol (Zyloprim) 300 mg DAILY PO 07/15/20 09:00 07/19/20 08:18 Allopurinol (Zyloprim) 300 mg QHS PO 07/14/20 21:00 07/14/20 17:04 DC Clonazepam (KlonoPIN) 0.5 mg QID PO 07/14/20 21:00 07/19/20 20:49 Diltiazem HCl (Cardizem Cd) 120 mg DAILY PO 07/15/20 09:00 07/19/20 08:17 Docusate Sodium (Colace) 100 mg BID PO 07/14/20 21:00 Enoxaparin Sodium (Lovenox) 40 mg DAILY SC 07/15/20 09:00 07/19/20 08:18 Ferrous Sulfate (Ferrous Sulfate) 325 mg BID PO 07/14/20 21:00 07/19/20 20:49 Fluticasone Propionate (Flonase 0.05% Nasal [place]) 1 spray BID NARES 07/15/20 09:00 07/19/20 20:49 Lactobacillus Acidophilus (Bacid) 1 ea WMHS PO 07/14/20 18:00 07/19/20 20:48 Oxycodone HCl (Roxicodone, Oxyir) 5 mg Q4HP PRN PO PAIN 07/14/20 12:45 07/19/20 17:14 Pantoprazole Sodium (Protonix) 40 mg DAILY PO 07/15/20 09:00 07/19/20 08:17 Pravastatin Sodium (Pravachol) 20 mg QHS PO 07/14/20 21:00 07/19/20 20:49 Senna (Senokot) 1 tab QHS PO 07/14/20 21:00 Simethicone (Mylicon) 80 mg TID PO 07/15/20 13:00 07/19/20 20:49 Sodium Chloride ([place] Nasal [place]) 2 spray BID NA 07/15/20 09:00 07/19/20 20:49 ERIBERTO MANCINI MD Jul 19, 2020 21:31
[2020-07-20 06:00] VITALS: BP 139/85
[2020-07-20] MEDS: SIMETHICONE 80 MG CHEW TAB PO SCH ×3 (08:55→20:33)
[2020-07-20] MEDS: clonazePAM 0.5 MG TAB PO SCH ×4 (08:55→20:33)
[2020-07-20] MEDS: allopurinoL 300 MG TAB PO SCH (08:57)
[2020-07-20] MEDS: LACTOBACILLUS ACIDOPHILUS CAP (BACID) PO SCH ×4 (08:57→20:33)
[2020-07-20] MEDS: ACETAMINOPHEN 500 MG TAB PO SCH ×3 (08:57→20:33)
[2020-07-20] MEDS: oxyCODONE 5MG TAB PO PRN ×2 (08:57→17:21)
[2020-07-20] MEDS: DOCUSATE SODIUM 100 MG CAP PO SCH ×3 (08:58→20:37)
[2020-07-20] MEDS: PANTOPRAZOLE 40MG TAB (PROTONIX) PO SCH (08:58)
[2020-07-20] MEDS: ENOXAPARIN 40MG/0.4ML SYRINGE (J1650 PER 10MG) SC SCH (08:58)
[2020-07-20] MEDS: SODIUM CHLORIDE NASAL 0.65% SPRAY BTL (OCEAN) SCH ×2 (08:58→20:34)
[2020-07-20] MEDS: FERROUS SULFATE 325MG TAB PO SCH ×2 (08:58→20:33)
[2020-07-20] MEDS: FLUTICASONE PROP 0.05% NASAL SPRAY 16 GM (FLONASE) NARES SCH ×2 (08:59→20:33)
--- NOTE | 2020-07-20 10:54 | IPNPDOC ---
PM&R Progress Note DATE OF SERVICE: Jul 20, 2020 Worm [employer]acker Progress Note Subjective: Patient happy to have her nba removed. She reports she feels safe with room privileges and that her anxiety is well controlled. REVIEW OF SYSTEMS: The following is a completed review of systems and has been reviewed. Review of systems otherwise unremarkable. PAIN: Patient self reports lower abdominal pain EYES: No recent vision changes EARS, NOSE, & THROAT: No throat pain, or dysphagia, or rhinorrhea CARDIOVASCULAR: Denies chest pain or palpitations PULMONARY: Denies shortness of breath GASTROINTESTINAL: Denies constipation/diarrhea GENITOURINARY: denies dysuria MUSCULOSKELETAL: generalized weakness NEUROLOGICAL:denies paresthesias HEMATOLOGICAL: denies easy bruising SKIN: abdominal incision PSYCHIATRIC: +anxious All other review of systems found to be negative. PHYSICAL EXAMINATION: VITAL SIGNS: Please see below. GENERAL: Pleasant and cooperative. No acute distress. HEENT: PERRL. Extraocular movements intact. Clear conjunctiva CARDIOVASCULAR: Regular rate and rhythm. No murmurs, rubs, or gallops LUNGS: Clear to auscultation bilaterally. No wheezes. No rhonchi ABDOMEN: Soft, non-distended, mildly TTP near incision sites, positive bowel sounds NEUROLOGICAL: Alert and oriented times three. Cranial nerves II through XII grossly intact. Sensation grossly intact EXTREMITIES: 5\5 strength bilateral upper extremities. 5\5 strength right lower extremity. 5/5 strength in left lower extremity. SKIN: abdominal incision and nba c/d/i ASSESSMENT:70-year-old F with past medical history of small cell lung cancer who presents status post bowel obstruction with ileocolic resection PLAN: 1. Rehab- PT/OT- advance mobility and ADL, stretch/strengthen/range all 4 limbs, teach energy conservation, fall recovery- room privileges 2. Cardiac- hx of Afib on calcium-channel keegan, ASA on hold since surgery, not on anticoagulation -HLD c/u statin - chronic diastolic CHF per recent ECHO- daily weights and fluid restrict -medicine consulted to assist in overall management 3. Resp- hx of small cell lung cancer, f/u heme/onc on discharge, patient requesting supplemental oxygen to help her with panic attacks -c/u flonase and nasal saline for sinus congestion 4. GI- s/p ileocolic resection 07-05-20, monitor for infection/obstruction- f/u surgery on d/c 5. Heme- anemia of chronic disease and due to blood loss, c/u iron -protonix for ppx 6. DVT ppx- lovenox 7. Pain- tylneol and oxycodone 8. Psych- c/u home dosing of Klonopin for anxiety 9. [id number] to home, progressing toward goals Allergies Coded Allergies: No Known Allergies (Verified Allergy, Unknown, 05/09/20) Vital Signs Vital Signs Date Time Temp Pulse Resp B/P (MAP) Pulse Ox O2 Delivery O2 Flow Rate FiO2 07/20/20 10:26 20 Room Air 07/20/20 08:58 93 139/85 07/20/20 06:00 98.4 95 Current Medications Current Medications Current Medications Medications (Trade) Dose Ordered Sig/Nellie Route PRN Reason Start Time Stop Time Status Last Admin Dose Admin Acetaminophen (Tylenol Tab) 1,000 mg TID PO 07/14/20 16:00 07/20/20 08:57 Allopurinol (Zyloprim) 300 mg DAILY PO 07/15/20 09:00 07/20/20 08:57 Allopurinol (Zyloprim) 300 mg QHS PO 07/14/20 21:00 07/14/20 17:04 DC Clonazepam (KlonoPIN) 0.5 mg QID PO 07/14/20 21:00 07/20/20 08:55 Diltiazem HCl (Cardizem Cd) 120 mg DAILY PO 07/15/20 09:00 07/20/20 08:58 Docusate Sodium (Colace) 100 mg BID PO 07/14/20 21:00 07/20/20 08:58 Enoxaparin Sodium (Lovenox) 40 mg DAILY SC 07/15/20 09:00 07/20/20 08:58 Ferrous Sulfate (Ferrous Sulfate) 325 mg BID PO 07/14/20 21:00 07/20/20 08:58 Fluticasone Propionate (Flonase 0.05% Nasal [place]) 1 spray BID NARES 07/15/20 09:00 07/20/20 08:59 Lactobacillus Acidophilus (Bacid) 1 ea WMHS PO 07/14/20 18:00 07/20/20 08:57 Oxycodone HCl (Roxicodone, Oxyir) 5 mg Q4HP PRN PO PAIN 07/14/20 12:45 07/20/20 08:57 Pantoprazole Sodium (Protonix) 40 mg DAILY PO 07/15/20 09:00 07/20/20 08:58 Pravastatin Sodium (Pravachol) 20 mg QHS PO 07/14/20 21:00 07/19/20 20:49 Senna (Senokot) 1 tab QHS PO 07/14/20 21:00 Simethicone (Mylicon) 80 mg TID PO 07/15/20 13:00 07/20/20 08:55 Sodium Chloride ([place] Nasal [place]) 2 spray BID NA 07/15/20 09:00 07/19/20 20:49 ERIBERTO MANCINI MD Jul 20, 2020 10:53
[2020-07-20 14:00] VITALS: BP 139/74
[2020-07-20] MEDS: PRAVASTATIN 20 MG TAB PO SCH (20:33)
[2020-07-20] MEDS: SENNA 8.6 MG TAB (SENOKOT) PO SCH ×2 (20:33→20:37)
[2020-07-20 21:31] VITALS: BP 133/77
[2020-07-21 06:20] VITALS: BP 137/81
[2020-07-21] MEDS: LACTOBACILLUS ACIDOPHILUS CAP (BACID) PO SCH ×4 (07:38→20:25)
[2020-07-21] MEDS: FERROUS SULFATE 325MG TAB PO SCH ×2 (07:38→20:25)
[2020-07-21] MEDS: PANTOPRAZOLE 40MG TAB (PROTONIX) PO SCH (07:38)
[2020-07-21] MEDS: allopurinoL 300 MG TAB PO SCH (07:38)
[2020-07-21] MEDS: SODIUM CHLORIDE NASAL 0.65% SPRAY BTL (OCEAN) SCH ×2 (07:39→20:26)
[2020-07-21] MEDS: SIMETHICONE 80 MG CHEW TAB PO SCH ×3 (07:39→20:24)
[2020-07-21] MEDS: clonazePAM 0.5 MG TAB PO SCH ×4 (07:39→20:24)
[2020-07-21] MEDS: ACETAMINOPHEN 500 MG TAB PO SCH ×3 (07:39→20:25)
[2020-07-21] MEDS: FLUTICASONE PROP 0.05% NASAL SPRAY 16 GM (FLONASE) NARES SCH ×2 (07:39→20:25)
[2020-07-21] MEDS: DOCUSATE SODIUM 100 MG CAP PO SCH ×2 (07:39→20:26)
[2020-07-21] MEDS: ENOXAPARIN 40MG/0.4ML SYRINGE (J1650 PER 10MG) SC SCH (07:40)
[2020-07-21 08:22] LABS: BASO # 0.1 10^3/uL (0.0-0.2); BASO % 2.5 % (0.0-1.0); EOS # 0.2 10^3/uL (0.0-0.5); EOS % 3.3 % (0.0-3.0); HEMATOCRIT 29.4 % (36.0-47.0); HEMOGLOBIN 9.2 g/dl (12.0-15.5); LYMPH # 1.1 10^3/uL (1.5-5.0); LYMPH % 21.9 % (24.0-44.0); MEAN CORPUSCULAR HEMOGLOBIN 26.1 pg (27.0-33.0); MEAN CORPUSCULAR HGB CONC 31.3 g/dl (32.0-36.5); MEAN CORPUSCULAR VOLUME 83.3 fl (80.0-96.0); MONO # 0.5 10^3/uL (0.0-0.8); MONO % 9.5 % (0.0-5.0); NEUTROPHILS % 61.1 % (36.0-66.0); PLATELET COUNT, AUTOMATED 458 10^3/uL (150-450); RED BLOOD COUNT 3.53 10^6/uL (4.00-5.40); WHITE BLOOD COUNT 4.8 10^3/uL (4.0-10.0)
[2020-07-21 08:38] LABS: BLOOD UREA NITROGEN 8 MG/DL (7-18); CARBON DIOXIDE LEVEL 25 MEQ/L (21-32); CHLORIDE LEVEL 110 MEQ/L (98-107); CREATININE FOR GFR 0.42 MG/DL (0.55-1.30); GLOMERULAR FILTRATION RATE > 60.0 (>39); GLUCOSE, FASTING 84 MG/DL (70-100); SODIUM LEVEL 143 MEQ/L (136-145)
[2020-07-21 08:39] LABS: CALCIUM LEVEL 8.7 MG/DL (8.8-10.2)
[2020-07-21] MEDS: oxyCODONE 5MG TAB PO PRN ×2 (12:05→20:25)
[2020-07-21] MEDS ORDERED: PANT-23 PO (12:32)
[2020-07-21] MEDS ORDERED: PRAV20TA2 PO (12:32)
[2020-07-21] MEDS ORDERED: FERR325T3 PO (12:32)
[2020-07-21] MEDS ORDERED: DILT120C89 PO (12:32)
[2020-07-21] MEDS ORDERED: RISATAB3 PO (12:32)
[2020-07-21] MEDS ORDERED: OXYC-517 PO (12:32)
--- NOTE | 2020-07-21 12:40 | IPNPDOC ---
PM&R Progress Note DATE OF SERVICE: Jul 21, 2020 Scarfer Operator Progress Note Subjective: Patient seen in gym stating she feels tearful and anxious and is wanting her anxiety and pain medication. She reports mild incisional site tenderness, but no new bowel complaints. REVIEW OF SYSTEMS: The following is a completed review of systems and has been reviewed. Review of systems otherwise unremarkable. PAIN: Patient self reports lower abdominal pain EYES: No recent vision changes EARS, NOSE, & THROAT: No throat pain, or dysphagia, or rhinorrhea CARDIOVASCULAR: Denies chest pain or palpitations PULMONARY: Denies shortness of breath GASTROINTESTINAL: Denies constipation/diarrhea GENITOURINARY: denies dysuria MUSCULOSKELETAL: generalized weakness NEUROLOGICAL:denies paresthesias HEMATOLOGICAL: denies easy bruising SKIN: abdominal incision PSYCHIATRIC: +anxious All other review of systems found to be negative. PHYSICAL EXAMINATION: VITAL SIGNS: Please see below. GENERAL: Pleasant and cooperative. No acute distress. HEENT: PERRL. Extraocular movements intact. Clear conjunctiva CARDIOVASCULAR: Regular rate and rhythm. No murmurs, rubs, or gallops LUNGS: Clear to auscultation bilaterally. No wheezes. No rhonchi ABDOMEN: Soft, non-distended, mildly TTP near incision sites, positive bowel sounds NEUROLOGICAL: Alert and oriented times three. Cranial nerves II through XII grossly intact. Sensation grossly intact EXTREMITIES: 5\5 strength bilateral upper extremities. 5\5 strength right lower extremity. 5/5 strength in left lower extremity. SKIN: abdominal incision and nba removed ASSESSMENT:70-year-old F with past medical history of small cell lung cancer who presents status post bowel obstruction with ileocolic resection PLAN: 1. Rehab- PT/OT- advance mobility and ADL, stretch/strengthen/range all 4 limbs, teach energy conservation, fall recovery- room privileges 2. Cardiac- hx of Afib on calcium-channel keegan, ASA on hold since surgery, not on anticoagulation -HLD c/u statin - chronic diastolic CHF per recent ECHO- daily weights and fluid restrict -medicine consulted to assist in overall management 3. Resp- hx of small cell lung cancer, f/u heme/onc on discharge, patient requesting supplemental oxygen to help her with panic attacks -c/u flonase and nasal saline for sinus congestion 4. GI- s/p ileocolic resection 07-05-20, monitor for infection/obstruction- f/u surgery on d/c 5. Heme- anemia of chronic disease and due to blood loss, c/u iron -protonix for ppx 6. DVT ppx- lovenox 7. Pain- tylneol and oxycodone 8. Psych- c/u home dosing of Klonopin for anxiety 9. [id number] to home, progressing toward goals Allergies Coded Allergies: No Known Allergies (Verified Allergy, Unknown, 05/09/20) Vital Signs Vital Signs Date Time Temp Pulse Resp B/P (MAP) Pulse Ox O2 Delivery O2 Flow Rate FiO2 07/21/20 12:05 16 07/21/20 07:38 79 137/81 07/21/20 06:20 98.3 94 Room Air Laboratory Data CBC/BMP Laboratory Tests 07/21/20 06:56 Labs 24H Laboratory Tests 2 07/21/20 06:56: Immature Granulocyte % (Auto) 1.7, Neutrophils (%) (Auto) 61.1, Lymphocytes (%) (Auto) 21.9L, Monocytes (%) (Auto) 9.5H, Eosinophils (%) (Auto) 3.3H, Basophils (%) (Auto) 2.5H, Neutrophils # (Auto) 3.0, Lymphocytes # (Auto) 1.1L, Monocytes # (Auto) 0.5, Eosinophils # (Auto) 0.2, Basophils # (Auto) 0.1, Nucleated Red Blood Cells % (auto) 0.0, Anion Gap 8, Glomerular Filtration Rate > 60.0, Calcium Level 8.7L Current Medications Current Medications Current Medications Medications (Trade) Dose Ordered Sig/Nellie Route PRN Reason Start Time Stop Time Status Last Admin Dose Admin Acetaminophen (Tylenol Tab) 1,000 mg TID PO 07/14/20 16:00 07/21/20 07:39 Allopurinol (Zyloprim) 300 mg DAILY PO 07/15/20 09:00 07/21/20 07:38 Allopurinol (Zyloprim) 300 mg QHS PO 07/14/20 21:00 07/14/20 17:04 DC Clonazepam (KlonoPIN) 0.5 mg QID PO 07/14/20 21:00 07/21/20 12:05 Diltiazem HCl (Cardizem Cd) 120 mg DAILY PO 07/15/20 09:00 07/21/20 07:38 Docusate Sodium (Colace) 100 mg BID PO 07/14/20 21:00 07/20/20 08:58 Enoxaparin Sodium (Lovenox) 40 mg DAILY SC 07/15/20 09:00 07/21/20 07:40 Ferrous Sulfate (Ferrous Sulfate) 325 mg BID PO 07/14/20 21:00 07/21/20 07:38 Fluticasone Propionate (Flonase 0.05% Nasal Krebs) 1 spray BID NARES 07/15/20 09:00 07/21/20 07:39 Lactobacillus Acidophilus (Bacid) 1 ea WMHS PO 07/14/20 18:00 07/21/20 12:04 Oxycodone HCl (Roxicodone, Oxyir) 5 mg Q4HP PRN PO PAIN 07/14/20 12:45 07/21/20 12:05 Pantoprazole Sodium (Protonix) 40 mg DAILY PO 07/15/20 09:00 07/21/20 07:38 Pravastatin Sodium (Pravachol) 20 mg QHS PO 07/14/20 21:00 07/20/20 20:33 Senna (Senokot) 1 tab QHS PO 07/14/20 21:00 Simethicone (Mylicon) 80 mg TID PO 07/15/20 13:00 07/21/20 07:39 Sodium Chloride (Cooper Nasal Krebs) 2 spray BID NA 07/15/20 09:00 07/21/20 07:39 ERIBERTO MANCINI MD Jul 21, 2020 12:40
[2020-07-21 14:00] VITALS: BP 124/77
[2020-07-21 20:15] VITALS: BP 140/84
[2020-07-21] MEDS: PRAVASTATIN 20 MG TAB PO SCH (20:25)
[2020-07-21] MEDS: SENNA 8.6 MG TAB (SENOKOT) PO SCH (20:26)
[2020-07-22 06:00] VITALS: BP 141/85
[2020-07-22] MEDS: ENOXAPARIN 40MG/0.4ML SYRINGE (J1650 PER 10MG) SC SCH (08:12)
[2020-07-22] MEDS: allopurinoL 300 MG TAB PO SCH (08:12)
[2020-07-22] MEDS: clonazePAM 0.5 MG TAB PO SCH ×2 (08:12→12:36)
[2020-07-22] MEDS: PANTOPRAZOLE 40MG TAB (PROTONIX) PO SCH (08:12)
[2020-07-22] MEDS: SIMETHICONE 80 MG CHEW TAB PO SCH (08:12)
[2020-07-22] MEDS: FERROUS SULFATE 325MG TAB PO SCH (08:13)
[2020-07-22] MEDS: DOCUSATE SODIUM 100 MG CAP PO SCH (08:13)
[2020-07-22] MEDS: LACTOBACILLUS ACIDOPHILUS CAP (BACID) PO SCH ×2 (08:13→12:36)
[2020-07-22] MEDS: ACETAMINOPHEN 500 MG TAB PO SCH (08:13)
[2020-07-22] MEDS: SODIUM CHLORIDE NASAL 0.65% SPRAY BTL (OCEAN) SCH (08:14)
[2020-07-22] MEDS: FLUTICASONE PROP 0.05% NASAL SPRAY 16 GM (FLONASE) NARES SCH (08:14)
[2020-07-22] MEDS: oxyCODONE 5MG TAB PO PRN (08:17)
[2020-07-22 08:21] VITALS: BP 155/93
--- NOTE | 2020-09-04 07:39 | PMRDS ---
DATE OF ADMISSION: 07/14/2020 DATE OF DISCHARGE: 07/22/2020 CHIEF COMPLAINT/DISCHARGE DIAGNOSIS: Ileocolic resection. HISTORY OF PRESENT ILLNESS: This is a 70-year-old female with a past medical history of atrial fibrillation, on aspirin and Cardizem, small-cell lung cancer, anxiety, presented to [facility] Emergency Room on 07/03/2020 complaining of weakness and abdominal pain. CT abdomen showed a terminal ileum mass with bowel obstruction. Nasogastric (NG) tube was placed. She was evaluated by general surgery, who performed a robot-assisted ileocolic resection on 07/05/2020. There was suspicion for carcinoid tumor with pathology and blood work pending. She had postoperative anemia and leukocytosis, difficulty with endurance in therapy with mobility and activities of daily living (ADLs), and deemed medially appropriate for discharge to acute rehabilitation unit (ARU) on 07/14/2020. PAST MEDICAL HISTORY: As per history of present illness (HPI). HOSPITAL COURSE: Patient was admitted and enrolled in comprehensive physical therapy(PT)/occupational therapy (OT), speech/language pathology program. She received 24-hour nursing supervision, and weekly team meetings were held to discuss her progress. Patient was maintained on a calcium channel keegan for her atrial fibrillation. Her aspirin was held due to her recent surgery, and she was also maintained on a statin for her hyperlipidemia. She was on a fluid restriction with daily weights for her chronic diastolic congestive heart failure (CHF) per her recent echo. For anxiety, she continued on her home dose of Klonopin, and for pain she took Tylenol and oxycodone. She was on Lovenox for deep venous thrombosis (DVT) prophylaxis, and her anemia of chronic disease in addition to blood loss was treated with iron. She made significant gains in therapy and was deemed medically and functionally stable to return home. FUNCTIONAL HISTORY ON DISCHARGE: Patient was modified independent with a rolling walker, able to ambulate 300 feet. Thank you for this referral. RUDOLPH
[2020-09-27] MEDS ORDERED: MAGICMW PO (15:55)
== END 2020-07-22 13:20 | disposition home health service (06) | DRG 948 ==
LOC: M PM&R 17:40
PROVIDERS: ADMIT Physical Medicine & Rehabilitation; ATTEND Physical Medicine & Rehabilitation
DX: R53.1 Weakness (principal); I50.32 Chronic diastolic (congestive) heart failure; C17.2 Malignant neoplasm of ileum; E87.6 Hypokalemia; D50.0 Iron deficiency anemia secondary to blood loss (chronic); I48.91 Unspecified atrial fibrillation; D63.8 Anemia in other chronic diseases classified elsewhere; F41.0 Panic disorder [episodic paroxysmal anxiety]; Z85.118 Personal history of other malignant neoplasm of bronchus and lung; Z87.891 Personal history of nicotine dependence; Z90.49 Acquired absence of other specified parts of digestive tract; Z79.899 Other long term (current) drug therapy; Z74.09 Other reduced mobility

== ENCOUNTER → 2020-08-26 | Outpatient (CLI) | payer MEDICARE ==
[~2020-08-26] MED LIST changes: +LOVE1INJ SC; +OXYC-517 PO; +PERCOCET PO; +RISATAB3 PO
--- NOTE | 2020-08-26 12:06 | RADONC.CN ---
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 She was diagnosed in April 2020. 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 She returned to the hospital on 05/19/20 with SOB which led to SCLC diagnosis. She began chemotherapy for the SCLC and after cycle 1 developed SBO from the carcinoid which required emergent surgical management, she was admitted from 07/04/20-07/14/20. She resumed chemotherapy in early July 2020 and is seen now for consideration of thoracic RT. Diagnosis/Treatment History Oncologic History Presented to [facility] on 05/09/20 with GI symptoms and hemeoccult + stools and anemia. CT abdomen showed a RLQ mass suspicious for carcinoid. She underwent colonoscopy which revealed vascular malformations which were source of bleeding. CXR on 05/20/20 showed a L pleural effusion. This was followed by CT which showed a RUL mass and mediastinal adenopathy. Pleural fluid analysis was negative. The effusion was drained via chest tube and did not recur after tube was removed. Christina canales underwent bronchoscopy on 05/24/20 with biopsy which showed SCLC. Brain MRI on 05/26/20 was negative. Cycle 1 of doublet was started 06/15/20. On 07/04/20 she presented to the ED with SBO from the terminal ileum mass. This was resected and confirmed to be small bowel low grade carcinoid, involving lymph nodes. She recovered and resumed cycle 2 chemotherapy for SCLC on 07/27/20. Cycle 3 was started 08/17/20. There is plan for an additional cycle starting 09/07/20. Interval History She is very anxious and fatigued. She is tolerating chemotherapy well otherwise. She has baseline SLOAN, no significant cough or hemoptysis. She is able to attend to all of her ADLs. 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 Past Medical History: hypertension Atrial fibrillation HYPERCHOLESTEROLEMIA DIABETES RECURRENT GASTROINTESTINAL BLEEDING Small bowel carcinoid LOWER ABDOMEN MASS Past Surgical History: TONSILlLECTOMY Small bowel resection Family History: Adopted Social History: Former smoker 2ppd quit several years ago >50 pk year history Allergies / Meds Allergies: Coded Allergies: No Known Allergies (Verified Allergy, Unknown, 05/09/20) Home Meds Active Scripts Oxycodone HCl (Oxycodone HCl) 5 Mg Tablet, 5 MG PO Q4HP PRN for PAIN MDD 30mg, #30 TAB Prov:ERIBERTO MANCINI MD 07/21/20 L.acidoph/L.bulg/B.bif/S.therm (Carrie-Bid Caplet) 1 Each Tablet, 1 EA PO ACHS for 30 Days, #120 TAB Prov:ERIBERTO MANCINI MD 07/21/20 Pantoprazole Sodium (Pantoprazole Sodium) 40 Mg Tablet.dr, 40 MG PO DAILY, #30 TAB Prov:ERIBERTO MANCINI MD 07/21/20 dilTIAZem HCl (Diltiazem 24Hr Cd) 120 Mg Cap.er.24h, 120 MG PO DAILY, #30 TABS Prov:ERIBERTO MANCINI MD 07/21/20 Pravastatin Sodium (Pravastatin Sodium) 20 Mg Tablet, 20 MG PO QHS, #30 TAB Prov:ERIBERTO MANCINI MD 07/21/20 Ferrous Sulfate (Ferrous Sulfate) 325 Mg Tab, 325 MG PO BID, #60 TAB Prov:ERIBERTO MANCINI MD 07/21/20 Allopurinol (Zyloprim) 300 Mg Tablet, 1 TAB PO DAILY for 30 Days, #30 TAB 2 Refills Prov:LEVON ARREAGA MD 06/15/20 Reported Medications Calcium/Magnesium/Zinc (Xcsxrxp-Gmsjhrney-Zxxp Tablet) 1 Each Tablet, 1 TAB PO QHS, TAB 05/09/20 Multivitamins (Thera M Plus Tablet) 1 Each Tablet, 1 TAB PO DAILY, TAB 05/09/20 Docusate Sodium (Docusate Sodium) 100 Mg Capsule, 100 MG PO BID PRN for CONSTIPATION, CAP 05/09/20 Clonazepam (Clonazepam) 1 Mg Tablet, 0.5 MG PO QID, TAB TAKES AT 0800, 1300, 1800, 2200 05/09/20 Acetaminophen with Codeine (Acetaminophen-Cod #3 Tablet) 1 Tab Tab, 0.5 TAB PO Q6H PRN for PAIN 04/23/18 Review of Systems Constitutional: Reports: Fatigue; Denies: Chills, Fever, Night Sweats Eyes: Denies: Pain, Vision change HEENT: Denies: Head Aches, Dysphagia, Sore Throat Skin: Denies: Rash, Lesions, Bruising Pulmonary: Reports: Dyspnea; Denies: Cough, Pleuritic Chest Pain Cardiovascular: Denies: Chest Pain, Palpitations, Edema Gastrointestinal: Denies: Nausea, Vomiting, Abdominal Pain, Diarrhea Genitourinary: Denies: Dysuria, Frequency, Incontinence Hematologic: Denies: Bruising, Petecchia, Enlarged Lymph Nodes Musculoskeletal: Denies: Neck pain, Back pain Neurological: Denies: Weakness, Numbness, Incoordination Psych: Reports: Mood Normal; Denies: Memory Issues, Thoughts of Self Harm General Exam: Positive: Alert, Cooperative, Mild Distress Eye Exam: Positive: PERRLA, EOMI, Other Eye Symptoms (Strabismus left eye) ENT EXAM: Positive: Mucous membr. moist/pink, Pharynx Normal Neck Exam: Negative: Thyromegaly, Lymphadenopathy Chest Exam: Positive: Normal air movement; Negative: Rales, Rhonchi, Wheezing Heart Exam: Positive: Tachycardic, Regular Rhythm Abdomen Exam: Positive: Soft; Negative: Tenderness, Mass Extremity Exam: Negative: Edema, Tenderness Skin Exam: Positive: Nl turgor and temperature; Negative: Rash Neuro Exam: Positive: Normal Gait, Normal Speech, Cranial Nerves 3-12 NL Psych Exam: Positive: Mental status NL, Mood NL, Memory Intact Diagnostic and Laboratory Diagnostic Review Radiologic images, relevant labs and pathology reports were personally reviewed and discussed with Ms. Deras. Assessment and Plan Impression Ms. Deras is a 70 year old female former smoker with limited stage ([id number] AJCC Stage IIIB) SCLC of the CINDY and mediastinum. She was diagnosed in April 2020. 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 She returned to the hospital on 05/19/20 with SOB which led to SCLC diagnosis. She began chemotherapy for the SCLC and after cycle 1 developed SBO from the carcinoid which required emergent surgical management, she was admitted from 07/04/20-07/14/20. She resumed chemotherapy in early July 2020 and is seen now for consideration of thoracic RT. Stage SCLC LS (AJCC [id number] Stage IIIB) Performance Status ECOG 1 Plan We had an extensive discussion with Ms. Deras regarding the diagnosis at hand a nd available therapeutic options. I reviewed her complicated clinical course to date. Observation of the small bowel carcinoid is appropriate treatment per NCCN guidelines. I see she has not had recent PFTs. I will order these today. With respect to her LS SCLC, I am not convinced that the effusion in the CINDY was malignant given cytology was negative and it has not recurred post drainage. I think it is prudent to err on the side of more aggressive upfront therapy and call this LS given her good performance status and her personal goal as she expressed it to me is "to live 5 more years". She did ask me frankly for a prognosis and I told her based on large series, that for LS SCLC ~30% of patients survive 5 years, thus there is reason to hope for cure. Her chemotherapy was compromised by the surgical emergency presented by the carcinoid in the ileum and led to a delay in administering cycle 2 which is the preferred time to initiate concurrent chemoradiotherapy. As she is now post cycle 3 I will move to start radiation concurrent with cycle 4 which will mean that she effectively has half of her treatment with concurrent therapy, which is the best we can now do. I recommend 66 Gy in 33 fractions using VMAT planning given the large mediastinal adenopathy and need to respect heart, esophagus and great vessel tolerances. We discussed the logistics of receiving radiation therapy in detail including the need for a 1-time planning session. We reviewed the side effects of treatment including fatigue, esophagitis and pneumonitis. After discussing the risks, benefits and alternatives to radiation therapy, Ms. Deras was amenable to pursuing radiotherapy. All questions were answered to the patient's satisfaction and she agreed to proceed. We will simulate her tomorrow and start treatment the week of 09/06/20 We also briefly reviewed the role of PCI followed thoracic RT and chemo if she d oes not have evidence of metastases on restaging MRI. We will discuss this further at the appropriate time. We instructed the patient that if there were any questions,concerns or changes in clinical status in the interim to contact us. Recommendations 66 Gy in 33 fractions with VMAT Simulation tomorrow Treatment to start coincident with Cycle 4 of chemo Consideration of PCI upon restaging after initial treatment FORTUNATO MEYERS MD Aug 26, 2020 11:50
== END ==
LOC: M ONCR 08:59
PROVIDERS: ATTEND General Practice
DX: C34.90 Malignant neoplasm of unspecified part of unspecified bronchus or lung (principal)

== ENCOUNTER → 2020-08-31 | Outpatient (CLI) | payer MEDICARE ==
--- NOTE | 2020-08-31 11:21 | PFTRPT ---
Height: 61.00 Inches Weight: 144.00 Lbs BSA: 1.64 Diagnosis: C34.12 DATE: 08/31/2020 ORDERING PHYSICIAN: Dr. Yg Lopez Pre and post bronchodilator study of excellent technical quality. Forced vital capacity is normal. FEV1 out of proportion of obstructive index; therefore reduced. Expiratory limit within the flow volume loop does suggest at least some degree of flow rate limitation. No significant bronchodilator response identified. Total lung capacity borderline elevated. Residual volume borderline for air trapping. Diffusing capacity although reduced is appropriate for alveolar volume, but no hemoglobin is available for correction. Airway resistance and conductance are normal. IMPRESSION: Suspect at least a mild degree of obstructive ventilatory impairment without bronchodilator response. Cannot rule out air trapping. Mild diffusing capacity impairment. Please correlate clinically. MTDD
== END ==
LOC: M CARPUL 10:14
PROVIDERS: ATTEND General Practice
DX: C34.12 Malignant neoplasm of upper lobe, left bronchus or lung (principal)

== ENCOUNTER 2020-09-24 14:24 | Outpatient (RCR) | payer MEDICARE ==
[2020-09-27] MEDS ORDERED: MAGICMW PO (15:55)
== END 2020-09-25 ==
LOC: M ONCR 14:24
PROVIDERS: ATTEND General Practice
DX: C34.12 Malignant neoplasm of upper lobe, left bronchus or lung (principal)

== ENCOUNTER → 2020-10-25 | Outpatient (RCR) | payer MEDICARE ==
--- NOTE | 2020-10-13 15:35 | RADENCPD ---
Date/Time of Encounter Date of Encounter: Oct 13, 2020 Time of Encounter: 15:30 Encounter Janeth asked to be seen after treatment today. Reports she has been experiencing low mood, excessive worry and anhedonia over the past few weeks. Says it started when she looked up SCLC on the internet. She takes klonopin already for anxiety, finds this helpful overall but has no positive mood effect. She denies SI/thoughts of self harm. I offered support and stated that given her situation and ongoing cancer treatment that it is understandable that she is feeling depressed. 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 We discussed zoloft 25 mg daily. She agreed to try this. Also briefly discussed talk therapy but she does not want to try that now. Rx for zoloft sent to [facility] Thomas MD Oct 13, 2020 15:35
[~2020-10-25] MED LIST changes: +MAGICMW PO; +ZOLO25TA PO
== END ==
LOC: M ONCR 09-27 14:34
PROVIDERS: ATTEND General Practice
DX: C34.12 Malignant neoplasm of upper lobe, left bronchus or lung (principal)

== ENCOUNTER → 2020-11-24 | Outpatient (CLI) | payer MEDICARE ==
[~2020-11-24] MED LIST changes: +PROHANCE 279.3MG/ML 15ML VIAL As Ordered ONE
--- NOTE | 2020-11-24 12:27 | REPVR ---
PROCEDURE INFORMATION: Exam: MR Head Without and With Contrast Exam date and time: 11/24/2020 11:53 AM Age: 70 years old Clinical indication: Condition or disease; History of cancer (specify primary cancer site): ; Primary cancer: Small cell lung CA TECHNIQUE: Imaging protocol: MR of the head without and with intravenous contrast. Contrast material: PROHANCE; Contrast volume: 13 ml; Contrast route: INTRAVENOUS (IV); COMPARISON: MRI-Brain W/O FOLL BY WITH 05/26/2020 6:20 PM FINDINGS: Brain: No restricted diffusion is seen to suggest acute infarction. There is no acute intracranial hemorrhage, cerebral edema, or midline shift. Age-related cerebral and cerebellar substance loss is present. Scattered increased T2 and FLAIR signal within the periventricular and subcortical white matter is present. This is nonspecific but likely related to chronic microangiopathic ischemic change. No enhancing lesions were identified after the administration of contrast. Cerebral ventricles: No hydrocephalus. Bones/joints: Unremarkable. Paranasal sinuses: Normal as visualized. No acute sinusitis. Mastoid air cells: Normal as visualized. No mastoid effusion. Orbits: Unremarkable. Soft tissues: Unremarkable. IMPRESSION: 1. No acute intracranial abnormality. 2. Chronic findings as discussed above. Electronically signed by: Yash Yang On 11/24/2020 12:28:08 PM
== END ==
LOC: M RAD 10:05
PROVIDERS: ATTEND General Practice
DX: C34.12 Malignant neoplasm of upper lobe, left bronchus or lung (principal)
CPT/HCPCS: 70553; A9576

== ENCOUNTER → 2020-12-01 | Outpatient (CLI) | payer MEDICARE ==
[~2020-12-01] MED LIST changes: -PROHANCE 279.3MG/ML 15ML VIAL As Ordered ONE
--- NOTE | 2020-12-01 16:10 | RADONC ---
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 She was diagnosed in April 2020. 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 She returned to the hospital on 05/19/20 with SOB which led to SCLC diagnosis. She began chemotherapy for the SCLC and after cycle 1 developed SBO from the carcinoid which required emergent surgical management, she was admitted from 07/04/20-07/14/20. She resumed chemotherapy in early July 2020, and completed cycle 4 on 09/07/20. She had thoracic RT concurrent with the final cycle of chemotherapy 66 Gy in 33 fractions from 09/07/20-10/25/20. Diagnosis/Treatment History Oncologic History As above Recent data: 11/24/20 MRI head Negative Interval History Feels well. Dysphagia resolved. Finds zoloft helpful for mood. No CP or SOB. Has musculoskeletal pain as before. Appetite good weight stable. Current Therapy Atezolizumab q6w Stage [id number] AJCC Stage IIIb LS SCLC Social History: Former smoker >50+ pk year Does not drink Allergies / Meds Allergies: Coded Allergies: No Known Allergies (Verified Allergy, Unknown, 05/09/20) Home Meds Active Scripts Allopurinol (Zyloprim) 300 Mg Tablet, 1 TAB PO DAILY for 30 Days, #30 TAB 2 Refills Prov:LEVON VALDEZ MD 10/14/20 Sertraline Hcl (Zoloft) 25 Mg Tablet, 1 TAB PO DAILY for 30 Days, #30 TAB 5 Refills Prov:FORTUNATO MEYERS MD 10/13/20 Magic Mouthwash (First-Mouthwash Blm) 1 Ea Susp, 10 ML PO QID PRN for MUCOSITIS, #240 ML 5 Refills (Diphenhydramine/maalox/lidocaine 1:1:1) May compound if kit unavailable Take w/ straw Prov:FORTUNATO MEYERS MD 09/27/20 Pantoprazole Sodium (Pantoprazole Sodium) 40 Mg Tablet.dr, 40 MG PO DAILY, #30 TAB Prov:ERIBERTO MANCINI MD 07/21/20 dilTIAZem HCl (Diltiazem 24Hr Cd) 120 Mg Cap.er.24h, 120 MG PO DAILY, #30 TABS Prov:ERIBERTO MANCINI MD 07/21/20 Pravastatin Sodium (Pravastatin Sodium) 20 Mg Tablet, 20 MG PO QHS, #30 TAB Prov:ERIBERTO MANCINI MD 07/21/20 Ferrous Sulfate (Ferrous Sulfate) 325 Mg Tab, 325 MG PO BID, #60 TAB Prov:ERIBERTO MANCINI MD 07/21/20 Reported Medications Calcium/Magnesium/Zinc (Zmodgqc-Vuwzckxpw-Mcky Tablet) 1 Each Tablet, 1 TAB PO QHS, TAB 05/09/20 Multivitamins (Thera M Plus Tablet) 1 Each Tablet, 1 TAB PO DAILY, TAB 05/09/20 Docusate Sodium (Docusate Sodium) 100 Mg Capsule, 100 MG PO BID PRN for CONSTIPATION, CAP 05/09/20 Clonazepam (Clonazepam) 1 Mg Tablet, 0.5 MG PO QID, TAB TAKES AT 0800, 1300, 1800, 2200 05/09/20 Acetaminophen with Codeine (Acetaminophen-Cod #3 Tablet) 1 Tab Tab, 0.5 TAB PO Q6H PRN for PAIN 04/23/18 Review of Systems Review of Systems Constitutional: Denies: Chills, Fever, Weight Loss Eyes: Denies: Pain HEENT: Denies: Head Aches Skin: Denies: Rash Pulmonary: Denies: Dyspnea, Cough Cardiovascular: Denies: Chest Pain, Palpitations Gastrointestinal: Denies: Nausea, Vomiting, Abdominal Pain Genitourinary: Denies: Dysuria, Frequency Hematologic: Denies: Bruising Endocrine: Denies: Polydipsia Musculoskeletal: Reports: Joint pain; Denies: Neck pain, Shoulder pain, Back pain Neurological: Denies: Weakness, Numbness, Incoordination Psych: Reports: Mood Normal Physical Examination Vital Signs Ht 61" Wt 153 lb T 99 P 107 RR 16 BP 134/87 O2 96% Pain 7 joints Fatigue 2 General Exam: Positive: Alert, Cooperative; Negative: No Acute Distress Eye Exam: Positive: PERRLA, EOMI ENT EXAM: Positive: Atraumatic Neck Exam: Positive: Supple Chest Exam: Positive: Clear to auscultation, Normal air movement Heart Exam: Positive: Rate Normal, Regular Rhythm Abdomen Exam: Positive: Soft; Negative: Tenderness Extremity Exam: Negative: Edema Skin Exam: Positive: Nl turgor and temperature Neuro Exam: Positive: Normal Gait, Normal Speech, Cranial Nerves 3-12 NL Psych Exam: Positive: Mental status NL Diagnostic and Laboratory Diagnostic Review Radiologic images, relevant labs and pathology reports were personally reviewed and discussed with Ms. Deras. Assessment and Plan Impression Assessment Ms. Deras is a 70 year old female with a history of LS SCLC s/p chemotherapy x 4 cycles completed on 09/07/20 and thoracic RT 66 Gy in 33 fractions completed 10/25/20. She is seen today for consideration of PCI versus MRI surveillance. Continues on atezolizumab with Dr. Valdez. She is doing well recovered from RT induced dysphagia/esophagitis. She finds zoloft helpful for her mood so I will extend this and prescribe a 90 day supply. We reviewed her MRI which shows no intracranial progression. We discussed pros and cons of PCI versus MRI surveillance. She prefers MRI surveillance which is reasonable given her age. Next scan will be in 3 months time. Performance Status ECOG 1 Plan MRI head in 3 months Re-rx zoloft for depression/anxiety Ms. Deras was encouraged to call with questions or concerns in the interim period. FORTUNATO MEYERS MD Dec 01, 2020 16:10
== END ==
LOC: M ONCR 14:50
PROVIDERS: ATTEND General Practice
DX: C34.12 Malignant neoplasm of upper lobe, left bronchus or lung (principal); Z92.21 Personal history of antineoplastic chemotherapy; Z92.3 Personal history of irradiation

== ENCOUNTER → 2021-02-22 | Outpatient (CLI) | payer MEDICARE ==
[~2021-02-22] MED LIST changes: +SODIUM CHLORIDE 0.9% INJ 10 ML SYR IV PRN
[2021-02-22 14:37] LABS: ALBUMIN 3.5 GM/DL (3.2-5.2); ALT/SGPT 17 U/L (12-78); BILIRUBIN,TOTAL 0.3 MG/DL (0.2-1.0); BLOOD UREA NITROGEN 17 MG/DL (7-18); CALCIUM LEVEL 9.5 MG/DL (8.8-10.2); CARBON DIOXIDE LEVEL 27 MEQ/L (21-32); CHLORIDE LEVEL 105 MEQ/L (98-107); CREATININE FOR GFR 0.56 MG/DL (0.55-1.30); GLOMERULAR FILTRATION RATE > 60.0 (>39); GLUCOSE, FASTING 107 MG/DL (70-100); POTASSIUM SERUM 3.7 MEQ/L (3.5-5.1); SODIUM LEVEL 138 MEQ/L (136-145); TOTAL PROTEIN 7.4 GM/DL (6.4-8.2)
== END ==
LOC: M ONCR 13:22
PROVIDERS: ATTEND General Practice
DX: C34.92 Malignant neoplasm of unspecified part of left bronchus or lung (principal)
CPT/HCPCS: 36591; 80053; J1642

== ENCOUNTER → 2021-03-02 | Outpatient (CLI) | payer MEDICARE ==
[~2021-03-02] MED LIST changes: +COVI30VI IM; +PROHANCE 279.3MG/ML 15ML VIAL As Ordered ONE; -SODIUM CHLORIDE 0.9% INJ 10 ML SYR IV PRN
--- NOTE | 2021-03-02 14:46 | REP ---
INDICATION: LUNG CA, METS?. COMPARISON: None. TECHNIQUE: Axial T1, T2, FLAIR, and diffusion-weighted imaging obtained. Multiplanar T1 post gadolinium images obtained. FINDINGS: No evidence of restricted diffusion to suggest acute infarction. No gradient echo susceptibility to suggest hemorrhage. The ventricles and extra-axial CSF spaces are within normal limits. No mass effect or midline shift. No abnormal fluid collections. Following contrast, no definite abnormal enhancement. There is a pulsation artifact across the posterior fossa arises from the transverse sinuses, somewhat limits evaluation at this level. IMPRESSION: No acute findings. Specifically no definite evidence of metastatic disease to the brain or calvarium. Age-related volume loss and white matter changes. <Electronically signed by Lalo Zhong > 03/02/21 [id number]
== END ==
LOC: M RAD 12:38
PROVIDERS: ATTEND General Practice
DX: C34.12 Malignant neoplasm of upper lobe, left bronchus or lung (principal)
CPT/HCPCS: 70553; A9576

== ENCOUNTER → 2021-03-09 | Outpatient (CLI) | payer MEDICARE ==
[~2021-03-09] MED LIST changes: +ECOT81TA5 PO; +FISH1000 PO; -PROHANCE 279.3MG/ML 15ML VIAL As Ordered ONE
--- NOTE | 2021-03-09 14:09 | RADONC ---
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 She was diagnosed in April 2020. 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 She returned to the hospital on 05/19/20 with SOB which led to SCLC diagnosis. She began chemotherapy for the SCLC and after cycle 1 developed SBO from the carcinoid which required emergent surgical management, she was admitted from 07/04/20-07/14/20. She resumed chemotherapy in early July 2020, and completed cycle 4 on 09/07/20. She had thoracic RT concurrent with the final cycle of chemotherapy 66 Gy in 33 fractions from 09/07/20-10/25/20. She opted for MRI surveillance as opposed to PCI. Diagnosis/Treatment History Oncologic History As above Recent data: 11/24/20 MRI head negative 03/02/21 MRI head negative Interval History Janeth feels well. She is tolerating immunotherapy without much difficulty. She only complains of some numbness in her fingers from this. She has no NOEL, N, V, or focal sensory deficits aside from the finger numbness. Her appetite is good and her weight is stable. Current Therapy Atezolizumab q3w Stage [id number] AJCC Stage IIIb LS SCLC Social History: Former smoker >50+ pk year Drinks 1-2 'small brandys' per day Allergies / Meds Allergies: Coded Allergies: No Known Allergies (Verified Allergy, Unknown, 05/09/20) Home Meds Active Scripts Allopurinol (Zyloprim) 300 Mg Tablet, 1 TAB PO DAILY for 30 Days, #30 TAB 2 Refills Prov:LULU PANDYA MDFRCP 02/09/21 Sertraline Hcl (Zoloft) 25 Mg Tablet, 1 TAB PO DAILY for 90 Days, #90 TAB 3 Refills Prov:FORTUNATO MEYERS MD 12/01/20 Magic Mouthwash (First-Mouthwash Blm) 1 Ea Susp, 10 ML PO QID PRN for MUCOSITIS, #240 ML 5 Refills (Diphenhydramine/maalox/lidocaine 1:1:1) May compound if kit unavailable Take w/ straw Prov:FORTUNATO MEYERS MD 09/27/20 Pantoprazole Sodium (Pantoprazole Sodium) 40 Mg Tablet.dr, 40 MG PO DAILY, #30 TAB Prov:ERIBERTO MANCINI MD 07/21/20 dilTIAZem HCl (Diltiazem 24Hr Cd) 120 Mg Cap.er.24h, 120 MG PO DAILY, #30 TABS Prov:ERIBERTO MANCINI MD 07/21/20 Pravastatin Sodium (Pravastatin Sodium) 20 Mg Tablet, 20 MG PO QHS, #30 TAB Prov:ERIBERTO MANCINI MD 07/21/20 Ferrous Sulfate (Ferrous Sulfate) 325 Mg Tab, 325 MG PO BID, #60 TAB Prov:ERIBERTO MANCINI MD 07/21/20 Reported Medications Aspirin (Ecotrin) 81 Mg Tablet.dr, 81 MG PO DAILY for pain for 30 Days, #30 TAB 03/09/21 [place]-3 Fatty Acids/Fish Oil (Fish Oil 1,000 mg Capsule) 1 Each Capsule, 1 CAP PO DAILY for 30 Days, #30 CAP 03/09/21 Covid-19 Vacc, Mrna(Pfizer)/Pf (Pfizer Covid19 Vacc (Unapprov)) 30 Mcg/0.3 Ml Vial, 30 MCG IM, VIAL 02/28/21 Calcium/Magnesium/Zinc (Iulwyff-Vencjtdda-Ofci Tablet) 1 Each Tablet, 1 TAB PO QHS, TAB 05/09/20 Multivitamins (Thera M Plus Tablet) 1 Each Tablet, 1 TAB PO DAILY, TAB 05/09/20 Docusate Sodium (Docusate Sodium) 100 Mg Capsule, 100 MG PO BID PRN for CONSTIPATION, CAP 05/09/20 Clonazepam (Clonazepam) 1 Mg Tablet, 0.5 MG PO QID, TAB TAKES AT 0800, 1300, 1800, 2200 05/09/20 Acetaminophen with Codeine (Acetaminophen-Cod #3 Tablet) 1 Tab Tab, 0.5 TAB PO Q6H PRN for PAIN 04/23/18 Review of Systems Review of Systems Constitutional: Reports: Fatigue; Denies: Chills, Fever, Weight Loss Eyes: Denies: Pain HEENT: Denies: Head Aches Skin: Denies: Rash Pulmonary: Denies: Dyspnea, Cough Cardiovascular: Denies: Chest Pain Gastrointestinal: Reports: Diarrhea; Denies: Abdominal Pain Musculoskeletal: Reports: Leg pain; Denies: Neck pain, Back pain Neurological: Reports: Numbness; Denies: Weakness, Change in Speech Psych: Reports: Mood Normal, Anxiety Physical Examination Vital Signs Wt 156 lbs T 98 P 118 RR 22 BP 136/86 O2 95% Pain 0 Fatigue 2 General Exam: Positive: Alert, Cooperative, No Acute Distress Eye Exam: Positive: PERRLA, EOMI ENT EXAM: Positive: Atraumatic Neck Exam: Positive: Supple; Negative: Lymphadenopathy Chest Exam: Positive: Clear to auscultation, Normal air movement Heart Exam: Positive: Rate Normal, Regular Rhythm Abdomen Exam: Positive: Soft Extremity Exam: Negative: Edema Skin Exam: Positive: Nl turgor and temperature Neuro Exam: Positive: Normal Gait, Normal Speech, Cranial Nerves 3-12 NL Psych Exam: Positive: Mental status NL Diagnostic and Laboratory Diagnostic Review Radiologic images, relevant labs and pathology reports were personally reviewed and discussed with Ms. Deras. Assessment and Plan Impression Assessment Ms. Deras is a 70 year old female with a history of limited stage ([id number] AJCC Stage IIIB) SCLC of the CINDY and mediastinum. She was diagnosed in April 2020. 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 She returned to the hospital on 05/19/20 with SOB which led to SCLC diagnosis. She began chemotherapy for the SCLC and after cycle 1 developed SBO from the carcinoid which required emergent surgical management, she was admitted from 07/04/20-07/14/20. She resumed chemotherapy in early July 2020, and completed cycle 4 on 09/07/20. She had thoracic RT concurrent with the final cycle of chemotherapy 66 Gy in 33 fractions from 09/07/20-10/25/20. She opted for MRI surveillance as opposed to PCI. She is doing well overall no symptoms or signs of recurrence. She is due for body imaging per Dr. Pandya and tolerating atezolizumab maintenance well. Her MRI scan from earlier this month is negative so we will continue surveillance, next in 3 months time. Performance Status ECOG 2 Plan MRI head in 3 months Body imaging per Dr. Pandya Ms. Deras was encouraged to call with questions or concerns in the interim period. Billing Statement Total time of [24] minutes was spent preparing for the visit [1], obtaining HPI [3], examining the patient [2], reviewing diagnostic tests [4], discussing management options [5], coordinating care [1], and writing this note [8]. FORTUNATO MEYERS MD Mar 09, 2021 14:09
== END ==
LOC: M ONCR 13:23
PROVIDERS: ATTEND General Practice
DX: C34.12 Malignant neoplasm of upper lobe, left bronchus or lung (principal)

== ENCOUNTER → 2021-04-15 | Outpatient (CLI) | payer MEDICARE ==
[~2021-04-15] MED LIST changes: +GASTROGRAFIN SOLUTION 30ML (Q9963) As Ordered ONE; +ISOVUE-370 76% 100ML VIAL As Ordered ONE; +LIDO1CRE42 TOP; -LIDO2.5C15 TOP
--- NOTE | 2021-04-15 13:33 | REP ---
INDICATION: LUNG CA. COMPARISON: 05/20/2020. TECHNIQUE: CT chest performed following the intravenous administration of 100 cc of Isovue 370. Sagittal and coronal reconstruction images are performed. FINDINGS: Lungs: No infiltrate or nodule is seen in the right lung. There is diffuse scattered parenchymal consolidation in the left lung with air bronchograms present, as well as mixed interstitial densities. This has decreased since the prior study. Mediastinum: No adenopathy. [place]: No adenopathy. Axilla: No adenopathy. Pleura: There is mild superior pleural thickening, along with a mild amount of loculated pleural fluid posteriorly. This has decreased since the prior study. Heart: Mildly enlarged. There is mild scattered pericardial fluid/thickening. Thoracic aorta: No aneurysm or dissection. Visualized osseous structures: There are degenerative changes of the spine. There is no compression deformity. IMPRESSION: Scattered parenchymal consolidation left lung with mixed interstitial densities, improved since the prior study. Mild left pleural fluid/thickening, improved since the prior study. There is mild scattered pericardial fluid/thickening. <Electronically signed by Kelton Prajapati > 04/15/21 [id number]
--- NOTE | 2021-04-15 13:52 | REP ---
INDICATION: LUNG CA COMPARISON: 07/03/2020. TECHNIQUE: CT Scan of the abdomen and pelvis was performed with intravenous administration of 100 cc of Isovue 370, and oral contrast. FINDINGS: Liver: Normal Gallbladder: Unremarkable. Spleen: Normal. Adrenals: Bilateral adrenal gland thickening is stable. Pancreas: 2 cm cystic structure in the body of the pancreas is stable. Kidneys: Normal. Small and large bowel: There is colonic diverticulosis without acute diverticulitis. There is no evidence of bowel obstruction or free air. Free fluid: None. Abdominal aorta: No aneurysm or dissection. Adenopathy: None. Osseous structures: There are degenerative changes of the spine without compression deformity. There is significant degenerative changes of the hips. Pelvis: No mass. There is a small supraumbilical midline hernia. There is a small left upper quadrant abdominal wall hernia containing noninflamed fat. IMPRESSION: Stable findings in the abdomen and pelvis as discussed above. <Electronically signed by Kelton Prajapati > 04/15/21 [id number]
== END ==
LOC: M RAD 11:13
PROVIDERS: ATTEND Internal Medicine Hematology & Oncology
DX: C34.90 Malignant neoplasm of unspecified part of unspecified bronchus or lung (principal)
CPT/HCPCS: 71260; 74177; Q9963; Q9967

== ENCOUNTER → 2021-06-01 | Outpatient (CLI) | payer MEDICARE ==
[~2021-06-01] MED LIST changes: -GASTROGRAFIN SOLUTION 30ML (Q9963) As Ordered ONE; -ISOVUE-370 76% 100ML VIAL As Ordered ONE; +PROHANCE 279.3MG/ML 15ML VIAL As Ordered ONE
--- NOTE | 2021-06-01 14:41 | REP ---
INDICATION: LUNG CA ? METS. COMPARISON: Comparison brain MRI study is from March 02, 2021.. TECHNIQUE: Axial, coronal, and sagittal imaging planes are obtained. T1 and T2 weighted sequences include spin echo, diffusion, fast spin echo, FLAIR, and stealth imaging sequences. Gadolinium enhancement dose is 14 mL of intravenous ProHance. Post gadolinium enhanced T1 weighted images are acquired in all 3 planes. FINDINGS: There is no bony calvarial defect. There is no MR evidence of significant paranasal sinus disease. No intraorbital mass or other lesion is seen. The deep facial and skull base soft tissues are unremarkable and symmetric. There are scattered foci of T2 hyperintensity in the periventricular white matter of the supratentorial brain bilaterally on T2 weighted axial and FLAIR axial images consistent with small vessel changes. There is no evidence of intracranial mass. No abnormal gadolinium enhancement is seen to suggest intracranial metastasis. Diffusion-weighted scans shows no evidence of restricted diffusion. There is no extra-axial fluid collection or midline shift. No infarction is seen. IMPRESSION: No acute intracranial lesion. There is no MR evidence of intracranial metastatic disease. <Electronically signed by Javid Vieira > 06/01/21 [id number]
== END ==
LOC: M RAD 12:19
PROVIDERS: ATTEND General Practice
DX: C34.12 Malignant neoplasm of upper lobe, left bronchus or lung (principal)
CPT/HCPCS: 70553; A9576

== ENCOUNTER → 2021-06-08 | Outpatient (CLI) | payer MEDICARE ==
[~2021-06-08] MED LIST changes: +ALLO300T2 PO; -PROHANCE 279.3MG/ML 15ML VIAL As Ordered ONE; +SERT-141 PO
--- NOTE | 2021-06-09 10:08 | RADENCPD ---
Date/Time of Encounter Date of Encounter: Jun 09, 2021 Time of Encounter: 10:08 Encounter Talked to Janeth, she would like to try a higher dose of the zoloft. Will increase to 50 mg QHS. She will see me in September for her next MRI head. FORTUNATO MEYERS MD Jun 09, 2021 10:08
== END ==
LOC: M ONCR 14:33
DX: C34.12 Malignant neoplasm of upper lobe, left bronchus or lung (principal); Z92.21 Personal history of antineoplastic chemotherapy; Z92.3 Personal history of irradiation

== ENCOUNTER 2021-07-31 10:16 | Inpatient (IN) | payer MEDICARE ==
[~2021-07-31] VITALS: Ht 157.5 cm; Wt 79.3 kg
[2021-07-31 11:21] LABS: BASO % 0.7 % (0.0-1.0); EOS # 0.1 10^3/uL (0.0-0.5); EOS % 0.9 % (0.0-3.0); HEMATOCRIT 35.6 % (36.0-47.0); HEMOGLOBIN 11.4 g/dl (12.0-15.5); LYMPH # 0.4 10^3/uL (1.5-5.0); MEAN CORPUSCULAR HEMOGLOBIN 28.8 pg (27.0-33.0); MEAN CORPUSCULAR VOLUME 89.9 fl (80.0-96.0); MONO # 0.5 10^3/uL (0.0-0.8); NEUTROPHILS # 4.9 10^3/uL (1.5-8.5); NEUTROPHILS % 83.7 % (36.0-66.0); PLATELET COUNT, AUTOMATED 173 10^3/uL (150-450); RED BLOOD COUNT 3.96 10^6/uL (4.00-5.40); WHITE BLOOD COUNT 5.8 10^3/uL (4.0-10.0)
[2021-07-31 11:32] LABS: INR 1.1; PROTHROMBIN TIME 14.6 SECONDS (12.7-14.5)
[2021-07-31 11:49] LABS: ALBUMIN 3.2 GM/DL (3.2-5.2); ALT/SGPT 15 U/L (12-78); BILIRUBIN,DIRECT 0.1 MG/DL (0.0-0.2); BILIRUBIN,TOTAL 0.3 MG/DL (0.2-1.0); BLOOD UREA NITROGEN 13 MG/DL (7-18); CALCIUM LEVEL 8.7 MG/DL (8.8-10.2); CARBON DIOXIDE LEVEL 24 MEQ/L (21-32); CHLORIDE LEVEL 109 MEQ/L (98-107); CREATININE FOR GFR 0.52 MG/DL (0.55-1.30); GLOMERULAR FILTRATION RATE > 60.0 (>39); GLUCOSE, FASTING 117 MG/DL (70-100); POTASSIUM SERUM 3.7 MEQ/L (3.5-5.1); SODIUM LEVEL 142 MEQ/L (136-145); TOTAL PROTEIN 6.2 GM/DL (6.4-8.2)
--- NOTE | 2021-07-31 12:11 | REP ---
INDICATION: vaginal bleeding. COMPARISON: None. TECHNIQUE: Multiple projection 2D ultrasound images were obtained through the pelvis using both transvaginal and transabdominal approach and supplemented by color Doppler. FINDINGS: The anteverted uterus measures 5.3 x 4.7 x 3.4 cm. There is a complex predominantly low echogenicity nodule in the left side of the uterine body measuring 9 x 8 x 7 mm, consistent with a fibroid. The endometrium measures 11 mm in thickness. There is central low echogenicity within the endometrium which may be fluid. The ovaries are not identified. The bladder appears unremarkable. IMPRESSION: 1. Abnormally thickened endometrium which appears to contain fluid. 2. Left-sided uterine fibroid. 3. The ovaries are not identified. <Electronically signed by Bentley Holden > 07/31/21 [id number]
[2021-07-31] MEDS ORDERED: PANTOPRAZOLE 40MG VIAL (C9113 PER 1) IV ONE (12:25)
[2021-07-31 12:48] LABS: RSV AMPLIFICATION NEGATIVE (NEGATIVE)
[2021-07-31] MEDS ORDERED: clonazePAM 0.5 MG TAB PO ONE (13:10)
--- NOTE | 2021-07-31 13:20 | HPEPDOC ---
[facility] Medical History & Physical Date of Admission Jul 31, 2021 Date of Service: Jul 31, 2021 History and Physical CHIEF COMPLAINT: Rectal bleed HISTORY OF PRESENT ILLNESS: 71-year-old female with past medical history including atrial fibrillation on aspirin therapy, diabetes, hypertension, small cell carcinoma, abdominal mass status post resection adn recurrent GI bleeds, presents for 1 day history of rectal bleeding. On evaluation in the emergency room patient denies chest pain, headaches, shortness of breath, abdominal pain, nausea, vomiting, diarrhea, depressed mood. She was found to have black guaiac positive stools. 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 ALLERGIES: Please see below. REVIEW OF SYSTEMS: Negative except as per HPI HOME MEDICATIONS: Please see below. PHYSICAL EXAMINATION: Vital Signs: reviewed and within normal limits General: NAD, lying comfortably in bed HEENT: NC/AT, EOMI Neck: supple, no masses Chest: lungs CTA B/L Heart: +S1S2, RRR Abd: soft, NT, ND, +BS Ext: no edema Skin: no rashes MSK: full ROM at large joints Neuro: no gross focal deficits Psych: AAOx3 LABORATORY DATA: See below. MICROBIOLOGY: Please see below. A/P: 71-year-old female with past medical history of A. fib on aspirin therapy, diabetes, hypertension, small cell lung cancer presents for melena. #melena - H/H stable - trend H/H - discuss with surgery #afib - continue asa therapy #HTN - continue home meds #DM - sliding scale insulin - carb consistent diet #small cell lung CA #DVT prophylaxis - mechanical Vital Signs Vital Signs Date Time Temp Pulse Resp B/P (MAP) Pulse Ox O2 Delivery O2 Flow Rate FiO2 07/31/21 11:46 85 92 07/31/21 10:50 133/80 (97) 07/31/21 10:45 97.6 16 Room Air Laboratory Data Labs 24H Laboratory Tests 2 07/31/21 11:03: Immature Granulocyte % (Auto) 0.7, Neutrophils (%) (Auto) 83.7H, Lymphocytes (%) (Auto) 6.0L, Monocytes (%) (Auto) 8.0, Eosinophils (%) (Auto) 0.9, Basophils (%) (Auto) 0.7, Neutrophils # (Auto) 4.9, Lymphocytes # (Auto) 0.4L, Monocytes # (Auto) 0.5, Eosinophils # (Auto) 0.1, Basophils # (Auto) 0.0, Nucleated Red Blood Cells % (auto) 0.0, Prothrombin Time 14.6H, Prothromb Time International Ratio 1.10, Anion Gap 9, Glomerular Filtration Rate > 60.0, Calcium Level 8.7L, Total Bilirubin 0.3, Direct Bilirubin 0.1, Aspartate Amino Transf (AST/SGOT) 13, Alanine Aminotransferase (ALT/SGPT) 15, Alkaline Phosphatase 82, Total Protein 6.2L, Albumin 3.2, Albumin/Globulin Ratio 1.1L 07/31/21 11:23: Coronavirus (COVID-19)(PCR) NEGATIVE, Influenza Type A (RT-PCR) NEGATIVE, Influenza Type B (RT-PCR) NEGATIVE, Respiratory Syncytial Virus (PCR) NEGATIVE CBC/BMP Laboratory Tests 07/31/21 11:03 Home Medications Scheduled Aspirin (Ecotrin) 81 Mg Tablet.dr, 81 MG PO DAILY for pain Calcium/Magnesium/Zinc (Tzgdxng-Fjwwwdjpy-Cfhl Tablet) 1 Each Tablet, 1 TAB PO QHS Clonazepam (Clonazepam) 1 Mg Tablet, 0.5 MG PO QID TAKES AT 0800, 1300, 1800, 2200 Ferrous Sulfate (Ferrous Sulfate) 325 Mg Tab, 325 MG PO BID Multivitamins (Thera M Plus Tablet) 1 Each Tablet, 1 TAB PO DAILY [place]-3 Fatty Acids/Fish Oil (Fish Oil 1,000 mg Capsule) 1 Each Capsule, 1 CAP PO DAILY Pantoprazole Sodium (Pantoprazole Sodium) 40 Mg Tablet.dr, 40 MG PO DAILY Pravastatin Sodium (Pravastatin Sodium) 20 Mg Tablet, 20 MG PO QHS Sertraline Hcl (Sertraline HCl) 50 Mg Tablet, 1 TAB PO QHS allopurinoL (allopurinoL) 300 Mg Tablet, 1 TAB PO DAILY dilTIAZem HCl (Diltiazem 24Hr Cd) 120 Mg Cap.er.24h, 120 MG PO DAILY Scheduled PRN Acetaminophen with Codeine (Acetaminophen-Cod #3 Tablet) 1 Tab Tab, 0.5 TAB PO Q6H PRN for PAIN Docusate Sodium (Docusate Sodium) 100 Mg Capsule, 100 MG PO BID PRN for CONSTIPATION Magic Mouthwash (First-Mouthwash Blm) 1 Ea Susp, 10 ML PO QID PRN for MUCOSITIS (Diphenhydramine/maalox/lidocaine 1:1:1) May compound if kit unavailable Take w/ straw Miscellaneous Medications Covid-19 Vacc, Mrna(Bitcast)/Pf (Bitcast Covid19 Vacc (Unapprov)) 30 Mcg/0.3 Ml Vial, 30 MCG IM Allergies Coded Allergies: No Known Allergies (Verified Allergy, Unknown, 05/09/20) A-FIB/CHADSVASC A-FIB History Current/History of A-Fib/PAF?: Yes Current PO Anticoag Therapy: No Age/Risk Factor Scoring CHADSVASC: CHADSVASC Response (Comments) Value Age Risk Factor Age 65-74 years old 1 Gender Risk Factor Female 1 Hx of CHF No 0 Hx of HTN Yes 1 Hx of Stroke/TIA/or VTE No 0 Hx of Diabetes Yes 1 Hx of Vascular Disease No 0 Total 4 Treatment Treatment ordered: Other Reason Anticoagulant not given: Current bleeding NATE HANDY MD Jul 31, 2021 13:20
[2021-07-31] MEDS ORDERED: DILT120C78 PO (14:56)
[2021-07-31] MEDS ORDERED: PRAV20TA2 PO (14:56)
[2021-07-31] MEDS ORDERED: SERT50TA29 PO (14:56)
[2021-07-31] MEDS ORDERED: PANT-23 PO (14:56)
[2021-07-31] MEDS ORDERED: FERR1TAB8 PO (14:56)
[2021-07-31] MEDS ORDERED: ALLO300T2 PO (14:56)
[2021-07-31] MEDS ORDERED: HOME MED LIST COMPLETE! XX SCH (15:00)
[2021-07-31] MEDS ORDERED: BENZOCAINE 10% 9GM TUBE (ANBESOL) TOP PRN (15:50)
[2021-07-31] MEDS ORDERED: DOCUSATE SODIUM 100MG CAPSULE PO PRN (15:50)
[2021-07-31] MEDS ORDERED: ACETAMINOPH W/CODEINE #3 TAB UD PO PRN (15:50)
[2021-07-31 16:00] VITALS: BP 120/71
[2021-07-31] MEDS: clonazePAM 0.5 MG TAB PO SCH ×2 (17:51→20:07)
[2021-07-31] MEDS: FERROUS SULFATE 325MG TAB PO SCH (20:07)
[2021-07-31] MEDS ORDERED: PRAVASTATIN 20 MG TAB PO SCH (21:00)
[2021-07-31] MEDS ORDERED: SERTRALINE HCL 50 MG TAB PO SCH (21:00)
[2021-07-31 22:00] VITALS: BP 131/71
[2021-08-01 06:00] VITALS: BP 148/73
[2021-08-01 06:36] LABS: HEMATOCRIT 35.1 % (36.0-47.0); HEMOGLOBIN 11.3 g/dl (12.0-15.5); MEAN CORPUSCULAR HEMOGLOBIN 28.7 pg (27.0-33.0); MEAN CORPUSCULAR HGB CONC 32.2 g/dl (32.0-36.5); MEAN CORPUSCULAR VOLUME 89.1 fl (80.0-96.0); PLATELET COUNT, AUTOMATED 175 10^3/uL (150-450); RED BLOOD COUNT 3.94 10^6/uL (4.00-5.40); WHITE BLOOD COUNT 4.8 10^3/uL (4.0-10.0)
[2021-08-01 07:04] LABS: BLOOD UREA NITROGEN 13 MG/DL (7-18); CALCIUM LEVEL 8.9 MG/DL (8.8-10.2); CARBON DIOXIDE LEVEL 26 MEQ/L (21-32); CHLORIDE LEVEL 109 MEQ/L (98-107); GLOMERULAR FILTRATION RATE > 60.0 (>39); GLUCOSE, FASTING 91 MG/DL (70-100); POTASSIUM SERUM 3.5 MEQ/L (3.5-5.1); SODIUM LEVEL 142 MEQ/L (136-145)
[2021-08-01] MEDS: FERROUS SULFATE 325MG TAB PO SCH (08:24)
[2021-08-01] MEDS: clonazePAM 0.5 MG TAB PO SCH ×2 (08:24→12:22)
[2021-08-01 08:26] VITALS: BP 121/80
[2021-08-01] MEDS ORDERED: allopurinoL 300 MG TAB PO SCH (09:00)
[2021-08-01] MEDS ORDERED: ASPIRIN 81MG ENTERIC TABLET PO SCH (09:00)
[2021-08-01] MEDS ORDERED: MULTIVITAMINS/MINERALS THERAP 1 TAB PO SCH (09:00)
[2021-08-01] MEDS ORDERED: PANTOPRAZOLE 40MG TAB (PROTONIX) PO SCH (09:00)
--- NOTE | 2021-08-01 09:26 | DS.PDOC ---
Discharge Summary General Date of Admission Jul 31, 2021 at 13:30 Date of Discharge 08/01/2021 Specialist/Consultants Involve surgery Discharge Summary PROCEDURES PERFORMED DURING STAY: [None]. DISCHARGE DIAGNOSES: 1. GI bleed Secondary Diagnoses: # COMPLICATIONS/CHIEF COMPLAINT: Gi Bleed. HPI/HOSPITAL COURSE: 71-year-old female with past medical history including atrial fibrillation on aspirin therapy, diabetes, hypertension, small cell carcinoma, abdominal mass status post resection adn recurrent GI bleeds, presents for 1 day history of rectal bleeding. On evaluation in the emergency room patient denies chest pain, headaches, shortness of breath, abdominal pain, nausea, vomiting, diarrhea, depressed mood. She was found to have black guaiac positive stools. DISCHARGE MEDICATIONS: Please see below. ALLERGIES: Please see below. PHYSICAL EXAMINATION ON DISCHARGE: Vital Signs: reviewed and within normal limits General: NAD, sitting comfortably in chair HEENT: NC/AT, poor dentition Neck: supple, no masses Chest: lungs CTA B/L Heart: +S1S2, RRR Abd: soft, NT, ND, +BS Ext: no edema Skin: no rashes MSK: full ROM at large joints Neuro: no gross focal deficits Psych: AAOx3 LABORATORY DATA: Please see below. DISPOSITION: . DISCHARGE INSTRUCTIONS: 1. Follow up with PCP in 3-5 days. 2. Follow up with oncology as scheduled. 3. Follow up with GI in 3-7 days for colonoscopy/EGD. DISCHARGE CONDITION: [Stable]. TIME SPENT ON DISCHARGE: 35 minutes. Vital Signs/I&Os Vital Signs Date Time Temp Pulse Resp B/P (MAP) Pulse Ox O2 Delivery O2 Flow Rate FiO2 08/01/21 08:26 80 121/80 08/01/21 06:00 97.3 18 98 Room Air I&O- Last 24 Hours up to 6 AM 08/01/21 06:00 Intake Total 1460 ml Output Total 0 ml Balance 1460 ml Laboratory Data Labs 24H Laboratory Tests 2 07/31/21 11:03: Immature Granulocyte % (Auto) 0.7, Neutrophils (%) (Auto) 83.7H, Lymphocytes (%) (Auto) 6.0L, Monocytes (%) (Auto) 8.0, Eosinophils (%) (Auto) 0.9, Basophils (%) (Auto) 0.7, Neutrophils # (Auto) 4.9, Lymphocytes # (Auto) 0.4L, Monocytes # (Auto) 0.5, Eosinophils # (Auto) 0.1, Basophils # (Auto) 0.0, Nucleated Red Blood Cells % (auto) 0.0, Prothrombin Time 14.6H, Prothromb Time International Ratio 1.10, Anion Gap 9, Glomerular Filtration Rate > 60.0, Calcium Level 8.7L, Total Bilirubin 0.3, Direct Bilirubin 0.1, Aspartate Amino Transf (AST/SGOT) 13, Alanine Aminotransferase (ALT/SGPT) 15, Alkaline Phosphatase 82, Total Protein 6.2L, Albumin 3.2, Albumin/Globulin Ratio 1.1L 07/31/21 11:23: Coronavirus (COVID-19)(PCR) NEGATIVE, Influenza Type A (RT-PCR) NEGATIVE, Influenza Type B (RT-PCR) NEGATIVE, Respiratory Syncytial Virus (PCR) NEGATIVE 08/01/21 05:27: Nucleated Red Blood Cells % (auto) 0.0, Anion Gap 7L, Glomerular Filtration Rate > 60.0, Calcium Level 8.9 CBC/BMP Laboratory Tests 07/31/21 11:03 08/01/21 05:27 Discharge Medications Scheduled Aspirin (Ecotrin) 81 Mg Tablet.dr, 81 MG PO DAILY, (Reported) Calcium/Magnesium/Zinc (Goauuqi-Gdaxooncl-Pvla Tablet) 1 Each Tablet, 1 TAB PO QHS, (Reported) Clonazepam (Clonazepam) 1 Mg Tablet, 0.5 MG PO QID, (Reported) TAKES AT 0800, 1300, 1800, 2200 Diltiazem HCl (Diltiazem 24Hr ER) 120 Mg Cap.er.24h, 120 MG PO DAILY, (Reported) Ferrous Sulfate (Ferrous Sulfate) 325 Mg Tablet, 325 MG PO BID, (Reported) Multivitamins (Thera M Plus Tablet) 1 Each Tablet, 1 TAB PO DAILY, (Reported) [place]-3 Fatty Acids/Fish Oil (Fish Oil 1,000 mg Capsule) 1 Each Capsule, 1,000 MG PO DAILY, (Reported) Pantoprazole Sodium (Pantoprazole Sodium) 40 Mg Tablet.dr, 40 MG PO DAILY, (Reported) Pravastatin Sodium (Pravastatin Sodium) 20 Mg Tablet, 20 MG PO QHS, (Reported) Sertraline HCl (Sertraline HCl) 50 Mg Tablet, 50 MG PO QHS, (Reported) allopurinoL (allopurinoL) 300 Mg Tablet, 300 MG PO DAILY, (Reported) Scheduled PRN Acetaminophen with Codeine (Acetaminophen-Cod #3 Tablet) 1 Tab Tab, 0.5 TAB PO Q6H PRN for PAIN, (Reported) Docusate Sodium (Docusate Sodium) 100 Mg Capsule, 100 MG PO BID PRN for CONSTIPATION, (Reported) Allergies Coded Allergies: No Known Allergies (Verified Allergy, Unknown, 05/09/20) NATE HANDY MD Aug 01, 2021 09:26
--- NOTE | 2021-08-01 16:46 | ECGEPIP ---
[facility] - ED Test Date: 2021-07-31 Pat Name: EZE SUNG Department: Room: [place] [address] Gender: Female Job Placement Officer: MOISÉS : 1950 Requested By: Adenike Fritz Order Number: [id number] Reading MD: Adenike Fritz Measurements Intervals [place] Rate: 76 P: 51 MD: 156 QRS: -9 QRSD: 108 T: 76 QT: 442 QTc: 497 Interpretive Statements Normal sinus rhythm Nonspecific T wave abnormality Prolonged QT compared 05/19/20 Electronically Signed on 08-01-2021 16:45:57 EDT by Adenike Fritz
== END 2021-08-01 13:56 | disposition home or self-care (01) | DRG 379 ==
LOC: M ED 10:16 → EDBD 10:16 → M ED INP 13:30 → ENRESERV 14:20 → M MSPAV 16:00
PROVIDERS: ADMIT Internal Medicine; ATTEND Internal Medicine
DX: K62.5 Hemorrhage of anus and rectum (principal); I48.91 Unspecified atrial fibrillation; Z79.82 Long term (current) use of aspirin; E11.9 Type 2 diabetes mellitus without complications; I10 Essential (primary) hypertension; Z79.899 Other long term (current) drug therapy; Z85.118 Personal history of other malignant neoplasm of bronchus and lung; F17.200 Nicotine dependence, unspecified, uncomplicated

== ENCOUNTER → 2021-08-30 | Outpatient (CLI) | payer MEDICARE ==
[~2021-08-30] MED LIST changes: +DILT120C78 PO; +FERR1TAB8 PO; +GASTROGRAFIN SOLUTION 30ML (Q9963) As Ordered ONE; +ISOVUE-370 76% 100ML VIAL As Ordered ONE; +SERT50TA29 PO; +[UNRECOGNIZED DRUG - SUPPLY]
--- NOTE | 2021-08-30 14:37 | REP ---
INDICATION: RESTAGING LUNG CA. COMPARISON: Multiple the latest 04/15/2021 TECHNIQUE: Standard helical technique after the intravenous administration of 100 cc Isovue 370. Oral bowel preparatory contrast was also administered prior to the exam. FINDINGS: The liver, gallbladder, spleen, pancreas, adrenal glands, and kidneys are unchanged. The abdominal aorta and para-aortic regions are unchanged. The bowel loops and the mesenteries are unchanged. There is no free fluid or free air. There is a tiny left-sided spigelian hernia containing adipose only status quo. There is a small umbilical hernia status quo. There is no evidence of a mass or adenopathy. Bone window technique throughout the examination shows no significant change in appearance of the osseous structures. Advanced bilateral hip degenerative changes are noted status quo with spinal degenerative changes. There is an unchanged L5 upon S1 spondylolisthesis. IMPRESSION: There is no evidence of acute disease. Stable chronic changes. <Electronically signed by Jose Alfredo Rosario > 08/30/21 [id number]
--- NOTE | 2021-08-30 14:51 | REP ---
INDICATION: LUNG CA COMPARISON: Multiple the latest 04/15/2021 TECHNIQUE: Standard helical technique after the intravenous administration of 100 cc Isovue 370 FINDINGS: The mediastinum and pulmonary stevan are unchanged. There is no new mass or adenopathy. There is an unchanged pericardial effusion and a small amount of posterosuperior loculated pleural fluid on the left status quo. Bone window technique throughout the examination shows no change in the osseous structures Evaluation of the lung rojas shows a large unchanged left upper lung field opacity some of which is pleural based and having multiple air bronchograms status quo. Air bronchograms and an irregular consolidated opacity is again seen in the superior segment of the left lower lobe status quo. No new abnormal nodules, masses, or opacities have developed. IMPRESSION: There has been no significant change. Findings as described above. <Electronically signed by Jose Alfredo Rosario > 08/30/21 [id number]
== END ==
LOC: M RAD 11:32
PROVIDERS: ATTEND Internal Medicine Medical Oncology
DX: C34.12 Malignant neoplasm of upper lobe, left bronchus or lung (principal)
CPT/HCPCS: 71260; 74177; Q9963; Q9967

== ENCOUNTER → 2021-09-30 | Outpatient (CLI) | payer MEDICARE ==
[~2021-09-30] MED LIST changes: -GASTROGRAFIN SOLUTION 30ML (Q9963) As Ordered ONE; -ISOVUE-370 76% 100ML VIAL As Ordered ONE; +PROHANCE 279.3MG/ML 15ML VIAL As Ordered ONE
--- NOTE | 2021-09-30 15:31 | REPVR ---
PROCEDURE INFORMATION: Exam: MR Head Without and With Contrast Exam date and time: 09/30/2021 1:41 PM Age: 71 years old Clinical indication: Condition or disease; History of cancer (specify primary cancer site): ; Primary cancer: Lung CA TECHNIQUE: Imaging protocol: MR of the head without and with intravenous contrast. Contrast material: PROHANCE; Contrast volume: 14 ml; Contrast route: INTRAVENOUS (IV); COMPARISON: MRI-Brain W/O FOLL BY WITH 06/01/2021 1:14 PM FINDINGS: Brain: I see no evidence of acute hemorrhage or acute territorial infarct. For age there are mild diffuse involutional changes in the brain with mild T2 and FLAIR hyperintensities suggest small vessel disease, comparable to the prior. No abnormal enhancement in the brain. The expected vascular flow voids are present centrally. Cerebral ventricles: Normal. No ventriculomegaly. Bones/joints: Unremarkable. Paranasal sinuses: Normal as visualized. No acute sinusitis. Mastoid air cells: Normal as visualized. No mastoid effusion. Orbital cavity: Unremarkable. Soft tissues: Unremarkable. IMPRESSION: No acute abnormality or significant interval change from the prior. No evidence of ACCESS CONTROL SPECIALIST metastatic disease identified today. Electronically signed by: Alfred Mujica On 09/30/2021 15:30:59 PM
== END ==
LOC: M RAD 12:12
PROVIDERS: ATTEND General Practice
DX: C34.12 Malignant neoplasm of upper lobe, left bronchus or lung (principal)
CPT/HCPCS: 70553; A9576

== ENCOUNTER → 2021-10-12 | Outpatient (CLI) | payer MEDICARE ==
[~2021-10-12] MED LIST changes: -PROHANCE 279.3MG/ML 15ML VIAL As Ordered ONE
--- NOTE | 2021-10-12 15:45 | RADONC ---
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 She was diagnosed in April 2020. 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 She returned to the hospital on 05/19/20 with SOB which led to SCLC diagnosis. She began chemotherapy for the SCLC and after cycle 1 developed SBO from the carcinoid which required emergent surgical management, she was admitted from 07/04/20-07/14/20. She resumed chemotherapy in early July 2020, and completed cycle 4 on 09/07/20. She had thoracic RT concurrent with the final cycle of chemotherapy 66 Gy in 33 fractions from 09/07/20-10/25/20. She opted for MRI surveillance as opposed to PCI. She continues on atezolizumab without evidence of progression. Diagnosis/Treatment History Oncologic History As above. Recent data: 09/30/21 MRI head negative 08/30/21 CT chest abdomen pelvis negative Interval History Janeth feels tired, thinks she has a cold. She has ongoing low back and leg pain, chronic and stable. Appetite however, is good and weight is stable. Current Therapy Atezolizumab Stage SCLC CINDY [id number] AJCC Stage IIIB Social History: Former smoker >50+ pk year Drinks 1-2 'small brandys' per day Allergies / Meds Allergies: Coded Allergies: No Known Allergies (Verified Allergy, Unknown, 05/09/20) Home Meds Active Scripts [Commode Chair] No Conflict Check, #1 Prov:ESAU EDWARDS MD 08/16/21 Reported Medications Sertraline HCl (Sertraline HCl) 50 Mg Tablet, 50 MG PO QHS 07/31/21 Pravastatin Sodium (Pravastatin Sodium) 20 Mg Tablet, 20 MG PO QHS, TAB 07/31/21 Pantoprazole Sodium (Pantoprazole Sodium) 40 Mg Tablet.dr, 40 MG PO DAILY, TAB 07/31/21 Ferrous Sulfate (Ferrous Sulfate) 325 Mg Tablet, 325 MG PO BID, TAB 07/31/21 Diltiazem HCl (Diltiazem 24Hr ER) 120 Mg Cap.er.24h, 120 MG PO DAILY, CAP 07/31/21 allopurinoL (allopurinoL) 300 Mg Tablet, 300 MG PO DAILY 07/31/21 Aspirin (Ecotrin) 81 Mg Tablet.dr, 81 MG PO DAILY 03/09/21 Imperial-3 Fatty Acids/Fish Oil (Fish Oil 1,000 mg Capsule) 1 Each Capsule, 1000 MG PO DAILY 03/09/21 Calcium/Magnesium/Zinc (Pxnrrjf-Iwjfoyejk-Tnma Tablet) 1 Each Tablet, 1 TAB PO QHS, TAB 05/09/20 Multivitamins (Thera M Plus Tablet) 1 Each Tablet, 1 TAB PO DAILY, TAB 05/09/20 Docusate Sodium (Docusate Sodium) 100 Mg Capsule, 100 MG PO BID PRN for CONSTIPATION, CAP 05/09/20 Clonazepam (Clonazepam) 1 Mg Tablet, 0.5 MG PO QID, TAB TAKES AT 0800, 1300, 1800, 2200 05/09/20 Acetaminophen with Codeine (Acetaminophen-Cod #3 Tablet) 1 Tab Tab, 0.5 TAB PO Q6H PRN for PAIN 04/23/18 Review of Systems Review of Systems Constitutional: Reports: Fatigue; Denies: Weight Loss Eyes: Denies: Pain, Vision change HEENT: Denies: Head Aches Skin: Denies: Rash Pulmonary: Reports: Dyspnea; Denies: Cough Cardiovascular: Denies: Chest Pain, Edema Musculoskeletal: Reports: Back pain, Leg pain; Denies: Neck pain Neurological: Denies: Weakness, Numbness Psych: Reports: Mood Normal Physical Examination Vital Signs Wt 167 lbs P 90 RR 20 BP 117/69 O2 96% Pain 9 back Fatigue 1 General Exam: Alert, Cooperative, No Acute Distress Eye Exam: PERRLA, EOMI ENT EXAM: Atraumatic Neck Exam: Supple Chest Exam: Clear to auscultation, Normal air movement Heart Exam: Rate Normal Abdomen Exam: Soft Extremity Exam: Negative: Edema Skin Exam: Nl turgor and temperature Neuro Exam: Normal Gait, Normal Speech, Cranial Nerves 3-12 NL Psych Exam: Mental status NL Diagnostic and Laboratory Diagnostic Review Radiologic images, relevant labs and pathology reports were personally reviewed and discussed with Ms. Deras. Assessment and Plan Impression Assessment Ms. Deras is a 71 year old female former smoker with a history of limited stage ([id number] AJCC Stage IIIB) SCLC of the CINDY and mediastinum. She was diagnosed in April 2020. 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 She returned to the hospital on 05/19/20 with SOB which led to SCLC diagnosis. She began chemotherapy for the SCLC and after cycle 1 developed SBO from the carcinoid which required emergent surgical management, she was admitted from 07/04/20-07/14/20. She resumed chemotherapy in early July 2020, and completed cycle 4 on 09/07/20. She had thoracic RT concurrent with the final cycle of chemotherapy 66 Gy in 33 fractions from 09/07/20-10/25/20. She opted for MRI surveillance as opposed to PCI. She continues on atezolizumab without evidence of progression. She has no evidence of FILING CLERK metastases, will continue surveillance now q4m that she is 1 year removed from completion of primary therapy. She remains on atezolizumab without any major side effects. Encouraged her to continue this treatment. Performance Status ECOG 2 Plan 4 months with MRI brain Ms. Deras was encouraged to call with questions or concerns in the interim period. Billing Statement Total time of [22] minutes was spent preparing for the visit [1], obtaining HPI [3], examining the patient [1], reviewing diagnostic tests [4], discussing management options [5], coordinating care [2], and writing this note [6]. FORTUNATO MEYERS MD Oct 12, 2021 15:45
== END ==
LOC: M ONCR 13:03
PROVIDERS: ATTEND General Practice
DX: C34.12 Malignant neoplasm of upper lobe, left bronchus or lung (principal); D3A.019 Benign carcinoid tumor of the small intestine, unspecified portion; Z92.21 Personal history of antineoplastic chemotherapy; Z87.891 Personal history of nicotine dependence; Z79.899 Other long term (current) drug therapy

== ENCOUNTER → 2021-10-22 | Outpatient (CLI) | payer MEDICARE | LOC: M LABSMTC 09:14 | PROVIDERS: ATTEND Anesthesiology | DX: Z01.818 Encounter for other preprocedural examination (principal); Z11.52 Encounter for screening for COVID-19 ==

== ENCOUNTER 2021-10-26 07:25 | Day surgery (SDC) | payer MEDICARE ==
[~2021-10-26] VITALS: Ht 157.5 cm; Wt 72.6 kg
[~2021-10-26 07:25] MED LIST changes: +LIDOCAINE 2% 100MG/5ML SDV (FOR ANES.) As Ordered ONE; +NS 1,000 ML IV ONE; +fentaNYL 100 MCG/2 ML INJECTION As Ordered ONE; +propofoL 500 MG/50 ML VIAL As Ordered ONE
[2021-10-26] MEDS ORDERED: PHENYLephrine 500MCG 5ML (100MCG/ML) SYRINGE As Ordered ONE (08:42)
[2021-10-26] MEDS ORDERED: ePHEDrine SULFATE 25 MG/5 ML(5MG/ML) SYRINGE As Ordered ONE (08:42)
[2021-10-26 09:05] VITALS: BP_DIAS 65
[2021-10-26 09:23] VITALS: BP_SYST 117
== END 2021-10-26 09:54 | disposition home or self-care (01) ==
LOC: M OPP 07:25
PROVIDERS: ATTEND Surgery
DX: K57.30 Diverticulosis of large intestine without perforation or abscess without bleeding (principal); Z98.0 Intestinal bypass and anastomosis status; D50.9 Iron deficiency anemia, unspecified; K44.9 Diaphragmatic hernia without obstruction or gangrene; K31.819 Angiodysplasia of stomach and duodenum without bleeding; I10 Essential (primary) hypertension; I48.91 Unspecified atrial fibrillation; E11.9 Type 2 diabetes mellitus without complications; E78.5 Hyperlipidemia, unspecified; F41.9 Anxiety disorder, unspecified; Z85.028 Personal history of other malignant neoplasm of stomach; Z79.899 Other long term (current) drug therapy
CPT/HCPCS: 43235; 45378; J2370; J3010

== ENCOUNTER → 2021-12-01 | Outpatient (CLI) | payer MEDICARE ==
[~2021-12-01] MED LIST changes: +ISOVUE-370 76% 100ML VIAL As Ordered ONE; -LIDOCAINE 2% 100MG/5ML SDV (FOR ANES.) As Ordered ONE; -NS 1,000 ML IV ONE; -fentaNYL 100 MCG/2 ML INJECTION As Ordered ONE; -propofoL 500 MG/50 ML VIAL As Ordered ONE
== END ==
LOC: M RAD 13:27
PROVIDERS: ATTEND Internal Medicine Medical Oncology
DX: C34.90 Malignant neoplasm of unspecified part of unspecified bronchus or lung (principal)
CPT/HCPCS: 71260; Q9967

== ENCOUNTER → 2022-01-16 | Outpatient (CLI) | payer MEDICARE ==
[~2022-01-16] MED LIST changes: -ISOVUE-370 76% 100ML VIAL As Ordered ONE
== END ==
LOC: M PLARAD 09:00
PROVIDERS: ATTEND Internal Medicine Hematology & Oncology
DX: C34.82 Malignant neoplasm of overlapping sites of left bronchus and lung (principal)
CPT/HCPCS: 78815; A9552

== ENCOUNTER → 2022-02-16 | Outpatient (CLI) | payer MEDICARE | LOC: M ONCR 14:15 | PROVIDERS: ATTEND General Practice | DX: C34.12 Malignant neoplasm of upper lobe, left bronchus or lung (principal); Z79.82 Long term (current) use of aspirin; Z79.899 Other long term (current) drug therapy; Z87.891 Personal history of nicotine dependence; Z92.3 Personal history of irradiation; Z92.21 Personal history of antineoplastic chemotherapy ==

== ENCOUNTER 2022-02-22 10:24 | Inpatient (IN) | payer MEDICARE ==
[2022-02-22] MEDS ORDERED: methylPREDNISolone 125MG 2ML VIAL IV ONE (10:40)
[2022-02-22 10:48] LABS: VENOUS BASE EXCESS -3.6 (-2.0-2.0); VENOUS HCO3 21.8 MEQ/L (23.0-27.0); VENOUS O2 SATURATION 86.8 % (60.0-80.0); VENOUS PARTIAL PRESSURE CO2 40.7 mmHg (38.0-50.0); VENOUS PARTIAL PRESSURE O2 56.2 mmHg (30.0-50.0); VENOUS PH 7.347 UNITS (7.330-7.430); VENOUS STANDARD HCO3 21.3 MEQ/L; VENOUS TOTAL CO2 23.1 MEQ/L (24.0-28.0)
[2022-02-22] MEDS: IPRATROPIUM 0.5MG/ALBUTEROL 2.5MG INH SOL UD 3ML (DUONEB) NEB SCH ×3 (10:50→11:34)
[2022-02-22 10:53] LABS: BASO # 0.1 10^3/uL (0.0-0.2); BASO % 0.8 % (0.0-1.0); EOS # 0.1 10^3/uL (0.0-0.5); EOS % 0.8 % (0.0-3.0); HEMATOCRIT 38.2 % (36.0-47.0); LYMPH # 0.6 10^3/uL (1.5-5.0); LYMPH % 7.1 % (24.0-44.0); MEAN CORPUSCULAR HGB CONC 31.4 g/dl (32.0-36.5); MEAN CORPUSCULAR VOLUME 85.8 fl (80.0-96.0); MONO # 0.5 10^3/uL (0.0-0.8); MONO % 5.5 % (2.0-8.0); NEUTROPHILS # 7.1 10^3/uL (1.5-8.5); NEUTROPHILS % 85.2 % (36.0-66.0); PLATELET COUNT, AUTOMATED 236 10^3/uL (150-450); RED BLOOD COUNT 4.45 10^6/uL (4.00-5.40); WHITE BLOOD COUNT 8.4 10^3/uL (4.0-10.0)
[2022-02-22 12:25] LABS: ALBUMIN 3.6 GM/DL (3.2-5.2); ALT/SGPT 24 U/L (12-78); BILIRUBIN,DIRECT 0.2 MG/DL (0.0-0.2); BILIRUBIN,TOTAL 0.5 MG/DL (0.2-1.0); BLOOD UREA NITROGEN 10 MG/DL (7-18); CALCIUM LEVEL 9.2 MG/DL (8.8-10.2); CARBON DIOXIDE LEVEL 26 MEQ/L (21-32); CHLORIDE LEVEL 105 MEQ/L (98-107); CREATININE FOR GFR 0.41 MG/DL (0.55-1.30); GLOMERULAR FILTRATION RATE > 60.0 (>39); GLUCOSE, FASTING 122 MG/DL (70-100); NT-PRO BNP 8542 PG/ML (<125); POTASSIUM SERUM 3.6 MEQ/L (3.5-5.1); SODIUM LEVEL 137 MEQ/L (136-145); TOTAL PROTEIN 6.7 GM/DL (6.4-8.2)
[2022-02-22] MEDS ORDERED: ISOVUE-370 76% 100ML VIAL As Ordered ONE (13:02)
[2022-02-22] MEDS ORDERED: LEVALBUTEROL 1.25 MG/0.5 ML CONCENTRATE NEB INH PRN (15:10)
[2022-02-22 16:04] LABS: C REACTIVE PROTEIN QUANTITATIV 0.59 MG/DL (0.00-0.30); LDH LACTATE DEHYDROGENASE 216 U/L (84-246)
[2022-02-22 17:28] LABS: PH BODY FLUID 7.678 UNITS (NOT ESTABLISHED); SOURCE, BODY FLUID pH PLEURAL
[2022-02-22] MEDS: LEVALBUTEROL 1.25 MG/0.5 ML CONCENTRATE NEB INH SCH ×2 (17:30→19:31)
[2022-02-22] MEDS ORDERED: HOME MED LIST COMPLETE! XX SCH (17:35)
[2022-02-22 17:43] LABS: APPEARANCE, BODY FLUID CLEAR (CLEAR); PLEURAL FL COLOR YELLOW (COLORLESS); SOURCE, BODY FLUID PLEURAL
[2022-02-22 17:58] LABS: AMYLASE, BODY FLUID 10 U/L (NOT ESTABLISHED); CHOLESTEROL, BODY FLUID < 50 MG/DL (NOT ESTABLISHED); LDH, BODY FLUID 79 U/L (NOT ESTABLISHED); SOURCE, BODY FLUID ALBUMIN PLEURAL; SOURCE, BODY FLUID AMYLASE PLEURAL; SOURCE, BODY FLUID CHOL PLEURAL; SOURCE, BODY FLUID GLUCOSE PLEURAL; SOURCE, BODY FLUID LDH PLEURAL; SOURCE, BODY FLUID TOT PROTEIN PLEURAL; SOURCE, BODY FLUID TRIG PLEURAL; TOTAL PROTEIN, BODY FLUID 2.2 G/DL (NOT ESTABLISHED); TRIGLYCERIDE, BODY FLUID 17 MG/DL (NOT ESTABLISHED)
[2022-02-22 18:03] VITALS: BP 139/100
[2022-02-22 18:21] VITALS: BP 131/87
[2022-02-22] MEDS: clonazePAM 1 MG TAB PO SCH ×2 (18:41→22:24)
[2022-02-22] MEDS: FUROSEMIDE 40MG/4ML VIAL (J1940) IV SCH (18:42)
[2022-02-22] MEDS: ACETAMINOPHEN TAB 650MG DOSE (2X325MG) PO PRN (18:42)
[2022-02-22 18:57] LABS: MB/CK RELATIVE INDEX 5.8 (< OR =4)
[2022-02-22] MEDS: PRAVASTATIN 20 MG TAB PO SCH (19:47)
[2022-02-22] MEDS: SERTRALINE HCL 50 MG TAB PO SCH (19:47)
[2022-02-22] MEDS: FERROUS SULFATE 325MG TAB PO SCH (19:48)
[2022-02-22] MEDS ORDERED: methylPREDNISolone 40MG 1ML VIAL IV SCH (23:00)
[2022-02-23] VITALS (7 sets, daily range): BP systolic 108–129; BP diastolic 62–83
[2022-02-23] MEDS: LEVALBUTEROL 1.25 MG/0.5 ML CONCENTRATE NEB INH SCH ×7 (00:05→23:59)
[2022-02-23 05:59] LABS: HEMATOCRIT 34.7 % (36.0-47.0); HEMOGLOBIN 11.1 g/dl (12.0-15.5); LYMPH # 0.3 10^3/uL (1.5-5.0); LYMPH % 3.9 % (24.0-44.0); MEAN CORPUSCULAR HEMOGLOBIN 27.4 pg (27.0-33.0); MEAN CORPUSCULAR VOLUME 85.7 fl (80.0-96.0); MONO # 0.2 10^3/uL (0.0-0.8); NEUTROPHILS # 6.2 10^3/uL (1.5-8.5); NEUTROPHILS % 92.6 % (36.0-66.0); PLATELET COUNT, AUTOMATED 236 10^3/uL (150-450); RED BLOOD COUNT 4.05 10^6/uL (4.00-5.40); WHITE BLOOD COUNT 6.7 10^3/uL (4.0-10.0)
[2022-02-23 06:12] LABS: BLOOD UREA NITROGEN 14 MG/DL (7-18); C REACTIVE PROTEIN QUANTITATIV 0.51 MG/DL (0.00-0.30); CALCIUM LEVEL 9.1 MG/DL (8.8-10.2); CARBON DIOXIDE LEVEL 26 MEQ/L (21-32); CHLORIDE LEVEL 107 MEQ/L (98-107); CREATININE FOR GFR 0.46 MG/DL (0.55-1.30); GLOMERULAR FILTRATION RATE > 60.0 (>39); GLUCOSE, FASTING 161 MG/DL (70-100); MAGNESIUM LEVEL 1.8 MG/DL (1.8-2.4); POTASSIUM SERUM 3.2 MEQ/L (3.5-5.1); SODIUM LEVEL 139 MEQ/L (136-145)
[2022-02-23 06:32] LABS: CK-MB VALUE MASS 4.2 NG/ML (<3.6); MB/CK RELATIVE INDEX 6.36 (< OR =4)
[2022-02-23] MEDS ORDERED: POTASSIUM CHLORIDE 10MEQ SR TABLET PO ONE ×2 (07:10→12:00)
[2022-02-23] MEDS: clonazePAM 1 MG TAB PO SCH ×4 (08:59→21:01)
[2022-02-23] MEDS: ASPIRIN 81MG ENTERIC TABLET PO SCH (08:59)
[2022-02-23] MEDS: MULTIVITAMINS/MINERALS THERAP 1 TAB PO SCH (09:00)
[2022-02-23] MEDS: OMEGA-3 1000MG CAPSULE PO SCH (09:00)
[2022-02-23] MEDS: PANTOPRAZOLE 40MG TAB (PROTONIX) PO SCH (09:00)
[2022-02-23] MEDS: FERROUS SULFATE 325MG TAB PO SCH ×2 (09:00→20:22)
[2022-02-23] MEDS: predniSONE 20 MG TAB PO SCH (09:00)
[2022-02-23] MEDS: allopurinoL 300 MG TAB PO SCH (09:01)
[2022-02-23] MEDS: FUROSEMIDE 40MG/4ML VIAL (J1940) IV SCH ×2 (09:01→17:17)
[2022-02-23] MEDS: ENOXAPARIN 40MG/0.4ML SYRINGE (J1650 PER 10MG) SC SCH (09:01)
[2022-02-23] MEDS: PRAVASTATIN 20 MG TAB PO SCH (20:22)
[2022-02-23] MEDS: SERTRALINE HCL 50 MG TAB PO SCH (20:22)
[2022-02-23] MEDS: ACETAMINOPHEN TAB 650MG DOSE (2X325MG) PO PRN (21:01)
[2022-02-24] VITALS: BP 117/67
[2022-02-24] MEDS: LEVALBUTEROL 1.25 MG/0.5 ML CONCENTRATE NEB INH SCH ×6 (03:22→23:55)
[2022-02-24 04:00] VITALS: BP 109/74
[2022-02-24 05:40] LABS: BASO % 0.1 % (0.0-1.0); EOS % 0.1 % (0.0-3.0); HEMATOCRIT 33.7 % (36.0-47.0); HEMOGLOBIN 10.6 g/dl (12.0-15.5); LYMPH # 0.6 10^3/uL (1.5-5.0); MEAN CORPUSCULAR HEMOGLOBIN 27.2 pg (27.0-33.0); MEAN CORPUSCULAR HGB CONC 31.5 g/dl (32.0-36.5); MEAN CORPUSCULAR VOLUME 86.4 fl (80.0-96.0); MONO # 0.7 10^3/uL (0.0-0.8); MONO % 5.6 % (2.0-8.0); NEUTROPHILS # 11.3 10^3/uL (1.5-8.5); NEUTROPHILS % 88.6 % (36.0-66.0); PLATELET COUNT, AUTOMATED 233 10^3/uL (150-450); WHITE BLOOD COUNT 12.8 10^3/uL (4.0-10.0)
[2022-02-24 06:08] LABS: BLOOD UREA NITROGEN 31 MG/DL (7-18); CALCIUM LEVEL 9.3 MG/DL (8.8-10.2); CARBON DIOXIDE LEVEL 27 MEQ/L (21-32); CHLORIDE LEVEL 108 MEQ/L (98-107); GLOMERULAR FILTRATION RATE > 60.0 (>39); GLUCOSE, FASTING 121 MG/DL (70-100); MAGNESIUM LEVEL 1.9 MG/DL (1.8-2.4); POTASSIUM SERUM 3.9 MEQ/L (3.5-5.1); SODIUM LEVEL 140 MEQ/L (136-145)
[2022-02-24] MEDS: clonazePAM 1 MG TAB PO SCH ×4 (07:39→21:02)
[2022-02-24 08:00] VITALS: BP 112/76
[2022-02-24] MEDS: ENOXAPARIN 40MG/0.4ML SYRINGE (J1650 PER 10MG) SC SCH (08:28)
[2022-02-24] MEDS: FERROUS SULFATE 325MG TAB PO SCH ×2 (08:29→20:33)
[2022-02-24] MEDS: ASPIRIN 81MG ENTERIC TABLET PO SCH (08:29)
[2022-02-24] MEDS: predniSONE 20 MG TAB PO SCH (08:30)
[2022-02-24] MEDS: allopurinoL 300 MG TAB PO SCH (08:30)
[2022-02-24] MEDS: MULTIVITAMINS/MINERALS THERAP 1 TAB PO SCH (08:30)
[2022-02-24] MEDS: PANTOPRAZOLE 40MG TAB (PROTONIX) PO SCH (08:30)
[2022-02-24] MEDS: OMEGA-3 1000MG CAPSULE PO SCH (08:30)
[2022-02-24] MEDS ORDERED: PRED10TA2 PO (10:04)
[2022-02-24] MEDS ORDERED: FURO20TA2 PO (10:04)
[2022-02-24 10:59] VITALS: BP 121/81
[2022-02-24] MEDS: FUROSEMIDE 20 MG TAB PO SCH (10:59)
[2022-02-24 16:01] VITALS: BP 118/69
[2022-02-24] MEDS: ACETAMINOPHEN TAB 650MG DOSE (2X325MG) PO PRN (17:03)
[2022-02-24] MEDS: PRAVASTATIN 20 MG TAB PO SCH (20:31)
[2022-02-24] MEDS: SERTRALINE HCL 50 MG TAB PO SCH (20:31)
[2022-02-24] MEDS: ENTRESTO 24-26MG TABLET (SACUBITRIL/VALSARTAN) PO SCH (20:31)
[2022-02-24] MEDS ORDERED: METOPROLOL SUCC (TopROL XL) 100MG *XL* TAB PO SCH (21:00)
[2022-02-25 04:00] VITALS: BP 108/69
[2022-02-25] MEDS: LEVALBUTEROL 1.25 MG/0.5 ML CONCENTRATE NEB INH SCH ×4 (04:00→15:29)
[2022-02-25 05:38] LABS: BASO % 0.2 % (0.0-1.0); EOS % 0.3 % (0.0-3.0); HEMATOCRIT 35.5 % (36.0-47.0); HEMOGLOBIN 11.1 g/dl (12.0-15.5); LYMPH # 0.8 10^3/uL (1.5-5.0); LYMPH % 9.4 % (24.0-44.0); MEAN CORPUSCULAR HEMOGLOBIN 27.3 pg (27.0-33.0); MEAN CORPUSCULAR HGB CONC 31.3 g/dl (32.0-36.5); MEAN CORPUSCULAR VOLUME 87.2 fl (80.0-96.0); MONO # 0.5 10^3/uL (0.0-0.8); NEUTROPHILS # 7.4 10^3/uL (1.5-8.5); NEUTROPHILS % 83.3 % (36.0-66.0); PLATELET COUNT, AUTOMATED 244 10^3/uL (150-450); RED BLOOD COUNT 4.07 10^6/uL (4.00-5.40); WHITE BLOOD COUNT 8.9 10^3/uL (4.0-10.0)
[2022-02-25 05:59] LABS: BLOOD UREA NITROGEN 24 MG/DL (7-18); CALCIUM LEVEL 9.1 MG/DL (8.8-10.2); CARBON DIOXIDE LEVEL 28 MEQ/L (21-32); CHLORIDE LEVEL 106 MEQ/L (98-107); CREATININE FOR GFR 0.52 MG/DL (0.55-1.30); GLOMERULAR FILTRATION RATE > 60.0 (>39); GLUCOSE, FASTING 113 MG/DL (70-100); MAGNESIUM LEVEL 1.9 MG/DL (1.8-2.4); POTASSIUM SERUM 3.5 MEQ/L (3.5-5.1); SODIUM LEVEL 140 MEQ/L (136-145)
[2022-02-25 07:57] VITALS: BP 125/77
[2022-02-25] MEDS: clonazePAM 1 MG TAB PO SCH ×3 (08:17→17:25)
[2022-02-25] MEDS: ENTRESTO 24-26MG TABLET (SACUBITRIL/VALSARTAN) PO SCH (08:18)
[2022-02-25] MEDS: FUROSEMIDE 20 MG TAB PO SCH (08:18)
[2022-02-25] MEDS: predniSONE 20 MG TAB PO SCH (08:18)
[2022-02-25] MEDS: PANTOPRAZOLE 40MG TAB (PROTONIX) PO SCH (08:18)
[2022-02-25] MEDS: OMEGA-3 1000MG CAPSULE PO SCH (08:18)
[2022-02-25] MEDS: MULTIVITAMINS/MINERALS THERAP 1 TAB PO SCH (08:18)
[2022-02-25] MEDS: FERROUS SULFATE 325MG TAB PO SCH (08:18)
[2022-02-25] MEDS: allopurinoL 300 MG TAB PO SCH (08:19)
[2022-02-25 08:51] VITALS: BP 125/77
[2022-02-25] MEDS ORDERED: LISINOPRIL *2.5 MG* TAB PO SCH (09:00)
[2022-02-25] MEDS ORDERED: METOPROLOL SUCC (TopROL XL) 100MG *XL* TAB PO SCH (09:00)
[2022-02-25] MEDS ORDERED: APIXABAN 5 MG TAB (ELIQUIS) PO SCH (09:00)
[2022-02-25] MEDS ORDERED: METOPROLOL SUCC *XL* 25MG TAB (TopROL *XL*) PO SCH (09:00)
[2022-02-25] MEDS ORDERED: METO1TAB32 PO (10:16)
[2022-02-25] MEDS ORDERED: ELIQ5TAB PO (10:16)
[2022-02-25] MEDS ORDERED: PRED10TA2 PO (10:16)
[2022-02-25] MEDS ORDERED: ENTR1TAB PO (10:16)
[2022-02-25] MEDS ORDERED: XARE20TA PO (11:34)
[2022-02-25] MEDS ORDERED: WARF-23 PO (13:32)
[2022-02-25] MEDS ORDERED: METO1TAB7 PO (13:32)
[2022-02-25] MEDS ORDERED: LISI10TA22 PO (13:48)
== END 2022-02-25 17:50 | disposition home health service (06) | DRG 291 ==
LOC: EDBD 10:24 → M ED 10:24 → M ED INP 15:07 → ENRESERV 16:19 → M PCU 17:51
PROVIDERS: ADMIT Internal Medicine; ATTEND Internal Medicine
PROC: 0W993ZZ Drainage of Right Pleural Cavity, Percutaneous Approach (ICD-10-PCS; principal; 2022-02-22 16:30)
DX: I11.0 Hypertensive heart disease with heart failure (principal); I50.43 Acute on chronic combined systolic (congestive) and diastolic (congestive) heart failure; J90 Pleural effusion, not elsewhere classified; E87.2 Acidosis; J45.909 Unspecified asthma, uncomplicated; M54.9 Dorsalgia, unspecified; M10.9 Gout, unspecified; K21.9 Gastro-esophageal reflux disease without esophagitis; I48.91 Unspecified atrial fibrillation; R09.02 Hypoxemia; F32.A Depression, unspecified; F41.9 Anxiety disorder, unspecified; Z85.118 Personal history of other malignant neoplasm of bronchus and lung; Z92.21 Personal history of antineoplastic chemotherapy; Z92.3 Personal history of irradiation; Z92.25 Personal history of immunosuppression therapy; Z88.6 Allergy status to analgesic agent; Z79.899 Other long term (current) drug therapy

== ENCOUNTER → 2022-02-28 | Outpatient (REF) | payer MEDICARE ==
[~2022-02-28] MED LIST changes: -ACET1TAB16 PO; +ACET300T48 PO; +ENTR1TAB PO; +FURO20TA2 PO; +LISI10TA22 PO; +METO1TAB32 PO; +METO1TAB7 PO; -METR-135 PO; +METR-369 PO; +PRED10TA2 PO; +WARF-23 PO; +XARE20TA PO
[2022-02-28 11:27] LABS: INR 1.28; PROTHROMBIN TIME 16.4 SECONDS (12.7-14.5)
== END ==
LOC: M SHH 10:59
PROVIDERS: ATTEND Internal Medicine Nephrology
DX: Z51.81 Encounter for therapeutic drug level monitoring (principal); Z79.01 Long term (current) use of anticoagulants

== ENCOUNTER 2022-03-13 13:56 | Inpatient (IN) | payer MEDICARE ==
[~2022-03-13] VITALS: Ht 154.9 cm; Wt 71.7 kg
[2022-03-13 14:53] LABS: BASO # 0.1 10^3/uL (0.0-0.2); BASO % 0.8 % (0.0-1.0); EOS # 0.1 10^3/uL (0.0-0.5); EOS % 0.8 % (0.0-3.0); HEMATOCRIT 35.1 % (36.0-47.0); LYMPH # 0.4 10^3/uL (1.5-5.0); LYMPH % 6.1 % (24.0-44.0); MEAN CORPUSCULAR HEMOGLOBIN 27.6 pg (27.0-33.0); MEAN CORPUSCULAR HGB CONC 31.3 g/dl (32.0-36.5); MONO # 0.4 10^3/uL (0.0-0.8); MONO % 7.1 % (2.0-8.0); NEUTROPHILS # 5.3 10^3/uL (1.5-8.5); NEUTROPHILS % 84.7 % (36.0-66.0); PLATELET COUNT, AUTOMATED 197 10^3/uL (150-450); RED BLOOD COUNT 3.99 10^6/uL (4.00-5.40); WHITE BLOOD COUNT 6.2 10^3/uL (4.0-10.0)
[2022-03-13 15:20] LABS: MB/CK RELATIVE INDEX 6.45 (< OR =4)
[2022-03-13 15:28] LABS: ALBUMIN 3.3 GM/DL (3.2-5.2); ALT/SGPT 27 U/L (12-78); BILIRUBIN,DIRECT 0.3 MG/DL (0.0-0.2); BILIRUBIN,TOTAL 0.7 MG/DL (0.2-1.0); BLOOD UREA NITROGEN 15 MG/DL (7-18); CALCIUM LEVEL 8.5 MG/DL (8.8-10.2); CARBON DIOXIDE LEVEL 25 MEQ/L (21-32); CHLORIDE LEVEL 106 MEQ/L (98-107); CREATININE FOR GFR 0.57 MG/DL (0.55-1.30); GLOMERULAR FILTRATION RATE > 60.0 (>39); GLUCOSE, FASTING 141 MG/DL (70-100); NT-PRO BNP 13512 PG/ML (<125); POTASSIUM SERUM 3.8 MEQ/L (3.5-5.1); SODIUM LEVEL 138 MEQ/L (136-145)
[2022-03-13] MEDS ORDERED: FUROSEMIDE 40MG/4ML VIAL (J1940) IV ONE (17:15)
[2022-03-13] MEDS ORDERED: DILT1CAP PO (17:25)
[2022-03-13] MEDS ORDERED: ISOVUE-370 76% 100ML VIAL As Ordered ONE (17:40)
[2022-03-13] MEDS ORDERED: LISI10TA22 PO (17:59)
[2022-03-13] MEDS ORDERED: FURO20TA2 PO (17:59)
[2022-03-13] MEDS ORDERED: ASPI81TA26 PO (17:59)
[2022-03-13] MEDS ORDERED: METO1TAB7 PO (17:59)
[2022-03-13] MEDS ORDERED: HOME MED LIST COMPLETE! XX SCH (18:00)
[2022-03-13] MEDS ORDERED: MAALOX 30 ML SUSP *UDC PO PRN (18:05)
[2022-03-13 20:25] VITALS: BP 119/79
[2022-03-13 20:44] LABS: INR 1.12; PROTHROMBIN TIME 14.8 SECONDS (12.7-14.5)
[2022-03-13] MEDS: ENOXAPARIN 80MG/0.8ML SYRINGE (J1650 PER 10MG) SC SCH (22:05)
[2022-03-13] MEDS: DOCUSATE SODIUM 100MG CAPSULE PO SCH (22:06)
[2022-03-13] MEDS: clonazePAM 1 MG TAB PO SCH (22:06)
[2022-03-13] MEDS: PRAVASTATIN 20 MG TAB PO SCH (22:06)
[2022-03-13] MEDS: SERTRALINE HCL 50 MG TAB PO SCH (22:08)
[2022-03-13] MEDS ORDERED: SODIUM CHLORIDE NASAL 0.65% SPRAY BTL (OCEAN) PRN (23:15)
[2022-03-14] MEDS: FUROSEMIDE 40MG/4ML VIAL (J1940) IV SCH ×3 (00:11→15:19)
[2022-03-14] MEDS: ACETAMINOPHEN TAB 650MG DOSE (2X325MG) PO PRN ×2 (01:10→20:38)
[2022-03-14 04:53] VITALS: O2SAT 94
[2022-03-14 05:34] LABS: BASO % 0.7 % (0.0-1.0); EOS # 0.1 10^3/uL (0.0-0.5); EOS % 0.9 % (0.0-3.0); HEMATOCRIT 35.2 % (36.0-47.0); HEMOGLOBIN 11.1 g/dl (12.0-15.5); LYMPH # 0.5 10^3/uL (1.5-5.0); LYMPH % 8.5 % (24.0-44.0); MEAN CORPUSCULAR HEMOGLOBIN 27.1 pg (27.0-33.0); MEAN CORPUSCULAR HGB CONC 31.5 g/dl (32.0-36.5); MEAN CORPUSCULAR VOLUME 86.1 fl (80.0-96.0); MONO # 0.5 10^3/uL (0.0-0.8); MONO % 8.3 % (2.0-8.0); NEUTROPHILS # 4.6 10^3/uL (1.5-8.5); NEUTROPHILS % 81.2 % (36.0-66.0); PLATELET COUNT, AUTOMATED 184 10^3/uL (150-450); RED BLOOD COUNT 4.09 10^6/uL (4.00-5.40); WHITE BLOOD COUNT 5.6 10^3/uL (4.0-10.0)
[2022-03-14 05:45] LABS: INR 1.16; PROTHROMBIN TIME 15.2 SECONDS (12.7-14.5)
[2022-03-14 05:58] LABS: ALBUMIN 3.1 GM/DL (3.2-5.2); ALT/SGPT 23 U/L (12-78); BILIRUBIN,TOTAL 0.8 MG/DL (0.2-1.0); BLOOD UREA NITROGEN 10 MG/DL (7-18); CALCIUM LEVEL 8.8 MG/DL (8.8-10.2); CARBON DIOXIDE LEVEL 27 MEQ/L (21-32); CHLORIDE LEVEL 107 MEQ/L (98-107); CREATININE FOR GFR 0.37 MG/DL (0.55-1.30); GLOMERULAR FILTRATION RATE > 60.0 (>39); GLUCOSE, FASTING 100 MG/DL (70-100); MAGNESIUM LEVEL 1.8 MG/DL (1.8-2.4); POTASSIUM SERUM 3.1 MEQ/L (3.5-5.1); SODIUM LEVEL 142 MEQ/L (136-145); TOTAL PROTEIN 6.3 GM/DL (6.4-8.2)
[2022-03-14 06:00] VITALS: BP 120/68
[2022-03-14] MEDS ORDERED: POTASSIUM CHLORIDE 10MEQ SR TABLET PO ONE ×2 (07:20→15:55)
[2022-03-14] MEDS: clonazePAM 1 MG TAB PO SCH ×5 (07:51→22:40)
[2022-03-14 08:15] VITALS: BP 120/68
[2022-03-14] MEDS: PANTOPRAZOLE 40MG TAB (PROTONIX) PO SCH (09:16)
[2022-03-14] MEDS: MULTIVITAMINS/MINERALS THERAP 1 TAB PO SCH (09:16)
[2022-03-14] MEDS: ENOXAPARIN 80MG/0.8ML SYRINGE (J1650 PER 10MG) SC SCH ×2 (09:16→20:38)
[2022-03-14] MEDS: DOCUSATE SODIUM 100MG CAPSULE PO SCH ×2 (09:17→20:38)
[2022-03-14] MEDS: ASPIRIN 81MG ENTERIC TABLET PO SCH (09:17)
[2022-03-14] MEDS: allopurinoL 300 MG TAB PO SCH (09:17)
[2022-03-14] MEDS: METOPROLOL SUCC (TopROL XL) 50MG **XL** TAB PO SCH (09:17)
[2022-03-14] MEDS ORDERED: ELIQ5TAB PO (10:56)
[2022-03-14 11:41] LABS: CK-MB VALUE MASS 1.8 NG/ML (<3.6); MB/CK RELATIVE INDEX 6.21 (< OR =4)
[2022-03-14 14:00] VITALS: BP 114/72
[2022-03-14 14:01] LABS: CK-MB VALUE MASS 1.7 NG/ML (<3.6)
[2022-03-14] MEDS: PRAVASTATIN 20 MG TAB PO SCH (20:40)
[2022-03-14] MEDS: SERTRALINE HCL 50 MG TAB PO SCH (20:40)
[2022-03-15] MEDS: FUROSEMIDE 40MG/4ML VIAL (J1940) IV SCH ×3 (00:53→15:09)
[2022-03-15 01:27] VITALS: O2SAT 94
[2022-03-15 06:17] LABS: BASO # 0.1 10^3/uL (0.0-0.2); BASO % 1.1 % (0.0-1.0); EOS # 0.1 10^3/uL (0.0-0.5); HEMATOCRIT 37.1 % (36.0-47.0); HEMOGLOBIN 11.8 g/dl (12.0-15.5); LYMPH # 0.4 10^3/uL (1.5-5.0); LYMPH % 9.6 % (24.0-44.0); MEAN CORPUSCULAR HEMOGLOBIN 27.4 pg (27.0-33.0); MEAN CORPUSCULAR HGB CONC 31.8 g/dl (32.0-36.5); MEAN CORPUSCULAR VOLUME 86.3 fl (80.0-96.0); MONO # 0.4 10^3/uL (0.0-0.8); NEUTROPHILS # 3.5 10^3/uL (1.5-8.5); NEUTROPHILS % 77.9 % (36.0-66.0); PLATELET COUNT, AUTOMATED 177 10^3/uL (150-450); WHITE BLOOD COUNT 4.5 10^3/uL (4.0-10.0)
[2022-03-15 06:34] LABS: INR 1.13; PROTHROMBIN TIME 14.9 SECONDS (12.7-14.5)
[2022-03-15 06:42] LABS: ALBUMIN 2.9 GM/DL (3.2-5.2); ALT/SGPT 22 U/L (12-78); BILIRUBIN,TOTAL 0.7 MG/DL (0.2-1.0); BLOOD UREA NITROGEN 13 MG/DL (7-18); CARBON DIOXIDE LEVEL 27 MEQ/L (21-32); CHLORIDE LEVEL 107 MEQ/L (98-107); CREATININE FOR GFR 0.41 MG/DL (0.55-1.30); GLOMERULAR FILTRATION RATE > 60.0 (>39); GLUCOSE, FASTING 91 MG/DL (70-100); MAGNESIUM LEVEL 1.8 MG/DL (1.8-2.4); NT-PRO BNP 6777 PG/ML (<125); POTASSIUM SERUM 3.2 MEQ/L (3.5-5.1); SODIUM LEVEL 142 MEQ/L (136-145); TOTAL PROTEIN 6.2 GM/DL (6.4-8.2)
[2022-03-15 08:15] VITALS: BP 114/72
[2022-03-15] MEDS: ENOXAPARIN 80MG/0.8ML SYRINGE (J1650 PER 10MG) SC SCH ×2 (08:19→22:09)
[2022-03-15] MEDS: ASPIRIN 81MG ENTERIC TABLET PO SCH (08:19)
[2022-03-15] MEDS: DOCUSATE SODIUM 100MG CAPSULE PO SCH ×2 (08:19→21:00)
[2022-03-15] MEDS: MULTIVITAMINS/MINERALS THERAP 1 TAB PO SCH (08:20)
[2022-03-15] MEDS: PANTOPRAZOLE 40MG TAB (PROTONIX) PO SCH (08:20)
[2022-03-15] MEDS: METOPROLOL SUCC (TopROL XL) 50MG **XL** TAB PO SCH (08:21)
[2022-03-15] MEDS: clonazePAM 1 MG TAB PO SCH ×4 (08:21→22:09)
[2022-03-15] MEDS: allopurinoL 300 MG TAB PO SCH (08:21)
[2022-03-15] MEDS: POTASSIUM CHLORIDE 10MEQ SR TABLET PO SCH ×2 (08:22→22:10)
[2022-03-15] MEDS ORDERED: POTA1TAB14 PO (12:20)
[2022-03-15] MEDS ORDERED: FURO40TA2 PO (12:20)
[2022-03-15] MEDS ORDERED: LOVE0.6I2 SC (12:31)
[2022-03-15] MEDS: WARFARIN SOD 5MG TAB PO SCH (16:35)
[2022-03-15] MEDS: ACETAMINOPHEN TAB 650MG DOSE (2X325MG) PO PRN (18:03)
[2022-03-15 19:00] VITALS: BP 109/70
[2022-03-15] MEDS: SERTRALINE HCL 50 MG TAB PO SCH (22:15)
[2022-03-15] MEDS: PRAVASTATIN 20 MG TAB PO SCH (22:15)
[2022-03-15 23:19] VITALS: O2SAT 93
[2022-03-16] MEDS: FUROSEMIDE 40MG/4ML VIAL (J1940) IV SCH ×2 (00:01→10:02)
[2022-03-16 05:36] VITALS: BP 114/76
[2022-03-16 06:26] LABS: BASO % 0.6 % (0.0-1.0); EOS # 0.1 10^3/uL (0.0-0.5); EOS % 2.4 % (0.0-3.0); HEMATOCRIT 39.2 % (36.0-47.0); HEMOGLOBIN 12.4 g/dl (12.0-15.5); LYMPH # 0.5 10^3/uL (1.5-5.0); LYMPH % 9.7 % (24.0-44.0); MEAN CORPUSCULAR HEMOGLOBIN 27.4 pg (27.0-33.0); MEAN CORPUSCULAR HGB CONC 31.6 g/dl (32.0-36.5); MEAN CORPUSCULAR VOLUME 86.5 fl (80.0-96.0); MONO # 0.4 10^3/uL (0.0-0.8); MONO % 8.5 % (2.0-8.0); NEUTROPHILS # 3.9 10^3/uL (1.5-8.5); NEUTROPHILS % 78.6 % (36.0-66.0); PLATELET COUNT, AUTOMATED 202 10^3/uL (150-450); RED BLOOD COUNT 4.53 10^6/uL (4.00-5.40); WHITE BLOOD COUNT 4.9 10^3/uL (4.0-10.0)
[2022-03-16 06:48] LABS: ALBUMIN 3.4 GM/DL (3.2-5.2); ALT/SGPT 19 U/L (12-78); BILIRUBIN,TOTAL 0.5 MG/DL (0.2-1.0); BLOOD UREA NITROGEN 19 MG/DL (7-18); CALCIUM LEVEL 9.1 MG/DL (8.8-10.2); CARBON DIOXIDE LEVEL 27 MEQ/L (21-32); CHLORIDE LEVEL 108 MEQ/L (98-107); CREATININE FOR GFR 0.47 MG/DL (0.55-1.30); GLOMERULAR FILTRATION RATE > 60.0 (>39); GLUCOSE, FASTING 108 MG/DL (70-100); MAGNESIUM LEVEL 1.9 MG/DL (1.8-2.4); POTASSIUM SERUM 3.8 MEQ/L (3.5-5.1); SODIUM LEVEL 143 MEQ/L (136-145); TOTAL PROTEIN 6.3 GM/DL (6.4-8.2)
[2022-03-16 06:50] LABS: INR 1.04
[2022-03-16] MEDS: ENOXAPARIN 80MG/0.8ML SYRINGE (J1650 PER 10MG) SC SCH ×2 (09:58→20:50)
[2022-03-16] MEDS: clonazePAM 1 MG TAB PO SCH ×4 (09:58→20:50)
[2022-03-16] MEDS: PANTOPRAZOLE 40MG TAB (PROTONIX) PO SCH (09:58)
[2022-03-16] MEDS: MULTIVITAMINS/MINERALS THERAP 1 TAB PO SCH (09:58)
[2022-03-16] MEDS: allopurinoL 300 MG TAB PO SCH (09:58)
[2022-03-16] MEDS: ASPIRIN 81MG ENTERIC TABLET PO SCH (09:58)
[2022-03-16] MEDS: POTASSIUM CHLORIDE 10MEQ SR TABLET PO SCH (09:59)
[2022-03-16] MEDS: DOCUSATE SODIUM 100MG CAPSULE PO SCH ×2 (09:59→20:49)
[2022-03-16] MEDS: METOPROLOL SUCC (TopROL XL) 50MG **XL** TAB PO SCH (10:03)
[2022-03-16 14:00] VITALS: BP 121/76
[2022-03-16] MEDS: FUROSEMIDE 40 MG TAB PO SCH (18:17)
[2022-03-16] MEDS: WARFARIN SOD 5MG TAB PO SCH (18:17)
[2022-03-16 19:20] VITALS: BP 116/76
[2022-03-16 20:50] VITALS: O2SAT 95
[2022-03-16] MEDS: SERTRALINE HCL 50 MG TAB PO SCH (20:50)
[2022-03-16] MEDS: PRAVASTATIN 20 MG TAB PO SCH (20:50)
[2022-03-17 06:00] VITALS: BP 113/69
[2022-03-17 06:46] LABS: BASO % 0.7 % (0.0-1.0); EOS # 0.1 10^3/uL (0.0-0.5); EOS % 3.1 % (0.0-3.0); HEMATOCRIT 39.3 % (36.0-47.0); HEMOGLOBIN 12.1 g/dl (12.0-15.5); LYMPH # 0.6 10^3/uL (1.5-5.0); LYMPH % 12.6 % (24.0-44.0); MEAN CORPUSCULAR HEMOGLOBIN 26.8 pg (27.0-33.0); MEAN CORPUSCULAR HGB CONC 30.8 g/dl (32.0-36.5); MEAN CORPUSCULAR VOLUME 87.1 fl (80.0-96.0); MONO # 0.6 10^3/uL (0.0-0.8); MONO % 12.2 % (2.0-8.0); NEUTROPHILS # 3.2 10^3/uL (1.5-8.5); PLATELET COUNT, AUTOMATED 196 10^3/uL (150-450); RED BLOOD COUNT 4.51 10^6/uL (4.00-5.40); WHITE BLOOD COUNT 4.5 10^3/uL (4.0-10.0)
[2022-03-17 06:52] LABS: PROTHROMBIN TIME 13.6 SECONDS (12.7-14.5)
[2022-03-17 07:10] LABS: ALBUMIN 3.2 GM/DL (3.2-5.2); ALT/SGPT 26 U/L (12-78); BILIRUBIN,TOTAL 0.5 MG/DL (0.2-1.0); BLOOD UREA NITROGEN 21 MG/DL (7-18); CARBON DIOXIDE LEVEL 28 MEQ/L (21-32); CHLORIDE LEVEL 107 MEQ/L (98-107); CREATININE FOR GFR 0.51 MG/DL (0.55-1.30); GLOMERULAR FILTRATION RATE > 60.0 (>39); GLUCOSE, FASTING 99 MG/DL (70-100); POTASSIUM SERUM 3.6 MEQ/L (3.5-5.1); SODIUM LEVEL 141 MEQ/L (136-145); TOTAL PROTEIN 6.3 GM/DL (6.4-8.2)
[2022-03-17] MEDS: DOCUSATE SODIUM 100MG CAPSULE PO SCH ×2 (08:07→21:00)
[2022-03-17] MEDS: ENOXAPARIN 80MG/0.8ML SYRINGE (J1650 PER 10MG) SC SCH ×2 (08:07→21:55)
[2022-03-17] MEDS: ASPIRIN 81MG ENTERIC TABLET PO SCH (08:08)
[2022-03-17] MEDS: FUROSEMIDE 40 MG TAB PO SCH ×2 (08:08→17:00)
[2022-03-17] MEDS: PANTOPRAZOLE 40MG TAB (PROTONIX) PO SCH (08:08)
[2022-03-17] MEDS: POTASSIUM CHLORIDE 10MEQ SR TABLET PO SCH (08:08)
[2022-03-17] MEDS: clonazePAM 1 MG TAB PO SCH ×4 (08:08→21:55)
[2022-03-17] MEDS: allopurinoL 300 MG TAB PO SCH (08:08)
[2022-03-17] MEDS: MULTIVITAMINS/MINERALS THERAP 1 TAB PO SCH (08:08)
[2022-03-17] MEDS: METOPROLOL SUCC (TopROL XL) 50MG **XL** TAB PO SCH (08:09)
[2022-03-17 09:00] VITALS: O2SAT 95
[2022-03-17] MEDS: lisinopriL 5 MG TAB PO SCH ×2 (09:00→21:56)
[2022-03-17 14:00] VITALS: BP 100/72
[2022-03-17] MEDS: WARFARIN SOD 5MG TAB PO SCH (17:43)
[2022-03-17 20:00] VITALS: BP 110/76
[2022-03-17] MEDS: ACETAMINOPHEN TAB 650MG DOSE (2X325MG) PO PRN (20:54)
[2022-03-17] MEDS: SERTRALINE HCL 50 MG TAB PO SCH (21:55)
[2022-03-17] MEDS: PRAVASTATIN 20 MG TAB PO SCH (21:55)
[2022-03-18 05:09] VITALS: BP 122/64
[2022-03-18 06:28] LABS: BASO % 1.1 % (0.0-1.0); EOS # 0.1 10^3/uL (0.0-0.5); EOS % 3.2 % (0.0-3.0); HEMATOCRIT 38.4 % (36.0-47.0); HEMOGLOBIN 11.7 g/dl (12.0-15.5); LYMPH # 0.6 10^3/uL (1.5-5.0); MEAN CORPUSCULAR HEMOGLOBIN 26.5 pg (27.0-33.0); MEAN CORPUSCULAR HGB CONC 30.5 g/dl (32.0-36.5); MEAN CORPUSCULAR VOLUME 87.1 fl (80.0-96.0); MONO # 0.5 10^3/uL (0.0-0.8); MONO % 13.2 % (2.0-8.0); NEUTROPHILS # 2.6 10^3/uL (1.5-8.5); NEUTROPHILS % 67.2 % (36.0-66.0); PLATELET COUNT, AUTOMATED 186 10^3/uL (150-450); RED BLOOD COUNT 4.41 10^6/uL (4.00-5.40); WHITE BLOOD COUNT 3.8 10^3/uL (4.0-10.0)
[2022-03-18 06:39] LABS: INR 1.02; PROTHROMBIN TIME 13.8 SECONDS (12.7-14.5)
[2022-03-18 07:01] LABS: ALT/SGPT 32 U/L (12-78); BILIRUBIN,TOTAL 0.3 MG/DL (0.2-1.0); BLOOD UREA NITROGEN 20 MG/DL (7-18); CALCIUM LEVEL 8.9 MG/DL (8.8-10.2); CARBON DIOXIDE LEVEL 25 MEQ/L (21-32); CHLORIDE LEVEL 111 MEQ/L (98-107); CREATININE FOR GFR 0.38 MG/DL (0.55-1.30); GLOMERULAR FILTRATION RATE > 60.0 (>39); GLUCOSE, FASTING 95 MG/DL (70-100); POTASSIUM SERUM 3.9 MEQ/L (3.5-5.1); SODIUM LEVEL 144 MEQ/L (136-145); TOTAL PROTEIN 5.8 GM/DL (6.4-8.2)
[2022-03-18] MEDS: DOCUSATE SODIUM 100MG CAPSULE PO SCH ×2 (09:00→19:32)
[2022-03-18] MEDS: allopurinoL 300 MG TAB PO SCH (09:08)
[2022-03-18] MEDS: ASPIRIN 81MG ENTERIC TABLET PO SCH (09:08)
[2022-03-18] MEDS: POTASSIUM CHLORIDE 10MEQ SR TABLET PO SCH (09:10)
[2022-03-18] MEDS: clonazePAM 1 MG TAB PO SCH ×4 (09:37→21:00)
[2022-03-18] MEDS: FUROSEMIDE 40 MG TAB PO SCH ×2 (09:38→17:00)
[2022-03-18] MEDS: PANTOPRAZOLE 40MG TAB (PROTONIX) PO SCH (09:40)
[2022-03-18] MEDS: lisinopriL 5 MG TAB PO SCH ×2 (09:40→20:58)
[2022-03-18] MEDS: MULTIVITAMINS/MINERALS THERAP 1 TAB PO SCH (09:40)
[2022-03-18] MEDS: METOPROLOL SUCC (TopROL XL) 50MG **XL** TAB PO SCH (09:41)
[2022-03-18] MEDS: ENOXAPARIN 80MG/0.8ML SYRINGE (J1650 PER 10MG) SC SCH ×2 (09:41→20:57)
[2022-03-18] MEDS: ACETAMINOPHEN TAB 650MG DOSE (2X325MG) PO PRN ×2 (13:45→22:26)
[2022-03-18 14:00] VITALS: BP 122/77
[2022-03-18] MEDS: WARFARIN SOD 5MG TAB PO SCH (17:23)
[2022-03-18 20:26] VITALS: BP 97/70
[2022-03-18] MEDS: SERTRALINE HCL 50 MG TAB PO SCH (20:58)
[2022-03-18] MEDS: PRAVASTATIN 20 MG TAB PO SCH (20:59)
[2022-03-18] MEDS: LIDOCAINE 5% (LIDODERM) PATCH TD SCH (22:26)
[2022-03-19] MEDS ORDERED: CALCIUM CARBONATE 500 MG CHEW U/D PO ONE (03:00)
[2022-03-19 05:18] VITALS: BP 108/62
[2022-03-19 06:25] LABS: BASO % 0.8 % (0.0-1.0); EOS # 0.2 10^3/uL (0.0-0.5); EOS % 3.9 % (0.0-3.0); HEMOGLOBIN 11.7 g/dl (12.0-15.5); LYMPH # 0.7 10^3/uL (1.5-5.0); LYMPH % 18.4 % (24.0-44.0); MEAN CORPUSCULAR HEMOGLOBIN 26.8 pg (27.0-33.0); MEAN CORPUSCULAR HGB CONC 30.8 g/dl (32.0-36.5); MEAN CORPUSCULAR VOLUME 87.2 fl (80.0-96.0); MONO # 0.4 10^3/uL (0.0-0.8); NEUTROPHILS # 2.5 10^3/uL (1.5-8.5); NEUTROPHILS % 66.6 % (36.0-66.0); PLATELET COUNT, AUTOMATED 142 10^3/uL (150-450); RED BLOOD COUNT 4.36 10^6/uL (4.00-5.40); WHITE BLOOD COUNT 3.8 10^3/uL (4.0-10.0)
[2022-03-19 07:00] LABS: ALBUMIN 3.2 GM/DL (3.2-5.2); ALT/SGPT 28 U/L (12-78); BILIRUBIN,TOTAL 0.2 MG/DL (0.2-1.0); BLOOD UREA NITROGEN 23 MG/DL (7-18); CALCIUM LEVEL 9.3 MG/DL (8.8-10.2); CARBON DIOXIDE LEVEL 25 MEQ/L (21-32); CHLORIDE LEVEL 111 MEQ/L (98-107); GLOMERULAR FILTRATION RATE > 60.0 (>39); GLUCOSE, FASTING 91 MG/DL (70-100); POTASSIUM SERUM 3.9 MEQ/L (3.5-5.1); SODIUM LEVEL 142 MEQ/L (136-145); TOTAL PROTEIN 6.3 GM/DL (6.4-8.2)
[2022-03-19 08:25] LABS: INR 1.27; PROTHROMBIN TIME 16.3 SECONDS (12.7-14.5)
[2022-03-19] MEDS: DOCUSATE SODIUM 100MG CAPSULE PO SCH ×2 (09:00→21:00)
[2022-03-19] MEDS: clonazePAM 1 MG TAB PO SCH ×4 (09:26→21:47)
[2022-03-19] MEDS: ASPIRIN 81MG ENTERIC TABLET PO SCH (09:27)
[2022-03-19] MEDS: FUROSEMIDE 40 MG TAB PO SCH ×2 (09:27→16:30)
[2022-03-19] MEDS: POTASSIUM CHLORIDE 10MEQ SR TABLET PO SCH (09:28)
[2022-03-19] MEDS: PANTOPRAZOLE 40MG TAB (PROTONIX) PO SCH (09:29)
[2022-03-19] MEDS: MULTIVITAMINS/MINERALS THERAP 1 TAB PO SCH (09:30)
[2022-03-19] MEDS: METOPROLOL SUCC (TopROL XL) 50MG **XL** TAB PO SCH (09:30)
[2022-03-19] MEDS: lisinopriL 5 MG TAB PO SCH ×2 (09:31→21:00)
[2022-03-19] MEDS: allopurinoL 300 MG TAB PO SCH (09:31)
[2022-03-19] MEDS: ENOXAPARIN 80MG/0.8ML SYRINGE (J1650 PER 10MG) SC SCH ×2 (09:32→21:47)
[2022-03-19] MEDS: **NOTE PATIENT COMMENT** MISC XX SCH (09:33)
[2022-03-19 14:00] VITALS: BP 118/66
[2022-03-19] MEDS: ACETAMINOPHEN TAB 650MG DOSE (2X325MG) PO PRN (16:31)
[2022-03-19] MEDS ORDERED: WARFARIN SOD 5MG TAB PO SCH (17:00)
[2022-03-19 18:00] VITALS: BP 104/65
[2022-03-19] MEDS: LIDOCAINE 5% (LIDODERM) PATCH TD SCH (21:46)
[2022-03-19] MEDS: PRAVASTATIN 20 MG TAB PO SCH (21:49)
[2022-03-19] MEDS: SERTRALINE HCL 50 MG TAB PO SCH (21:49)
[2022-03-20 06:00] VITALS: BP 105/65
[2022-03-20 06:51] LABS: BASO # 0.1 10^3/uL (0.0-0.2); BASO % 1.2 % (0.0-1.0); EOS # 0.2 10^3/uL (0.0-0.5); EOS % 3.5 % (0.0-3.0); HEMATOCRIT 42.2 % (36.0-47.0); HEMOGLOBIN 12.9 g/dl (12.0-15.5); LYMPH # 0.9 10^3/uL (1.5-5.0); LYMPH % 18.4 % (24.0-44.0); MEAN CORPUSCULAR HEMOGLOBIN 26.8 pg (27.0-33.0); MEAN CORPUSCULAR HGB CONC 30.6 g/dl (32.0-36.5); MEAN CORPUSCULAR VOLUME 87.7 fl (80.0-96.0); MONO # 0.4 10^3/uL (0.0-0.8); MONO % 8.8 % (2.0-8.0); NEUTROPHILS # 3.3 10^3/uL (1.5-8.5); NEUTROPHILS % 67.7 % (36.0-66.0); PLATELET COUNT, AUTOMATED 200 10^3/uL (150-450); RED BLOOD COUNT 4.81 10^6/uL (4.00-5.40); WHITE BLOOD COUNT 4.9 10^3/uL (4.0-10.0)
[2022-03-20 07:07] LABS: INR 1.34
[2022-03-20 07:19] LABS: ALBUMIN 3.5 GM/DL (3.2-5.2); ALT/SGPT 43 U/L (12-78); BILIRUBIN,TOTAL 0.5 MG/DL (0.2-1.0); BLOOD UREA NITROGEN 24 MG/DL (7-18); CALCIUM LEVEL 9.1 MG/DL (8.8-10.2); CARBON DIOXIDE LEVEL 28 MEQ/L (21-32); CHLORIDE LEVEL 110 MEQ/L (98-107); CREATININE FOR GFR 0.53 MG/DL (0.55-1.30); GLOMERULAR FILTRATION RATE > 60.0 (>39); GLUCOSE, FASTING 95 MG/DL (70-100); MAGNESIUM LEVEL 2.1 MG/DL (1.8-2.4); SODIUM LEVEL 143 MEQ/L (136-145); TOTAL PROTEIN 6.7 GM/DL (6.4-8.2)
[2022-03-20] MEDS: FUROSEMIDE 40 MG TAB PO SCH (08:24)
[2022-03-20] MEDS: MULTIVITAMINS/MINERALS THERAP 1 TAB PO SCH (08:24)
[2022-03-20] MEDS: PANTOPRAZOLE 40MG TAB (PROTONIX) PO SCH (08:24)
[2022-03-20] MEDS: DOCUSATE SODIUM 100MG CAPSULE PO SCH ×2 (08:24→21:29)
[2022-03-20] MEDS: ASPIRIN 81MG ENTERIC TABLET PO SCH (08:24)
[2022-03-20] MEDS: allopurinoL 300 MG TAB PO SCH (08:24)
[2022-03-20] MEDS: ENOXAPARIN 80MG/0.8ML SYRINGE (J1650 PER 10MG) SC SCH ×2 (08:25→21:32)
[2022-03-20] MEDS: POTASSIUM CHLORIDE 10MEQ SR TABLET PO SCH (08:25)
[2022-03-20] MEDS: **NOTE PATIENT COMMENT** MISC XX SCH (08:25)
[2022-03-20] MEDS: clonazePAM 1 MG TAB PO SCH ×4 (08:25→21:29)
[2022-03-20] MEDS: lisinopriL 5 MG TAB PO SCH ×2 (08:25→21:31)
[2022-03-20] MEDS: METOPROLOL SUCC (TopROL XL) 50MG **XL** TAB PO SCH (08:25)
[2022-03-20 14:00] VITALS: BP 88/58
[2022-03-20] MEDS: ACETAMINOPHEN TAB 650MG DOSE (2X325MG) PO PRN (15:00)
[2022-03-20] MEDS: CEPACOL LOZENGE PO PRN (15:00)
[2022-03-20] MEDS ORDERED: NS 250 ML IV ONE (15:55)
[2022-03-20 16:45] VITALS: BP 88/56
[2022-03-20] MEDS ORDERED: NS 500 ML IV ONE ×2 (16:50→18:15)
[2022-03-20] MEDS: WARFARIN SOD 5MG TAB PO SCH (17:09)
[2022-03-20 18:24] VITALS: BP 90/56
[2022-03-20 19:22] VITALS: BP 96/86
[2022-03-20] MEDS: LIDOCAINE 5% (LIDODERM) PATCH TD SCH (21:29)
[2022-03-20] MEDS: SERTRALINE HCL 50 MG TAB PO SCH (21:29)
[2022-03-20] MEDS: PRAVASTATIN 20 MG TAB PO SCH (21:30)
[2022-03-20 21:31] VITALS: BP 102/62
[2022-03-21 05:20] VITALS: BP 115/70
[2022-03-21 07:43] LABS: BASO % 0.9 % (0.0-1.0); EOS # 0.1 10^3/uL (0.0-0.5); EOS % 1.8 % (0.0-3.0); HEMATOCRIT 34.9 % (36.0-47.0); LYMPH # 0.6 10^3/uL (1.5-5.0); LYMPH % 12.7 % (24.0-44.0); MEAN CORPUSCULAR HGB CONC 31.5 g/dl (32.0-36.5); MEAN CORPUSCULAR VOLUME 85.7 fl (80.0-96.0); MONO # 0.4 10^3/uL (0.0-0.8); MONO % 8.7 % (2.0-8.0); NEUTROPHILS # 3.4 10^3/uL (1.5-8.5); NEUTROPHILS % 75.5 % (36.0-66.0); PLATELET COUNT, AUTOMATED 186 10^3/uL (150-450); RED BLOOD COUNT 4.07 10^6/uL (4.00-5.40); WHITE BLOOD COUNT 4.5 10^3/uL (4.0-10.0)
[2022-03-21 07:54] LABS: INR 1.5; PROTHROMBIN TIME 18.5 SECONDS (12.7-14.5)
[2022-03-21 08:11] LABS: ALBUMIN 3.2 GM/DL (3.2-5.2); ALT/SGPT 43 U/L (12-78); BILIRUBIN,TOTAL 0.3 MG/DL (0.2-1.0); BLOOD UREA NITROGEN 23 MG/DL (7-18); CALCIUM LEVEL 8.8 MG/DL (8.8-10.2); CARBON DIOXIDE LEVEL 24 MEQ/L (21-32); CHLORIDE LEVEL 114 MEQ/L (98-107); CREATININE FOR GFR 0.42 MG/DL (0.55-1.30); GLOMERULAR FILTRATION RATE > 60.0 (>39); GLUCOSE, FASTING 104 MG/DL (70-100); POTASSIUM SERUM 3.9 MEQ/L (3.5-5.1); SODIUM LEVEL 144 MEQ/L (136-145)
[2022-03-21] MEDS: METOPROLOL SUCC (TopROL XL) 50MG **XL** TAB PO SCH (08:15)
[2022-03-21] MEDS: MULTIVITAMINS/MINERALS THERAP 1 TAB PO SCH (08:15)
[2022-03-21] MEDS: lisinopriL 5 MG TAB PO SCH ×2 (08:15→20:38)
[2022-03-21] MEDS: clonazePAM 1 MG TAB PO SCH ×4 (08:15→21:12)
[2022-03-21] MEDS: ASPIRIN 81MG ENTERIC TABLET PO SCH (08:15)
[2022-03-21] MEDS: DOCUSATE SODIUM 100MG CAPSULE PO SCH ×2 (08:15→20:37)
[2022-03-21] MEDS: allopurinoL 300 MG TAB PO SCH (08:15)
[2022-03-21] MEDS: PANTOPRAZOLE 40MG TAB (PROTONIX) PO SCH (08:15)
[2022-03-21] MEDS: POTASSIUM CHLORIDE 10MEQ SR TABLET PO SCH (08:16)
[2022-03-21] MEDS: ENOXAPARIN 80MG/0.8ML SYRINGE (J1650 PER 10MG) SC SCH ×2 (08:16→20:37)
[2022-03-21] MEDS: **NOTE PATIENT COMMENT** MISC XX SCH (08:16)
[2022-03-21] MEDS: ACETAMINOPHEN TAB 650MG DOSE (2X325MG) PO PRN ×3 (08:29→21:12)
[2022-03-21 14:00] VITALS: BP 115/69
[2022-03-21] MEDS: WARFARIN SOD 5MG TAB PO SCH (17:19)
[2022-03-21 18:00] VITALS: BP 116/68
[2022-03-21] MEDS: PRAVASTATIN 20 MG TAB PO SCH (20:36)
[2022-03-21] MEDS: SERTRALINE HCL 50 MG TAB PO SCH (20:37)
[2022-03-21] MEDS: LIDOCAINE 5% (LIDODERM) PATCH TD SCH (20:37)
[2022-03-22 05:29] VITALS: BP 108/62
[2022-03-22 06:32] LABS: BASO % 0.9 % (0.0-1.0); EOS # 0.1 10^3/uL (0.0-0.5); EOS % 3.5 % (0.0-3.0); HEMATOCRIT 32.5 % (36.0-47.0); HEMOGLOBIN 9.9 g/dl (12.0-15.5); LYMPH # 0.6 10^3/uL (1.5-5.0); LYMPH % 16.9 % (24.0-44.0); MEAN CORPUSCULAR HGB CONC 30.5 g/dl (32.0-36.5); MEAN CORPUSCULAR VOLUME 85.3 fl (80.0-96.0); MONO # 0.3 10^3/uL (0.0-0.8); MONO % 9.6 % (2.0-8.0); NEUTROPHILS # 2.4 10^3/uL (1.5-8.5); NEUTROPHILS % 68.5 % (36.0-66.0); PLATELET COUNT, AUTOMATED 160 10^3/uL (150-450); RED BLOOD COUNT 3.81 10^6/uL (4.00-5.40); WHITE BLOOD COUNT 3.4 10^3/uL (4.0-10.0)
[2022-03-22 06:37] LABS: INR 1.81; PROTHROMBIN TIME 21.4 SECONDS (12.7-14.5)
[2022-03-22 06:53] LABS: ALBUMIN 3.1 GM/DL (3.2-5.2); ALT/SGPT 38 U/L (12-78); BILIRUBIN,TOTAL 0.2 MG/DL (0.2-1.0); BLOOD UREA NITROGEN 20 MG/DL (7-18); CARBON DIOXIDE LEVEL 23 MEQ/L (21-32); CHLORIDE LEVEL 115 MEQ/L (98-107); CREATININE FOR GFR 0.27 MG/DL (0.55-1.30); GLOMERULAR FILTRATION RATE > 60.0 (>39); GLUCOSE, FASTING 88 MG/DL (70-100); MAGNESIUM LEVEL 1.9 MG/DL (1.8-2.4); POTASSIUM SERUM 3.6 MEQ/L (3.5-5.1); SODIUM LEVEL 145 MEQ/L (136-145); TOTAL PROTEIN 5.9 GM/DL (6.4-8.2)
[2022-03-22] MEDS: PANTOPRAZOLE 40MG TAB (PROTONIX) PO SCH (08:42)
[2022-03-22] MEDS: POTASSIUM CHLORIDE 10MEQ SR TABLET PO SCH (08:42)
[2022-03-22] MEDS: MULTIVITAMINS/MINERALS THERAP 1 TAB PO SCH (08:42)
[2022-03-22] MEDS: ASPIRIN 81MG ENTERIC TABLET PO SCH (08:42)
[2022-03-22] MEDS: clonazePAM 1 MG TAB PO SCH ×4 (08:42→21:08)
[2022-03-22] MEDS: DOCUSATE SODIUM 100MG CAPSULE PO SCH ×2 (08:42→20:35)
[2022-03-22] MEDS: METOPROLOL SUCC (TopROL XL) 50MG **XL** TAB PO SCH (08:43)
[2022-03-22] MEDS: lisinopriL 5 MG TAB PO SCH ×2 (08:43→20:35)
[2022-03-22] MEDS: ENOXAPARIN 80MG/0.8ML SYRINGE (J1650 PER 10MG) SC SCH ×2 (08:44→20:35)
[2022-03-22] MEDS: **NOTE PATIENT COMMENT** MISC XX SCH (08:46)
[2022-03-22] MEDS: allopurinoL 300 MG TAB PO SCH (08:46)
[2022-03-22] MEDS: ACETAMINOPHEN TAB 650MG DOSE (2X325MG) PO PRN ×2 (08:56→20:36)
[2022-03-22 11:48] LABS: HEMATOCRIT 32.1 % (36.0-47.0)
[2022-03-22] MEDS: FUROSEMIDE 40 MG TAB PO SCH (13:34)
[2022-03-22 13:39] VITALS: BP 116/69
[2022-03-22 14:00] VITALS: BP 115/68
[2022-03-22] MEDS: WARFARIN SOD 5MG TAB PO SCH (17:30)
[2022-03-22] MEDS: PRAVASTATIN 20 MG TAB PO SCH (20:35)
[2022-03-22] MEDS: SERTRALINE HCL 50 MG TAB PO SCH (20:35)
[2022-03-22] MEDS: LIDOCAINE 5% (LIDODERM) PATCH TD SCH (20:35)
[2022-03-22 22:00] VITALS: BP 104/63
[2022-03-23 05:24] VITALS: BP 120/65
[2022-03-23 06:21] LABS: EOS # 0.1 10^3/uL (0.0-0.5); EOS % 2.3 % (0.0-3.0); HEMATOCRIT 32.1 % (36.0-47.0); HEMOGLOBIN 10.1 g/dl (12.0-15.5); LYMPH # 0.6 10^3/uL (1.5-5.0); LYMPH % 15.2 % (24.0-44.0); MEAN CORPUSCULAR HEMOGLOBIN 26.9 pg (27.0-33.0); MEAN CORPUSCULAR HGB CONC 31.5 g/dl (32.0-36.5); MEAN CORPUSCULAR VOLUME 85.6 fl (80.0-96.0); MONO # 0.4 10^3/uL (0.0-0.8); NEUTROPHILS # 2.8 10^3/uL (1.5-8.5); PLATELET COUNT, AUTOMATED 193 10^3/uL (150-450); RED BLOOD COUNT 3.75 10^6/uL (4.00-5.40); WHITE BLOOD COUNT 3.9 10^3/uL (4.0-10.0)
[2022-03-23 06:32] LABS: INR 2.19; PROTHROMBIN TIME 24.7 SECONDS (12.7-14.5)
[2022-03-23 06:45] LABS: ALBUMIN 3.1 GM/DL (3.2-5.2); ALT/SGPT 41 U/L (12-78); BILIRUBIN,TOTAL 0.2 MG/DL (0.2-1.0); BLOOD UREA NITROGEN 22 MG/DL (7-18); CALCIUM LEVEL 9.3 MG/DL (8.8-10.2); CARBON DIOXIDE LEVEL 23 MEQ/L (21-32); CHLORIDE LEVEL 114 MEQ/L (98-107); CREATININE FOR GFR 0.43 MG/DL (0.55-1.30); GLOMERULAR FILTRATION RATE > 60.0 (>39); GLUCOSE, FASTING 96 MG/DL (70-100); MAGNESIUM LEVEL 1.8 MG/DL (1.8-2.4); POTASSIUM SERUM 3.7 MEQ/L (3.5-5.1); SODIUM LEVEL 145 MEQ/L (136-145); TOTAL PROTEIN 5.9 GM/DL (6.4-8.2)
[2022-03-23] MEDS: allopurinoL 300 MG TAB PO SCH (08:14)
[2022-03-23] MEDS: ASPIRIN 81MG ENTERIC TABLET PO SCH (08:14)
[2022-03-23] MEDS: MULTIVITAMINS/MINERALS THERAP 1 TAB PO SCH (08:14)
[2022-03-23] MEDS: PANTOPRAZOLE 40MG TAB (PROTONIX) PO SCH (08:14)
[2022-03-23] MEDS: FUROSEMIDE 40 MG TAB PO SCH (08:15)
[2022-03-23] MEDS: clonazePAM 1 MG TAB PO SCH ×4 (08:15→21:16)
[2022-03-23] MEDS: DOCUSATE SODIUM 100MG CAPSULE PO SCH ×2 (08:15→20:28)
[2022-03-23] MEDS: **NOTE PATIENT COMMENT** MISC XX SCH (08:16)
[2022-03-23] MEDS: ACETAMINOPHEN TAB 650MG DOSE (2X325MG) PO PRN ×2 (08:16→20:28)
[2022-03-23] MEDS: lisinopriL 5 MG TAB PO SCH ×2 (08:16→20:18)
[2022-03-23] MEDS: METOPROLOL SUCC (TopROL XL) 50MG **XL** TAB PO SCH (08:16)
[2022-03-23] MEDS: POTASSIUM CHLORIDE 10MEQ SR TABLET PO SCH (08:16)
[2022-03-23 14:31] VITALS: BP 119/67
[2022-03-23] MEDS: WARFARIN SOD 5MG TAB PO SCH (17:32)
[2022-03-23] MEDS: SERTRALINE HCL 50 MG TAB PO SCH (20:27)
[2022-03-23] MEDS: LIDOCAINE 5% (LIDODERM) PATCH TD SCH (20:27)
[2022-03-23] MEDS: PRAVASTATIN 20 MG TAB PO SCH (20:28)
[2022-03-23] MEDS: CEPACOL LOZENGE PO PRN (21:16)
[2022-03-24 05:52] VITALS: BP 112/71
[2022-03-24 06:43] LABS: BASO % 0.6 % (0.0-1.0); EOS # 0.1 10^3/uL (0.0-0.5); EOS % 1.8 % (0.0-3.0); HEMATOCRIT 30.7 % (36.0-47.0); HEMOGLOBIN 9.7 g/dl (12.0-15.5); LYMPH # 0.6 10^3/uL (1.5-5.0); LYMPH % 10.9 % (24.0-44.0); MEAN CORPUSCULAR HEMOGLOBIN 26.6 pg (27.0-33.0); MEAN CORPUSCULAR HGB CONC 31.6 g/dl (32.0-36.5); MEAN CORPUSCULAR VOLUME 84.3 fl (80.0-96.0); MONO # 0.4 10^3/uL (0.0-0.8); MONO % 8.3 % (2.0-8.0); NEUTROPHILS # 3.9 10^3/uL (1.5-8.5); NEUTROPHILS % 77.8 % (36.0-66.0); PLATELET COUNT, AUTOMATED 201 10^3/uL (150-450); RED BLOOD COUNT 3.64 10^6/uL (4.00-5.40); WHITE BLOOD COUNT 5.1 10^3/uL (4.0-10.0)
[2022-03-24 07:09] LABS: ALBUMIN 3.1 GM/DL (3.2-5.2); ALT/SGPT 46 U/L (12-78); BILIRUBIN,TOTAL 0.2 MG/DL (0.2-1.0); BLOOD UREA NITROGEN 26 MG/DL (7-18); CALCIUM LEVEL 8.8 MG/DL (8.8-10.2); CARBON DIOXIDE LEVEL 23 MEQ/L (21-32); CHLORIDE LEVEL 113 MEQ/L (98-107); CREATININE FOR GFR 0.44 MG/DL (0.55-1.30); GLOMERULAR FILTRATION RATE > 60.0 (>39); GLUCOSE, FASTING 99 MG/DL (70-100); MAGNESIUM LEVEL 1.8 MG/DL (1.8-2.4); POTASSIUM SERUM 3.7 MEQ/L (3.5-5.1); SODIUM LEVEL 144 MEQ/L (136-145)
[2022-03-24 07:12] LABS: INR 2.68; PROTHROMBIN TIME 28.9 SECONDS (12.7-14.5)
[2022-03-24] MEDS: clonazePAM 1 MG TAB PO SCH ×2 (08:52→13:33)
[2022-03-24] MEDS: FUROSEMIDE 40 MG TAB PO SCH (08:53)
[2022-03-24] MEDS: DOCUSATE SODIUM 100MG CAPSULE PO SCH (08:53)
[2022-03-24] MEDS: ASPIRIN 81MG ENTERIC TABLET PO SCH (08:53)
[2022-03-24] MEDS: MULTIVITAMINS/MINERALS THERAP 1 TAB PO SCH (08:53)
[2022-03-24] MEDS: allopurinoL 300 MG TAB PO SCH (08:53)
[2022-03-24] MEDS: POTASSIUM CHLORIDE 10MEQ SR TABLET PO SCH (08:53)
[2022-03-24] MEDS: PANTOPRAZOLE 40MG TAB (PROTONIX) PO SCH (08:54)
[2022-03-24 08:57] VITALS: BP 111/71
[2022-03-24] MEDS: lisinopriL 5 MG TAB PO SCH (08:57)
[2022-03-24] MEDS: METOPROLOL SUCC (TopROL XL) 50MG **XL** TAB PO SCH (08:59)
[2022-03-24] MEDS: **NOTE PATIENT COMMENT** MISC XX SCH (08:59)
[2022-03-24] MEDS ORDERED: JANT5TAB PO (09:01)
[2022-03-24] MEDS ORDERED: JANT2TAB PO (09:01)
[2022-03-24] MEDS ORDERED: WARFARIN SOD 5MG TAB PO SCH ×2 (17:00)
[2022-03-24] MEDS ORDERED: WARFARIN SOD 2MG TAB PO SCH (17:00)
== END 2022-03-24 13:45 | disposition home health service (06) | DRG 175 ==
LOC: M ED 13:56 → M ED INP 18:02 → ENRESERV 18:33 → M MSPAV 20:25
PROVIDERS: ADMIT Family Medicine; ATTEND Family Medicine
DX: I26.99 Other pulmonary embolism without acute cor pulmonale (principal); I50.23 Acute on chronic systolic (congestive) heart failure; I11.0 Hypertensive heart disease with heart failure; K21.9 Gastro-esophageal reflux disease without esophagitis; E78.5 Hyperlipidemia, unspecified; I48.0 Paroxysmal atrial fibrillation; F41.8 Other specified anxiety disorders; E87.6 Hypokalemia; M10.9 Gout, unspecified; K04.7 Periapical abscess without sinus; I95.9 Hypotension, unspecified; F32.A Depression, unspecified; R91.8 Other nonspecific abnormal finding of lung field; K57.30 Diverticulosis of large intestine without perforation or abscess without bleeding; Z79.82 Long term (current) use of aspirin; Z79.899 Other long term (current) drug therapy; Z92.21 Personal history of antineoplastic chemotherapy; Z92.3 Personal history of irradiation; Z87.891 Personal history of nicotine dependence; Z85.118 Personal history of other malignant neoplasm of bronchus and lung

== ENCOUNTER → 2022-03-28 | Outpatient (REF) | payer MEDICARE ==
[~2022-03-28] MED LIST changes: +ASPI81TA26 PO; +DILT1CAP PO; +FURO40TA2 PO; +JANT2TAB PO; +JANT5TAB PO; +LOVE0.6I2 SC; +POTA1TAB14 PO
[2022-03-28 12:31] LABS: INR 2.75; PROTHROMBIN TIME 29.4 SECONDS (12.7-14.5)
== END ==
LOC: M LAB REF 11:41 → M SHH 11:41
PROVIDERS: ATTEND Family Medicine
DX: I48.20 Chronic atrial fibrillation, unspecified (principal); I26.99 Other pulmonary embolism without acute cor pulmonale

== ENCOUNTER → 2022-04-03 | Outpatient (REF) | payer MEDICARE ==
[2022-04-03 16:23] LABS: INR 3.35; PROTHROMBIN TIME 34.2 SECONDS (12.7-14.5)
== END ==
LOC: M SHH 15:43
PROVIDERS: ATTEND Family Medicine
DX: I26.90 Septic pulmonary embolism without acute cor pulmonale (principal); I48.20 Chronic atrial fibrillation, unspecified

== ENCOUNTER → 2022-04-04 | Outpatient (CLI) | payer MEDICARE ==
[~2022-04-04] MED LIST changes: +PROHANCE 279.3MG/ML 15ML VIAL As Ordered ONE
== END ==
LOC: M RAD 14:12
PROVIDERS: ATTEND General Practice
DX: C34.12 Malignant neoplasm of upper lobe, left bronchus or lung (principal)
CPT/HCPCS: 70553; A9576

== ENCOUNTER → 2022-04-06 | Outpatient (CLI) | payer MEDICARE ==
[~2022-04-06] MED LIST changes: -PROHANCE 279.3MG/ML 15ML VIAL As Ordered ONE
== END ==
LOC: M ONCR 12:38
PROVIDERS: ATTEND General Practice
DX: C34.12 Malignant neoplasm of upper lobe, left bronchus or lung (principal); I50.9 Heart failure, unspecified; Z87.891 Personal history of nicotine dependence; Z92.21 Personal history of antineoplastic chemotherapy; Z79.899 Other long term (current) drug therapy; Z79.01 Long term (current) use of anticoagulants; Z79.82 Long term (current) use of aspirin; Z79.891 Long term (current) use of opiate analgesic

== ENCOUNTER → 2022-04-11 | Outpatient (REF) | payer MEDICARE ==
[2022-04-11 16:39] LABS: INR 2.97; PROTHROMBIN TIME 31.2 SECONDS (12.7-14.5)
== END ==
LOC: M SHH 15:50
PROVIDERS: ATTEND Family Medicine
DX: I26.99 Other pulmonary embolism without acute cor pulmonale (principal); I48.20 Chronic atrial fibrillation, unspecified

== ENCOUNTER → 2022-04-19 | Outpatient (CLI) | payer MEDICARE ==
[~2022-04-19] MED LIST changes: +ISOVUE-370 76% 100ML VIAL As Ordered ONE
== END ==
LOC: M RAD 11:03
PROVIDERS: ATTEND Nurse Practitioner
DX: C34.92 Malignant neoplasm of unspecified part of left bronchus or lung (principal); M51.34 Other intervertebral disc degeneration, thoracic region; I70.0 Atherosclerosis of aorta
CPT/HCPCS: 70470; 71275; Q9967

== ENCOUNTER → 2022-04-26 | Outpatient (REF) | payer MEDICARE ==
[~2022-04-26] MED LIST changes: -ISOVUE-370 76% 100ML VIAL As Ordered ONE
[2022-04-26 13:49] LABS: INR 1.46; PROTHROMBIN TIME 18.2 SECONDS (12.7-14.5)
== END ==
LOC: M SHH 13:18
PROVIDERS: ATTEND Family Medicine
DX: I48.20 Chronic atrial fibrillation, unspecified (principal); I26.99 Other pulmonary embolism without acute cor pulmonale

== ENCOUNTER → 2022-05-11 | Outpatient (REF) | payer MEDICARE ==
[2022-05-11 14:19] LABS: INR 1.34
== END ==
LOC: M SHH 13:31 → M LAB REF 13:31
PROVIDERS: ATTEND Family Medicine
DX: I48.20 Chronic atrial fibrillation, unspecified (principal)

== ENCOUNTER → 2022-05-23 | Outpatient (REF) | payer MEDICARE ==
[2022-05-23 18:02] LABS: INR 1.39; PROTHROMBIN TIME 17.5 SECONDS (12.7-14.5)
== END ==
LOC: M SHH 17:15
PROVIDERS: ATTEND Family Medicine
DX: I48.20 Chronic atrial fibrillation, unspecified (principal)

== ENCOUNTER → 2022-06-15 | Outpatient (CLI) | payer MEDICARE ==
[~2022-06-15] MED LIST changes: +LEVO1TAB40 PO; -LEVO750T13 PO
[2022-06-15 15:34] LABS: BASO # 0.1 10^3/uL (0.0-0.2); EOS # 0.2 10^3/uL (0.0-0.5); EOS % 3.4 % (0.0-3.0); HEMATOCRIT 30.9 % (36.0-47.0); HEMOGLOBIN 9.3 g/dl (12.0-15.5); LYMPH # 0.8 10^3/uL (1.5-5.0); MEAN CORPUSCULAR HEMOGLOBIN 24.8 pg (27.0-33.0); MEAN CORPUSCULAR HGB CONC 30.1 g/dl (32.0-36.5); MEAN CORPUSCULAR VOLUME 82.4 fl (80.0-96.0); MONO # 0.7 10^3/uL (0.0-0.8); MONO % 10.1 % (2.0-8.0); NEUTROPHILS % 72.9 % (36.0-66.0); PLATELET COUNT, AUTOMATED 294 10^3/uL (150-450); RED BLOOD COUNT 3.75 10^6/uL (4.00-5.40); WHITE BLOOD COUNT 6.8 10^3/uL (4.0-10.0)
[2022-06-15 15:45] LABS: INR 2.22
[2022-06-15 16:00] LABS: ALBUMIN 3.3 GM/DL (3.2-5.2); ALT/SGPT 13 U/L (12-78); BILIRUBIN,TOTAL 0.3 MG/DL (0.2-1.0); BLOOD UREA NITROGEN 18 MG/DL (7-18); CALCIUM LEVEL 9.4 MG/DL (8.8-10.2); CARBON DIOXIDE LEVEL 21 MEQ/L (21-32); CHLORIDE LEVEL 111 MEQ/L (98-107); CREATININE FOR GFR 0.77 MG/DL (0.55-1.30); GLOMERULAR FILTRATION RATE > 60.0 (>39); GLUCOSE, FASTING 110 MG/DL (70-100); POTASSIUM SERUM 4.1 MEQ/L (3.5-5.1); SODIUM LEVEL 141 MEQ/L (136-145); TOTAL PROTEIN 6.6 GM/DL (6.4-8.2)
[2022-06-15 20:48] LABS: CA 125 15.6 U/ML (<30.2)
== END ==
LOC: M ONCR 14:21
PROVIDERS: ATTEND General Practice
DX: N95.0 Postmenopausal bleeding (principal); D49.59 Neoplasm of unspecified behavior of other genitourinary organ; R53.83 Other fatigue; I50.9 Heart failure, unspecified; Z79.01 Long term (current) use of anticoagulants; Z85.118 Personal history of other malignant neoplasm of bronchus and lung; Z86.718 Personal history of other venous thrombosis and embolism; Z92.21 Personal history of antineoplastic chemotherapy; Z92.3 Personal history of irradiation
CPT/HCPCS: 80053; 82378; 85025; 85610; 86304; G0463

== ENCOUNTER → 2022-06-21 | Outpatient (CLI) | payer MEDICARE ==
[~2022-06-21] MED LIST changes: -LEVO1TAB40 PO; +LEVO750T13 PO; +PROHANCE 279.3MG/ML 15ML VIAL ONE
== END ==
LOC: M PLAIMG 11:23
PROVIDERS: ATTEND General Practice
DX: D39.0 Neoplasm of uncertain behavior of uterus (principal)
CPT/HCPCS: 72197; A9576

== ENCOUNTER → 2022-06-27 | Outpatient (REF) | payer MEDICARE ==
[~2022-06-27] MED LIST changes: +LEVO1TAB40 PO; -LEVO750T13 PO; -PROHANCE 279.3MG/ML 15ML VIAL ONE
[2022-06-28 10:49] LABS: INR 2.13; PROTHROMBIN TIME 24.2 SECONDS (12.7-14.5)
== END ==
LOC: M SHH 15:42
PROVIDERS: ATTEND Family Medicine
DX: I48.20 Chronic atrial fibrillation, unspecified (principal)

== ENCOUNTER → 2022-07-25 | Outpatient (REF) | payer MEDICARE ==
[2022-07-25 15:13] LABS: INR 1.77
== END ==
LOC: M SHH 14:14
PROVIDERS: ATTEND Family Medicine
DX: I48.91 Unspecified atrial fibrillation (principal)

== ENCOUNTER 2022-07-29 23:21 | Inpatient (IN) | payer MEDICARE ==
[~2022-07-29] VITALS: Ht 167.6 cm; Wt 68.4 kg
[2022-07-29] MEDS ORDERED: PANTOPRAZOLE 40MG VIAL IV ONE (23:30)
[2022-07-29] MEDS ORDERED: NS 1,000 ML IV ONE (23:30)
[2022-07-29 23:47] LABS: BASO % 0.1 % (0.0-1.0); EOS % 0.2 % (0.0-3.0); LYMPH % 9.5 % (24.0-44.0); MEAN CORPUSCULAR HEMOGLOBIN 25.2 pg (27.0-33.0); MEAN CORPUSCULAR VOLUME 83.9 fl (80.0-96.0); MONO # 0.6 10^3/uL (0.0-0.8); MONO % 5.3 % (2.0-8.0); NEUTROPHILS # 9.2 10^3/uL (1.5-8.5); NEUTROPHILS % 84.1 % (36.0-66.0); PLATELET COUNT, AUTOMATED 253 10^3/uL (150-450); RED BLOOD COUNT 1.55 10^6/uL (4.00-5.40)
[2022-07-29 23:50] LABS: HEMOGLOBIN 3.9 g/dl (12.0-15.5)
[2022-07-29 23:51] LABS: ABG BASE EXCESS -2.8 (-2.0-2.0); ABG HCO3 19.9 MEQ/L (22.0-26.0); ABG O2 SATURATION 98.9 % (95.0-99.0); ABG PARTIAL PRESSURE CO2 23.6 mmHg (35.0-45.0); ABG PARTIAL PRESSURE O2 141.4 mmHg (75.0-100.0); ABG STANDARD HCO3 22.1 MEQ/L (22.0-26.0); ABG TOTAL CO2 20.6 MEQ/L (23.0-31.0); ABG pH (ARTERIAL) 7.543 UNITS (7.350-7.450)
[2022-07-30] VITALS (17 sets, daily range): BP systolic 99–130; BP diastolic 52–68
[2022-07-30] MEDS ORDERED: ISOVUE-370 76% 100ML VIAL As Ordered ONE (00:13)
[2022-07-30 00:22] LABS: INR 2.84; PROTHROMBIN TIME 30.2 SECONDS (12.7-14.5)
[2022-07-30 00:23] LABS: PARTIAL THROMBOPLASTIN TIME 34.7 SECONDS (25.9-37.0)
[2022-07-30] MEDS ORDERED: PROTHROMBIN COMPLEX CONCEN IV ONE (00:30)
[2022-07-30] MEDS ORDERED: CALCIUM GLUCONATE 1,000MG/10ML VIAL (100MG/ML) (J0610) IV ONE (00:30)
[2022-07-30 00:33] LABS: CK-MB VALUE MASS 1.4 NG/ML (<3.6)
[2022-07-30 00:35] LABS: ALBUMIN 2.5 GM/DL (3.2-5.2); ALT/SGPT 12 U/L (12-78); BILIRUBIN,DIRECT < 0.1 MG/DL (0.0-0.2); BILIRUBIN,TOTAL 0.2 MG/DL (0.2-1.0); BLOOD UREA NITROGEN 44 MG/DL (7-18); CALCIUM LEVEL 8.2 MG/DL (8.8-10.2); CARBON DIOXIDE LEVEL 20 MEQ/L (21-32); CHLORIDE LEVEL 112 MEQ/L (98-107); CREATININE FOR GFR 0.54 MG/DL (0.55-1.30); GLOMERULAR FILTRATION RATE > 60.0 (>39); GLUCOSE, FASTING 182 MG/DL (70-100); LIPASE 106 U/L (73-393); SODIUM LEVEL 141 MEQ/L (136-145); TOTAL PROTEIN 4.8 GM/DL (6.4-8.2)
[2022-07-30 01:40] LABS: RSV AMPLIFICATION NEGATIVE (NEGATIVE)
[2022-07-30] MEDS ORDERED: LR 1,000 ML IV SCH (03:10)
[2022-07-30] MEDS ORDERED: FURO40TA2 PO (03:38)
[2022-07-30] MEDS ORDERED: WARF-23 PO (03:38)
[2022-07-30] MEDS ORDERED: HOME MED LIST COMPLETE! XX SCH (03:40)
[2022-07-30] MEDS ORDERED: ALBUTEROL SULFATE 2.5 MG/0.5 ML INH NEB SOLN INH PRN (03:50)
[2022-07-30 04:59] LABS: HEMATOCRIT 26.1 % (36.0-47.0)
[2022-07-30 05:03] LABS: HEMOGLOBIN 8.5 g/dl (12.0-15.5)
[2022-07-30 05:10] LABS: INR 1.52; PROTHROMBIN TIME 18.7 SECONDS (12.7-14.5)
[2022-07-30] MEDS: IPRATROPIUM 0.5MG/ALBUTEROL 2.5MG INH SOL UD 3ML (DUONEB) NEB SCH ×4 (07:34→19:34)
[2022-07-30 08:18] LABS: HEMATOCRIT 23.9 % (36.0-47.0); HEMOGLOBIN 8.2 g/dl (12.0-15.5); MEAN CORPUSCULAR HGB CONC 34.3 g/dl (32.0-36.5); MEAN CORPUSCULAR VOLUME 87.5 fl (80.0-96.0); PLATELET COUNT, AUTOMATED 180 10^3/uL (150-450); RED BLOOD COUNT 2.73 10^6/uL (4.00-5.40); WHITE BLOOD COUNT 9.3 10^3/uL (4.0-10.0)
[2022-07-30] MEDS: MULTIVITAMINS/MINERALS THERAP 1 TAB PO SCH (12:11)
[2022-07-30] MEDS: PANTOPRAZOLE 40MG TAB (PROTONIX) PO SCH (12:12)
[2022-07-30] MEDS: SUCRALFATE 1 GM TAB PO SCH ×3 (12:12→20:26)
[2022-07-30] MEDS: allopurinoL 300 MG TAB PO SCH (12:12)
[2022-07-30 13:47] LABS: PERCENT SATURATION 4.2 % (13.2-45.0)
[2022-07-30 16:18] LABS: HEMATOCRIT 21.1 % (36.0-47.0); HEMOGLOBIN 7.1 g/dl (12.0-15.5); MEAN CORPUSCULAR HEMOGLOBIN 29.3 pg (27.0-33.0); MEAN CORPUSCULAR HGB CONC 33.6 g/dl (32.0-36.5); MEAN CORPUSCULAR VOLUME 87.2 fl (80.0-96.0); PLATELET COUNT, AUTOMATED 159 10^3/uL (150-450); RED BLOOD COUNT 2.42 10^6/uL (4.00-5.40)
[2022-07-30] MEDS: clonazePAM 1 MG TAB PO SCH ×2 (16:27→20:26)
[2022-07-30 16:48] LABS: BLOOD UREA NITROGEN 34 MG/DL (7-18); CARBON DIOXIDE LEVEL 21 MEQ/L (21-32); CHLORIDE LEVEL 115 MEQ/L (98-107); CREATININE FOR GFR 0.39 MG/DL (0.55-1.30); GLOMERULAR FILTRATION RATE > 60.0 (>39); GLUCOSE, FASTING 109 MG/DL (70-100); POTASSIUM SERUM 3.7 MEQ/L (3.5-5.1); SODIUM LEVEL 141 MEQ/L (136-145)
[2022-07-30] MEDS ORDERED: IRON SUCROSE 300 MG in NS 250 ML IV ONE (17:00)
[2022-07-30] MEDS: PRAVASTATIN 20 MG TAB PO SCH (20:26)
[2022-07-30] MEDS ORDERED: CEPACOL LOZENGE PO PRN (22:25)
[2022-07-31] VITALS (20 sets, daily range): BP systolic 82–162; BP diastolic 44–80
[2022-07-31 00:18] LABS: HEMOGLOBIN 7.4 g/dl (12.0-15.5); MEAN CORPUSCULAR HEMOGLOBIN 29.8 pg (27.0-33.0); MEAN CORPUSCULAR HGB CONC 33.6 g/dl (32.0-36.5); MEAN CORPUSCULAR VOLUME 88.7 fl (80.0-96.0); PLATELET COUNT, AUTOMATED 151 10^3/uL (150-450); RED BLOOD COUNT 2.48 10^6/uL (4.00-5.40); WHITE BLOOD COUNT 8.1 10^3/uL (4.0-10.0)
[2022-07-31 05:54] LABS: BLOOD UREA NITROGEN 30 MG/DL (7-18); CALCIUM LEVEL 7.4 MG/DL (8.8-10.2); CARBON DIOXIDE LEVEL 22 MEQ/L (21-32); CHLORIDE LEVEL 117 MEQ/L (98-107); CREATININE FOR GFR 0.29 MG/DL (0.55-1.30); GLOMERULAR FILTRATION RATE > 60.0 (>39); GLUCOSE, FASTING 101 MG/DL (70-100); POTASSIUM SERUM 3.6 MEQ/L (3.5-5.1); SODIUM LEVEL 144 MEQ/L (136-145)
[2022-07-31] MEDS: IPRATROPIUM 0.5MG/ALBUTEROL 2.5MG INH SOL UD 3ML (DUONEB) NEB SCH ×4 (07:08→19:15)
[2022-07-31] MEDS: SUCRALFATE 1 GM TAB PO SCH ×4 (08:03→20:08)
[2022-07-31] MEDS: MULTIVITAMINS/MINERALS THERAP 1 TAB PO SCH (08:03)
[2022-07-31] MEDS: PANTOPRAZOLE 40MG TAB (PROTONIX) PO SCH (08:05)
[2022-07-31] MEDS: ACETAMINOPHEN 325 MG TAB PO PRN ×2 (08:05→20:08)
[2022-07-31] MEDS: clonazePAM 1 MG TAB PO SCH ×4 (08:06→20:08)
[2022-07-31 08:09] LABS: MEAN CORPUSCULAR HGB CONC 32.9 g/dl (32.0-36.5); MEAN CORPUSCULAR VOLUME 88.2 fl (80.0-96.0); PLATELET COUNT, AUTOMATED 137 10^3/uL (150-450); RED BLOOD COUNT 2.38 10^6/uL (4.00-5.40); WHITE BLOOD COUNT 7.7 10^3/uL (4.0-10.0)
[2022-07-31] MEDS: allopurinoL 300 MG TAB PO SCH (08:09)
[2022-07-31 08:19] LABS: HEMOGLOBIN 6.9 g/dl (12.0-15.5)
[2022-07-31] MEDS: SODIUM CHLORIDE 0.9% INJ 10 ML SYR IV SCH (09:00)
[2022-07-31 12:59] LABS: HEMATOCRIT 22.9 % (36.0-47.0); HEMOGLOBIN 7.3 g/dl (12.0-15.5)
[2022-07-31] MEDS ORDERED: LR 1,000 ML IV STA (14:45)
[2022-07-31] MEDS ORDERED: CALCIUM GLUCONATE 1,000 MG in D5W MINI-BAG PLUS 100 ML IV STA (14:46)
[2022-07-31] MEDS ORDERED: ISOVUE-370 76% 100ML VIAL As Ordered ONE (14:51)
[2022-07-31] MEDS ORDERED: OCTREOTIDE ACETATE 100MCG/ML VIAL **IV ADMINISTRATION ONLY IV ONE (15:15)
[2022-07-31] MEDS: OCTREOTIDE ACETATE 1,200 MCG in NS 238.8 ML IV SCH (16:39)
[2022-07-31] MEDS ORDERED: SODIUM CHLORIDE 0.9% INJ 10 ML SYR IV PRN (17:40)
[2022-07-31 18:49] LABS: MAGNESIUM LEVEL 1.5 MG/DL (1.8-2.4)
[2022-07-31 19:37] LABS: HEMATOCRIT 25.1 % (36.0-47.0); HEMOGLOBIN 8.2 g/dl (12.0-15.5); MEAN CORPUSCULAR HEMOGLOBIN 28.9 pg (27.0-33.0); MEAN CORPUSCULAR HGB CONC 32.7 g/dl (32.0-36.5); MEAN CORPUSCULAR VOLUME 88.4 fl (80.0-96.0); PLATELET COUNT, AUTOMATED 140 10^3/uL (150-450); RED BLOOD COUNT 2.84 10^6/uL (4.00-5.40)
[2022-07-31] MEDS: PRAVASTATIN 20 MG TAB PO SCH (20:08)
[2022-07-31] MEDS: MAG SULF 1GM/100ML (MAG RUN) 1 GM in IV 1 EA IV SCH ×2 (20:53→21:56)
[2022-08-01] VITALS (7 sets, daily range): BP systolic 92–130; BP diastolic 60–72
[2022-08-01 03:10] LABS: HEMATOCRIT 22.3 % (36.0-47.0); HEMOGLOBIN 7.3 g/dl (12.0-15.5); MEAN CORPUSCULAR HEMOGLOBIN 29.1 pg (27.0-33.0); MEAN CORPUSCULAR HGB CONC 32.7 g/dl (32.0-36.5); MEAN CORPUSCULAR VOLUME 88.8 fl (80.0-96.0); PLATELET COUNT, AUTOMATED 134 10^3/uL (150-450); RED BLOOD COUNT 2.51 10^6/uL (4.00-5.40); WHITE BLOOD COUNT 6.8 10^3/uL (4.0-10.0)
[2022-08-01 03:38] LABS: BLOOD UREA NITROGEN 19 MG/DL (7-18); CALCIUM LEVEL 7.9 MG/DL (8.8-10.2); CARBON DIOXIDE LEVEL 24 MEQ/L (21-32); CHLORIDE LEVEL 114 MEQ/L (98-107); CREATININE FOR GFR 0.37 MG/DL (0.55-1.30); GLOMERULAR FILTRATION RATE > 60.0 (>39); GLUCOSE, FASTING 105 MG/DL (70-100); SODIUM LEVEL 144 MEQ/L (136-145)
[2022-08-01 03:42] LABS: ALBUMIN 1.9 GM/DL (3.2-5.2); BILIRUBIN,DIRECT 0.1 MG/DL (0.0-0.2); BILIRUBIN,TOTAL 0.4 MG/DL (0.2-1.0); MAGNESIUM LEVEL 2.2 MG/DL (1.8-2.4); TOTAL PROTEIN 3.9 GM/DL (6.4-8.2)
[2022-08-01] MEDS: IPRATROPIUM 0.5MG/ALBUTEROL 2.5MG INH SOL UD 3ML (DUONEB) NEB SCH ×4 (07:22→19:23)
[2022-08-01] MEDS: MULTIVITAMINS/MINERALS THERAP 1 TAB PO SCH (09:25)
[2022-08-01] MEDS: clonazePAM 1 MG TAB PO SCH ×4 (09:25→20:23)
[2022-08-01] MEDS: PANTOPRAZOLE 40MG TAB (PROTONIX) PO SCH (09:25)
[2022-08-01] MEDS: allopurinoL 300 MG TAB PO SCH (09:26)
[2022-08-01] MEDS: SUCRALFATE 1 GM TAB PO SCH ×4 (09:26→20:23)
[2022-08-01] MEDS: SODIUM CHLORIDE 0.9% INJ 10 ML SYR IV SCH (09:27)
[2022-08-01 11:14] LABS: HEMATOCRIT 22.1 % (36.0-47.0); HEMOGLOBIN 7.2 g/dl (12.0-15.5); MEAN CORPUSCULAR HEMOGLOBIN 29.6 pg (27.0-33.0); MEAN CORPUSCULAR HGB CONC 32.6 g/dl (32.0-36.5); MEAN CORPUSCULAR VOLUME 90.9 fl (80.0-96.0); PLATELET COUNT, AUTOMATED 128 10^3/uL (150-450); RED BLOOD COUNT 2.43 10^6/uL (4.00-5.40); WHITE BLOOD COUNT 7.5 10^3/uL (4.0-10.0)
[2022-08-01 11:28] LABS: HEPATITIS B SURFACE ANTIGEN NEGATIVE (NEGATIVE)
[2022-08-01 11:49] LABS: HEPATITIS B CORE ANTIBODY IGM NEGATIVE (NEGATIVE)
[2022-08-01 11:53] LABS: HEPATITIS C VIRUS ABY INDEX < 0.0 INDEX (<0.8)
[2022-08-01 13:48] LABS: INR 1.46; PROTHROMBIN TIME 18.2 SECONDS (12.7-14.5)
[2022-08-01] MEDS ORDERED: propofoL 200 MG/20 ML VIAL As Ordered ONE (15:58)
[2022-08-01] MEDS ORDERED: SIMETHICONE 40MG/0.6ML DROPS 30ML As Ordered ONE (16:30)
[2022-08-01] MEDS: OCTREOTIDE ACETATE 1,200 MCG in NS 238.8 ML IV SCH (17:51)
[2022-08-01 17:56] LABS: HEMOGLOBIN 8.2 g/dl (12.0-15.5)
[2022-08-01] MEDS: PRAVASTATIN 20 MG TAB PO SCH (20:23)
[2022-08-01] MEDS: PANTOPRAZOLE 40MG VIAL IV SCH (20:23)
[2022-08-01 21:01] LABS: HEMATOCRIT 26.5 % (36.0-47.0); HEMOGLOBIN 8.3 g/dl (12.0-15.5)
[2022-08-02] VITALS: BP 130/68
[2022-08-02 04:00] VITALS: BP 112/64
[2022-08-02 05:41] LABS: HEMOGLOBIN 7.8 g/dl (12.0-15.5); MEAN CORPUSCULAR HEMOGLOBIN 29.7 pg (27.0-33.0); MEAN CORPUSCULAR HGB CONC 32.5 g/dl (32.0-36.5); MEAN CORPUSCULAR VOLUME 91.3 fl (80.0-96.0); PLATELET COUNT, AUTOMATED 135 10^3/uL (150-450); RED BLOOD COUNT 2.63 10^6/uL (4.00-5.40); WHITE BLOOD COUNT 6.2 10^3/uL (4.0-10.0)
[2022-08-02 06:05] LABS: ALBUMIN 2.2 GM/DL (3.2-5.2); ALT/SGPT 14 U/L (12-78); BILIRUBIN,DIRECT 0.2 MG/DL (0.0-0.2); BILIRUBIN,TOTAL 0.6 MG/DL (0.2-1.0); BLOOD UREA NITROGEN 16 MG/DL (7-18); CALCIUM LEVEL 7.6 MG/DL (8.8-10.2); CARBON DIOXIDE LEVEL 25 MEQ/L (21-32); CHLORIDE LEVEL 114 MEQ/L (98-107); GLOMERULAR FILTRATION RATE > 60.0 (>39); GLUCOSE, FASTING 109 MG/DL (70-100); MAGNESIUM LEVEL 1.9 MG/DL (1.8-2.4); POTASSIUM SERUM 3.7 MEQ/L (3.5-5.1); SODIUM LEVEL 143 MEQ/L (136-145); TOTAL PROTEIN 4.1 GM/DL (6.4-8.2)
[2022-08-02] MEDS: IPRATROPIUM 0.5MG/ALBUTEROL 2.5MG INH SOL UD 3ML (DUONEB) NEB SCH ×4 (07:23→19:03)
[2022-08-02 08:00] VITALS: BP 114/60
[2022-08-02] MEDS: PANTOPRAZOLE 40MG VIAL IV SCH ×2 (08:54→20:37)
[2022-08-02] MEDS: SUCRALFATE 1 GM TAB PO SCH ×4 (08:56→20:37)
[2022-08-02] MEDS: allopurinoL 300 MG TAB PO SCH (08:56)
[2022-08-02] MEDS: MULTIVITAMINS/MINERALS THERAP 1 TAB PO SCH (08:56)
[2022-08-02] MEDS: clonazePAM 1 MG TAB PO SCH ×4 (08:56→20:37)
[2022-08-02] MEDS: SODIUM CHLORIDE 0.9% INJ 10 ML SYR IV SCH (08:59)
[2022-08-02] MEDS: ACETAMINOPHEN 325 MG TAB PO PRN (09:22)
[2022-08-02 12:00] VITALS: BP 128/60
[2022-08-02 13:16] LABS: HEMATOCRIT 25.3 % (36.0-47.0); HEMOGLOBIN 7.8 g/dl (12.0-15.5)
[2022-08-02 15:35] VITALS: BP 134/62
[2022-08-02] MEDS: OCTREOTIDE ACETATE 1,200 MCG in NS 238.8 ML IV SCH (17:51)
[2022-08-02 20:00] VITALS: BP 100/62
[2022-08-02] MEDS: PRAVASTATIN 20 MG TAB PO SCH (20:37)
[2022-08-03] VITALS: BP 118/68
[2022-08-03 04:00] VITALS: BP 110/58
[2022-08-03 05:26] LABS: HEMATOCRIT 24.3 % (36.0-47.0); HEMOGLOBIN 7.9 g/dl (12.0-15.5); MEAN CORPUSCULAR HGB CONC 32.5 g/dl (32.0-36.5); MEAN CORPUSCULAR VOLUME 92.4 fl (80.0-96.0); PLATELET COUNT, AUTOMATED 142 10^3/uL (150-450); RED BLOOD COUNT 2.63 10^6/uL (4.00-5.40); WHITE BLOOD COUNT 4.6 10^3/uL (4.0-10.0)
[2022-08-03 06:05] LABS: BLOOD UREA NITROGEN 8 MG/DL (7-18); CALCIUM LEVEL 7.8 MG/DL (8.8-10.2); CARBON DIOXIDE LEVEL 27 MEQ/L (21-32); CHLORIDE LEVEL 115 MEQ/L (98-107); CREATININE FOR GFR 0.26 MG/DL (0.55-1.30); GLOMERULAR FILTRATION RATE > 60.0 (>39); GLUCOSE, FASTING 113 MG/DL (70-100); MAGNESIUM LEVEL 1.7 MG/DL (1.8-2.4); PHOSPHORUS LEVEL 3.1 MG/DL (2.5-4.9); POTASSIUM SERUM 3.5 MEQ/L (3.5-5.1); SODIUM LEVEL 145 MEQ/L (136-145)
[2022-08-03] MEDS: IPRATROPIUM 0.5MG/ALBUTEROL 2.5MG INH SOL UD 3ML (DUONEB) NEB SCH ×4 (07:21→19:08)
[2022-08-03] MEDS ORDERED: MAG SULF 1GM/100ML (MAG RUN) 1 GM in IV 1 EA IV ONE (08:00)
[2022-08-03 08:18] VITALS: BP 120/68
[2022-08-03 08:28] VITALS: BP 120/68
[2022-08-03] MEDS: clonazePAM 1 MG TAB PO SCH ×4 (09:26→20:13)
[2022-08-03] MEDS: SUCRALFATE 1 GM TAB PO SCH ×4 (09:28→20:13)
[2022-08-03] MEDS: ACETAMINOPHEN 325 MG TAB PO PRN ×2 (09:28→21:19)
[2022-08-03] MEDS: allopurinoL 300 MG TAB PO SCH (09:28)
[2022-08-03] MEDS: MULTIVITAMINS/MINERALS THERAP 1 TAB PO SCH (09:28)
[2022-08-03] MEDS: PANTOPRAZOLE 40MG VIAL IV SCH (09:29)
[2022-08-03] MEDS: SODIUM CHLORIDE 0.9% INJ 10 ML SYR IV SCH (09:31)
[2022-08-03] MEDS ORDERED: IRON SUCROSE 300 MG in NS 250 ML IV ONE (10:00)
[2022-08-03 19:56] VITALS: BP 115/57
[2022-08-03] MEDS: PANTOPRAZOLE 40MG TAB (PROTONIX) PO SCH (20:13)
[2022-08-03] MEDS: PRAVASTATIN 20 MG TAB PO SCH (20:13)
[2022-08-03] MEDS ORDERED: SERTRALINE HCL 50 MG TAB PO SCH (21:00)
[2022-08-04 05:06] VITALS: BP 117/59
[2022-08-04 05:50] LABS: HEMATOCRIT 25.1 % (36.0-47.0); HEMOGLOBIN 7.9 g/dl (12.0-15.5); MEAN CORPUSCULAR HEMOGLOBIN 29.6 pg (27.0-33.0); MEAN CORPUSCULAR HGB CONC 31.5 g/dl (32.0-36.5); PLATELET COUNT, AUTOMATED 144 10^3/uL (150-450); RED BLOOD COUNT 2.67 10^6/uL (4.00-5.40); WHITE BLOOD COUNT 4.1 10^3/uL (4.0-10.0)
[2022-08-04 06:25] LABS: BLOOD UREA NITROGEN 13 MG/DL (7-18); CARBON DIOXIDE LEVEL 27 MEQ/L (21-32); CHLORIDE LEVEL 114 MEQ/L (98-107); CREATININE FOR GFR 0.33 MG/DL (0.55-1.30); GLOMERULAR FILTRATION RATE > 60.0 (>39); GLUCOSE, FASTING 89 MG/DL (70-100); MAGNESIUM LEVEL 1.9 MG/DL (1.8-2.4); PHOSPHORUS LEVEL 3.5 MG/DL (2.5-4.9); POTASSIUM SERUM 3.6 MEQ/L (3.5-5.1); SODIUM LEVEL 144 MEQ/L (136-145)
[2022-08-04] MEDS: IPRATROPIUM 0.5MG/ALBUTEROL 2.5MG INH SOL UD 3ML (DUONEB) NEB SCH ×3 (07:16→15:22)
[2022-08-04] MEDS: MULTIVITAMINS/MINERALS THERAP 1 TAB PO SCH (08:52)
[2022-08-04] MEDS: clonazePAM 1 MG TAB PO SCH ×3 (08:52→16:52)
[2022-08-04] MEDS: SODIUM CHLORIDE 0.9% INJ 10 ML SYR IV SCH (08:52)
[2022-08-04] MEDS: SUCRALFATE 1 GM TAB PO SCH ×3 (08:52→16:53)
[2022-08-04] MEDS: PANTOPRAZOLE 40MG TAB (PROTONIX) PO SCH (08:52)
[2022-08-04] MEDS: allopurinoL 300 MG TAB PO SCH (08:52)
[2022-08-04] MEDS: ACETAMINOPHEN 325 MG TAB PO PRN (09:10)
[2022-08-04 11:30] VITALS: BP 132/73
[2022-08-04 11:40] VITALS: BP 110/78
[2022-08-04] MEDS ORDERED: PANT40TA29 PO (15:35)
[2022-08-04] MEDS ORDERED: METO1TAB32 PO ×3 (15:35→15:41)
[2022-08-04] MEDS ORDERED: SUCR1TA PO (15:35)
[2022-08-04] MEDS ORDERED: LISI5TAB11 PO (15:35)
[2022-08-04] MEDS ORDERED: LISI10TA22 PO (15:40)
[2022-08-04] MEDS ORDERED: LISI2.5T9 PO (15:41)
== END 2022-08-04 18:38 | disposition home or self-care (01) | DRG 811 ==
LOC: EDBD 23:21 → M ED 07-30 01:00 → M ED INP 07-30 03:09 → M PCU 07-30 05:18
PROVIDERS: ADMIT Internal Medicine; ATTEND Internal Medicine
PROC: 30233N1 Transfusion of Nonautologous Red Blood Cells into Peripheral Vein, Percutaneous Approach (ICD-10-PCS; 2022-07-30)
PROC: 30233R1 Transfusion of Nonautologous Platelets into Peripheral Vein, Percutaneous Approach (ICD-10-PCS; 2022-07-31)
PROC: 0W3P8ZZ Control Bleeding in Gastrointestinal Tract, Via Natural or Artificial Opening Endoscopic (ICD-10-PCS; principal; 2022-08-01 15:00)
DX: D62 Acute posthemorrhagic anemia (principal); K31.811 Angiodysplasia of stomach and duodenum with bleeding; I50.22 Chronic systolic (congestive) heart failure; I47.2 Ventricular tachycardia; E87.2 Acidosis; D68.32 Hemorrhagic disorder due to extrinsic circulating anticoagulants; K92.2 Gastrointestinal hemorrhage, unspecified; C38.3 Malignant neoplasm of mediastinum, part unspecified; J44.9 Chronic obstructive pulmonary disease, unspecified; I11.0 Hypertensive heart disease with heart failure; K74.60 Unspecified cirrhosis of liver; K21.9 Gastro-esophageal reflux disease without esophagitis; I48.91 Unspecified atrial fibrillation; E78.5 Hyperlipidemia, unspecified; N93.9 Abnormal uterine and vaginal bleeding, unspecified; K57.90 Diverticulosis of intestine, part unspecified, without perforation or abscess without bleeding; Z92.21 Personal history of antineoplastic chemotherapy; Z79.01 Long term (current) use of anticoagulants; Z79.899 Other long term (current) drug therapy; Z79.82 Long term (current) use of aspirin; Z86.711 Personal history of pulmonary embolism; M10.9 Gout, unspecified; F32.A Depression, unspecified; Z87.891 Personal history of nicotine dependence; F41.9 Anxiety disorder, unspecified

== ENCOUNTER → 2022-08-07 | Outpatient (CLI) | payer MEDICARE ==
[~2022-08-07] MED LIST changes: +LISI2.5T9 PO; +LISI5TAB11 PO; +SUCR1TA PO
[2022-08-07 16:31] LABS: HEMATOCRIT 28.8 % (36.0-47.0); HEMOGLOBIN 8.7 g/dl (12.0-15.5); MEAN CORPUSCULAR HEMOGLOBIN 28.9 pg (27.0-33.0); MEAN CORPUSCULAR HGB CONC 30.2 g/dl (32.0-36.5); MEAN CORPUSCULAR VOLUME 95.7 fl (80.0-96.0); PLATELET COUNT, AUTOMATED 227 10^3/uL (150-450); RED BLOOD COUNT 3.01 10^6/uL (4.00-5.40); WHITE BLOOD COUNT 5.3 10^3/uL (4.0-10.0)
[2022-08-07 17:11] LABS: BLOOD UREA NITROGEN 14 MG/DL (7-18); CALCIUM LEVEL 8.5 MG/DL (8.8-10.2); CARBON DIOXIDE LEVEL 25 MEQ/L (21-32); CHLORIDE LEVEL 111 MEQ/L (98-107); CREATININE FOR GFR 0.44 MG/DL (0.55-1.30); GLOMERULAR FILTRATION RATE > 60.0 (>39); GLUCOSE, FASTING 96 MG/DL (70-100); POTASSIUM SERUM 3.7 MEQ/L (3.5-5.1); SODIUM LEVEL 142 MEQ/L (136-145)
== END ==
LOC: M LAB 15:47
PROVIDERS: ATTEND Family Medicine
DX: I50.22 Chronic systolic (congestive) heart failure (principal)

== ENCOUNTER → 2022-08-14 | Outpatient (CLI) | payer MEDICARE ==
[2022-08-14 10:23] LABS: HEMATOCRIT 33.3 % (36.0-47.0); HEMOGLOBIN 10.2 g/dl (12.0-15.5); MEAN CORPUSCULAR HGB CONC 30.6 g/dl (32.0-36.5); MEAN CORPUSCULAR VOLUME 94.6 fl (80.0-96.0); PLATELET COUNT, AUTOMATED 248 10^3/uL (150-450); RED BLOOD COUNT 3.52 10^6/uL (4.00-5.40)
[2022-08-14 10:36] LABS: INR 1.01; PROTHROMBIN TIME 13.7 SECONDS (12.7-14.5)
[2022-08-14 10:42] LABS: HEMOGLOBIN A1c 4.4 %
[2022-08-14 11:19] LABS: ALBUMIN 3.1 GM/DL (3.2-5.2); ALT/SGPT 14 U/L (12-78); BILIRUBIN,TOTAL 0.9 MG/DL (0.2-1.0); BLOOD UREA NITROGEN 11 MG/DL (7-18); CALCIUM LEVEL 8.7 MG/DL (8.8-10.2); CARBON DIOXIDE LEVEL 27 MEQ/L (21-32); CHLORIDE LEVEL 106 MEQ/L (98-107); CREATININE FOR GFR 0.54 MG/DL (0.55-1.30); GLOMERULAR FILTRATION RATE > 60.0 (>39); GLUCOSE, FASTING 91 MG/DL (70-100); POTASSIUM SERUM 3.4 MEQ/L (3.5-5.1); SODIUM LEVEL 141 MEQ/L (136-145); TOTAL PROTEIN 6.1 GM/DL (6.4-8.2)
== END ==
LOC: M RAD 09:08
PROVIDERS: ATTEND Family Medicine
DX: I10 Essential (primary) hypertension (principal); I50.9 Heart failure, unspecified; I48.91 Unspecified atrial fibrillation; Z79.899 Other long term (current) drug therapy

== ENCOUNTER → 2022-09-22 | Outpatient (CLI) | payer MEDICARE ==
[~2022-09-22] MED LIST changes: +OMEG10002 PO; +POTA-151 PO; +PROHANCE 279.3MG/ML 15ML VIAL As Ordered ONE
== END ==
LOC: M RAD 15:46
PROVIDERS: ATTEND General Practice
DX: C34.12 Malignant neoplasm of upper lobe, left bronchus or lung (principal)
CPT/HCPCS: 70553; A9576

== ENCOUNTER → 2022-10-03 | Outpatient (CLI) | payer MEDICARE ==
[~2022-10-03] MED LIST changes: -PROHANCE 279.3MG/ML 15ML VIAL As Ordered ONE
== END ==
LOC: M ONCR 08:33
PROVIDERS: ATTEND General Practice
DX: C34.12 Malignant neoplasm of upper lobe, left bronchus or lung (principal); D39.0 Neoplasm of uncertain behavior of uterus; Z92.3 Personal history of irradiation; Z92.21 Personal history of antineoplastic chemotherapy; M54.50 Low back pain, unspecified; R41.89 Other symptoms and signs involving cognitive functions and awareness; Z87.891 Personal history of nicotine dependence; Z79.899 Other long term (current) drug therapy; Z79.82 Long term (current) use of aspirin; Z79.891 Long term (current) use of opiate analgesic

== ENCOUNTER 2022-10-28 08:06 | Inpatient (IN) | payer MEDICARE ==
[~2022-10-28] VITALS: Ht 160 cm; Wt 64.5 kg
[2022-10-28] MEDS ORDERED: NITROGLYCERIN 0.4MG SUBL TABLET SL PRN (08:15)
[2022-10-28 08:37] LABS: BASO # 0.1 10^3/uL (0.0-0.2); BASO % 0.8 % (0.0-1.0); EOS # 0.1 10^3/uL (0.0-0.5); EOS % 1.7 % (0.0-3.0); HEMATOCRIT 39.4 % (36.0-47.0); HEMOGLOBIN 12.2 g/dl (12.0-15.5); LYMPH # 1.1 10^3/uL (1.5-5.0); LYMPH % 13.5 % (24.0-44.0); MEAN CORPUSCULAR HEMOGLOBIN 27.9 pg (27.0-33.0); MONO # 0.5 10^3/uL (0.0-0.8); MONO % 6.7 % (2.0-8.0); NEUTROPHILS % 76.7 % (36.0-66.0); PLATELET COUNT, AUTOMATED 235 10^3/uL (150-450); RED BLOOD COUNT 4.38 10^6/uL (4.00-5.40); WHITE BLOOD COUNT 7.8 10^3/uL (4.0-10.0)
[2022-10-28] MEDS ORDERED: AZITHROMYCIN INJ 500 MG, VIAL MATE ADAPTER 1 EACH in D5W 250 ML IV ONE (08:40)
[2022-10-28] MEDS ORDERED: FUROSEMIDE 40MG/4ML VIAL (J1940) IV ONE ×2 (08:40→17:00)
[2022-10-28] MEDS ORDERED: methylPREDNISolone 125MG 2ML VIAL IV ONE (08:40)
[2022-10-28] MEDS ORDERED: cefTRIAXone SOD 2 GM in D5W MINI-BAG PLUS 50 ML IV ONE (08:40)
[2022-10-28] MEDS: IPRATROPIUM 0.5MG/ALBUTEROL 2.5MG INH SOL UD 3ML (DUONEB) NEB SCH ×3 (08:46→09:20)
[2022-10-28] MEDS ORDERED: ISOVUE-370 76% 100ML VIAL As Ordered ONE (09:00)
[2022-10-28 09:10] LABS: BILIRUBIN,DIRECT < 0.1 MG/DL (<0.4)
[2022-10-28 09:46] LABS: ALBUMIN 3.2 G/DL (3.2-5.2); ALKALINE PHOSPHATASE 117 U/L (46-116); ALT/SGPT 19 U/L (7.0-40); AST/SGOT 29 U/L (<34); BILIRUBIN,TOTAL 0.2 MG/DL (0.3-1.2); BLOOD UREA NITROGEN 12 MG/DL (9-23); CARBON DIOXIDE LEVEL 21 MMOL/L (20-31); CHLORIDE LEVEL 109 MMOL/L (98-107); CK-MB VALUE MASS < 1.0 NG/ML (<3.6); CPK CREATINE PHOSPHOKINASE 38 U/L (34-145); CREATININE FOR GFR 0.37 MG/DL (0.55-1.30); GLOMERULAR FILTRATION RATE > 60.0 (>39); GLUCOSE, FASTING 180 MG/DL (74-106); MB/CK RELATIVE INDEX 2.63 (< OR =4); POTASSIUM SERUM 4.2 MMOL/L (3.5-5.1); SODIUM LEVEL 141 MMOL/L (136-145); THYROID STIMULATING HORMONE 2.778 uIU/ML (0.55-4.78); TOTAL PROTEIN 6.7 G/DL (5.7-8.2)
[2022-10-28 10:15] VITALS: O2SAT 99
[2022-10-28] MEDS ORDERED: CLON0.5T2 PO (11:13)
[2022-10-28] MEDS ORDERED: THERTAB19 PO (11:44)
[2022-10-28] MEDS ORDERED: HOME MED LIST COMPLETE! XX SCH (11:45)
[2022-10-28 12:42] LABS: CK-MB VALUE MASS 1.9 NG/ML (<3.6)
[2022-10-28 12:43] LABS: MB/CK RELATIVE INDEX 4.63 (< OR =4)
[2022-10-28] MEDS ORDERED: clonazePAM 0.5 MG TAB PO PRN (13:30)
[2022-10-28] MEDS: lisinopriL 5 MG TAB PO SCH (13:56)
[2022-10-28 14:23] LABS: CK-MB VALUE MASS 2.4 NG/ML (<3.6)
[2022-10-28 15:15] VITALS: BP 138/82
[2022-10-28] MEDS: MULTIVITAMINS/MINERALS THERAP 1 TAB PO SCH (15:59)
[2022-10-28] MEDS: ASPIRIN 81MG ENTERIC TABLET PO SCH (15:59)
[2022-10-28] MEDS ORDERED: ACETAMINOPHEN TAB 650MG DOSE (2X325MG) PO PRN (16:10)
[2022-10-28] MEDS: SUCRALFATE 1 GM TAB PO SCH ×2 (17:36→20:54)
[2022-10-28] MEDS: OMEGA-3 1000MG CAPSULE PO SCH (17:36)
[2022-10-28] MEDS: METOPROLOL SUCC *XL* 12.5MG PER 1/2 TAB (TopROL *XL*) PO SCH (17:37)
[2022-10-28 17:45] LABS: CK-MB VALUE MASS 2.7 NG/ML (<3.6)
[2022-10-28 17:46] LABS: MB/CK RELATIVE INDEX 5.09 (< OR =4)
[2022-10-28 20:00] VITALS: BP 124/83
[2022-10-28] MEDS: PANTOPRAZOLE 40MG TAB (PROTONIX) PO SCH (20:54)
[2022-10-28] MEDS: FERROUS SULFATE 325MG TAB PO SCH (20:54)
[2022-10-28] MEDS: clonazePAM 0.5 MG TAB PO SCH (20:54)
[2022-10-28] MEDS ORDERED: PRAVASTATIN 20 MG TAB PO SCH (21:00)
[2022-10-28] MEDS ORDERED: SERTRALINE HCL 50 MG TAB PO SCH (21:00)
[2022-10-28 23:59] VITALS: BP 112/63
[2022-10-29 04:00] VITALS: BP 127/73
[2022-10-29 05:48] LABS: BASO % 0.6 % (0.0-1.0); EOS # 0.1 10^3/uL (0.0-0.5); HEMATOCRIT 36.7 % (36.0-47.0); HEMOGLOBIN 11.5 g/dl (12.0-15.5); LYMPH # 0.7 10^3/uL (1.5-5.0); LYMPH % 13.9 % (24.0-44.0); MEAN CORPUSCULAR HEMOGLOBIN 27.8 pg (27.0-33.0); MEAN CORPUSCULAR HGB CONC 31.3 g/dl (32.0-36.5); MEAN CORPUSCULAR VOLUME 88.6 fl (80.0-96.0); MONO # 0.4 10^3/uL (0.0-0.8); MONO % 8.5 % (2.0-8.0); NEUTROPHILS # 3.7 10^3/uL (1.5-8.5); NEUTROPHILS % 74.4 % (36.0-66.0); PLATELET COUNT, AUTOMATED 202 10^3/uL (150-450); RED BLOOD COUNT 4.14 10^6/uL (4.00-5.40)
[2022-10-29 06:39] LABS: BLOOD UREA NITROGEN 11 MG/DL (9-23); CALCIUM LEVEL 8.8 MG/DL (8.3-10.6); CARBON DIOXIDE LEVEL 26 MMOL/L (20-31); CHLORIDE LEVEL 105 MMOL/L (98-107); CREATININE FOR GFR 0.46 MG/DL (0.55-1.30); GLOMERULAR FILTRATION RATE > 60.0 (>39); GLUCOSE, FASTING 112 MG/DL (74-106); POTASSIUM SERUM 3.1 MMOL/L (3.5-5.1); SODIUM LEVEL 141 MMOL/L (136-145)
[2022-10-29 07:49] VITALS: BP 114/71
[2022-10-29] MEDS ORDERED: POTASSIUM CHLORIDE 10MEQ SR TABLET PO ONE ×2 (08:00→10:00)
[2022-10-29] MEDS: SUCRALFATE 1 GM TAB PO SCH ×2 (08:10→12:24)
[2022-10-29] MEDS: clonazePAM 0.5 MG TAB PO SCH (08:10)
[2022-10-29] MEDS: ASPIRIN 81MG ENTERIC TABLET PO SCH (08:11)
[2022-10-29] MEDS: OMEGA-3 1000MG CAPSULE PO SCH (08:11)
[2022-10-29] MEDS: FERROUS SULFATE 325MG TAB PO SCH (08:11)
[2022-10-29] MEDS: MULTIVITAMINS/MINERALS THERAP 1 TAB PO SCH (08:11)
[2022-10-29] MEDS: PANTOPRAZOLE 40MG TAB (PROTONIX) PO SCH (08:11)
[2022-10-29] MEDS ORDERED: FUROSEMIDE 40MG/4ML VIAL (J1940) IV ONE (09:00)
[2022-10-29] MEDS ORDERED: FURO20TA2 PO (10:27)
[2022-10-29 10:39] VITALS: BP 138/82
[2022-10-29] MEDS: METOPROLOL SUCC *XL* 12.5MG PER 1/2 TAB (TopROL *XL*) PO SCH (10:39)
[2022-10-29] MEDS: lisinopriL 5 MG TAB PO SCH (10:39)
[2022-10-29] MEDS ORDERED: METO25TA PO (11:56)
[2022-10-29 12:00] VITALS: BP 122/78
[2022-10-29 12:32] LABS: BLOOD UREA NITROGEN 13 MG/DL (9-23); CARBON DIOXIDE LEVEL 25 MMOL/L (20-31); CHLORIDE LEVEL 103 MMOL/L (98-107); CREATININE FOR GFR 0.41 MG/DL (0.55-1.30); GLOMERULAR FILTRATION RATE > 60.0 (>39); GLUCOSE, FASTING 163 MG/DL (74-106); POTASSIUM SERUM 3.7 MMOL/L (3.5-5.1); SODIUM LEVEL 140 MMOL/L (136-145)
== END 2022-10-29 15:45 | disposition home health service (06) | DRG 291 ==
LOC: EDBD 08:06 → M ED 08:06 → M ED INP 12:34 → ENRESERVDT 12:58 → ENRESERVTM 12:58 → ENRESERV 12:58 → M PCU 15:04
PROVIDERS: ADMIT Internal Medicine; ATTEND Internal Medicine
DX: I11.0 Hypertensive heart disease with heart failure (principal); I50.21 Acute systolic (congestive) heart failure; I16.1 Hypertensive emergency; F41.9 Anxiety disorder, unspecified; F32.A Depression, unspecified; I48.0 Paroxysmal atrial fibrillation; E87.6 Hypokalemia; Z92.21 Personal history of antineoplastic chemotherapy; I42.9 Cardiomyopathy, unspecified; Z86.711 Personal history of pulmonary embolism; Z92.3 Personal history of irradiation; K21.9 Gastro-esophageal reflux disease without esophagitis; C54.1 Malignant neoplasm of endometrium; Z79.899 Other long term (current) drug therapy; Z79.82 Long term (current) use of aspirin; Z79.01 Long term (current) use of anticoagulants; M10.9 Gout, unspecified; Z87.891 Personal history of nicotine dependence; E78.5 Hyperlipidemia, unspecified

== ENCOUNTER → 2022-11-13 | Outpatient (CLI) | payer MEDICARE ==
[~2022-11-13] MED LIST changes: +METO25TA PO; +ONDA4TAB6 PO; +PROC10TA5 PO; +SIME180C25 PO; +THERTAB19 PO
[2022-11-13 17:15] LABS: HEMATOCRIT 38.4 % (36.0-47.0); HEMOGLOBIN 12.2 g/dl (12.0-15.5); MEAN CORPUSCULAR HGB CONC 31.8 g/dl (32.0-36.5); MEAN CORPUSCULAR VOLUME 88.3 fl (80.0-96.0); PLATELET COUNT, AUTOMATED 235 10^3/uL (150-450); RED BLOOD COUNT 4.35 10^6/uL (4.00-5.40); WHITE BLOOD COUNT 7.1 10^3/uL (4.0-10.0)
[2022-11-13 17:32] LABS: BLOOD UREA NITROGEN 13 MG/DL (9-23); CALCIUM LEVEL 8.7 MG/DL (8.3-10.6); CARBON DIOXIDE LEVEL 22 MMOL/L (20-31); CHLORIDE LEVEL 106 MMOL/L (98-107); CREATININE FOR GFR 0.41 MG/DL (0.55-1.30); GLOMERULAR FILTRATION RATE > 60.0 (>39); GLUCOSE, FASTING 111 MG/DL (74-106); POTASSIUM SERUM 3.5 MMOL/L (3.5-5.1); SODIUM LEVEL 141 MMOL/L (136-145)
== END ==
LOC: M PLALAB 16:04
PROVIDERS: ATTEND Obstetrics & Gynecology
DX: N95.0 Postmenopausal bleeding (principal)

== ENCOUNTER → 2022-12-20 | Outpatient (CLI) | payer MEDICARE ==
[~2022-12-20] MED LIST changes: -ONDA4TAB6 PO; -PROC10TA5 PO; -SIME180C25 PO
== END ==
LOC: M ONCR 14:17
PROVIDERS: ATTEND General Practice
DX: C53.8 Malignant neoplasm of overlapping sites of cervix uteri (principal); C34.12 Malignant neoplasm of upper lobe, left bronchus or lung; F41.8 Other specified anxiety disorders; E11.9 Type 2 diabetes mellitus without complications; E78.5 Hyperlipidemia, unspecified; I10 Essential (primary) hypertension; I48.91 Unspecified atrial fibrillation; M10.9 Gout, unspecified; M51.36 Other intervertebral disc degeneration, lumbar region; K57.90 Diverticulosis of intestine, part unspecified, without perforation or abscess without bleeding; Z79.82 Long term (current) use of aspirin; Z79.899 Other long term (current) drug therapy; Z87.891 Personal history of nicotine dependence; Z92.21 Personal history of antineoplastic chemotherapy; Z92.3 Personal history of irradiation

== ENCOUNTER → 2023-01-03 | Outpatient (CLI) | payer MEDICARE ==
[~2023-01-03] MED LIST changes: +ONDA4TAB6 PO; +PROC10TA5 PO; +PROHANCE 279.3MG/ML 15ML VIAL ONE
== END ==
LOC: M PLAIMG 09:56
PROVIDERS: ATTEND Internal Medicine Medical Oncology
DX: K80.20 Calculus of gallbladder without cholecystitis without obstruction (principal); C53.9 Malignant neoplasm of cervix uteri, unspecified
CPT/HCPCS: 72197; 74183; A9576

== ENCOUNTER → 2023-01-23 | Outpatient (RCR) | payer MEDICARE ==
[~2023-01-23] MED LIST changes: -PROHANCE 279.3MG/ML 15ML VIAL ONE; +SIME180C25 PO
== END ==
LOC: M ONCR 01-04 13:58
PROVIDERS: ATTEND General Practice
DX: C53.8 Malignant neoplasm of overlapping sites of cervix uteri (principal)

== ENCOUNTER 2023-02-08 06:06 | Inpatient (IN) | payer MEDICARE ==
[~2023-02-08] VITALS: Ht 167.6 cm; Wt 68.0 kg
[~2023-02-08 06:06] MED LIST changes: +LOMO2.5T PO; +LOPE-39 PO; +MAGN400T2 PO
[2023-02-08] MEDS ORDERED: MAGNESIUM SULFATE 1GM/100ML D5W BAG (10MG/ML) As Ordered ONE (06:18)
[2023-02-08] MEDS ORDERED: ALBUTEROL SULFATE 2.5MG/0.5ML INH NEB SOLN NEB ONE (06:20)
[2023-02-08] MEDS ORDERED: IPRATROPIUM 0.5MG/ALBUTEROL 2.5MG INH SOL UD 3ML (DUONEB) NEB ONE ×2 (06:20→06:40)
[2023-02-08] MEDS ORDERED: MAG SULF 1GM/100ML (MAG RUN) 1 GM in IV 1 EA IV ONE ×3 (06:20→23:00)
[2023-02-08 06:43] LABS: BASO # 0.1 10^3/uL (0.0-0.2); BASO % 0.8 % (0.0-1.0); EOS # 0.2 10^3/uL (0.0-0.5); EOS % 2.1 % (0.0-3.0); HEMATOCRIT 37.9 % (36.0-47.0); HEMOGLOBIN 12.1 g/dl (12.0-15.5); LYMPH # 0.8 10^3/uL (1.5-5.0); LYMPH % 8.5 % (24.0-44.0); MEAN CORPUSCULAR HEMOGLOBIN 30.3 pg (27.0-33.0); MEAN CORPUSCULAR HGB CONC 31.9 g/dl (32.0-36.5); MEAN CORPUSCULAR VOLUME 94.8 fl (80.0-96.0); MONO # 0.9 10^3/uL (0.0-0.8); MONO % 9.2 % (2.0-8.0); NEUTROPHILS # 7.2 10^3/uL (1.5-8.5); NEUTROPHILS % 78.4 % (36.0-66.0); PLATELET COUNT, AUTOMATED 168 10^3/uL (150-450); WHITE BLOOD COUNT 9.2 10^3/uL (4.0-10.0)
[2023-02-08] MEDS ORDERED: ACETAMINOPHEN 1000MG 100ML IV BAG IV ONE (06:50)
[2023-02-08 07:05] LABS: CPK CREATINE PHOSPHOKINASE 31 U/L (34-145)
[2023-02-08 07:07] LABS: INR 1.01; PROTHROMBIN TIME 13.5 SECONDS (12.5-14.5)
[2023-02-08 07:08] LABS: ALBUMIN 3.3 G/DL (3.2-5.2); ALKALINE PHOSPHATASE 96 U/L (46-116); ALT/SGPT 17 U/L (7.0-40); AST/SGOT 21 U/L (<34); BILIRUBIN,DIRECT 0.2 MG/DL (<0.4); BILIRUBIN,TOTAL 0.5 MG/DL (0.3-1.2); BLOOD UREA NITROGEN 9 MG/DL (9-23); CALCIUM LEVEL 8.5 MG/DL (8.3-10.6); CARBON DIOXIDE LEVEL 25 MMOL/L (20-31); CHLORIDE LEVEL 104 MMOL/L (98-107); CK-MB VALUE MASS 1.3 NG/ML (<3.6); CREATININE FOR GFR 0.39 MG/DL (0.55-1.30); GLOMERULAR FILTRATION RATE > 60.0 (>39); GLUCOSE, FASTING 251 MG/DL (74-106); MB/CK RELATIVE INDEX 4.19 (< OR =4); POTASSIUM SERUM 3.6 MMOL/L (3.5-5.1); SODIUM LEVEL 140 MMOL/L (136-145); THYROID STIMULATING HORMONE 2.495 uIU/ML (0.55-4.78); TOTAL PROTEIN 6.3 G/DL (5.7-8.2)
[2023-02-08 07:10] LABS: APPEARANCE, URINE HAZY (CLEAR); BACTERIA, URINE AUTO 1+ (NEGATIVE); BILIRUBIN, URINE AUTO NEGATIVE (NEGATIVE); BLOOD, URINE BLOOD 3+ (NEGATIVE); COLOR, URINE YELLOW (YELLOW); GLUCOSE, URINE (UA) AUTO 1+ mg/dL (NEGATIVE); GRANULAR CAST, URINE AUTO 3 /LPF; KETONE, URINE AUTO NEGATIVE (NEGATIVE); LEUKOCYTE ESTERASE, URINE AUTO 1+ (NEGATIVE); NITRITE, URINE AUTO NEGATIVE (NEGATIVE); PROTEIN, URINE AUTO 2+ mg/dL (NEGATIVE); RBC, URINE AUTO TNTC /HPF (0-3); RENAL EPITHELIAL CELLS 2 /HPF; SPECIFIC GRAVITY URINE AUTO 1.014 (1.002-1.035); SQUAMOUS EPITHELIAL CELL UR AU 3 /HPF (0-6); TRANSITIONAL EPITHELIAL AUTO 1 /HPF; UROBILINOGEN, URINE AUTO 0.2 mg/dL (0.0-2.0); WBC, URINE AUTO 63 /HPF (0-3)
[2023-02-08 07:15] LABS: RSV AMPLIFICATION NEGATIVE (NEGATIVE)
[2023-02-08] MEDS ORDERED: POTASSIUM CHLORIDE 10MEQ SR TABLET PO SCH (09:00)
[2023-02-08] MEDS ORDERED: MAGNESIUM OXIDE 400MG TAB (MAG-OX) PO SCH (09:00)
[2023-02-08] MEDS ORDERED: ISOVUE-370 76% 100ML VIAL As Ordered ONE (09:09)
[2023-02-08 09:50] LABS: ABG BASE EXCESS -1.4 (-2.0-2.0); ABG HCO3 23.1 MEQ/L (22.0-26.0); ABG O2 SATURATION 94.1 % (95.0-99.0); ABG PARTIAL PRESSURE CO2 37.9 mmHg (35.0-45.0); ABG PARTIAL PRESSURE O2 67.3 mmHg (75.0-100.0); ABG STANDARD HCO3 23.2 MEQ/L (22.0-26.0); ABG TOTAL CO2 24.2 MEQ/L (23.0-31.0); ABG pH (ARTERIAL) 7.402 UNITS (7.350-7.450)
[2023-02-08] MEDS ORDERED: FUROSEMIDE 40MG/4ML VIAL IV ONE (10:15)
[2023-02-08] MEDS ORDERED: PRAV40TA2 PO (10:43)
[2023-02-08] MEDS ORDERED: FURO40TA2 PO (10:43)
[2023-02-08] MEDS ORDERED: METO1TAB7 PO (10:43)
[2023-02-08] MEDS ORDERED: POTA1TAB21 PO (10:43)
[2023-02-08] MEDS ORDERED: ALLO300T2 PO (10:43)
[2023-02-08] MEDS ORDERED: HOME MED LIST COMPLETE! XX SCH (10:50)
[2023-02-08] MEDS ORDERED: PIPERACILLIN/TAZOBACTAM SOD 3.375 GM in D5W MINI-BAG PLUS 50 ML IV SCH (11:00)
[2023-02-08] MEDS ORDERED: ONDANSETRON 4MG ORAL DISINTEGRATING TAB PO PRN (11:15)
[2023-02-08] MEDS ORDERED: PROCHLORPERAZINE 5MG TAB PO PRN (11:15)
[2023-02-08] MEDS ORDERED: clonazePAM 0.5 MG TAB PO PRN (11:26)
[2023-02-08 12:20] VITALS: BP 127/80
[2023-02-08] MEDS: MULTIVITAMINS/MINERALS THERAP 1 TAB PO SCH (13:11)
[2023-02-08] MEDS: ASPIRIN 81MG ENTERIC TABLET PO SCH (13:11)
[2023-02-08] MEDS: FERROUS SULFATE 325MG TAB PO SCH ×2 (13:11→20:21)
[2023-02-08] MEDS: allopurinoL 300 MG TAB PO SCH (13:11)
[2023-02-08] MEDS: PANTOPRAZOLE 40MG TAB (PROTONIX) PO SCH ×2 (13:12→20:21)
[2023-02-08] MEDS: SUCRALFATE 1 GM TAB PO SCH ×3 (13:12→20:21)
[2023-02-08] MEDS: clonazePAM 0.5 MG TAB PO SCH ×2 (13:12→20:21)
[2023-02-08] MEDS: OMEGA-3 1000MG CAPSULE PO SCH (13:17)
[2023-02-08 16:30] LABS: C REACTIVE PROTEIN QUANTITATIV < 0.40 MG/DL (<1.0)
[2023-02-08 16:36] LABS: ERYTHROCYTE SEDIMENTATION RATE 12 mm/hr (0-30)
[2023-02-08] MEDS: PIPERACILLIN/TAZOBACTAM SOD 3.375 GM in D5W MINI-BAG PLUS 50 ML IV SCH (17:28)
[2023-02-08] MEDS: FUROSEMIDE 40MG/4ML VIAL IV SCH ×2 (17:29→23:00)
[2023-02-08 18:39] VITALS: BP 152/87
[2023-02-08 19:09] LABS: CK-MB VALUE MASS 2.5 NG/ML (<3.6)
[2023-02-08 19:10] LABS: MB/CK RELATIVE INDEX 5.43 (< OR =4)
[2023-02-08 20:00] VITALS: BP 139/76
[2023-02-08] MEDS: SERTRALINE HCL 50 MG TAB PO SCH (20:21)
[2023-02-08] MEDS: PRAVASTATIN 20 MG TAB PO SCH (20:21)
[2023-02-08 22:16] LABS: BLOOD UREA NITROGEN 13 MG/DL (9-23); CALCIUM LEVEL 8.7 MG/DL (8.3-10.6); CARBON DIOXIDE LEVEL 28 MMOL/L (20-31); CHLORIDE LEVEL 101 MMOL/L (98-107); CK-MB VALUE MASS 1.9 NG/ML (<3.6); GLOMERULAR FILTRATION RATE > 60.0 (>39); GLUCOSE, FASTING 141 MG/DL (74-106); MAGNESIUM LEVEL 1.4 MG/DL (1.8-2.4); POTASSIUM SERUM 3.1 MMOL/L (3.5-5.1); SODIUM LEVEL 139 MMOL/L (136-145)
[2023-02-08 22:17] LABS: CPK CREATINE PHOSPHOKINASE 42 U/L (34-145); MB/CK RELATIVE INDEX 4.52 (< OR =4)
[2023-02-08] MEDS: KCL 10MEQ/100ML SWI (KRUN) 10 MEQ in IV 1 EA IV SCH (23:22)
[2023-02-09] VITALS (12 sets, daily range): BP systolic 107–123; BP diastolic 55–71; O2SAT 94–99
[2023-02-09] MEDS: PIPERACILLIN/TAZOBACTAM SOD 3.375 GM in D5W MINI-BAG PLUS 50 ML IV SCH ×5 (00:35→23:15)
[2023-02-09] MEDS: KCL 10MEQ/100ML SWI (KRUN) 10 MEQ in IV 1 EA IV SCH (00:44)
[2023-02-09] MEDS ORDERED: POTASSIUM CHLORIDE 10MEQ SR TABLET PO ONE (00:45)
[2023-02-09] MEDS: FUROSEMIDE 40MG/4ML VIAL IV SCH ×4 (05:00→22:53)
[2023-02-09 05:36] LABS: HEMATOCRIT 33.2 % (36.0-47.0); HEMOGLOBIN 10.9 g/dl (12.0-15.5); MEAN CORPUSCULAR HEMOGLOBIN 30.1 pg (27.0-33.0); MEAN CORPUSCULAR HGB CONC 32.8 g/dl (32.0-36.5); MEAN CORPUSCULAR VOLUME 91.7 fl (80.0-96.0); PLATELET COUNT, AUTOMATED 116 10^3/uL (150-450); RED BLOOD COUNT 3.62 10^6/uL (4.00-5.40); WHITE BLOOD COUNT 3.5 10^3/uL (4.0-10.0)
[2023-02-09 05:49] LABS: CK-MB VALUE MASS < 1.0 NG/ML (<3.6)
[2023-02-09 05:50] LABS: CPK CREATINE PHOSPHOKINASE 26 U/L (34-145); MB/CK RELATIVE INDEX 3.84 (< OR =4)
[2023-02-09 06:03] LABS: BLOOD UREA NITROGEN 15 MG/DL (9-23); CALCIUM LEVEL 8.4 MG/DL (8.3-10.6); CARBON DIOXIDE LEVEL 30 MMOL/L (20-31); CHLORIDE LEVEL 103 MMOL/L (98-107); CREATININE FOR GFR 0.42 MG/DL (0.55-1.30); GLOMERULAR FILTRATION RATE > 60.0 (>39); GLUCOSE, FASTING 105 MG/DL (74-106); MAGNESIUM LEVEL 1.7 MG/DL (1.8-2.4); SODIUM LEVEL 140 MMOL/L (136-145)
[2023-02-09] MEDS ORDERED: MAG SULF 1GM/100ML (MAG RUN) 1 GM in IV 1 EA IV ONE ×2 (08:10→17:00)
[2023-02-09] MEDS ORDERED: LOPERAMIDE 2 MG CAPLET PO ONE (08:10)
[2023-02-09] MEDS ORDERED: POTASSIUM CHLORIDE 10MEQ SR TABLET PO SCH ×3 (09:00→21:00)
[2023-02-09] MEDS: SUCRALFATE 1 GM TAB PO SCH ×4 (09:14→21:18)
[2023-02-09] MEDS: ASPIRIN 81MG ENTERIC TABLET PO SCH (09:14)
[2023-02-09] MEDS: FERROUS SULFATE 325MG TAB PO SCH ×2 (09:14→21:17)
[2023-02-09] MEDS: allopurinoL 300 MG TAB PO SCH (09:15)
[2023-02-09] MEDS: MULTIVITAMINS/MINERALS THERAP 1 TAB PO SCH (09:15)
[2023-02-09] MEDS: PANTOPRAZOLE 40MG TAB (PROTONIX) PO SCH ×2 (09:16→21:17)
[2023-02-09] MEDS: clonazePAM 0.5 MG TAB PO SCH ×2 (09:16→21:18)
[2023-02-09] MEDS: MAGNESIUM OXIDE 400MG TAB (MAG-OX) PO SCH ×2 (09:16→21:18)
[2023-02-09] MEDS: OMEGA-3 1000MG CAPSULE PO SCH (11:45)
[2023-02-09 16:35] LABS: MAGNESIUM LEVEL 1.8 MG/DL (1.8-2.4); MB/CK RELATIVE INDEX 3.7 (< OR =4); POTASSIUM SERUM 2.9 MMOL/L (3.5-5.1)
[2023-02-09] MEDS: POTASSIUM CHLORIDE 10MEQ SR TABLET PO SCH ×2 (17:05→18:25)
[2023-02-09] MEDS: SERTRALINE HCL 50 MG TAB PO SCH (21:18)
[2023-02-09] MEDS: PRAVASTATIN 20 MG TAB PO SCH (21:18)
[2023-02-10] VITALS (19 sets, daily range): BP systolic 109–127; BP diastolic 55–80; O2SAT 93–100
[2023-02-10 00:07] LABS: MAGNESIUM LEVEL 1.7 MG/DL (1.8-2.4); POTASSIUM SERUM 3.9 MMOL/L (3.5-5.1)
[2023-02-10] MEDS: FUROSEMIDE 40MG/4ML VIAL IV SCH (05:00)
[2023-02-10] MEDS: PIPERACILLIN/TAZOBACTAM SOD 3.375 GM in D5W MINI-BAG PLUS 50 ML IV SCH (05:44)
[2023-02-10 06:15] LABS: HEMATOCRIT 32.5 % (36.0-47.0); HEMOGLOBIN 10.5 g/dl (12.0-15.5); MEAN CORPUSCULAR HEMOGLOBIN 30.3 pg (27.0-33.0); MEAN CORPUSCULAR HGB CONC 32.3 g/dl (32.0-36.5); MEAN CORPUSCULAR VOLUME 93.7 fl (80.0-96.0); PLATELET COUNT, AUTOMATED 107 10^3/uL (150-450); RED BLOOD COUNT 3.47 10^6/uL (4.00-5.40); WHITE BLOOD COUNT 3.5 10^3/uL (4.0-10.0)
[2023-02-10 06:38] LABS: BLOOD UREA NITROGEN 15 MG/DL (9-23); CALCIUM LEVEL 8.3 MG/DL (8.3-10.6); CARBON DIOXIDE LEVEL 29 MMOL/L (20-31); CHLORIDE LEVEL 108 MMOL/L (98-107); CREATININE FOR GFR 0.34 MG/DL (0.55-1.30); GLOMERULAR FILTRATION RATE > 60.0 (>39); GLUCOSE, FASTING 100 MG/DL (74-106); MAGNESIUM LEVEL 1.7 MG/DL (1.8-2.4); SODIUM LEVEL 142 MMOL/L (136-145)
[2023-02-10] MEDS ORDERED: CALCIUM GLUCONATE 1,000 MG in D5W MINI-BAG PLUS 100 ML IV ONE (09:00)
[2023-02-10] MEDS: SPIRONOLACTONE 25 MG TAB PO SCH (09:00)
[2023-02-10] MEDS: ENTRESTO 24-26MG TABLET (SACUBITRIL/VALSARTAN) PO SCH ×2 (09:00→20:08)
[2023-02-10] MEDS: CARVedilol 6.25 MG TAB PO SCH ×2 (09:00→20:09)
[2023-02-10] MEDS: clonazePAM 0.5 MG TAB PO SCH ×2 (09:38→20:08)
[2023-02-10] MEDS: POTASSIUM CHLORIDE 10MEQ SR TABLET PO SCH ×3 (09:52→21:00)
[2023-02-10] MEDS: MULTIVITAMINS/MINERALS THERAP 1 TAB PO SCH (09:52)
[2023-02-10] MEDS: MAGNESIUM OXIDE 400MG TAB (MAG-OX) PO SCH ×2 (09:52→20:07)
[2023-02-10] MEDS: ASPIRIN 81MG ENTERIC TABLET PO SCH (09:53)
[2023-02-10] MEDS: PANTOPRAZOLE 40MG TAB (PROTONIX) PO SCH ×2 (09:53→20:09)
[2023-02-10] MEDS: FERROUS SULFATE 325MG TAB PO SCH ×2 (09:53→20:07)
[2023-02-10] MEDS: allopurinoL 300 MG TAB PO SCH (09:54)
[2023-02-10] MEDS: OMEGA-3 1000MG CAPSULE PO SCH (09:54)
[2023-02-10] MEDS ORDERED: MAG SULF 1GM/100ML (MAG RUN) 1 GM in IV 1 EA IV ONE (10:00)
[2023-02-10] MEDS: SUCRALFATE 1 GM TAB PO SCH ×4 (10:00→20:07)
[2023-02-10] MEDS: CALCIUM CARBONATE 500 MG CHEW U/D PO SCH ×3 (10:00→17:11)
[2023-02-10 10:34] LABS: MAGNESIUM LEVEL 1.6 MG/DL (1.8-2.4)
[2023-02-10] MEDS: AUGMENTIN 875 MG TAB PO SCH ×2 (11:29→20:06)
[2023-02-10 16:40] LABS: MAGNESIUM LEVEL 1.7 MG/DL (1.8-2.4); POTASSIUM SERUM 4.6 MMOL/L (3.5-5.1)
[2023-02-10] MEDS: PRAVASTATIN 20 MG TAB PO SCH (20:07)
[2023-02-10] MEDS: SERTRALINE HCL 50 MG TAB PO SCH (20:07)
[2023-02-10] MEDS: LOPERAMIDE 2 MG CAPLET PO PRN (20:08)
[2023-02-11] MEDS: LOPERAMIDE 2 MG CAPLET PO PRN ×3 (02:44→14:44)
[2023-02-11 06:21] VITALS: BP 120/66
[2023-02-11 06:26] LABS: HEMATOCRIT 33.4 % (36.0-47.0); HEMOGLOBIN 10.8 g/dl (12.0-15.5); MEAN CORPUSCULAR HEMOGLOBIN 30.2 pg (27.0-33.0); MEAN CORPUSCULAR HGB CONC 32.3 g/dl (32.0-36.5); MEAN CORPUSCULAR VOLUME 93.3 fl (80.0-96.0); PLATELET COUNT, AUTOMATED 114 10^3/uL (150-450); RED BLOOD COUNT 3.58 10^6/uL (4.00-5.40); WHITE BLOOD COUNT 3.7 10^3/uL (4.0-10.0)
[2023-02-11 06:56] LABS: BLOOD UREA NITROGEN 12 MG/DL (9-23); CALCIUM LEVEL 7.8 MG/DL (8.3-10.6); CARBON DIOXIDE LEVEL 25 MMOL/L (20-31); CHLORIDE LEVEL 108 MMOL/L (98-107); CREATININE FOR GFR 0.32 MG/DL (0.55-1.30); GLOMERULAR FILTRATION RATE > 60.0 (>39); GLUCOSE, FASTING 97 MG/DL (74-106); MAGNESIUM LEVEL 1.5 MG/DL (1.8-2.4); POTASSIUM SERUM 3.3 MMOL/L (3.5-5.1); SODIUM LEVEL 142 MMOL/L (136-145)
[2023-02-11] MEDS: SUCRALFATE 1 GM TAB PO SCH ×4 (08:41→21:18)
[2023-02-11] MEDS: clonazePAM 0.5 MG TAB PO SCH ×2 (08:41→21:20)
[2023-02-11] MEDS: ENTRESTO 24-26MG TABLET (SACUBITRIL/VALSARTAN) PO SCH ×2 (08:41→21:19)
[2023-02-11] MEDS: CALCIUM CARBONATE 500 MG CHEW U/D PO SCH ×3 (08:42→17:31)
[2023-02-11] MEDS: FERROUS SULFATE 325MG TAB PO SCH ×2 (08:42→21:18)
[2023-02-11] MEDS: PANTOPRAZOLE 40MG TAB (PROTONIX) PO SCH ×2 (08:42→21:19)
[2023-02-11] MEDS: SPIRONOLACTONE 25 MG TAB PO SCH (08:42)
[2023-02-11] MEDS: ASPIRIN 81MG ENTERIC TABLET PO SCH (08:42)
[2023-02-11] MEDS: AUGMENTIN 875 MG TAB PO SCH ×2 (08:42→21:18)
[2023-02-11] MEDS: POTASSIUM CHLORIDE 10MEQ SR TABLET PO SCH ×2 (08:42→10:18)
[2023-02-11] MEDS: MULTIVITAMINS/MINERALS THERAP 1 TAB PO SCH (08:42)
[2023-02-11] MEDS: OMEGA-3 1000MG CAPSULE PO SCH (08:42)
[2023-02-11] MEDS: CARVedilol 6.25 MG TAB PO SCH ×2 (08:43→21:19)
[2023-02-11] MEDS: allopurinoL 300 MG TAB PO SCH (08:43)
[2023-02-11] MEDS: MAG SULF 1GM/100ML (MAG RUN) 1 GM in IV 1 EA IV SCH ×2 (08:44→10:20)
[2023-02-11] MEDS: LOMOTIL 2.5MG/0.025MG TABLET PO SCH ×3 (08:48→21:18)
[2023-02-11] MEDS ORDERED: LOPERAMIDE 2 MG CAPLET PO ONE (09:00)
[2023-02-11 09:15] VITALS: O2SAT 96
[2023-02-11 12:38] LABS: POTASSIUM SERUM 3.8 MMOL/L (3.5-5.1)
[2023-02-11 18:37] LABS: MAGNESIUM LEVEL 1.6 MG/DL (1.8-2.4); POTASSIUM SERUM 4.2 MMOL/L (3.5-5.1)
[2023-02-11 20:00] VITALS: BP 125/76
[2023-02-11] MEDS: PRAVASTATIN 20 MG TAB PO SCH (21:18)
[2023-02-11] MEDS: SERTRALINE HCL 50 MG TAB PO SCH (21:19)
[2023-02-12 06:00] VITALS: BP 111/74
[2023-02-12 06:36] LABS: HEMATOCRIT 32.7 % (36.0-47.0); HEMOGLOBIN 10.7 g/dl (12.0-15.5); MEAN CORPUSCULAR HEMOGLOBIN 30.4 pg (27.0-33.0); MEAN CORPUSCULAR HGB CONC 32.7 g/dl (32.0-36.5); MEAN CORPUSCULAR VOLUME 92.9 fl (80.0-96.0); PLATELET COUNT, AUTOMATED 116 10^3/uL (150-450); RED BLOOD COUNT 3.52 10^6/uL (4.00-5.40); WHITE BLOOD COUNT 3.2 10^3/uL (4.0-10.0)
[2023-02-12] MEDS: MULTIVITAMINS/MINERALS THERAP 1 TAB PO SCH (08:08)
[2023-02-12] MEDS: SUCRALFATE 1 GM TAB PO SCH ×4 (08:08→20:24)
[2023-02-12] MEDS: LOMOTIL 2.5MG/0.025MG TABLET PO SCH ×3 (08:08→23:05)
[2023-02-12] MEDS: ASPIRIN 81MG ENTERIC TABLET PO SCH (08:08)
[2023-02-12] MEDS: AUGMENTIN 875 MG TAB PO SCH ×2 (08:08→20:24)
[2023-02-12] MEDS: FERROUS SULFATE 325MG TAB PO SCH ×2 (08:09→20:24)
[2023-02-12] MEDS: PANTOPRAZOLE 40MG TAB (PROTONIX) PO SCH ×2 (08:10→20:24)
[2023-02-12] MEDS: clonazePAM 0.5 MG TAB PO SCH ×2 (08:10→20:24)
[2023-02-12] MEDS: CALCIUM CARBONATE 500 MG CHEW U/D PO SCH ×3 (08:11→17:43)
[2023-02-12] MEDS: OMEGA-3 1000MG CAPSULE PO SCH (08:11)
[2023-02-12] MEDS: SPIRONOLACTONE 25 MG TAB PO SCH (08:11)
[2023-02-12] MEDS: allopurinoL 300 MG TAB PO SCH (08:11)
[2023-02-12] MEDS: ENTRESTO 24-26MG TABLET (SACUBITRIL/VALSARTAN) PO SCH ×2 (08:12→20:24)
[2023-02-12] MEDS: CARVedilol 6.25 MG TAB PO SCH ×2 (08:12→20:24)
[2023-02-12] MEDS ORDERED: MAGNESIUM OXIDE 400MG TAB (MAG-OX) PO ONE ×2 (11:20→18:00)
[2023-02-12] MEDS: MAG SULF 1GM/100ML (MAG RUN) 1 GM in IV 1 EA IV SCH ×2 (11:34→14:09)
[2023-02-12] MEDS ORDERED: CALCIUM GLUCONATE 1,000 MG in D5W MINI-BAG PLUS 100 ML IV ONE (12:00)
[2023-02-12 14:00] VITALS: BP 117/70
[2023-02-12 17:01] LABS: BLOOD UREA NITROGEN 10 MG/DL (9-23); CALCIUM LEVEL 7.7 MG/DL (8.3-10.6); CARBON DIOXIDE LEVEL 23 MMOL/L (20-31); CHLORIDE LEVEL 108 MMOL/L (98-107); CREATININE FOR GFR 0.35 MG/DL (0.55-1.30); GLOMERULAR FILTRATION RATE > 60.0 (>39); GLUCOSE, FASTING 110 MG/DL (74-106); MAGNESIUM LEVEL 1.7 MG/DL (1.8-2.4); POTASSIUM SERUM 3.5 MMOL/L (3.5-5.1); SODIUM LEVEL 137 MMOL/L (136-145)
[2023-02-12] MEDS ORDERED: POTASSIUM CHLORIDE 10MEQ SR TABLET PO ONE (18:00)
[2023-02-12 20:00] VITALS: BP 122/73
[2023-02-12] MEDS: SERTRALINE HCL 50 MG TAB PO SCH (20:24)
[2023-02-12] MEDS: PRAVASTATIN 20 MG TAB PO SCH (20:24)
[2023-02-13] MEDS: LOPERAMIDE 2 MG CAPLET PO PRN (01:43)
[2023-02-13 04:49] VITALS: BP 103/57
[2023-02-13] MEDS: LOMOTIL 2.5MG/0.025MG TABLET PO SCH ×2 (05:03→12:17)
[2023-02-13 07:33] LABS: HEMATOCRIT 33.3 % (36.0-47.0); HEMOGLOBIN 10.6 g/dl (12.0-15.5); MEAN CORPUSCULAR HEMOGLOBIN 29.8 pg (27.0-33.0); MEAN CORPUSCULAR HGB CONC 31.8 g/dl (32.0-36.5); MEAN CORPUSCULAR VOLUME 93.5 fl (80.0-96.0); PLATELET COUNT, AUTOMATED 115 10^3/uL (150-450); RED BLOOD COUNT 3.56 10^6/uL (4.00-5.40); WHITE BLOOD COUNT 3.4 10^3/uL (4.0-10.0)
[2023-02-13 08:05] LABS: BLOOD UREA NITROGEN 9 MG/DL (9-23); CALCIUM LEVEL 8.5 MG/DL (8.3-10.6); CARBON DIOXIDE LEVEL 21 MMOL/L (20-31); CHLORIDE LEVEL 110 MMOL/L (98-107); CREATININE FOR GFR 0.35 MG/DL (0.55-1.30); GLOMERULAR FILTRATION RATE > 60.0 (>39); GLUCOSE, FASTING 87 MG/DL (74-106); MAGNESIUM LEVEL 1.4 MG/DL (1.8-2.4); POTASSIUM SERUM 3.8 MMOL/L (3.5-5.1); SODIUM LEVEL 137 MMOL/L (136-145)
[2023-02-13] MEDS: ASPIRIN 81MG ENTERIC TABLET PO SCH (08:50)
[2023-02-13] MEDS: SUCRALFATE 1 GM TAB PO SCH ×2 (08:50→12:17)
[2023-02-13] MEDS: allopurinoL 300 MG TAB PO SCH (08:51)
[2023-02-13] MEDS: PANTOPRAZOLE 40MG TAB (PROTONIX) PO SCH (08:51)
[2023-02-13] MEDS: AUGMENTIN 875 MG TAB PO SCH (08:51)
[2023-02-13] MEDS: ENTRESTO 24-26MG TABLET (SACUBITRIL/VALSARTAN) PO SCH ×2 (08:51→08:54)
[2023-02-13] MEDS: CALCIUM CARBONATE 500 MG CHEW U/D PO SCH ×2 (08:51→12:17)
[2023-02-13] MEDS: MULTIVITAMINS/MINERALS THERAP 1 TAB PO SCH (08:52)
[2023-02-13] MEDS: clonazePAM 0.5 MG TAB PO SCH (08:52)
[2023-02-13] MEDS: SPIRONOLACTONE 25 MG TAB PO SCH ×2 (08:52→08:54)
[2023-02-13] MEDS: OMEGA-3 1000MG CAPSULE PO SCH (08:52)
[2023-02-13] MEDS: FERROUS SULFATE 325MG TAB PO SCH (08:52)
[2023-02-13 08:54] VITALS: BP 104/58
[2023-02-13] MEDS: CARVedilol 6.25 MG TAB PO SCH (08:54)
[2023-02-13] MEDS ORDERED: MAGNESIUM OXIDE 400MG TAB (MAG-OX) PO SCH (09:00)
[2023-02-13] MEDS ORDERED: SODIUM CHLORIDE 0.9% INJ 10 ML SYR IV SCH (09:00)
[2023-02-13] MEDS ORDERED: ALDA25TA2 PO ×2 (10:04→10:45)
[2023-02-13] MEDS ORDERED: CARV6.25 PO (10:04)
[2023-02-13] MEDS ORDERED: ENTR1TAB PO (10:04)
[2023-02-13] MEDS ORDERED: AMOX875T2 PO (10:04)
[2023-02-13] MEDS ORDERED: CARV3.12 PO (10:42)
[2023-02-13] MEDS ORDERED: MAG SULF 1GM/100ML (MAG RUN) 1 GM in IV 1 EA IV ONE ×2 (11:00→12:00)
[2023-02-13] MEDS ORDERED: SODIUM CHLORIDE 0.9% INJ 10 ML SYR IV PRN (13:10)
[2023-02-13 14:00] VITALS: BP 109/62
[2023-02-14] MEDS ORDERED: LOMO2.5T PO (09:46)
== END 2023-02-13 18:21 | disposition home or self-care (01) | DRG 291 ==
LOC: M ED 06:06 → EDBD 06:06 → M ED INP 10:22 → ENRESERV 11:12 → M PCU 12:24 → M MSPAV 02-10 11:04
PROVIDERS: ADMIT General Practice; ATTEND Internal Medicine
DX: I50.23 Acute on chronic systolic (congestive) heart failure (principal); J96.01 Acute respiratory failure with hypoxia; I42.7 Cardiomyopathy due to drug and external agent; I31.39 Other pericardial effusion (noninflammatory); E87.20 Acidosis, unspecified; I47.20 Ventricular tachycardia, unspecified; K52.0 Gastroenteritis and colitis due to radiation; I27.21 Secondary pulmonary arterial hypertension; F32.A Depression, unspecified; C53.9 Malignant neoplasm of cervix uteri, unspecified; K21.9 Gastro-esophageal reflux disease without esophagitis; I48.0 Paroxysmal atrial fibrillation; M10.9 Gout, unspecified; E87.6 Hypokalemia; E83.42 Hypomagnesemia; Z92.3 Personal history of irradiation; Z87.891 Personal history of nicotine dependence; Z92.21 Personal history of antineoplastic chemotherapy; Z85.118 Personal history of other malignant neoplasm of bronchus and lung; Z79.899 Other long term (current) drug therapy; Z79.82 Long term (current) use of aspirin

== ENCOUNTER → 2023-02-21 | Outpatient (CLI) | payer MEDICARE ==
[~2023-02-21] MED LIST changes: +ALDA25TA2 PO; +AMOX875T2 PO; +CARV3.12 PO; +CARV6.25 PO; +POTA1TAB21 PO; +PRAV40TA2 PO; +PROHANCE 279.3MG/ML 15ML VIAL As Ordered ONE
== END ==
LOC: M RAD 16:40
PROVIDERS: ATTEND General Practice
DX: C53.8 Malignant neoplasm of overlapping sites of cervix uteri (principal)
CPT/HCPCS: 72197; A9576

== ENCOUNTER → 2023-02-23 | Outpatient (RCR) | payer MEDICARE ==
[~2023-02-23] MED LIST changes: +ACET1TAB55 PO; +FIDA200TA PO; +LEVO1TAB39 PO; -PROHANCE 279.3MG/ML 15ML VIAL As Ordered ONE; +SPIR-10 PO; +VANC125C3 PO
== END ==
LOC: M ONCR 01-24 08:13
PROVIDERS: ATTEND General Practice
DX: C53.8 Malignant neoplasm of overlapping sites of cervix uteri (principal)

== ENCOUNTER 2023-02-28 08:13 | Outpatient (RCR) | payer MEDICARE ==
[~2023-02-28 08:13] MED LIST changes: -ACET1TAB55 PO; +DILT120C41 PO; -DILT1CAP PO; -FIDA200TA PO; -LEVO1TAB39 PO; +POTA-298 PO; -POTA1TAB14 PO; -SPIR-10 PO; -VANC125C3 PO
[2023-02-28] MEDS ORDERED: LOMO2.5T PO (16:05)
[2023-03-03] MEDS ORDERED: LEVO1TAB39 PO (09:15)
[2023-03-05] MEDS ORDERED: SPIR-10 PO (15:28)
[2023-03-05] MEDS ORDERED: ENTR1TAB PO (15:28)
[2023-03-05] MEDS ORDERED: CARV6.25 PO (15:28)
[2023-03-07] MEDS ORDERED: FIDA200TA PO (09:42)
[2023-03-07] MEDS ORDERED: RISATAB3 PO (09:42)
[2023-03-07] MEDS ORDERED: ACET1TAB55 PO (09:42)
[2023-03-07] MEDS ORDERED: VANC125C3 PO (13:37)
[2023-03-13] MEDS ORDERED: LOMO2.5T PO (15:41)
== END 2023-03-25 ==
LOC: M ONCR 08:13
PROVIDERS: ATTEND General Practice
DX: C53.8 Malignant neoplasm of overlapping sites of cervix uteri (principal); C34.12 Malignant neoplasm of upper lobe, left bronchus or lung

== ENCOUNTER 2023-03-05 12:43 | Inpatient (IN) | payer MEDICARE ==
[~2023-03-05] VITALS: Ht 160 cm; Wt 69.6 kg
[~2023-03-05 12:43] MED LIST changes: -DILT120C41 PO; +DILT1CAP PO; +LEVO1TAB39 PO; -POTA-298 PO; +POTA1TAB14 PO
[2023-03-05] MEDS ORDERED: NS 1,960 ML in IV 1 EA IV ONE (13:10)
[2023-03-05 13:54] LABS: HEMATOCRIT 31.4 % (36.0-47.0); HEMOGLOBIN 10.6 g/dl (12.0-15.5); MEAN CORPUSCULAR HEMOGLOBIN 31.2 pg (27.0-33.0); MEAN CORPUSCULAR HGB CONC 33.8 g/dl (32.0-36.5); MEAN CORPUSCULAR VOLUME 92.4 fl (80.0-96.0); PLATELET COUNT, AUTOMATED 144 10^3/uL (150-450); WHITE BLOOD COUNT 6.4 10^3/uL (4.0-10.0)
[2023-03-05 14:06] LABS: INR 1.2; PROTHROMBIN TIME 15.5 SECONDS (12.5-14.5)
[2023-03-05 14:07] LABS: PARTIAL THROMBOPLASTIN TIME 34.6 SECONDS (24.8-34.2)
[2023-03-05] MEDS ORDERED: ISOVUE-370 76% 100ML VIAL As Ordered ONE (14:07)
[2023-03-05 14:25] LABS: LIPASE 15 U/L (12-53)
[2023-03-05 14:27] LABS: ALBUMIN 2.4 G/DL (3.2-5.2); ALKALINE PHOSPHATASE 65 U/L (46-116); ALT/SGPT < 9 U/L (7.0-40); AST/SGOT 16 U/L (<34); BILIRUBIN,DIRECT 0.2 MG/DL (<0.4); BILIRUBIN,TOTAL 0.4 MG/DL (0.3-1.2); BLOOD UREA NITROGEN 27 MG/DL (9-23); CALCIUM LEVEL 7.9 MG/DL (8.3-10.6); CARBON DIOXIDE LEVEL 19 MMOL/L (20-31); CHLORIDE LEVEL 103 MMOL/L (98-107); CK-MB VALUE MASS < 1.0 NG/ML (<3.6); CREATININE FOR GFR 1.11 MG/DL (0.55-1.30); GLOMERULAR FILTRATION RATE 51.4 (>39); GLUCOSE, FASTING 128 MG/DL (74-106); POTASSIUM SERUM 3.6 MMOL/L (3.5-5.1); SODIUM LEVEL 131 MMOL/L (136-145); TOTAL PROTEIN 4.8 G/DL (5.7-8.2)
[2023-03-05 14:28] LABS: CPK CREATINE PHOSPHOKINASE 35 U/L (34-145); MB/CK RELATIVE INDEX 2.85 (< OR =4)
[2023-03-05 14:33] LABS: RSV AMPLIFICATION NEGATIVE (NEGATIVE)
[2023-03-05 14:44] LABS: ATYPICAL LYMPH 1 % (0-5); EOSINOPHILS 2 % (0-3); LYMPHOCYTES 3 % (16-44); METAMYELOCYTES 1 % (0-0); MONOCYTES 5 % (0-5); NEUTROPHILS 87 % (28-66)
[2023-03-05 14:45] LABS: PLATELET ESTIMATE NORMAL (NORMAL)
[2023-03-05 14:46] LABS: ANISOCYTOSIS 1+
[2023-03-05 14:47] LABS: MICROCYTOSIS 1+; OVALOCYTES 2+
[2023-03-05] MEDS ORDERED: NS 1,000 ML IV ONE (15:10)
[2023-03-05] MEDS ORDERED: NS 500 ML IV ONE (15:15)
[2023-03-05] MEDS ORDERED: ONDANSETRON 4MG ORAL DISINTEGRATING TAB PO PRN (15:15)
[2023-03-05] MEDS ORDERED: SPIR-10 PO (15:28)
[2023-03-05] MEDS ORDERED: ENTR1TAB PO (15:28)
[2023-03-05] MEDS ORDERED: CARV6.25 PO (15:28)
[2023-03-05] MEDS ORDERED: HOME MED LIST COMPLETE! XX SCH (15:30)
[2023-03-05] MEDS ORDERED: PILL CUTTER 1 EACH XX PRN (16:35)
[2023-03-05] MEDS: clonazePAM 0.5 MG TAB PO SCH ×2 (17:46→22:09)
[2023-03-05] MEDS: SUCRALFATE 1 GM TAB PO SCH ×2 (17:46→22:10)
[2023-03-05] MEDS: SIMETHICONE 80MG CHEW TAB PO SCH ×2 (17:47→22:10)
[2023-03-05 18:10] VITALS: BP 121/69
[2023-03-05] MEDS: NS 1,000 ML IV SCH (18:16)
[2023-03-05 19:28] VITALS: BP 100/57
[2023-03-05] MEDS: PRAVASTATIN 20 MG TAB PO SCH (22:11)
[2023-03-05] MEDS: FERROUS SULFATE 325MG TAB PO SCH (22:11)
[2023-03-05] MEDS: SERTRALINE HCL 50 MG TAB PO SCH (22:11)
[2023-03-05] MEDS: PANTOPRAZOLE 40MG TAB (PROTONIX) PO SCH (22:11)
[2023-03-05 23:45] VITALS: BP 113/59
[2023-03-06 04:10] VITALS: BP 113/70
[2023-03-06] MEDS: NS 1,000 ML IV SCH (04:21)
[2023-03-06 06:10] LABS: HEMATOCRIT 30.6 % (36.0-47.0); HEMOGLOBIN 10.2 g/dl (12.0-15.5); MEAN CORPUSCULAR HEMOGLOBIN 31.5 pg (27.0-33.0); MEAN CORPUSCULAR HGB CONC 33.3 g/dl (32.0-36.5); MEAN CORPUSCULAR VOLUME 94.4 fl (80.0-96.0); PLATELET COUNT, AUTOMATED 137 10^3/uL (150-450); RED BLOOD COUNT 3.24 10^6/uL (4.00-5.40); WHITE BLOOD COUNT 5.8 10^3/uL (4.0-10.0)
[2023-03-06 06:33] LABS: ALBUMIN 2.2 G/DL (3.2-5.2); ALKALINE PHOSPHATASE 61 U/L (46-116); ALT/SGPT < 9 U/L (7.0-40); AST/SGOT 15 U/L (<34); BILIRUBIN,TOTAL 0.3 MG/DL (0.3-1.2); BLOOD UREA NITROGEN 21 MG/DL (9-23); CALCIUM LEVEL 7.6 MG/DL (8.3-10.6); CARBON DIOXIDE LEVEL 18 MMOL/L (20-31); CHLORIDE LEVEL 107 MMOL/L (98-107); CREATININE FOR GFR 0.65 MG/DL (0.55-1.30); GLOMERULAR FILTRATION RATE > 60.0 (>39); GLUCOSE, FASTING 103 MG/DL (74-106); POTASSIUM SERUM 3.2 MMOL/L (3.5-5.1); SODIUM LEVEL 135 MMOL/L (136-145); TOTAL PROTEIN 4.4 G/DL (5.7-8.2)
[2023-03-06] MEDS ORDERED: POTASSIUM CHLORIDE 10MEQ SR TABLET PO ONE ×2 (06:45→08:05)
[2023-03-06 08:00] VITALS: BP 101/62
[2023-03-06] MEDS: ENOXAPARIN 40MG/0.4ML SYRINGE (J1650 PER 10MG) SC SCH (08:31)
[2023-03-06] MEDS: SIMETHICONE 80MG CHEW TAB PO SCH ×3 (08:31→20:13)
[2023-03-06] MEDS: ASPIRIN 81MG ENTERIC TABLET PO SCH (08:31)
[2023-03-06] MEDS: clonazePAM 0.5 MG TAB PO SCH ×3 (08:32→20:15)
[2023-03-06] MEDS: SUCRALFATE 1 GM TAB PO SCH ×4 (08:32→20:13)
[2023-03-06] MEDS: FERROUS SULFATE 325MG TAB PO SCH ×2 (08:32→20:14)
[2023-03-06] MEDS: PANTOPRAZOLE 40MG TAB (PROTONIX) PO SCH ×2 (08:33→20:15)
[2023-03-06] MEDS: FIDAXOMICIN 200 MG TAB (DIFICID) PO SCH ×2 (08:39→20:13)
[2023-03-06] MEDS: LACTOBACILLUS ACIDOPHILUS CAP (BACID) PO SCH (10:30)
[2023-03-06 12:00] VITALS: BP 108/61
[2023-03-06] MEDS ORDERED: SODIUM CHLORIDE 0.9% INJ 10 ML SYR IV PRN (15:05)
[2023-03-06] MEDS ORDERED: BENZONATATE 100MG CAPSULE PO PRN ×2 (15:20→15:55)
[2023-03-06 16:00] VITALS: BP 111/63
[2023-03-06] MEDS ORDERED: ACETAMINOPHEN TAB 650MG DOSE (2X325MG) PO PRN (16:25)
[2023-03-06 20:06] VITALS: BP 122/76
[2023-03-06] MEDS: PRAVASTATIN 20 MG TAB PO SCH (20:14)
[2023-03-06] MEDS: SERTRALINE HCL 50 MG TAB PO SCH (20:15)
[2023-03-07 00:07] VITALS: BP 108/60
[2023-03-07 04:29] VITALS: BP 111/68
[2023-03-07 05:28] LABS: BASO # 0.1 10^3/uL (0.0-0.2); BASO % 1.2 % (0.0-1.0); EOS # 0.2 10^3/uL (0.0-0.5); EOS % 3.8 % (0.0-3.0); LYMPH # 0.1 10^3/uL (1.5-5.0); LYMPH % 2.8 % (24.0-44.0); MEAN CORPUSCULAR HEMOGLOBIN 31.2 pg (27.0-33.0); MEAN CORPUSCULAR HGB CONC 33.3 g/dl (32.0-36.5); MEAN CORPUSCULAR VOLUME 93.5 fl (80.0-96.0); MONO # 0.6 10^3/uL (0.0-0.8); NEUTROPHILS # 3.8 10^3/uL (1.5-8.5); NEUTROPHILS % 75.6 % (36.0-66.0); PLATELET COUNT, AUTOMATED 167 10^3/uL (150-450); RED BLOOD COUNT 3.53 10^6/uL (4.00-5.40)
[2023-03-07 06:01] LABS: ALBUMIN 2.4 G/DL (3.2-5.2); ALKALINE PHOSPHATASE 64 U/L (46-116); ALT/SGPT < 9 U/L (7.0-40); AST/SGOT 14 U/L (<34); BILIRUBIN,TOTAL 0.2 MG/DL (0.3-1.2); BLOOD UREA NITROGEN 14 MG/DL (9-23); CALCIUM LEVEL 8.2 MG/DL (8.3-10.6); CARBON DIOXIDE LEVEL 18 MMOL/L (20-31); CHLORIDE LEVEL 111 MMOL/L (98-107); CREATININE FOR GFR 0.51 MG/DL (0.55-1.30); GLOMERULAR FILTRATION RATE > 60.0 (>39); GLUCOSE, FASTING 101 MG/DL (74-106); MAGNESIUM LEVEL 1.5 MG/DL (1.8-2.4); POTASSIUM SERUM 3.5 MMOL/L (3.5-5.1); SODIUM LEVEL 140 MMOL/L (136-145); TOTAL PROTEIN 4.8 G/DL (5.7-8.2)
[2023-03-07] MEDS ORDERED: MAGNESIUM OXIDE 400MG TAB (MAG-OX) PO ONE (07:15)
[2023-03-07 07:45] VITALS: BP 105/56
[2023-03-07] MEDS ORDERED: SODIUM CHLORIDE 0.9% INJ 10 ML SYR IV SCH (09:00)
[2023-03-07] MEDS: ASPIRIN 81MG ENTERIC TABLET PO SCH (09:24)
[2023-03-07] MEDS: ENOXAPARIN 40MG/0.4ML SYRINGE (J1650 PER 10MG) SC SCH (09:24)
[2023-03-07] MEDS: SIMETHICONE 80MG CHEW TAB PO SCH ×2 (09:24→15:30)
[2023-03-07] MEDS: FIDAXOMICIN 200 MG TAB (DIFICID) PO SCH (09:25)
[2023-03-07] MEDS: SUCRALFATE 1 GM TAB PO SCH ×3 (09:25→17:29)
[2023-03-07] MEDS: PANTOPRAZOLE 40MG TAB (PROTONIX) PO SCH (09:25)
[2023-03-07] MEDS: FERROUS SULFATE 325MG TAB PO SCH (09:25)
[2023-03-07] MEDS: LACTOBACILLUS ACIDOPHILUS CAP (BACID) PO SCH (09:25)
[2023-03-07] MEDS: clonazePAM 0.5 MG TAB PO SCH ×2 (09:27→15:31)
[2023-03-07] MEDS ORDERED: RISATAB3 PO (09:42)
[2023-03-07] MEDS ORDERED: FIDA200TA PO (09:42)
[2023-03-07] MEDS ORDERED: ACET1TAB55 PO (09:42)
[2023-03-07] MEDS ORDERED: VANC125C3 PO (13:37)
== END 2023-03-07 18:09 | disposition home health service (06) | DRG 372 ==
LOC: EDBD 12:43 → M ED 12:43 → M ED INP 15:14 → ENRESERV 16:45 → M PCU 17:57
PROVIDERS: ADMIT Internal Medicine; ATTEND Family Medicine
DX: A04.72 Enterocolitis due to Clostridium difficile, not specified as recurrent (principal); I50.22 Chronic systolic (congestive) heart failure; E86.0 Dehydration; F32.A Depression, unspecified; I48.91 Unspecified atrial fibrillation; C53.9 Malignant neoplasm of cervix uteri, unspecified; K62.7 Radiation proctitis; I95.9 Hypotension, unspecified; K21.9 Gastro-esophageal reflux disease without esophagitis; Z92.21 Personal history of antineoplastic chemotherapy; Z92.3 Personal history of irradiation; Z86.711 Personal history of pulmonary embolism; Z85.118 Personal history of other malignant neoplasm of bronchus and lung; M10.9 Gout, unspecified; Z79.899 Other long term (current) drug therapy; Z79.82 Long term (current) use of aspirin; Z87.891 Personal history of nicotine dependence

== ENCOUNTER → 2023-04-05 | Outpatient (CLI) | payer MEDICARE ==
[~2023-04-05] MED LIST changes: +ACET1TAB55 PO; +DILT120C41 PO; -DILT1CAP PO; +FIDA200TA PO; +POTA-298 PO; -POTA1TAB14 PO; +SPIR-10 PO; +VANC125C3 PO
== END ==
LOC: M ONCR 15:05
PROVIDERS: ATTEND General Practice
DX: C53.9 Malignant neoplasm of cervix uteri, unspecified (principal); Z92.21 Personal history of antineoplastic chemotherapy; Z92.3 Personal history of irradiation

== ENCOUNTER 2023-06-04 01:27 | Inpatient (IN) | payer MEDICARE ==
[~2023-06-04] VITALS: Ht 160 cm; Wt 67.1 kg
[2023-06-04] VITALS (11 sets, daily range): BP systolic 123–159; BP diastolic 76–95; TEMP 97.4–97.9; O2SAT 90–99
[~2023-06-04 01:27] MED LIST changes: -LIDO1CRE42 TOP; +LIDO30CR18 TOP
[2023-06-04] MEDS ORDERED: IPRATROPIUM 0.5MG/ALBUTEROL 2.5MG INH SOL UD 3ML (DUONEB) NEB PRN (01:35)
[2023-06-04 01:55] LABS: ABG BASE EXCESS -1.2 (-2.0-2.0); ABG HCO3 23.3 MMOL/L (22.0-26.0); ABG O2 SATURATION 98.8 % (95.0-99.0); ABG PARTIAL PRESSURE CO2 38.4 mmHg (35.0-45.0); ABG STANDARD HCO3 23.5 MMOL/L. (22.0-26.0); ABG TOTAL CO2 24.5 MMOL/L (23.0-31.0); ABG pH (ARTERIAL) 7.401 UNITS (7.350-7.450)
[2023-06-04 02:06] LABS: BASO % 0.5 % (0.0-1.0); EOS # 0.3 10^3/uL (0.0-0.5); EOS % 5.8 % (0.0-3.0); HEMATOCRIT 35.8 % (36.0-47.0); HEMOGLOBIN 11.5 g/dl (12.0-15.5); LYMPH # 0.6 10^3/uL (1.5-5.0); LYMPH % 10.9 % (24.0-44.0); MEAN CORPUSCULAR HEMOGLOBIN 30.6 pg (27.0-33.0); MEAN CORPUSCULAR HGB CONC 32.1 g/dl (32.0-36.5); MEAN CORPUSCULAR VOLUME 95.2 fl (80.0-96.0); MONO # 0.3 10^3/uL (0.0-0.8); MONO % 5.6 % (2.0-8.0); NEUTROPHILS # 4.3 10^3/uL (1.5-8.5); NEUTROPHILS % 76.7 % (36.0-66.0); PLATELET COUNT, AUTOMATED 142 10^3/uL (150-450); RED BLOOD COUNT 3.76 10^6/uL (4.00-5.40); WHITE BLOOD COUNT 5.7 10^3/uL (4.0-10.0)
[2023-06-04 02:30] LABS: ALKALINE PHOSPHATASE 127 U/L (46-116); ALT/SGPT 10 U/L (7.0-40); AST/SGOT 19 U/L (<34); BILIRUBIN,DIRECT 0.2 MG/DL (<0.4); BILIRUBIN,TOTAL 0.6 MG/DL (0.3-1.2); BLOOD UREA NITROGEN 14 MG/DL (9-23); CALCIUM LEVEL 7.8 MG/DL (8.3-10.6); CARBON DIOXIDE LEVEL 24 MMOL/L (20-31); CHLORIDE LEVEL 107 MMOL/L (98-107); CK-MB VALUE MASS < 1.0 NG/ML (<3.6); CPK CREATINE PHOSPHOKINASE 52 U/L (34-145); CREATININE FOR GFR 0.52 MG/DL (0.55-1.30); GLOMERULAR FILTRATION RATE > 60.0 (>39); GLUCOSE, FASTING 171 MG/DL (74-106); MB/CK RELATIVE INDEX 1.92 (< OR =4); POTASSIUM SERUM 2.9 MMOL/L (3.5-5.1); SODIUM LEVEL 141 MMOL/L (136-145)
[2023-06-04] MEDS ORDERED: ISOVUE-370 76% 100ML VIAL As Ordered ONE (02:49)
[2023-06-04 03:35] LABS: MB/CK RELATIVE INDEX 5.55 (< OR =4)
[2023-06-04] MEDS ORDERED: FUROSEMIDE 40MG/4ML VIAL IV ONE (04:15)
[2023-06-04 06:19] LABS: CK-MB VALUE MASS 1.5 NG/ML (<3.6); MB/CK RELATIVE INDEX 4.16 (< OR =4)
[2023-06-04 06:27] LABS: INR 1.08; PARTIAL THROMBOPLASTIN TIME 28.4 SECONDS (24.8-34.2); PROTHROMBIN TIME 14.2 SECONDS (12.5-14.5)
[2023-06-04] MEDS ORDERED: POTASSIUM CHLORIDE 10MEQ SR TABLET PO ONE (08:05)
[2023-06-04] MEDS ORDERED: MED REC IN PROGRESS XX SCH (08:30)
[2023-06-04] MEDS ORDERED: ENTRESTO 24-26MG TABLET (SACUBITRIL/VALSARTAN) PO SCH (09:00)
[2023-06-04] MEDS ORDERED: ACETAMINOPHEN TAB 650MG DOSE (2X325MG) PO PRN (09:00)
[2023-06-04] MEDS ORDERED: MOM 30ML SUSPENSION UDC PO PRN (09:00)
[2023-06-04] MEDS ORDERED: HOME MED LIST COMPLETE! XX SCH (09:40)
[2023-06-04] MEDS: DOCUSATE SODIUM 100MG CAPSULE PO SCH ×2 (13:34→19:58)
[2023-06-04] MEDS: KCL 10MEQ/100ML SWI (KRUN) 10 MEQ in IV 1 EA IV SCH ×3 (14:00→15:00)
[2023-06-04] MEDS: FERROUS SULFATE 325MG TAB PO SCH ×2 (14:48→20:16)
[2023-06-04] MEDS: ASPIRIN 81MG ENTERIC TABLET PO SCH (14:48)
[2023-06-04] MEDS: ENOXAPARIN 40MG/0.4ML SYRINGE (J1650 PER 10MG) SC SCH (14:48)
[2023-06-04] MEDS: SUCRALFATE 1 GM TAB PO SCH ×3 (14:48→20:15)
[2023-06-04] MEDS: OMEGA-3 1000MG CAPSULE PO SCH (14:49)
[2023-06-04] MEDS: POTASSIUM CHLORIDE 10MEQ SR TABLET PO SCH ×4 (14:49→20:18)
[2023-06-04] MEDS: PANTOPRAZOLE 40MG TAB (PROTONIX) PO SCH ×2 (14:49→20:15)
[2023-06-04] MEDS: MULTIVITAMINS/MINERALS THERAP 1 TAB PO SCH (14:49)
[2023-06-04] MEDS: MAGNESIUM OXIDE 400MG TAB (MAG-OX) PO SCH (14:49)
[2023-06-04] MEDS: clonazePAM 0.5 MG TAB PO SCH ×2 (16:27→20:15)
[2023-06-04] MEDS: FUROSEMIDE 40MG/4ML VIAL IV SCH (16:32)
[2023-06-04 19:28] LABS: BLOOD UREA NITROGEN 15 MG/DL (9-23); CALCIUM LEVEL 8.4 MG/DL (8.3-10.6); CARBON DIOXIDE LEVEL 27 MMOL/L (20-31); CHLORIDE LEVEL 105 MMOL/L (98-107); CREATININE FOR GFR 0.52 MG/DL (0.55-1.30); GLOMERULAR FILTRATION RATE > 60.0 (>39); GLUCOSE, FASTING 124 MG/DL (74-106); POTASSIUM SERUM 3.6 MMOL/L (3.5-5.1); SODIUM LEVEL 141 MMOL/L (136-145)
[2023-06-04] MEDS: allopurinoL 300 MG TAB PO SCH (20:15)
[2023-06-04] MEDS: PRAVASTATIN 20 MG TAB PO SCH (20:15)
[2023-06-04] MEDS: SERTRALINE HCL 50 MG TAB PO SCH (20:16)
[2023-06-04] MEDS: ENTRESTO 24-26MG TABLET (SACUBITRIL/VALSARTAN) PO SCH (20:16)
[2023-06-05] VITALS (14 sets, daily range): BP systolic 96–116; BP diastolic 58–75; TEMP 96.9–98; O2SAT 94–99
[2023-06-05] MEDS: FUROSEMIDE 40MG/4ML VIAL IV SCH ×2 (03:56→17:07)
[2023-06-05 06:08] LABS: HEMATOCRIT 34.3 % (36.0-47.0); HEMOGLOBIN 11.2 g/dl (12.0-15.5); MEAN CORPUSCULAR HGB CONC 32.7 g/dl (32.0-36.5); PLATELET COUNT, AUTOMATED 148 10^3/uL (150-450); RED BLOOD COUNT 3.61 10^6/uL (4.00-5.40); WHITE BLOOD COUNT 3.8 10^3/uL (4.0-10.0)
[2023-06-05 06:37] LABS: BLOOD UREA NITROGEN 15 MG/DL (9-23); CALCIUM LEVEL 8.8 MG/DL (8.3-10.6); CARBON DIOXIDE LEVEL 25 MMOL/L (20-31); CHLORIDE LEVEL 108 MMOL/L (98-107); CREATININE FOR GFR 0.44 MG/DL (0.55-1.30); GLOMERULAR FILTRATION RATE > 60.0 (>39); GLUCOSE, FASTING 110 MG/DL (74-106); MAGNESIUM LEVEL 1.4 MG/DL (1.8-2.4); POTASSIUM SERUM 3.9 MMOL/L (3.5-5.1); SODIUM LEVEL 141 MMOL/L (136-145)
[2023-06-05] MEDS ORDERED: DAPAGLIFLOZIN PROPANEDIOL 10MG TABLET (FARXIGA) PO SCH (09:00)
[2023-06-05] MEDS: DOCUSATE SODIUM 100MG CAPSULE PO SCH ×2 (09:00→21:00)
[2023-06-05] MEDS: clonazePAM 0.5 MG TAB PO SCH ×3 (09:12→21:28)
[2023-06-05] MEDS: MULTIVITAMINS/MINERALS THERAP 1 TAB PO SCH (09:12)
[2023-06-05] MEDS: OMEGA-3 1000MG CAPSULE PO SCH (09:12)
[2023-06-05] MEDS: MAGNESIUM OXIDE 400MG TAB (MAG-OX) PO SCH (09:12)
[2023-06-05] MEDS: SPIRONOLACTONE 12.5MG PER 1/2 TABLET PO SCH (09:12)
[2023-06-05] MEDS: PANTOPRAZOLE 40MG TAB (PROTONIX) PO SCH ×2 (09:13→21:28)
[2023-06-05] MEDS: FERROUS SULFATE 325MG TAB PO SCH ×2 (09:13→21:29)
[2023-06-05] MEDS: POTASSIUM CHLORIDE 10MEQ SR TABLET PO SCH ×2 (09:13→21:28)
[2023-06-05] MEDS: DAPAGLIFLOZIN PROPANEDIOL 10MG TABLET (FARXIGA) PO SCH (09:13)
[2023-06-05] MEDS: ENTRESTO 24-26MG TABLET (SACUBITRIL/VALSARTAN) PO SCH ×2 (09:14→21:28)
[2023-06-05] MEDS: ASPIRIN 81MG ENTERIC TABLET PO SCH (09:14)
[2023-06-05] MEDS: SUCRALFATE 1 GM TAB PO SCH ×4 (09:14→21:29)
[2023-06-05] MEDS: ENOXAPARIN 40MG/0.4ML SYRINGE (J1650 PER 10MG) SC SCH (09:15)
[2023-06-05] MEDS: MAG SULF 1GM/100ML (MAG RUN) 1 GM in IV 1 EA IV SCH ×2 (09:15→11:32)
[2023-06-05] MEDS ORDERED: FARX1TAB3 PO (12:01)
[2023-06-05] MEDS ORDERED: ENTR1TAB PO (12:01)
[2023-06-05] MEDS: SERTRALINE HCL 50 MG TAB PO SCH (21:28)
[2023-06-05] MEDS: PRAVASTATIN 20 MG TAB PO SCH (21:29)
[2023-06-05] MEDS: allopurinoL 300 MG TAB PO SCH (21:29)
[2023-06-06] VITALS (12 sets, daily range): BP systolic 91–138; BP diastolic 54–75; TEMP 96.9–97.8; O2SAT 91–96
[2023-06-06] MEDS: FUROSEMIDE 40MG/4ML VIAL IV SCH (03:39)
[2023-06-06 06:22] LABS: HEMATOCRIT 36.3 % (36.0-47.0); HEMOGLOBIN 11.6 g/dl (12.0-15.5); MEAN CORPUSCULAR HEMOGLOBIN 30.1 pg (27.0-33.0); PLATELET COUNT, AUTOMATED 167 10^3/uL (150-450); RED BLOOD COUNT 3.86 10^6/uL (4.00-5.40); WHITE BLOOD COUNT 3.6 10^3/uL (4.0-10.0)
[2023-06-06 06:28] LABS: BLOOD UREA NITROGEN 23 MG/DL (9-23); CALCIUM LEVEL 9.1 MG/DL (8.3-10.6); CARBON DIOXIDE LEVEL 25 MMOL/L (20-31); CHLORIDE LEVEL 106 MMOL/L (98-107); CREATININE FOR GFR 0.59 MG/DL (0.55-1.30); GLOMERULAR FILTRATION RATE > 60.0 (>39); GLUCOSE, FASTING 121 MG/DL (74-106); MAGNESIUM LEVEL 1.8 MG/DL (1.8-2.4); POTASSIUM SERUM 3.8 MMOL/L (3.5-5.1); SODIUM LEVEL 140 MMOL/L (136-145)
[2023-06-06] MEDS: DOCUSATE SODIUM 100MG CAPSULE PO SCH (07:37)
[2023-06-06] MEDS: ENTRESTO 24-26MG TABLET (SACUBITRIL/VALSARTAN) PO SCH (07:38)
[2023-06-06] MEDS: MULTIVITAMINS/MINERALS THERAP 1 TAB PO SCH (08:06)
[2023-06-06] MEDS: PANTOPRAZOLE 40MG TAB (PROTONIX) PO SCH (08:07)
[2023-06-06] MEDS: POTASSIUM CHLORIDE 10MEQ SR TABLET PO SCH (08:07)
[2023-06-06] MEDS: DAPAGLIFLOZIN PROPANEDIOL 10MG TABLET (FARXIGA) PO SCH (08:07)
[2023-06-06] MEDS: SUCRALFATE 1 GM TAB PO SCH ×2 (08:07→11:31)
[2023-06-06] MEDS: OMEGA-3 1000MG CAPSULE PO SCH (08:07)
[2023-06-06] MEDS: SPIRONOLACTONE 12.5MG PER 1/2 TABLET PO SCH (08:07)
[2023-06-06] MEDS: clonazePAM 0.5 MG TAB PO SCH (08:07)
[2023-06-06] MEDS: ASPIRIN 81MG ENTERIC TABLET PO SCH (08:07)
[2023-06-06] MEDS: FERROUS SULFATE 325MG TAB PO SCH (08:07)
[2023-06-06] MEDS: MAGNESIUM OXIDE 400MG TAB (MAG-OX) PO SCH (08:07)
[2023-06-06] MEDS: ENOXAPARIN 40MG/0.4ML SYRINGE (J1650 PER 10MG) SC SCH (08:08)
[2023-06-06] MEDS ORDERED: CARVedilol 3.125 MG TAB PO SCH (09:00)
[2023-06-06 11:31] LABS: FOLATE > 24.0 NG/ML (>5.4); IRON (FE) 34 UG/DL (50-170); TOTAL IRON BINDING CAPACITY 339 UG/DL (250-425); VITAMIN B12 LEVEL 289 PG/ML (211-911)
[2023-06-06] MEDS ORDERED: LOSA25TA13 PO ×2 (11:38→11:51)
[2023-06-06] MEDS ORDERED: ALDA25TA2 PO (11:38)
[2023-06-06] MEDS ORDERED: FURO20TA2 PO (11:39)
[2023-06-06] MEDS ORDERED: FURO40TA2 PO (12:17)
[2023-06-06] MEDS ORDERED: FERRIC CARBOXYMALTOSE INJ 750 MG, VIAL MATE ADAPTER 1 EACH in NS 250 ML IV ONE (14:00)
== END 2023-06-06 16:35 | disposition home health service (06) | DRG 280 ==
LOC: M ED 01:27 → M ED INP 08:57 → ENRESERV 11:23 → M PCU 13:04
PROVIDERS: ADMIT Student in an Organized Health Care Education/Training Program; ATTEND Student in an Organized Health Care Education/Training Program
DX: I50.23 Acute on chronic systolic (congestive) heart failure (principal); I21.A1 Myocardial infarction type 2; J96.01 Acute respiratory failure with hypoxia; E87.20 Acidosis, unspecified; I31.39 Other pericardial effusion (noninflammatory); I48.0 Paroxysmal atrial fibrillation; K21.9 Gastro-esophageal reflux disease without esophagitis; F32.A Depression, unspecified; I34.0 Nonrheumatic mitral (valve) insufficiency; M10.9 Gout, unspecified; D50.9 Iron deficiency anemia, unspecified; Z85.41 Personal history of malignant neoplasm of cervix uteri; Z85.118 Personal history of other malignant neoplasm of bronchus and lung; N95.0 Postmenopausal bleeding; Z92.21 Personal history of antineoplastic chemotherapy; Z92.3 Personal history of irradiation; Z86.711 Personal history of pulmonary embolism; Z79.899 Other long term (current) drug therapy; Z87.891 Personal history of nicotine dependence

== ENCOUNTER → 2023-06-11 | Outpatient (CLI) | payer MEDICARE ==
[~2023-06-11] MED LIST changes: +FARX1TAB3 PO; +LOSA25TA13 PO
== END ==
LOC: M PLARAD 16:09
PROVIDERS: ATTEND General Practice
DX: C53.8 Malignant neoplasm of overlapping sites of cervix uteri (principal)
CPT/HCPCS: 78815; A9552

== ENCOUNTER → 2023-09-21 | Outpatient (CLI) | payer MEDICARE | LOC: M ONCR 15:29 | PROVIDERS: ATTEND General Practice | DX: C34.12 Malignant neoplasm of upper lobe, left bronchus or lung (principal); C53.8 Malignant neoplasm of overlapping sites of cervix uteri; I50.9 Heart failure, unspecified; Z71.2 Person consulting for explanation of examination or test findings; Z72.89 Other problems related to lifestyle; Z79.82 Long term (current) use of aspirin; Z79.899 Other long term (current) drug therapy; Z85.068 Personal history of other malignant neoplasm of small intestine; Z87.891 Personal history of nicotine dependence; Z92.21 Personal history of antineoplastic chemotherapy; Z92.3 Personal history of irradiation ==

== ENCOUNTER 2023-11-01 15:17 | Observation (INO) | payer MEDICARE ==
[~2023-11-01] VITALS: Ht 160 cm; Wt 67.0 kg
[2023-11-01] MEDS: ONDANSETRON 4MG 2ML VIAL IV ONE (16:20)
[2023-11-01] MEDS: NS 1,000 ML IV ONE (16:20)
[2023-11-01 16:30] LABS: BASO % 0.5 % (0.0-1.0); EOS # 0.1 10^3/uL (0.0-0.5); EOS % 0.7 % (0.0-3.0); HEMATOCRIT 39.6 % (36.0-47.0); LYMPH # 0.8 10^3/uL (1.5-5.0); LYMPH % 9.1 % (24.0-44.0); MEAN CORPUSCULAR HEMOGLOBIN 30.4 pg (27.0-33.0); MEAN CORPUSCULAR HGB CONC 32.8 g/dl (32.0-36.5); MEAN CORPUSCULAR VOLUME 92.5 fl (80.0-96.0); MONO # 0.6 10^3/uL (0.0-0.8); MONO % 7.3 % (2.0-8.0); NEUTROPHILS # 6.8 10^3/uL (1.5-8.5); NEUTROPHILS % 81.9 % (36.0-66.0); PLATELET COUNT, AUTOMATED 302 10^3/uL (150-450); RED BLOOD COUNT 4.28 10^6/uL (4.00-5.40); WHITE BLOOD COUNT 8.3 10^3/uL (4.0-10.0)
[2023-11-01 16:50] LABS: LIPASE 27 U/L (12-53)
[2023-11-01 16:53] LABS: ALBUMIN 3.5 G/DL (3.2-5.2); ALKALINE PHOSPHATASE 107 U/L (46-116); ALT/SGPT < 9 U/L (7.0-40); AST/SGOT 15 U/L (<34); BILIRUBIN,DIRECT 0.2 MG/DL (<0.4); BILIRUBIN,TOTAL 0.6 MG/DL (0.3-1.2); BLOOD UREA NITROGEN 17 MG/DL (9-23); CALCIUM LEVEL 9.4 MG/DL (8.3-10.6); CARBON DIOXIDE LEVEL 21 MMOL/L (20-31); CHLORIDE LEVEL 102 MMOL/L (98-107); CREATININE FOR GFR 0.55 MG/DL (0.55-1.30); GLOMERULAR FILTRATION RATE > 60.0 (>39); GLUCOSE, FASTING 116 MG/DL (74-106); POTASSIUM SERUM 4.4 MMOL/L (3.5-5.1); SODIUM LEVEL 137 MMOL/L (136-145); TOTAL PROTEIN 6.9 G/DL (5.7-8.2)
[2023-11-01] MEDS ORDERED: ISOVUE-370 76% 100ML VIAL As Ordered ONE (17:07)
[2023-11-01] MEDS: SODIUM CHLORIDE 0.9% INJ 10 ML SYR IV PRN (18:31)
[2023-11-01] MEDS: MORPHINE 4 MG/ML 1ML VIAL IV PRN (18:31)
[2023-11-01] MEDS ORDERED: MED REC IN PROGRESS XX SCH (18:35)
[2023-11-01] MEDS ORDERED: FARX1TAB3 PO (19:09)
[2023-11-01] MEDS ORDERED: FLUO40CA PO (19:15)
[2023-11-01] MEDS ORDERED: ACET-907 PO (19:17)
[2023-11-01] MEDS ORDERED: LOMO2.5T PO (19:19)
[2023-11-01] MEDS ORDERED: LOSA25TA13 PO (19:22)
[2023-11-01] MEDS ORDERED: MAGN400T2 PO (19:23)
[2023-11-01] MEDS ORDERED: ONDA4TAB6 PO (19:24)
[2023-11-01] MEDS ORDERED: SIME180C25 PO (19:26)
[2023-11-01] MEDS ORDERED: HOME MED LIST COMPLETE! XX SCH (19:30)
[2023-11-01] MEDS ORDERED: ONDANSETRON 4MG 2ML VIAL IV PRN (20:05)
[2023-11-01] MEDS: clonazePAM 0.5 MG TAB PO SCH (21:46)
[2023-11-01] MEDS: PERCOCET 5MG/325MG TAB PO PRN (21:46)
[2023-11-01] MEDS: PANTOPRAZOLE 40MG TAB (PROTONIX) PO SCH (21:47)
[2023-11-01] MEDS: allopurinoL 300 MG TAB PO SCH (21:47)
[2023-11-01] MEDS: FERROUS SULFATE 325MG TAB PO SCH (21:47)
[2023-11-01] MEDS: SERTRALINE HCL 50 MG TAB PO SCH (21:47)
[2023-11-01] MEDS: CARVedilol 3.125 MG TAB PO SCH (21:47)
[2023-11-01] MEDS: SUCRALFATE 1 GM TAB PO SCH (21:47)
[2023-11-01] MEDS: PRAVASTATIN 20 MG TAB PO SCH (21:48)
[2023-11-02 00:13] VITALS: BP 143/83; TEMP 97.7; O2SAT 95
[2023-11-02 05:41] VITALS: BP 114/75; TEMP 97.5; O2SAT 98
[2023-11-02] MEDS: ONDANSETRON 4MG ORAL DISINTEGRATING TAB PO PRN (05:55)
[2023-11-02] MEDS: MORPHINE 4 MG/ML 1ML VIAL IV STA (05:56)
[2023-11-02 06:00] LABS: HEMATOCRIT 35.1 % (36.0-47.0); HEMOGLOBIN 11.5 g/dl (12.0-15.5); MEAN CORPUSCULAR HEMOGLOBIN 30.9 pg (27.0-33.0); MEAN CORPUSCULAR HGB CONC 32.8 g/dl (32.0-36.5); MEAN CORPUSCULAR VOLUME 94.4 fl (80.0-96.0); PLATELET COUNT, AUTOMATED 204 10^3/uL (150-450); RED BLOOD COUNT 3.72 10^6/uL (4.00-5.40); WHITE BLOOD COUNT 6.5 10^3/uL (4.0-10.0)
[2023-11-02 06:59] LABS: ALBUMIN 3.1 G/DL (3.2-5.2); ALKALINE PHOSPHATASE 91 U/L (46-116); ALT/SGPT 11 U/L (7.0-40); AST/SGOT 18 U/L (<34); BILIRUBIN,TOTAL 0.5 MG/DL (0.3-1.2); BLOOD UREA NITROGEN 15 MG/DL (9-23); CALCIUM LEVEL 8.9 MG/DL (8.3-10.6); CARBON DIOXIDE LEVEL 23 MMOL/L (20-31); CHLORIDE LEVEL 104 MMOL/L (98-107); CREATININE FOR GFR 0.57 MG/DL (0.55-1.30); GLOMERULAR FILTRATION RATE > 60.0 (>39); GLUCOSE, FASTING 113 MG/DL (74-106); POTASSIUM SERUM 4.2 MMOL/L (3.5-5.1); SODIUM LEVEL 139 MMOL/L (136-145); TOTAL PROTEIN 6.2 G/DL (5.7-8.2)
[2023-11-02] MEDS: LOSARTAN 25 MG TAB PO SCH (09:00)
[2023-11-02] MEDS: FUROSEMIDE 20 MG TAB PO SCH (09:00)
[2023-11-02] MEDS: SPIRONOLACTONE 25 MG TAB PO SCH (09:00)
[2023-11-02] MEDS: methylPREDNISolone 40MG 1ML VIAL IV SCH (10:00)
[2023-11-02] MEDS: DAPAGLIFLOZIN PROPANEDIOL 10MG TABLET (FARXIGA) PO SCH (10:01)
[2023-11-02] MEDS: ASPIRIN 81MG ENTERIC TABLET PO SCH (10:01)
[2023-11-02] MEDS: FLUoxetine 20MG CAP PO SCH (10:01)
[2023-11-02] MEDS: ENOXAPARIN 40MG/0.4ML SYRINGE (J1650 PER 10MG) SC SCH (10:02)
[2023-11-02] MEDS: MULTIVITAMINS/MINERALS THERAP 1 TAB PO SCH (10:02)
[2023-11-02] MEDS: MAGNESIUM OXIDE 400MG TAB (MAG-OX) PO SCH (10:02)
[2023-11-02] MEDS: ACETAMINOPHEN TAB 650MG DOSE (2X325MG) PO PRN (13:31)
[2023-11-02 14:30] VITALS: BP 112/68; TEMP 97.3; O2SAT 97
[2023-11-02] MEDS: cefTRIAXone SOD 2 GM in D5W MINI-BAG PLUS 50 ML IV SCH (20:19)
[2023-11-02 22:00] VITALS: BP_SYST 120; BP_SYST 154; BP_DIAS 69; BP_DIAS 77; TEMP 97.5; TEMP 97.9; O2SAT 95; O2SAT 96
[2023-11-03 06:00] VITALS: BP 101/63; TEMP 97.7; O2SAT 96
[2023-11-03 14:00] VITALS: BP 116/66; TEMP 97.3; O2SAT 97
[2023-11-03] MEDS: MAGNESIUM CITRATE 300ML BTL PO ONE (17:03)
[2023-11-03] MEDS: SENOKOT S TAB PO SCH (20:48)
[2023-11-03 22:00] VITALS: BP 108/70; TEMP 97.5; O2SAT 96
[2023-11-04 06:00] VITALS: BP 147/95; TEMP 97.5; O2SAT 95
[2023-11-04 08:03] LABS: BLOOD UREA NITROGEN 18 MG/DL (9-23); CALCIUM LEVEL 8.7 MG/DL (8.3-10.6); CARBON DIOXIDE LEVEL 25 MMOL/L (20-31); CHLORIDE LEVEL 106 MMOL/L (98-107); CREATININE FOR GFR 0.61 MG/DL (0.55-1.30); GLOMERULAR FILTRATION RATE > 60.0 (>39); GLUCOSE, FASTING 111 MG/DL (74-106); POTASSIUM SERUM 3.6 MMOL/L (3.5-5.1); SODIUM LEVEL 139 MMOL/L (136-145)
[2023-11-04 20:56] VITALS: BP 119/78; TEMP 97.9; O2SAT 97
[2023-11-04] MEDS: PERCOCET 5MG/325MG TAB PO PRN (21:05)
[2023-11-04] MEDS: MAALOX 30 ML SUSP *UDC PO PRN (22:23)
[2023-11-05 05:56] VITALS: BP 118/78; TEMP 97.5; O2SAT 95
[2023-11-05 08:51] VITALS: BP 107/63
[2023-11-05] MEDS ORDERED: PRED10PA PO (09:54)
[2023-11-05] MEDS ORDERED: CEFD300C PO (10:01)
[2023-11-05] MEDS ORDERED: LACT20EL PO (12:00)
[2023-12-25] MEDS ORDERED: THERTAB21 PO (13:45)
== END 2023-11-05 11:30 | disposition home or self-care (01) ==
LOC: EDBD 15:17 → M ED 15:17 → M ED INP 19:54 → ENRESERV 23:27 → M MS5PR 11-02 00:13
PROVIDERS: ADMIT Internal Medicine; ATTEND Student in an Organized Health Care Education/Training Program
DX: K65.4 Sclerosing mesenteritis (principal); C48.1 Malignant neoplasm of specified parts of peritoneum; C53.9 Malignant neoplasm of cervix uteri, unspecified; Z85.118 Personal history of other malignant neoplasm of bronchus and lung; Z92.21 Personal history of antineoplastic chemotherapy; Z92.3 Personal history of irradiation; I48.91 Unspecified atrial fibrillation; Z86.711 Personal history of pulmonary embolism; Z79.82 Long term (current) use of aspirin; Z79.899 Other long term (current) drug therapy; Z79.52 Long term (current) use of systemic steroids; Z79.2 Long term (current) use of antibiotics
CPT/HCPCS: 36415; 71250; 74177; 80048; 80053; 80076; 83690; 83735; 85025; 85027; 87486; 87581; 87633; 87798; 93005; 96365; 96366; 96372; 96375; 96376; 99285; G0378; G0463; J0696; J1650; J2405; J2920; Q9967

== ENCOUNTER → 2023-11-30 | Outpatient (CLI) | payer MEDICARE ==
[~2023-11-30] MED LIST changes: +ACET-907 PO; +CEFD300C PO; +FLUO40CA PO; +LACT20EL PO; +PRED10PA PO
[2023-11-30 16:59] LABS: BASO % 0.9 % (0.0-1.0); EOS # 0.1 10^3/uL (0.0-0.5); EOS % 1.8 % (0.0-3.0); HEMATOCRIT 37.7 % (36.0-47.0); HEMOGLOBIN 12.4 g/dl (12.0-15.5); LYMPH # 0.4 10^3/uL (1.5-5.0); LYMPH % 10.7 % (24.0-44.0); MEAN CORPUSCULAR HEMOGLOBIN 30.6 pg (27.0-33.0); MEAN CORPUSCULAR HGB CONC 32.9 g/dl (32.0-36.5); MEAN CORPUSCULAR VOLUME 93.1 fl (80.0-96.0); MONO # 0.4 10^3/uL (0.0-0.8); NEUTROPHILS # 2.4 10^3/uL (1.5-8.5); PLATELET COUNT, AUTOMATED 180 10^3/uL (150-450); RED BLOOD COUNT 4.05 10^6/uL (4.00-5.40); WHITE BLOOD COUNT 3.3 10^3/uL (4.0-10.0)
[2023-11-30 17:18] LABS: ALBUMIN 3.5 G/DL (3.2-5.2); ALKALINE PHOSPHATASE 97 U/L (46-116); ALT/SGPT 11 U/L (7.0-40); AST/SGOT 13 U/L (<34); BILIRUBIN,TOTAL 0.6 MG/DL (0.3-1.2); BLOOD UREA NITROGEN 17 MG/DL (9-23); CALCIUM LEVEL 8.6 MG/DL (8.3-10.6); CARBON DIOXIDE LEVEL 24 MMOL/L (20-31); CHLORIDE LEVEL 109 MMOL/L (98-107); CREATININE FOR GFR 0.52 MG/DL (0.55-1.30); GLOMERULAR FILTRATION RATE > 60.0 (>39); GLUCOSE, FASTING 116 MG/DL (74-106); POTASSIUM SERUM 4.2 MMOL/L (3.5-5.1); SODIUM LEVEL 141 MMOL/L (136-145); TOTAL PROTEIN 6.3 G/DL (5.7-8.2)
== END ==
LOC: M LAB 16:13
PROVIDERS: ATTEND Nurse Practitioner
DX: C34.90 Malignant neoplasm of unspecified part of unspecified bronchus or lung (principal)

== ENCOUNTER → 2023-12-07 | Outpatient (CLI) | payer MEDICARE ==
[~2023-12-07] MED LIST changes: +GASTROGRAFIN SOLUTION 30ML ONE; +ISOVUE-370 76% 100ML VIAL ONE
== END ==
LOC: M PLAIMG 09:35
PROVIDERS: ATTEND General Practice
DX: C53.8 Malignant neoplasm of overlapping sites of cervix uteri (principal); C34.12 Malignant neoplasm of upper lobe, left bronchus or lung; D39.0 Neoplasm of uncertain behavior of uterus; I31.39 Other pericardial effusion (noninflammatory)
CPT/HCPCS: 71260; 74177; Q9963; Q9967

== ENCOUNTER → 2023-12-25 | Outpatient (CLI) | payer MEDICARE ==
[~2023-12-25] MED LIST changes: -GASTROGRAFIN SOLUTION 30ML ONE; -ISOVUE-370 76% 100ML VIAL ONE; +THERTAB21 PO
== END ==
LOC: M ONCR 15:09
PROVIDERS: ATTEND General Practice
DX: C53.9 Malignant neoplasm of cervix uteri, unspecified (principal); C34.12 Malignant neoplasm of upper lobe, left bronchus or lung; R19.7 Diarrhea, unspecified; Z71.2 Person consulting for explanation of examination or test findings; Z72.89 Other problems related to lifestyle; Z79.82 Long term (current) use of aspirin; Z79.84 Long term (current) use of oral hypoglycemic drugs; Z79.899 Other long term (current) drug therapy; Z85.060 Personal history of malignant carcinoid tumor of small intestine; Z87.891 Personal history of nicotine dependence; Z92.21 Personal history of antineoplastic chemotherapy; Z92.3 Personal history of irradiation; Z92.89 Personal history of other medical treatment

== ENCOUNTER → 2024-01-07 | Outpatient (CLI) | payer MEDICARE | LOC: M PLARAD 12:25 | PROVIDERS: ATTEND General Practice | DX: C53.8 Malignant neoplasm of overlapping sites of cervix uteri (principal); C34.12 Malignant neoplasm of upper lobe, left bronchus or lung | CPT/HCPCS: 78815; A9552 ==

== ENCOUNTER → 2024-06-26 | Outpatient (CLI) | payer MEDICARE ==
[~2024-06-26] MED LIST changes: +FLUO-365; -FLUO20CA22; +ONDA-282 PO; -ONDA4TAB6 PO; +PROHANCE 279.3MG/ML 5ML VIAL As Ordered ONE
== END ==
LOC: M RAD 12:30
PROVIDERS: ATTEND General Practice
DX: C34.12 Malignant neoplasm of upper lobe, left bronchus or lung (principal); C53.8 Malignant neoplasm of overlapping sites of cervix uteri
CPT/HCPCS: 70553; A9576

== ENCOUNTER → 2024-07-18 | Outpatient (CLI) | payer MEDICARE ==
[~2024-07-18] MED LIST changes: -PROHANCE 279.3MG/ML 5ML VIAL As Ordered ONE
== END ==
LOC: M ONCR 14:44
PROVIDERS: ATTEND General Practice
DX: Z08 Encounter for follow-up examination after completed treatment for malignant neoplasm (principal); Z85.118 Personal history of other malignant neoplasm of bronchus and lung; Z85.41 Personal history of malignant neoplasm of cervix uteri; K02.9 Dental caries, unspecified; R19.7 Diarrhea, unspecified; Z87.891 Personal history of nicotine dependence; Z79.84 Long term (current) use of oral hypoglycemic drugs; Z79.899 Other long term (current) drug therapy; Z79.82 Long term (current) use of aspirin; Z92.21 Personal history of antineoplastic chemotherapy; Z92.3 Personal history of irradiation

== ENCOUNTER → 2025-01-30 | Outpatient (CLI) | payer MEDICARE ==
[~2025-01-30] MED LIST changes: +COLE1TAB PO; -SIME180C25 PO; +SIME1CAP4 PO; +VANC125C13 PO; -VANC125C3 PO
== END ==
LOC: M ONCR 13:39
PROVIDERS: ATTEND General Practice
DX: C34.12 Malignant neoplasm of upper lobe, left bronchus or lung (principal); C53.9 Malignant neoplasm of cervix uteri, unspecified; R19.7 Diarrhea, unspecified; Z87.891 Personal history of nicotine dependence; Z92.21 Personal history of antineoplastic chemotherapy; Z92.3 Personal history of irradiation; Z72.89 Other problems related to lifestyle; Z79.82 Long term (current) use of aspirin; Z79.899 Other long term (current) drug therapy

== ENCOUNTER → 2025-02-10 | Outpatient (CLI) | payer MEDICARE | LOC: M RAD 15:50 | PROVIDERS: ATTEND General Practice | DX: C34.90 Malignant neoplasm of unspecified part of unspecified bronchus or lung (principal) ==

== ENCOUNTER 2025-03-04 15:50 | Inpatient (IN) | payer MEDICARE ==
[~2025-03-04] VITALS: Ht 162.6 cm; Wt 57.9 kg
[2025-03-04 16:25] LABS: BASO # 0.1 10^3/uL (0.0-0.2); EOS % 0.8 % (0.0-3.0); HEMATOCRIT 35.5 % (36.0-47.0); HEMOGLOBIN 11.9 g/dl (12.0-15.5); LYMPH # 0.4 10^3/uL (1.5-5.0); LYMPH % 7.5 % (24.0-44.0); MEAN CORPUSCULAR HEMOGLOBIN 29.5 pg (27.0-33.0); MEAN CORPUSCULAR HGB CONC 33.5 g/dl (32.0-36.5); MEAN CORPUSCULAR VOLUME 88.1 fl (80.0-96.0); MONO # 0.6 10^3/uL (0.0-0.8); MONO % 11.1 % (2.0-8.0); PLATELET COUNT, AUTOMATED 186 10^3/uL (150-450); RED BLOOD COUNT 4.03 10^6/uL (4.00-5.40); WHITE BLOOD COUNT 5.1 10^3/uL (4.0-10.0)
[2025-03-04 17:11] LABS: CK-MB VALUE MASS 2.7 NG/ML (<3.6)
[2025-03-04 17:14] LABS: ALBUMIN 3.1 G/DL (3.2-5.2); ALKALINE PHOSPHATASE 94 U/L (35-104); ALT/SGPT 15 U/L (7.0-40); AST/SGOT 19 U/L (<34); BILIRUBIN,DIRECT 0.3 MG/DL (<0.4); BILIRUBIN,TOTAL 0.7 MG/DL (0.3-1.2); BLOOD UREA NITROGEN 9 MG/DL (9-23); CALCIUM LEVEL 8.9 MG/DL (8.3-10.6); CARBON DIOXIDE LEVEL 22 MMOL/L (20-31); CHLORIDE LEVEL 103 MMOL/L (98-107); CPK CREATINE PHOSPHOKINASE 69 U/L (34-145); GLOMERULAR FILTRATION RATE > 90.0 (>39); GLUCOSE, FASTING 116 MG/DL (74-106); MAGNESIUM LEVEL 1.5 MG/DL (1.8-2.4); MB/CK RELATIVE INDEX 3.91 (< OR =4); POTASSIUM SERUM 3.7 MMOL/L (3.5-5.1); SODIUM LEVEL 136 MMOL/L (136-145); TOTAL PROTEIN 6.1 G/DL (5.7-8.2)
[2025-03-04] MEDS: clonazePAM 0.5 MG TAB PO ONE (17:19)
[2025-03-04] MEDS: FUROSEMIDE 40MG/4ML VIAL IV ONE (17:50)
[2025-03-04 18:03] LABS: CK-MB VALUE MASS 2.1 NG/ML (<3.6)
[2025-03-04 18:04] LABS: MB/CK RELATIVE INDEX 3.04 (< OR =4)
[2025-03-04] MEDS: MAG SULF 1GM/100ML (MAG RUN) 1 GM in IV 1 EA IV ONE (18:07)
[2025-03-04 21:40] LABS: PROCALCITONIN 0.04 ng/ml
[2025-03-04] MEDS ORDERED: CARV3.12 PO (22:17)
[2025-03-04] MEDS ORDERED: HOME MED LIST COMPLETE! XX SCH (22:25)
[2025-03-04] MEDS ORDERED: THERTAB52 PO (22:27)
[2025-03-04] MEDS: LORazepam 2 MG TAB PO PRN (22:49)
[2025-03-04] MEDS: PRAVASTATIN 20 MG TAB PO SCH (23:44)
[2025-03-04] MEDS: SUCRALFATE 1 GM TAB PO SCH (23:44)
[2025-03-04] MEDS: allopurinoL 300 MG TAB PO SCH (23:44)
[2025-03-04] MEDS: ASPIRIN 81MG ENTERIC TABLET PO SCH (23:44)
[2025-03-05] VITALS (28 sets, daily range): BP systolic 102–142; BP diastolic 64–101; TEMP 97.3–97.8; O2SAT 90–98
[2025-03-05 06:11] LABS: HEMOGLOBIN 11.2 g/dl (12.0-15.5); MEAN CORPUSCULAR HEMOGLOBIN 29.2 pg (27.0-33.0); MEAN CORPUSCULAR HGB CONC 32.9 g/dl (32.0-36.5); MEAN CORPUSCULAR VOLUME 88.8 fl (80.0-96.0); PLATELET COUNT, AUTOMATED 165 10^3/uL (150-450); RED BLOOD COUNT 3.83 10^6/uL (4.00-5.40); WHITE BLOOD COUNT 4.4 10^3/uL (4.0-10.0)
[2025-03-05 06:30] LABS: BLOOD UREA NITROGEN 9 MG/DL (9-23); CALCIUM LEVEL 8.7 MG/DL (8.3-10.6); CARBON DIOXIDE LEVEL 26 MMOL/L (20-31); CHLORIDE LEVEL 102 MMOL/L (98-107); GLOMERULAR FILTRATION RATE > 90.0 (>39); GLUCOSE, FASTING 97 MG/DL (74-106); MAGNESIUM LEVEL 1.6 MG/DL (1.8-2.4); POTASSIUM SERUM 3.3 MMOL/L (3.5-5.1); SODIUM LEVEL 139 MMOL/L (136-145)
[2025-03-05] MEDS ORDERED: FUROSEMIDE 40MG/4ML VIAL IV SCH (09:00)
[2025-03-05] MEDS ORDERED: FUROSEMIDE 20MG/2ML VIAL IV SCH ×2 (09:00)
[2025-03-05] MEDS ORDERED: FOLIC ACID 1MG TAB PO SCH (09:00)
[2025-03-05] MEDS ORDERED: THIAMINE 100 MG TAB PO SCH (09:00)
[2025-03-05] MEDS ORDERED: MULTIVITAMINS/MINERALS THERAP 1 TAB PO SCH (09:00)
[2025-03-05] MEDS ORDERED: ISOVUE-370 76% 100ML VIAL As Ordered ONE (09:15)
[2025-03-05] MEDS ORDERED: PILL CUTTER 1 EACH XX PRN (10:15)
[2025-03-05] MEDS: POTASSIUM CHLORIDE 10MEQ SR TABLET PO ONE ×2 (10:20→16:52)
[2025-03-05] MEDS: FLUoxetine 20MG CAP PO SCH (10:21)
[2025-03-05] MEDS: SPIRONOLACTONE 12.5MG PER 1/2 TABLET PO SCH (10:21)
[2025-03-05] MEDS: MAG SULF 1GM/100ML (MAG RUN) 1 GM in IV 1 EA IV SCH (10:21)
[2025-03-05] MEDS: PANTOPRAZOLE 40MG TAB (PROTONIX) PO SCH (10:21)
[2025-03-05] MEDS: clonazePAM 0.5 MG TAB PO SCH (10:21)
[2025-03-05] MEDS: CARVedilol 3.125 MG TAB PO SCH (10:22)
[2025-03-05] MEDS: FUROSEMIDE 40MG/4ML VIAL IV SCH (10:22)
[2025-03-05] MEDS: FERROUS SULFATE 325MG TAB PO SCH (10:22)
[2025-03-05] MEDS: ENOXAPARIN 40MG/0.4ML SYRINGE (J1650 PER 10MG) SC SCH (10:22)
[2025-03-05] MEDS: DAPAGLIFLOZIN PROPANEDIOL 10MG TABLET (FARXIGA) PO SCH (10:28)
[2025-03-05 10:32] LABS: VITAMIN B12 LEVEL 551 PG/ML (211-911)
[2025-03-05] MEDS ORDERED: LOSARTAN 25 MG TAB PO SCH (15:00)
[2025-03-05] MEDS: ENTRESTO 24-26MG TABLET (SACUBITRIL/VALSARTAN) PO SCH (20:10)
[2025-03-05] MEDS: MAGNESIUM OXIDE 400MG TAB (MAG-OX) PO SCH (20:10)
[2025-03-05] MEDS: ACETAMINOPHEN 325 MG TAB PO PRN (20:18)
[2025-03-06] VITALS (30 sets, daily range): BP systolic 86–110; BP diastolic 58–92; TEMP 97.3–97.8; O2SAT 85–98
[2025-03-06 05:41] LABS: BASO % 1.1 % (0.0-1.0); EOS # 0.1 10^3/uL (0.0-0.5); EOS % 2.4 % (0.0-3.0); HEMATOCRIT 35.2 % (36.0-47.0); HEMOGLOBIN 11.3 g/dl (12.0-15.5); LYMPH # 0.3 10^3/uL (1.5-5.0); LYMPH % 8.9 % (24.0-44.0); MEAN CORPUSCULAR HGB CONC 32.1 g/dl (32.0-36.5); MEAN CORPUSCULAR VOLUME 90.5 fl (80.0-96.0); MONO # 0.4 10^3/uL (0.0-0.8); MONO % 10.5 % (2.0-8.0); NEUTROPHILS # 2.9 10^3/uL (1.5-8.5); NEUTROPHILS % 76.6 % (36.0-66.0); PLATELET COUNT, AUTOMATED 182 10^3/uL (150-450); RED BLOOD COUNT 3.89 10^6/uL (4.00-5.40); WHITE BLOOD COUNT 3.7 10^3/uL (4.0-10.0)
[2025-03-06 06:07] LABS: BLOOD UREA NITROGEN 17 MG/DL (9-23); CALCIUM LEVEL 8.6 MG/DL (8.3-10.6); CARBON DIOXIDE LEVEL 28 MMOL/L (20-31); CHLORIDE LEVEL 104 MMOL/L (98-107); CREATININE FOR GFR 0.61 MG/DL (0.55-1.30); GLOMERULAR FILTRATION RATE > 90.0 (>39); GLUCOSE, FASTING 107 MG/DL (74-106); MAGNESIUM LEVEL 1.7 MG/DL (1.8-2.4); POTASSIUM SERUM 3.7 MMOL/L (3.5-5.1); SODIUM LEVEL 142 MMOL/L (136-145)
[2025-03-06] MEDS: POTASSIUM CHLORIDE 10MEQ SR TABLET PO ONE (08:47)
[2025-03-06] MEDS: MAG SULF 1GM/100ML (MAG RUN) 1 GM in IV 1 EA IV SCH (08:47)
[2025-03-06] MEDS: DAPAGLIFLOZIN PROPANEDIOL 10MG TABLET (FARXIGA) PO SCH (08:51)
[2025-03-06] MEDS: clonazePAM 0.5 MG TAB PO PRN (14:54)
[2025-03-06] MEDS: FUROSEMIDE 40MG/4ML VIAL IV SCH (16:02)
[2025-03-07] VITALS (12 sets, daily range): BP systolic 103–125; BP diastolic 66–92; TEMP 97.9–98.2; O2SAT 91–94
[2025-03-07 06:10] LABS: BASO % 0.8 % (0.0-1.0); EOS # 0.1 10^3/uL (0.0-0.5); EOS % 2.5 % (0.0-3.0); HEMATOCRIT 35.6 % (36.0-47.0); HEMOGLOBIN 11.8 g/dl (12.0-15.5); LYMPH # 0.4 10^3/uL (1.5-5.0); LYMPH % 7.4 % (24.0-44.0); MEAN CORPUSCULAR HEMOGLOBIN 29.6 pg (27.0-33.0); MEAN CORPUSCULAR HGB CONC 33.1 g/dl (32.0-36.5); MEAN CORPUSCULAR VOLUME 89.4 fl (80.0-96.0); MONO # 0.4 10^3/uL (0.0-0.8); MONO % 9.3 % (2.0-8.0); NEUTROPHILS # 3.7 10^3/uL (1.5-8.5); NEUTROPHILS % 79.6 % (36.0-66.0); PLATELET COUNT, AUTOMATED 203 10^3/uL (150-450); RED BLOOD COUNT 3.98 10^6/uL (4.00-5.40); WHITE BLOOD COUNT 4.7 10^3/uL (4.0-10.0)
[2025-03-07 06:31] LABS: BLOOD UREA NITROGEN 16 MG/DL (9-23); CALCIUM LEVEL 8.7 MG/DL (8.3-10.6); CARBON DIOXIDE LEVEL 28 MMOL/L (20-31); CHLORIDE LEVEL 103 MMOL/L (98-107); CREATININE FOR GFR 0.56 MG/DL (0.55-1.30); GLOMERULAR FILTRATION RATE > 90.0 (>39); GLUCOSE, FASTING 98 MG/DL (74-106); POTASSIUM SERUM 3.7 MMOL/L (3.5-5.1); SODIUM LEVEL 141 MMOL/L (136-145)
[2025-03-07] MEDS ORDERED: ENTR1TAB PO (12:18)
[2025-03-07] MEDS ORDERED: TORS20TA2 PO (12:18)
[2025-03-07] MEDS ORDERED: FERR1TAB8 PO (12:18)
[2025-03-07] MEDS ORDERED: FARX1TAB3 PO (12:18)
[2025-03-07] MEDS ORDERED: CLON0.5T2 PO (12:18)
== END 2025-03-07 13:44 | disposition home health service (06) | DRG 292 ==
LOC: M ED 15:50 → EDBD 15:50 → M ED INP 21:21 → M PCU 23:50
PROVIDERS: ADMIT Family Medicine; ATTEND Internal Medicine
DX: I50.23 Acute on chronic systolic (congestive) heart failure (principal); F05 Delirium due to known physiological condition; I24.89 Other forms of acute ischemic heart disease; D50.9 Iron deficiency anemia, unspecified; E11.9 Type 2 diabetes mellitus without complications; I27.20 Pulmonary hypertension, unspecified; E78.5 Hyperlipidemia, unspecified; I48.0 Paroxysmal atrial fibrillation; E83.42 Hypomagnesemia; K21.9 Gastro-esophageal reflux disease without esophagitis; M10.9 Gout, unspecified; F32.A Depression, unspecified; F41.9 Anxiety disorder, unspecified; R19.7 Diarrhea, unspecified; R91.1 Solitary pulmonary nodule; Z85.118 Personal history of other malignant neoplasm of bronchus and lung; Z85.41 Personal history of malignant neoplasm of cervix uteri; Z92.21 Personal history of antineoplastic chemotherapy; Z92.3 Personal history of irradiation; Z86.711 Personal history of pulmonary embolism; Z87.891 Personal history of nicotine dependence; Z79.82 Long term (current) use of aspirin; Z79.899 Other long term (current) drug therapy; E87.6 Hypokalemia

== ENCOUNTER 2025-03-16 14:11 | Observation (INO) | payer MEDICARE ==
[~2025-03-16] VITALS: Ht 157.5 cm; Wt 56.5 kg
[~2025-03-16 14:11] MED LIST changes: +THERTAB52 PO; +TORS20TA2 PO
[2025-03-16 14:46] LABS: BASO # 0.1 10^3/uL (0.0-0.2); BASO % 1.2 % (0.0-1.0); EOS # 0.1 10^3/uL (0.0-0.5); EOS % 1.2 % (0.0-3.0); HEMATOCRIT 38.6 % (36.0-47.0); HEMOGLOBIN 12.5 g/dl (12.0-15.5); LYMPH # 0.4 10^3/uL (1.5-5.0); LYMPH % 10.6 % (24.0-44.0); MEAN CORPUSCULAR HEMOGLOBIN 29.1 pg (27.0-33.0); MEAN CORPUSCULAR HGB CONC 32.4 g/dl (32.0-36.5); MEAN CORPUSCULAR VOLUME 89.8 fl (80.0-96.0); MONO # 0.4 10^3/uL (0.0-0.8); MONO % 9.4 % (2.0-8.0); NEUTROPHILS # 3.2 10^3/uL (1.5-8.5); NEUTROPHILS % 77.4 % (36.0-66.0); PLATELET COUNT, AUTOMATED 193 10^3/uL (150-450); WHITE BLOOD COUNT 4.1 10^3/uL (4.0-10.0)
[2025-03-16] MEDS: NS 250 ML IV ONE (14:50)
[2025-03-16 14:59] LABS: INR 1.02; PARTIAL THROMBOPLASTIN TIME 32.3 SECONDS (24.8-34.2); PROTHROMBIN TIME 13.7 SECONDS (12.5-14.5)
[2025-03-16 15:09] LABS: CK-MB VALUE MASS < 1.0 NG/ML (<3.6)
[2025-03-16 15:10] LABS: ALBUMIN 3.4 G/DL (3.2-5.2); ALKALINE PHOSPHATASE 89 U/L (35-104); ALT/SGPT 16 U/L (7.0-40); AST/SGOT 20 U/L (<34); BILIRUBIN,DIRECT 0.3 MG/DL (<0.4); BILIRUBIN,TOTAL 0.7 MG/DL (0.3-1.2); BLOOD UREA NITROGEN 23 MG/DL (9-23); CALCIUM LEVEL 9.6 MG/DL (8.3-10.6); CARBON DIOXIDE LEVEL 27 MMOL/L (20-31); CHLORIDE LEVEL 100 MMOL/L (98-107); CREATININE FOR GFR 0.69 MG/DL (0.55-1.30); GLOMERULAR FILTRATION RATE > 90.0 (>39); GLUCOSE, FASTING 89 MG/DL (74-106); POTASSIUM SERUM 3.2 MMOL/L (3.5-5.1); SODIUM LEVEL 141 MMOL/L (136-145); TOTAL PROTEIN 6.5 G/DL (5.7-8.2)
[2025-03-16 15:11] LABS: CPK CREATINE PHOSPHOKINASE 38 U/L (34-145); FREE T4 1.24 NG/DL (0.89-1.76); MB/CK RELATIVE INDEX 2.63 (< OR =4)
[2025-03-16 15:12] LABS: THYROID STIMULATING HORMONE 2.665 uIU/ML (0.55-4.78)
[2025-03-16] MEDS: POTASSIUM CHLORIDE 10MEQ SR TABLET PO ONE (15:20)
[2025-03-16 16:11] LABS: CK-MB VALUE MASS < 1.0 NG/ML (<3.6)
[2025-03-16 16:15] LABS: CPK CREATINE PHOSPHOKINASE 29 U/L (34-145); MB/CK RELATIVE INDEX 3.44 (< OR =4)
[2025-03-16 16:30] VITALS: O2SAT 95
[2025-03-16] MEDS ORDERED: TORS20TA2 PO (17:48)
[2025-03-16] MEDS ORDERED: CLON0.5T2 PO (17:48)
[2025-03-16] MEDS ORDERED: FERR1TAB8 PO (17:48)
[2025-03-16] MEDS ORDERED: HOME MED LIST COMPLETE! XX SCH (17:55)
[2025-03-16] MEDS ORDERED: LOMOTIL 2.5MG/0.025MG TABLET PO PRN (17:55)
[2025-03-16 18:32] VITALS: BP 109/72; TEMP 97.2; O2SAT 96
[2025-03-16 18:56] LABS: HEMATOCRIT 39.7 % (36.0-47.0); HEMOGLOBIN 12.9 g/dl (12.0-15.5); MEAN CORPUSCULAR HEMOGLOBIN 29.3 pg (27.0-33.0); MEAN CORPUSCULAR HGB CONC 32.5 g/dl (32.0-36.5); PLATELET COUNT, AUTOMATED 178 10^3/uL (150-450); RED BLOOD COUNT 4.41 10^6/uL (4.00-5.40); WHITE BLOOD COUNT 3.1 10^3/uL (4.0-10.0)
[2025-03-16 20:03] VITALS: BP 98/53; TEMP 98.5; O2SAT 97
[2025-03-16] MEDS: PRAVASTATIN 20 MG TAB PO SCH (20:19)
[2025-03-16] MEDS: clonazePAM 0.5 MG TAB PO PRN (20:19)
[2025-03-16] MEDS: ASPIRIN 81MG ENTERIC TABLET PO SCH (20:19)
[2025-03-16] MEDS: allopurinoL 300 MG TAB PO SCH (20:20)
[2025-03-16] MEDS: ACETAMINOPHEN 325 MG TAB PO PRN (20:20)
[2025-03-16 23:38] VITALS: BP 94/55; TEMP 97.4; O2SAT 97
[2025-03-17] VITALS (8 sets, daily range): BP systolic 91–122; BP diastolic 51–73; TEMP 97.4–98.1; O2SAT 95–98
[2025-03-17] MEDS: KETOROLAC 30 MG/ML 1ML VIAL IV ONE (00:04)
[2025-03-17 00:58] LABS: HEMATOCRIT 36.3 % (36.0-47.0); HEMOGLOBIN 11.8 g/dl (12.0-15.5); MEAN CORPUSCULAR HEMOGLOBIN 29.1 pg (27.0-33.0); MEAN CORPUSCULAR HGB CONC 32.5 g/dl (32.0-36.5); MEAN CORPUSCULAR VOLUME 89.4 fl (80.0-96.0); PLATELET COUNT, AUTOMATED 158 10^3/uL (150-450); RED BLOOD COUNT 4.06 10^6/uL (4.00-5.40); WHITE BLOOD COUNT 3.3 10^3/uL (4.0-10.0)
[2025-03-17 04:37] LABS: HEMATOCRIT 37.5 % (36.0-47.0); HEMOGLOBIN 12.1 g/dl (12.0-15.5); MEAN CORPUSCULAR HEMOGLOBIN 28.7 pg (27.0-33.0); MEAN CORPUSCULAR HGB CONC 32.3 g/dl (32.0-36.5); MEAN CORPUSCULAR VOLUME 89.1 fl (80.0-96.0); PLATELET COUNT, AUTOMATED 178 10^3/uL (150-450); RED BLOOD COUNT 4.21 10^6/uL (4.00-5.40); WHITE BLOOD COUNT 3.1 10^3/uL (4.0-10.0)
[2025-03-17 05:02] LABS: MAGNESIUM LEVEL 1.8 MG/DL (1.8-2.4)
[2025-03-17 07:06] LABS: CALCIUM LEVEL 8.8 MG/DL (8.3-10.6); CREATININE FOR GFR 0.73 MG/DL (0.55-1.30); GLOMERULAR FILTRATION RATE 86.2 (>39); POTASSIUM SERUM 3.4 MMOL/L (3.5-5.1)
[2025-03-17] MEDS: MAGNESIUM OXIDE 400MG TAB (MAG-OX) PO SCH (08:12)
[2025-03-17] MEDS: FERROUS SULFATE 325MG TAB PO SCH (08:12)
[2025-03-17] MEDS: SUCRALFATE 1 GM TAB PO SCH (08:12)
[2025-03-17] MEDS: POTASSIUM CHLORIDE 10MEQ SR TABLET PO ONE ×2 (08:13→11:06)
[2025-03-17] MEDS: FLUoxetine 20MG CAP PO SCH (08:13)
[2025-03-17] MEDS: PANTOPRAZOLE 40MG TAB (PROTONIX) PO SCH (08:13)
[2025-03-17] MEDS: DAPAGLIFLOZIN PROPANEDIOL 10MG TABLET (FARXIGA) PO SCH (08:13)
[2025-03-17] MEDS: ENOXAPARIN 40MG/0.4ML SYRINGE (J1650 PER 10MG) SC SCH (08:14)
[2025-03-17 09:08] LABS: CLOSTRIDIUM DIFFICILE PCR NEGATIVE (NEGATIVE)
[2025-03-18 04:30] VITALS: BP 104/58; TEMP 97.8; O2SAT 98
[2025-03-18 04:49] LABS: BLOOD UREA NITROGEN 22 MG/DL (9-23); CALCIUM LEVEL 8.7 MG/DL (8.3-10.6); CARBON DIOXIDE LEVEL 26 MMOL/L (20-31); CHLORIDE LEVEL 107 MMOL/L (98-107); CREATININE FOR GFR 0.61 MG/DL (0.55-1.30); GLOMERULAR FILTRATION RATE > 90.0 (>39); GLUCOSE, FASTING 93 MG/DL (74-106); POTASSIUM SERUM 3.8 MMOL/L (3.5-5.1); SODIUM LEVEL 142 MMOL/L (136-145)
[2025-03-18 07:25] VITALS: BP 114/68; TEMP 97.2; O2SAT 97
[2025-03-18 11:58] VITALS: BP 100/72; TEMP 97.4; O2SAT 98
== END 2025-03-18 13:09 | disposition home health service (06) ==
LOC: M ED 14:11 → EDBD 14:11 → EDUNIT# 14:11 → M ED INP 17:01 → M PCU 18:23
PROVIDERS: ADMIT Internal Medicine; ATTEND Internal Medicine
DX: I10 Essential (primary) hypertension (principal); M62.81 Muscle weakness (generalized); R53.81 Other malaise; E87.6 Hypokalemia; I50.30 Unspecified diastolic (congestive) heart failure; R19.7 Diarrhea, unspecified; Z85.118 Personal history of other malignant neoplasm of bronchus and lung; Z85.41 Personal history of malignant neoplasm of cervix uteri; I48.91 Unspecified atrial fibrillation; E78.5 Hyperlipidemia, unspecified; M10.9 Gout, unspecified; D50.9 Iron deficiency anemia, unspecified; K21.9 Gastro-esophageal reflux disease without esophagitis; Z92.21 Personal history of antineoplastic chemotherapy; Z79.82 Long term (current) use of aspirin; Z79.899 Other long term (current) drug therapy
CPT/HCPCS: 36415; 70450; 71045; 80048; 80076; 82550; 82553; 83735; 83880; 84439; 84443; 84484; 85025; 85027; 85610; 85730; 87324; 93005; 93041; 94760; 96372; 96374; 96375; 97116; 97161; 97165; 97530; 99285; G0378; J1650; J1885

== ENCOUNTER 2025-03-20 08:54 | Emergency (ER) | payer MEDICARE ==
[~2025-03-20] VITALS: Ht 160 cm; Wt 56.4 kg
[2025-03-20 09:34] LABS: BASO % 0.8 % (0.0-1.0); HEMATOCRIT 35.1 % (36.0-47.0); HEMOGLOBIN 11.5 g/dl (12.0-15.5); LYMPH # 0.3 10^3/uL (1.5-5.0); LYMPH % 6.9 % (24.0-44.0); MEAN CORPUSCULAR HEMOGLOBIN 29.7 pg (27.0-33.0); MEAN CORPUSCULAR HGB CONC 32.8 g/dl (32.0-36.5); MEAN CORPUSCULAR VOLUME 90.7 fl (80.0-96.0); MONO # 0.3 10^3/uL (0.0-0.8); MONO % 8.2 % (2.0-8.0); NEUTROPHILS # 3.2 10^3/uL (1.5-8.5); NEUTROPHILS % 82.8 % (36.0-66.0); PLATELET COUNT, AUTOMATED 150 10^3/uL (150-450); RED BLOOD COUNT 3.87 10^6/uL (4.00-5.40); WHITE BLOOD COUNT 3.9 10^3/uL (4.0-10.0)
[2025-03-20 10:06] LABS: ALBUMIN 3.2 G/DL (3.2-5.2); ALKALINE PHOSPHATASE 79 U/L (35-104); ALT/SGPT 18 U/L (7.0-40); AST/SGOT 21 U/L (<34); BILIRUBIN,TOTAL 0.7 MG/DL (0.3-1.2); BLOOD UREA NITROGEN 14 MG/DL (9-23); CARBON DIOXIDE LEVEL 26 MMOL/L (20-31); CHLORIDE LEVEL 109 MMOL/L (98-107); CREATININE FOR GFR 0.58 MG/DL (0.55-1.30); GLOMERULAR FILTRATION RATE > 90.0 (>39); GLUCOSE, FASTING 133 MG/DL (74-106); SODIUM LEVEL 145 MMOL/L (136-145); TOTAL PROTEIN 6.2 G/DL (5.7-8.2)
[2025-03-20] MEDS: FUROSEMIDE 40MG/4ML VIAL IV ONE (10:26)
[2025-03-20] MEDS: SPIRONOLACTONE 12.5MG PER 1/2 TABLET PO ONE (10:26)
[2025-03-20 10:34] LABS: MAGNESIUM LEVEL 1.8 MG/DL (1.8-2.4)
[2025-03-20] MEDS: KCL 20MEQ IN 100ML SWI (KRUN) 20 MEQ in IV 1 EA IV ONE (10:56)
[2025-03-20 14:04] VITALS: BP 134/87; TEMP 98.9; O2SAT 97
[2025-03-20] MEDS: SODIUM CHLORIDE 0.9% INJ 10 ML SYR IV PRN (14:05)
[2025-03-21] MEDS ORDERED: SODIUM CHLORIDE 0.9% INJ 10 ML SYR IV SCH (09:00)
== END 2025-03-20 14:28 | disposition home or self-care (01) ==
LOC: M ED 08:54
DX: R53.1 Weakness (principal); E87.6 Hypokalemia; I44.7 Left bundle-branch block, unspecified; I50.22 Chronic systolic (congestive) heart failure; E78.5 Hyperlipidemia, unspecified; F10.10 Alcohol abuse, uncomplicated; Z87.891 Personal history of nicotine dependence; Z79.1 Long term (current) use of non-steroidal anti-inflammatories (NSAID); Z79.810 Long term (current) use of selective estrogen receptor modulators (SERMs); Z79.899 Other long term (current) drug therapy
CPT/HCPCS: 70450; 71045; 80053; 83735; 83880; 85025; 87486; 87581; 87633; 87798; 93005; 96361; 96374; 99285; G0463; J1642; J1938

== ENCOUNTER 2025-04-12 17:35 | Inpatient (IN) | payer MEDICARE ==
[~2025-04-12] VITALS: Ht 162.6 cm; Wt 57.6 kg
[2025-04-12 18:18] LABS: BASO % 0.1 % (0.0-1.0); EOS % 0.3 % (0.0-3.0); HEMATOCRIT 35.1 % (36.0-47.0); HEMOGLOBIN 11.5 g/dl (12.0-15.5); LYMPH # 0.3 10^3/uL (1.5-5.0); LYMPH % 3.4 % (24.0-44.0); MEAN CORPUSCULAR HEMOGLOBIN 29.4 pg (27.0-33.0); MEAN CORPUSCULAR HGB CONC 32.8 g/dl (32.0-36.5); MEAN CORPUSCULAR VOLUME 89.8 fl (80.0-96.0); MONO # 0.5 10^3/uL (0.0-0.8); MONO % 6.1 % (2.0-8.0); NEUTROPHILS # 6.8 10^3/uL (1.5-8.5); NEUTROPHILS % 89.6 % (36.0-66.0); PLATELET COUNT, AUTOMATED 186 10^3/uL (150-450); RED BLOOD COUNT 3.91 10^6/uL (4.00-5.40); WHITE BLOOD COUNT 7.6 10^3/uL (4.0-10.0)
[2025-04-12 18:47] LABS: INR 1.33; PARTIAL THROMBOPLASTIN TIME 33.5 SECONDS (24.8-34.2); PROTHROMBIN TIME 16.8 SECONDS (12.5-14.5)
[2025-04-12 18:48] LABS: LIPASE 21 U/L (12-53)
[2025-04-12 18:50] LABS: ALBUMIN 3.2 G/DL (3.2-5.2); ALKALINE PHOSPHATASE 117 U/L (35-104); ALT/SGPT 43 U/L (7.0-40); AST/SGOT 44 U/L (<34); BILIRUBIN,DIRECT 0.4 MG/DL (<0.4); BILIRUBIN,TOTAL 0.9 MG/DL (0.3-1.2); BLOOD UREA NITROGEN 39 MG/DL (9-23); CALCIUM LEVEL 8.4 MG/DL (8.3-10.6); CARBON DIOXIDE LEVEL 23 MMOL/L (20-31); CHLORIDE LEVEL 101 MMOL/L (98-107); CK-MB VALUE MASS 6.9 NG/ML (<3.6); CREATININE FOR GFR 0.66 MG/DL (0.55-1.30); GLOMERULAR FILTRATION RATE > 90.0 (>39); GLUCOSE, FASTING 138 MG/DL (74-106); POTASSIUM SERUM 3.7 MMOL/L (3.5-5.1); SODIUM LEVEL 136 MMOL/L (136-145); TOTAL PROTEIN 5.7 G/DL (5.7-8.2)
[2025-04-12 18:51] LABS: CPK CREATINE PHOSPHOKINASE 117 U/L (34-145); MB/CK RELATIVE INDEX 5.89 (< OR =4)
[2025-04-12 18:52] LABS: FREE T4 1.52 NG/DL (0.89-1.76); THYROID STIMULATING HORMONE 3.958 uIU/ML (0.55-4.78)
[2025-04-12 19:00] LABS: CK-MB VALUE MASS 7.1 NG/ML (<3.6)
[2025-04-12 19:02] LABS: MB/CK RELATIVE INDEX 5.72 (< OR =4)
[2025-04-12] MEDS ORDERED: ISOVUE-370 76% 100ML VIAL As Ordered ONE (19:03)
[2025-04-12] MEDS: clonazePAM 0.5 MG TAB PO ONE (20:29)
[2025-04-12 20:35] LABS: CK-MB VALUE MASS 6.3 NG/ML (<3.6)
[2025-04-12 20:36] LABS: MB/CK RELATIVE INDEX 6.11 (< OR =4)
[2025-04-12] MEDS: FUROSEMIDE 40MG/4ML VIAL IV ONE (21:28)
[2025-04-12] MEDS: PIPERACILLIN/TAZOBACTAM SOD 4.5 GM in DEXTROSE 5% (D5W) ADV/MINI-BAG 50 ML IV ONE (21:28)
[2025-04-12] MEDS ORDERED: MAALOX 30 ML SUSP *UDC PO PRN (21:35)
[2025-04-12] MEDS ORDERED: MOM 30ML SUSPENSION UDC PO PRN (21:35)
[2025-04-13] VITALS (25 sets, daily range): BP systolic 83–116; BP diastolic 53–74; TEMP 97.7–98.9; O2SAT 91–98
[2025-04-13 04:22] LABS: VENOUS BASE EXCESS 0.2 (-2.0-2.0); VENOUS PARTIAL PRESSURE CO2 31.9 mmHg (38.0-50.0); VENOUS PARTIAL PRESSURE O2 137.7 mmHg (30.0-50.0); VENOUS PH 7.476 UNITS (7.330-7.430); VENOUS STANDARD HCO3 24.7 MMOL/L
[2025-04-13 05:04] LABS: PROCALCITONIN 0.07 ng/ml
[2025-04-13 06:58] LABS: MAGNESIUM LEVEL 2.1 MG/DL (1.8-2.4)
[2025-04-13 08:05] LABS: EOS % 0.4 % (0.0-3.0); HEMATOCRIT 34.4 % (36.0-47.0); HEMOGLOBIN 11.2 g/dl (12.0-15.5); LYMPH # 0.2 10^3/uL (1.5-5.0); LYMPH % 4.7 % (24.0-44.0); MEAN CORPUSCULAR HEMOGLOBIN 29.6 pg (27.0-33.0); MEAN CORPUSCULAR HGB CONC 32.6 g/dl (32.0-36.5); MONO # 0.4 10^3/uL (0.0-0.8); MONO % 7.4 % (2.0-8.0); NEUTROPHILS # 4.5 10^3/uL (1.5-8.5); NEUTROPHILS % 87.1 % (36.0-66.0); PLATELET COUNT, AUTOMATED 176 10^3/uL (150-450); RED BLOOD COUNT 3.78 10^6/uL (4.00-5.40); WHITE BLOOD COUNT 5.2 10^3/uL (4.0-10.0)
[2025-04-13 08:32] LABS: BLOOD UREA NITROGEN 30 MG/DL (9-23); CALCIUM LEVEL 8.2 MG/DL (8.3-10.6); CARBON DIOXIDE LEVEL 27 MMOL/L (20-31); CHLORIDE LEVEL 103 MMOL/L (98-107); CREATININE FOR GFR 0.67 MG/DL (0.55-1.30); GLOMERULAR FILTRATION RATE > 90.0 (>39); GLUCOSE, FASTING 88 MG/DL (74-106); POTASSIUM SERUM 3.2 MMOL/L (3.5-5.1); SODIUM LEVEL 141 MMOL/L (136-145)
[2025-04-13] MEDS: FLUoxetine 20MG CAP PO SCH (09:00)
[2025-04-13] MEDS: FERROUS SULFATE 325MG TAB PO SCH (09:00)
[2025-04-13] MEDS: DAPAGLIFLOZIN PROPANEDIOL 10MG TABLET PO SCH (09:00)
[2025-04-13] MEDS ORDERED: DOCUSATE SODIUM 100MG CAPSULE PO SCH (09:00)
[2025-04-13] MEDS: FUROSEMIDE 20 MG TAB PO SCH (10:06)
[2025-04-13] MEDS: POTASSIUM CHLORIDE 10% LIQ 20MEQ/15ML UDC PO ONE (10:06)
[2025-04-13] MEDS: PANTOPRAZOLE 40MG VIAL IV SCH (10:07)
[2025-04-13] MEDS: ENOXAPARIN 40MG/0.4ML SYRINGE (J1650 PER 10MG) SC SCH (10:07)
[2025-04-13] MEDS ORDERED: HOME MED LIST COMPLETE! XX SCH (11:00)
[2025-04-13] MEDS: clonazePAM 0.5 MG TAB PO PRN (11:34)
[2025-04-13] MEDS: ENALAPRIL MALEATE 5 MG TAB PO SCH (11:35)
[2025-04-13 11:40] LABS: APPEARANCE, URINE CLEAR (CLEAR); BACTERIA, URINE AUTO NEGATIVE (NEGATIVE); BILIRUBIN, URINE AUTO NEGATIVE (NEGATIVE); BLOOD, URINE BLOOD NEGATIVE (NEGATIVE); COLOR, URINE STRAW (YELLOW); GLUCOSE, URINE (UA) AUTO NEGATIVE (NEGATIVE); KETONE, URINE AUTO NEGATIVE (NEGATIVE); LEUKOCYTE ESTERASE, URINE AUTO TRACE (NEGATIVE); NITRITE, URINE AUTO NEGATIVE (NEGATIVE); PROTEIN, URINE AUTO NEGATIVE (NEGATIVE); RBC, URINE AUTO 0 /HPF (0-3); SPECIFIC GRAVITY URINE AUTO 1.014 (1.002-1.035); SQUAMOUS EPITHELIAL CELL UR AU 0 /HPF (0-6); UROBILINOGEN, URINE AUTO 0.2 mg/dL (0.0-2.0); WBC, URINE AUTO 1 /HPF (0-3)
[2025-04-13] MEDS ORDERED: ACETAMINOPHEN 325 MG TAB PO PRN (16:00)
[2025-04-13] MEDS: SUCRALFATE 1 GM TAB PO SCH (16:32)
[2025-04-13 16:33] LABS: MAGNESIUM LEVEL 2.1 MG/DL (1.8-2.4); POTASSIUM SERUM 3.7 MMOL/L (3.5-5.1)
[2025-04-13] MEDS: FUROSEMIDE 40MG/4ML VIAL IV SCH (16:34)
[2025-04-13] MEDS: allopurinoL 300 MG TAB PO SCH (21:23)
[2025-04-13] MEDS: PRAVASTATIN 20 MG TAB PO SCH (21:24)
[2025-04-13] MEDS: ASPIRIN 81MG ENTERIC TABLET PO SCH (21:24)
[2025-04-13] MEDS: ACETAMINOPHEN 325 MG TAB PO PRN (21:25)
[2025-04-13 22:18] LABS: BLOOD UREA NITROGEN 27 MG/DL (9-23); CALCIUM LEVEL 8.3 MG/DL (8.3-10.6); CARBON DIOXIDE LEVEL 28 MMOL/L (20-31); CHLORIDE LEVEL 103 MMOL/L (98-107); CREATININE FOR GFR 0.67 MG/DL (0.55-1.30); GLOMERULAR FILTRATION RATE > 90.0 (>39); GLUCOSE, FASTING 107 MG/DL (74-106); MAGNESIUM LEVEL 1.8 MG/DL (1.8-2.4); POTASSIUM SERUM 3.5 MMOL/L (3.5-5.1); SODIUM LEVEL 141 MMOL/L (136-145)
[2025-04-14] VITALS (28 sets, daily range): BP systolic 90–120; BP diastolic 59–82; TEMP 96.9–98.6; O2SAT 86–96
[2025-04-14 05:43] LABS: BASO % 0.2 % (0.0-1.0); EOS # 0.1 10^3/uL (0.0-0.5); EOS % 1.2 % (0.0-3.0); HEMATOCRIT 34.6 % (36.0-47.0); HEMOGLOBIN 11.2 g/dl (12.0-15.5); LYMPH # 0.3 10^3/uL (1.5-5.0); LYMPH % 6.8 % (24.0-44.0); MEAN CORPUSCULAR HGB CONC 32.4 g/dl (32.0-36.5); MEAN CORPUSCULAR VOLUME 89.6 fl (80.0-96.0); MONO # 0.3 10^3/uL (0.0-0.8); MONO % 7.1 % (2.0-8.0); NEUTROPHILS # 3.6 10^3/uL (1.5-8.5); PLATELET COUNT, AUTOMATED 165 10^3/uL (150-450); RED BLOOD COUNT 3.86 10^6/uL (4.00-5.40); WHITE BLOOD COUNT 4.2 10^3/uL (4.0-10.0)
[2025-04-14 06:09] LABS: BLOOD UREA NITROGEN 25 MG/DL (9-23); CALCIUM LEVEL 8.1 MG/DL (8.3-10.6); CARBON DIOXIDE LEVEL 26 MMOL/L (20-31); CHLORIDE LEVEL 102 MMOL/L (98-107); CHOLESTEROL LEVEL 96 MG/DL (<200); CHOLESTEROL RISK RATIO 2.12 (<5); CREATININE FOR GFR 0.57 MG/DL (0.55-1.30); GLOMERULAR FILTRATION RATE > 90.0 (>39); GLUCOSE, FASTING 94 MG/DL (74-106); HDL CHOLESTEROL 45.1 MG/DL (>40); LDL CHOLESTEROL 34.7 MG/DL (<100); MAGNESIUM LEVEL 1.7 MG/DL (1.8-2.4); NON-HDL-C 50.9 MG/DL; POTASSIUM SERUM 3.5 MMOL/L (3.5-5.1); SODIUM LEVEL 140 MMOL/L (136-145); TRIGLYCERIDES LEVEL 81 MG/DL (<150)
[2025-04-14] MEDS: MAG SULF 1GM/100ML (MAG RUN) 1 GM in IV 1 EA IV ONE (08:29)
[2025-04-15] VITALS (14 sets, daily range): BP systolic 95–113; BP diastolic 60–76; TEMP 96.9–97.9; O2SAT 91–98
[2025-04-15 05:54] LABS: BASO % 0.5 % (0.0-1.0); EOS # 0.1 10^3/uL (0.0-0.5); EOS % 1.9 % (0.0-3.0); HEMATOCRIT 33.7 % (36.0-47.0); HEMOGLOBIN 10.8 g/dl (12.0-15.5); LYMPH # 0.3 10^3/uL (1.5-5.0); LYMPH % 6.8 % (24.0-44.0); MEAN CORPUSCULAR VOLUME 90.6 fl (80.0-96.0); MONO # 0.3 10^3/uL (0.0-0.8); MONO % 8.7 % (2.0-8.0); NEUTROPHILS % 81.3 % (36.0-66.0); PLATELET COUNT, AUTOMATED 161 10^3/uL (150-450); RED BLOOD COUNT 3.72 10^6/uL (4.00-5.40); WHITE BLOOD COUNT 3.7 10^3/uL (4.0-10.0)
[2025-04-15 06:17] LABS: BLOOD UREA NITROGEN 21 MG/DL (9-23); CALCIUM LEVEL 8.2 MG/DL (8.3-10.6); CARBON DIOXIDE LEVEL 29 MMOL/L (20-31); CHLORIDE LEVEL 102 MMOL/L (98-107); CREATININE FOR GFR 0.59 MG/DL (0.55-1.30); GLOMERULAR FILTRATION RATE > 90.0 (>39); GLUCOSE, FASTING 84 MG/DL (74-106); MAGNESIUM LEVEL 1.6 MG/DL (1.8-2.4); POTASSIUM SERUM 3.1 MMOL/L (3.5-5.1); SODIUM LEVEL 141 MMOL/L (136-145)
[2025-04-15] MEDS ORDERED: MAG SULF 1GM/100ML (MAG RUN) 1 GM in IV 1 EA IV ONE (07:20)
[2025-04-15] MEDS: MAG SULF 1GM/100ML (MAG RUN) 1 GM in IV 1 EA IV SCH (08:24)
[2025-04-15] MEDS: POTASSIUM CHLORIDE 10% LIQ 20MEQ/15ML UDC PO ONE (08:24)
[2025-04-15] MEDS ORDERED: FURO20TA2 PO (11:50)
[2025-04-15] MEDS ORDERED: FARX1TAB3 PO (11:50)
[2025-04-15] MEDS ORDERED: METO1TAB32 PO (12:04)
[2025-04-15] MEDS ORDERED: ENAL1TAB48 PO (12:04)
[2025-04-15] MEDS ORDERED: SODIUM CHLORIDE 0.9% INJ 10 ML SYR IV PRN (15:15)
[2025-04-15] MEDS: FUROSEMIDE 20 MG TAB PO SCH (17:00)
[2025-04-16] MEDS ORDERED: PANTOPRAZOLE 40MG TAB PO SCH (09:00)
== END 2025-04-15 18:01 | disposition home or self-care (01) | DRG 291 ==
LOC: M ED 17:35 → M ED INP 21:32 → M PCU 04-13 00:10 → M MSPAV 04-15 10:18
PROVIDERS: ADMIT Student in an Organized Health Care Education/Training Program; ATTEND Student in an Organized Health Care Education/Training Program
DX: I11.0 Hypertensive heart disease with heart failure (principal); I50.23 Acute on chronic systolic (congestive) heart failure; I31.39 Other pericardial effusion (noninflammatory); R18.8 Other ascites; M10.9 Gout, unspecified; K21.9 Gastro-esophageal reflux disease without esophagitis; F41.9 Anxiety disorder, unspecified; J44.9 Chronic obstructive pulmonary disease, unspecified; I48.0 Paroxysmal atrial fibrillation; R19.7 Diarrhea, unspecified; K57.90 Diverticulosis of intestine, part unspecified, without perforation or abscess without bleeding; Z92.21 Personal history of antineoplastic chemotherapy; Z92.3 Personal history of irradiation; Z80.1 Family history of malignant neoplasm of trachea, bronchus and lung; Z85.41 Personal history of malignant neoplasm of cervix uteri; Z79.899 Other long term (current) drug therapy; Z79.52 Long term (current) use of systemic steroids; F32.9 Major depressive disorder, single episode, unspecified; Z87.891 Personal history of nicotine dependence